=== PATIENT | male | born 1945 | race Caucasian/White ===

== ENCOUNTER 2023-04-11 14:40 | Outpatient (OUT) | payer MEDICARE, OTHER, SELFPAY ==
[2023-04-11 14:59] LABS: Bilirubin Urine NEGATIVE (NEGATIVE); Blood Urine TRACE-I (NEGATIVE); Clarity Urine CLEAR (CLEAR); Color Urine YELLOW (YELLOW); Glucose Urine UA NEGATIVE (NEGATIVE); Ketones Urine TRACE mg/dL (NEGATIVE); Leukocyte Esterase Urine LARGE (NEGATIVE); Nitrite Urine NEGATIVE (NEGATIVE); Protein Urine 100 mg/dL (NEG/TRACE); Specific Gravity Urine 1.015 (1.005-1.025); Urobilinogen Urine 0.2 EU/dL (0.2-1.0); pH Urine 5.5 (5.0-9.0)
[2023-04-11 15:04] LABS: Bacteria Urine MODERATE #/HPF (NONE SEEN); Cast Seen? NONE SEEN #/LPF (NONE SEEN); Crystals Seen? None Seen #/HPF (None Seen); Mucus Urine NONE SEEN (NONE SEEN); Squamous Epithelial Cell Urine RARE #/LPF (NONE/RARE); WBC Urine 50-75 #/HPF (NONE SEEN)
[2023-04-11 15:05] LABS: Urine Culture Indicated ALREADY ORDERED
== END 2023-04-11 14:41 | disposition home or self-care (01) ==
LOC: LAB 14:43
PROVIDERS: PCP Nurse Practitioner Family; Visit Provider Nurse Practitioner Family
DX: N39.0 Urinary tract infection, site not specified (principal)
CPT/HCPCS: 81001; 87086; 87150; 87186

== ENCOUNTER 2023-05-02 16:45 | Outpatient (OUT) | payer MEDICARE, OTHER, SELFPAY ==
[2023-05-02 17:13] LABS: Bilirubin Urine NEGATIVE (NEGATIVE); Blood Urine SMALL (NEGATIVE); Color Urine LT. YELLOW (YELLOW); Glucose Urine UA 250 mg/dL (NEGATIVE); Ketones Urine NEGATIVE (NEGATIVE); Leukocyte Esterase Urine SMALL (NEGATIVE); Nitrite Urine NEGATIVE (NEGATIVE); Protein Urine 30 mg/dL (NEG/TRACE); Urobilinogen Urine 0.2 EU/dL (0.2-1.0)
[2023-05-02 17:23] LABS: Bacteria Urine MODERATE #/HPF (NONE SEEN); Clarity Urine SLIGHTLY CLOUDY (CLEAR); RBC Urine NONE SEEN #/HPF (0-2)
[2023-05-02 17:24] LABS: Cast Seen? NONE SEEN #/LPF (NONE SEEN); Crystals Seen? None Seen #/HPF (None Seen); Mucus Urine NONE SEEN (NONE SEEN); Squamous Epithelial Cell Urine NONE SEEN #/LPF (NONE/RARE)
== END 2023-05-02 16:46 | disposition home or self-care (01) ==
LOC: LAB 16:47
PROVIDERS: PCP Nurse Practitioner Family; Visit Provider Nurse Practitioner Family
DX: N39.0 Urinary tract infection, site not specified (principal)
CPT/HCPCS: 81001; 87086; 87150; 87186

== ENCOUNTER 2023-08-15 08:50 | Outpatient (OUT) | payer MEDICARE, OTHER, SELFPAY ==
[2023-08-15 09:15] LABS: Basophils Percent Auto 0.5 % (0.2-2.0); Eosinophils Absolute Auto 0.4 10^3/uL (0.0-0.7); Eosinophils Percent Auto 4.2 % (0.9-7.0); Hematocrit 32.3 % (42.0-54.0); Hemoglobin 10.3 g/dL (14.0-18.0); Immature Granulocytes Abs Auto 0.05 10^3/uL (0.00-0.03); Immature Granulocytes Pct Auto 0.6 % (0.0-0.5); Lymphocytes Absolute Auto 3.6 10^3/uL (1.2-3.8); Lymphocytes Percent Auto 42.6 % (20.5-60.0); Mean Corpuscular HGB Conc 31.9 g/dL (29.9-35.2); Mean Corpuscular Hemoglobin 30.5 pg (25.9-34.0); Mean Corpuscular Volume 95.6 fL (80.0-94.0); Mean Platelet Volume 10.2 fL (9.5-13.5); Monocytes Absolute Auto 0.6 10^3/uL (0.3-0.8); Monocytes Percent Auto 7.7 % (1.7-12.0); Neutrophils Absolute Auto 3.7 10^3/uL (1.4-6.5); Neutrophils Percent Auto 44.4 % (43.0-75.0); Platelet Count 379 10^3/uL (150-450); Red Blood Count 3.38 10^6/uL (4.70-6.10); Red Cell Distribution Width 14.4 % (11.0-15.0); White Blood Count 8.4 10^3/uL (4.0-11.0)
[2023-08-15 09:25] LABS: Estimated Average Glucose 266 mg/dL; Glycohemoglobin A1C 10.9 % (4.5-6.2)
[2023-08-15 10:00] LABS: Alanine Aminotransferase 17 U/L (16-63); Albumin Globulin Ratio 0.7; Albumin Level 3.3 g/dL (3.4-5.0); Alkaline Phosphatase 45 U/L (46-116); Anion Gap 14.4; Aspartate Amino Transferase 11 U/L (15-37); BUN Creatinine Ratio 15.1; Bilirubin Total 0.3 mg/dL (0.2-1.0); Calcium 8.6 mg/dL (8.5-10.1); Carbon Dioxide 24.5 mmol/L (21.0-32.0); Chloride 105 mmol/L (98-107); Chol HDL Ratio 3.2; Cholesterol 147 mg/dL (<=200); Estimated GFR (African America 32 (>=60); Estimated GFR (Non-African Ame 27 (>=60); Free T3 1.97 pg/mL (2.18-3.98); Globulin 4.5 g/dL; Glucose 139 mg/dL (74-106); HDL Cholesterol 46 mg/dL (40-60); Potassium 4.9 mmol/L (3.5-5.1); Sodium 139 mmol/L (136-145); Thyroid Stimulating Hormone 3.582 uIU/mL (0.358-3.740); Total Protein 7.8 g/dL (6.4-8.2); Triglycerides 135 mg/dL (<=150)
[2023-08-15 10:09] LABS: Prostate Specific Antigen Scrn 2.37 ng/mL (<=4.00)
[2023-08-16 11:09] LABS: Insulin 17.6 uIU/mL (2.6-24.9)
== END 2023-08-15 08:51 | disposition home or self-care (01) ==
LOC: LAB 08:50
PROVIDERS: PCP Nurse Practitioner Family; Visit Provider Nurse Practitioner Family
DX: E78.5 Hyperlipidemia, unspecified (principal)
CPT/HCPCS: 36415; 80053; 80061; 83036; 83525; 84436; 84443; 84481; 84550; 85025; G0103

== ENCOUNTER 2024-01-04 10:45 | Outpatient (OUT) | payer MEDICARE, OTHER, SELFPAY ==
[2024-01-04 11:50] LABS: Estimated Average Glucose 183 mg/dL
== END 2024-01-04 10:46 | disposition home or self-care (01) ==
LOC: LAB 10:45
PROVIDERS: PCP Nurse Practitioner Family; Visit Provider Nurse Practitioner Family
DX: E11.65 Type 2 diabetes mellitus with hyperglycemia (principal)
CPT/HCPCS: 36415; 83036

== ENCOUNTER 2024-08-11 13:27 | Outpatient (OUT) | payer MEDICARE, OTHER, SELFPAY ==
--- NOTE | 2024-08-11 | XR_ITS ---
The [address] [address] Patient Name: VINITA MOREL MRN: [id number] date: 1945 Sex: M Assigned Patient Location: LAB Current Patient Location: LAB Accession/Order Number: [id number] Exam Date: 08/11/2024 14:08 Report Date: 08/11/2024 14:36 At the request of: NANCY SÁNCHEZ Procedure: XR chest 2V PROCEDURE: XR chest 2V DATE: 08/11/2024 2:08 PM EST COMPARISONS: None. CLINICAL INDICATION: 78 years Male COUGH FINDINGS: The heart is upper normal in size. There is moderate elevation the right hemidiaphragm. There is associated right infrahilar atelectasis. There is heterogeneous airspace disease scattered throughout the right lung which may represent inflammatory infiltrate (pneumonia). Other etiologies are also possible. Follow-up radiographs to document resolution are recommended. There is no evidence of pleural effusion or pneumothorax. XR/XR chest 2V IMPRESSION: 1. Elevated right hemidiaphragm with associated atelectasis 2. Airspace disease involving the mid and upper right lung of unclear etiology. Presumably this represents inflammatory infiltrate (pneumonia). Electronically authenticated by: CRYSTAL BOLAND Date: 08/11/2024 14:36
[2024-08-11 13:50] LABS: Basophils Percent Auto 0.3 % (0.2-2.0); Hematocrit 29.9 % (42.0-54.0); Hemoglobin 10.3 g/dL (14.0-18.0); Immature Granulocytes Abs Auto 0.03 10^3/uL (0.00-0.03); Immature Granulocytes Pct Auto 0.3 % (0.0-0.5); Lymphocytes Absolute Auto 1.6 10^3/uL (1.2-3.8); Lymphocytes Percent Auto 14.1 % (20.5-60.0); Mean Corpuscular HGB Conc 34.4 g/dL (29.9-35.2); Mean Corpuscular Hemoglobin 31.4 pg (25.9-34.0); Mean Corpuscular Volume 91.2 fL (80.0-94.0); Mean Platelet Volume 9.8 fL (9.5-13.5); Monocytes Absolute Auto 1.3 10^3/uL (0.3-0.8); Monocytes Percent Auto 11.2 % (1.7-12.0); Neutrophils Absolute Auto 8.3 10^3/uL (1.4-6.5); Neutrophils Percent Auto 74.1 % (43.0-75.0); Platelet Count 359 10^3/uL (150-450); Red Blood Count 3.28 10^6/uL (4.70-6.10); Red Cell Distribution Width 13.6 % (11.0-15.0); White Blood Count 11.2 10^3/uL (4.0-11.0)
[2024-08-11 14:46] LABS: Alanine Aminotransferase 102 U/L (16-63); Albumin Globulin Ratio 0.5; Albumin Level 2.6 g/dL (3.4-5.0); Alkaline Phosphatase 48 U/L (46-116); Anion Gap 15.7; Aspartate Amino Transferase 131 U/L (15-37); Bilirubin Total 0.4 mg/dL (0.2-1.0); Calcium 9.3 mg/dL (8.5-10.1); Carbon Dioxide 25.1 mmol/L (21.0-32.0); Chloride 90 mmol/L (98-107); Estimated GFR (African America 18 (>=60 mL/min/1.73m^2); Estimated GFR (Non-African Ame 15 (>=60 mL/min/1.73m^2); Free T3 1.13 pg/mL (2.18-3.98); Globulin 5.5 g/dL; Glucose 271 mg/dL (74-106); Potassium 3.8 mmol/L (3.5-5.1); Sodium 127 mmol/L (136-145); Thyroid Stimulating Hormone 1.819 uIU/mL (0.358-3.740); Total Protein 8.1 g/dL (6.4-8.2)
== END 2024-08-11 13:28 | disposition home or self-care (01) ==
LOC: LAB 13:31
PROVIDERS: PCP Nurse Practitioner Family; Visit Provider Nurse Practitioner Family
DX: R05.9 Cough, unspecified (principal)
CPT/HCPCS: 36415; 71046; 80053; 84436; 84443; 84481; 85025

== ENCOUNTER 2024-08-11 16:07 | Inpatient (IN) | payer MEDICARE, OTHER, SELFPAY ==
[2024-08-11] VITALS (36 sets, daily range): BP systolic 139–175; BP diastolic 57–76; PULSE 75–90; TEMP 37–37.4; O2SAT 80–97; BMI 39.0; BMI 39.6
--- NOTE | 2024-08-11 16:10 | ECG_ITS ---
The [facility] Test Date: 2024-08-11 Pat Name: VINITA MOREL Department: Room: - Gender: Male Explosive Specialist: : 1945 Requested By: NANCY SÁNCHEZ Order Number: [id number] Reading MD: CLIVE JORDAN Measurements Intervals [place] Rate: 81 P: 66 NV: 176 QRS: -73 QRSD: 172 T: 65 QT: 402 QTc: 440 Interpretive Statements 1100 Sinus rhythm 1102 Sinus arrhythmia 2450 Right bundle branch block 2630 Left anterior fascicular block 9150 abnormal ECG Compared to ECG 03/19/2021 10:55:33 Right bundle-branch block now present Left anterior fascicular block now present Sinus bradycardia no longer present Ventricular premature complex(es) no longer present Intraventricular conduction delay no longer present Electronically Signed On 08-11-2024 23:12:23 EST by CLIVE JORDAN
--- NOTE | 2024-08-11 16:30 | ED_ITS ---
HPI - SOB/Dyspnea General Chief Complaint: Shortness of Breath/Dyspnea Stated Complaint: SENT OVER BY DOCTOR Time Seen by Provider: 08/11/24 16:09 Source: patient Mode of arrival: Wheelchair Limitations: no limitations Related Data Home Medications ?Medication ?Instructions ?Recorded ?Confirmed albuterol sulfate 90 mcg/actuation 2 inh inhalation Q4H PRN shortness 08/11/24 08/11/24 breath activated powder inhaler of breath aspirin 81 mg tablet,delayed 81 mg PO DAILY 08/11/24 08/11/24 release (Adult Aspirin Regimen) atorvastatin 40 mg tablet 60 mg PO .qhs 08/11/24 08/11/24 fenofibrate nanocrystallized 48 mg 96 mg PO QDAY 08/11/24 08/11/24 tablet ferrous gluconate 324 mg (38 mg 324 mg PO QPM 08/11/24 08/11/24 iron) tablet furosemide 20 mg tablet 20 mg PO QDAY 08/11/24 08/11/24 insulin human U-100 NPH-regulr 18 unit subcut BID 08/11/24 08/11/24 70-30 mix 100 unit/mL subcutaneous susp (Novolin 70/30 U-100 Insulin) losartan 100 mg tablet 100 mg PO QDAY 08/11/24 08/11/24 nifedipine 60 mg tablet,extended 60 mg PO QDAY 08/11/24 08/11/24 release oxybutynin chloride 5 mg 5 mg PO QDAY 08/11/24 08/11/24 tablet,extended release 24 hr semaglutide 0.25 mg or 0.5 mg (2 0.5 mg subcut .weekly 08/11/24 08/11/24 mg/3 mL) subcutaneous pen injector (Ozempic) spironolactone 25 mg tablet 25 mg PO QAM 08/11/24 08/11/24 tamsulosin 0.4 mg capsule 0.4 mg PO Q24H 08/11/24 08/11/24 Allergies Allergy/AdvReac Type Severity Reaction Status Date / Time cephalexin (From Keflex) Allergy Unknown Unknown Verified 08/11/24 17:25 ciprofloxacin (From Cipro) Allergy Unknown Unknown Verified 08/11/24 17:25 fluconazole Allergy Unknown Unknown Verified 08/11/24 17:25 lisinopril Allergy Unknown Unknown Verified 08/11/24 17:25 metronidazole (From Flagyl) Allergy Unknown Unknown Verified 08/11/24 17:25 PFSH PFSH Social History Little interest or pleasure in doing things: not at all Feeling down, depressed, or hopeless: not at all Exam Constitutional Vital Signs, click to edit/add: Last Vital Signs Temp 98.6 F 08/11/24 16:20 Pulse 83 08/11/24 19:30 Resp 16 08/11/24 19:30 BP 166/76 H 08/11/24 18:45 Pulse Ox 90 L 08/11/24 19:30 O2 Del Method Vapotherm 08/11/24 18:50 O2 Flow Rate 30 08/11/24 18:50 FiO2 50 08/11/24 18:50 Course Vital Signs Vital signs: Vital Signs Temperature 98.6 F 08/11/24 16:20 Pulse Rate 88 08/11/24 16:20 Respiratory Rate 24 H 08/11/24 16:20 Blood Pressure 153/58 H 08/11/24 16:20 Pulse Oximetry 86 L 08/11/24 16:20 Oxygen Delivery Method Room Air 08/11/24 16:20 Temperature 98.6 F 08/11/24 16:20 Pulse Rate 83 08/11/24 19:30 Respiratory Rate 16 08/11/24 19:30 Blood Pressure 166/76 H 08/11/24 18:45 Pulse Oximetry 90 L 08/11/24 19:30 Oxygen Delivery Method Vapotherm 08/11/24 18:50 Oxygen Delivery Flow Rate 30 08/11/24 18:50 Fraction of Inspired Oxygen 50 08/11/24 18:50 MDM - SOB/Dyspnea MDM Narrative Medical decision making narrative: Patient had CBC and CMP earlier today showing creatinine of 4.0. Additional labs ordered in the ER including troponin and BNP which are both elevated. Outpatient chest x-ray shows patient has multifocal pneumonia in the right lung. Respiratory swabs are negative and blood cultures were ordered for the patient. Due to multiple antibiotic allergies, he was given IV doxycycline for coverage of pneumonia and he was also noted to have a UTI on outpatient labs. I discussed the case with Dr. Javier and given the elevated troponin of 241.1, we will repeat a 3-hour cardiac enzyme. If the troponin is stable, the patient can be admitted. Otherwise he will need to be transferred. While waiting for the repeat troponin, patient was evaluated by Dr. Javier. Throughout his stay in the emergency room he was found to have worsening hypoxia and after breathing treatment was given, the patient had moderate cough and congestion with sputum production and was found to be hypoxic on nasal cannula at 4 to 5 L. He was switched to Vapotherm with improvement and is breathing more easily. Repeat troponin has decreased and patient can be admitted to ICU at this facility. SHARED APC VISIT, PHYSICIAN ATTESTATION: [id number] I performed a substantive part of the MDM during the patient?s E/M visit. I personally evaluated and examined the patient. I personally made or approved the documented management plan and acknowledge its risk of complications. Medical Records Attestation: I reviewed the patient's medical records. Lab Data Attestation: I reviewed the patient's lab results. Labs: Lab Results 08/11/24 08/11/24 08/11/24 Range/Units 16:31 16:35 16:37 PT 11.9 H (9.0-11.6) sec INR 1.14 VBG pH 7.496 H (7.330-7.430) VBG pCO2 30.7 L (40.0-52.0) mmHg Lactate 1.9 (0.4-2.0) mmol/L Troponin I High Sens 241.1 H* (4.0-76.1) pg/mL NT-Pro-B Natriuret Pep 2591.0 H* (<=1800.0) pg/mL Influenza Type A Ag Negative Influenza Type B Ag Negative RSV Antigen Not detected (NOT DETECTE) SARS-CoV-2 Ag (CV2AG) Negative (NEGATIVE) Imaging Data Chest x-ray: Attestation: I have reviewed the pertinent imaging results. ECG Data Attestation: I personally reviewed and interpreted this ECG as follows: (Normal sinus rhythm at a rate of 81 with sinus arrhythmia noted, right bundle branch block with no acute ST elevation or ectopy. EKG reviewed by attending physician) Discharge Plan Discharge Chief Complaint: Shortness of Breath/Dyspnea Patient Disposition: Admitted As Inpatient Time of Disposition Decision: 19:51 Prescriptions / Home Meds: No Action aspirin [Adult Aspirin Regimen] 81 mg tablet,delayed release (DR/EC) 81 mg PO DAILY atorvastatin 40 mg tablet 60 mg PO .qhs fenofibrate nanocrystallized 48 mg tablet 96 mg PO QDAY ferrous gluconate 324 mg (38 mg iron) tablet 324 mg PO QPM furosemide 20 mg tablet 20 mg PO QDAY Novolin 70/30 U-100 Insulin 100 unit/mL (70-30) suspension 18 unit SUBCUT BID losartan 100 mg tablet 100 mg PO QDAY nifedipine 60 mg tablet extended release 60 mg PO QDAY oxybutynin chloride 5 mg tablet extended release 24hr 5 mg PO QDAY Ozempic 0.25 mg or 0.5 mg (2 mg/3 mL) pen injector 0.5 mg SUBCUT .weekly spironolactone 25 mg tablet 25 mg PO QAM tamsulosin 0.4 mg capsule 0.4 mg PO Q24H albuterol sulfate 90 mcg/actuation aerosol powdr breath activated 2 inh inhalation Q4H PRN (Reason: shortness of breath) Print Language: Nepali Referrals: NANCY SÁNCHEZ [Primary Care Provider] - 1 week
[2024-08-11 16:46] LABS: PCO2 VBG 30.7 mmHg (40.0-52.0); pH VBG 7.496 (7.330-7.430)
[2024-08-11] MEDS: 0.9 % SODIUM CHLORIDE 1,000 ML 500 ML IV (16:54)
[2024-08-11 17:01] LABS: INR 1.14; Prothrombin Time 11.9 sec (9.0-11.6)
[2024-08-11 17:04] LABS: Lactate/Lactic Acid 1.9 mmol/L (0.4-2.0)
[2024-08-11 17:08] LABS: Influenza Virus A Antigen Negative; Influenza Virus B Antigen Negative; Internal Control Within Normal Limits; SARS-CoV-2 Ag NEGATIVE (NEGATIVE)
[2024-08-11 17:09] LABS: Internal Control Within Normal Limits; Respiratory Syncytial Virus Not Detected (NOT DETECTE)
[2024-08-11 17:10] LABS: Troponin I High Sensitivity 241.1 pg/mL (4.0-76.1)
[2024-08-11] MEDS: DOXYCYCLINE HYCLATE 100 MG in 0.9 % SODIUM CHLORIDE 100 ML IV (17:36)
[2024-08-11] MEDS: ALBUTEROL SULFATE 2.5 MG/3 ML VIAL NEB IH (17:46)
--- NOTE | 2024-08-11 18:53 | P.HP_ITS ---
HPI H&P: HPI History of Present Illness Chief complaint: SHORTNESS OF BREATH Narrative: Pt seen in the office with MAYA, sent for labs and x-ray , found to have ARF and Pneumonia. Referred to ER, Found to have elevated BNP adn HST Opioid HPI Opioid Management Most Recent Pain and Opioid Data: No Data to Display PFSH PFSH Social History Little interest or pleasure in doing things: not at all Feeling down, depressed, or hopeless: not at all Meds Home Medications and Allergies Home Medications ?Medication ?Instructions ?Recorded ?Confirmed ?Type albuterol sulfate 90 mcg/actuation 2 inh inhalation Q4H PRN shortness 08/11/24 08/11/24 History breath activated powder inhaler of breath aspirin 81 mg tablet,delayed 81 mg PO DAILY 08/11/24 08/11/24 History release (Adult Aspirin Regimen) atorvastatin 40 mg tablet 60 mg PO .qhs 08/11/24 08/11/24 History fenofibrate nanocrystallized 48 mg 96 mg PO QDAY 08/11/24 08/11/24 History tablet ferrous gluconate 324 mg (38 mg 324 mg PO QPM 08/11/24 08/11/24 History iron) tablet furosemide 20 mg tablet 20 mg PO QDAY 08/11/24 08/11/24 History insulin human U-100 NPH-regulr 18 unit subcut BID 08/11/24 08/11/24 History 70-30 mix 100 unit/mL subcutaneous susp (Novolin 70/30 U-100 Insulin) losartan 100 mg tablet 100 mg PO QDAY 08/11/24 08/11/24 History nifedipine 60 mg tablet,extended 60 mg PO QDAY 08/11/24 08/11/24 History release oxybutynin chloride 5 mg 5 mg PO QDAY 08/11/24 08/11/24 History tablet,extended release 24 hr semaglutide 0.25 mg or 0.5 mg (2 0.5 mg subcut .weekly 08/11/24 08/11/24 History mg/3 mL) subcutaneous pen injector (Ozempic) spironolactone 25 mg tablet 25 mg PO QAM 08/11/24 08/11/24 History tamsulosin 0.4 mg capsule 0.4 mg PO Q24H 08/11/24 08/11/24 History Allergies Allergy/AdvReac Type Severity Reaction Status Date / Time cephalexin (From [employer]) Allergy Unknown Unknown Verified 08/11/24 17:25 ciprofloxacin (From Cipro) Allergy Unknown Unknown Verified 08/11/24 17:25 fluconazole Allergy Unknown Unknown Verified 08/11/24 17:25 lisinopril Allergy Unknown Unknown Verified 08/11/24 17:25 metronidazole (From Flagyl) Allergy Unknown Unknown Verified 08/11/24 17:25 Exam Constitutional Vital Signs, click to edit/add: Last Vital Signs Temp 98.6 F 08/11/24 16:20 Pulse 75 08/11/24 17:47 Resp 24 H 08/11/24 16:20 BP 153/58 H 08/11/24 16:20 Pulse Ox 91 L 08/11/24 17:47 O2 Del Method Nasal Cannula 08/11/24 17:47 O2 Flow Rate 4 08/11/24 17:47 Documenting provider has reviewed patient's vital signs: yes Common normals: apparent distress (Distress due to coughing) HENMT Common normals: normocephalic Chest Common normals: inspection of chest normal and palpation of chest normal Respiratory Common normals: no use of accessory muscles; abnormal respiratory effort (coughing during exam) and not clear to ascultation bilaterally Auscultation: rhonchi and egophony right upper Cardio Common normals: regular rate and regular rhythm Extremity Common normals: normal to inspection, full ROM and no clubbing, cyanosis or edema Results ABG ABG results: 08/11/24 16:37 VBG pH 7.496 H VBG pCO2 30.7 L Assessment and Plan Assessment and Plan (1) Acute kidney injury: (2) Acute UTI: (3) Hypoxia: (4) Multifocal pneumonia: (5) Hypothyroid: (6) Acute renal failure: (7) Elevated liver function tests: (8) Anemia: (9) Hyponatremia: (10) Elevated troponin I level: (11) Elevated brain natriuretic peptide (BNP) level: (12) Right upper lobe pneumonia: Plan Admission finding: acute hypoxia with respiratory failure requiring HIgh Flow Supplemental Oxygen, respiratory distress, Uncontrolled hypertension, Leukocytosis due to acute RUL pneumonia leading to sepsis (acute hypoxia, leukocytosis, source of infection) and multisystem organ dysfunction (Elevated troponin, hypoxia and acute renal failure) Sepsis due to pneumonia with acute hypoxic respiratory failure - Sputum cx, IV AB frequent aerosols, Vapotherm - will also try IPV treatments GOOD on top of CKD-3 - Slow hydration, due to elevated BNP and troponin - Elevated troponin - and BNP = check echo - lung exam and no edema so would not be consistent with CHF Hypothyroid - Supplement with cytomel Anemia - Follow daily Uncontrolled hypertension - adjust meds Hyponatremia - due to GOOD - slow hydration NIDDM - ISS elevated LFT likely due to passive congestion due to len pneumonia and GOOD Admission status: With acute hypoxia requiring High Flow Supplemental oxygen, GOOD with elevated HST and BNP, this will require more than 2 midnights of medically necessary treatment, Inpatient status
--- OUTSIDE RECORDS SUMMARY | 2024-08-11 20:43 | XMS_ITS | CCD ---
Author Organization [facility] Care Team Providers Care Staff Command And Control Officer Name Role Phone Unavailable Primary Care Provider Unavailabl e SYD GAMBOA Referring Unavailable Cristiane Lopez Primary Care Provider Unavaila ble SYD GAMBOA Referring Unavailable CRISTIANE LOPEZ R Primary Care Unavailable Pola Vu Unavailable [phone] Pam Torres RN Unavailable [phone] Sarika Cook MD Unavailable Casandra Holley PA-C Unavailable [phone] Syd Henry MD Primary Care Provider Princess INTERRELATED SPECIAL EDUCATION TEACHER.KIESHA, Mary Alice Primary Care Provider [phone] Pola Vu Unavailable Pam Torres RN Unavailable [phone] Sarika Cook MD Unavailable Casandra Holley PA-C Unavailable [phone] Princess INTERRELATED SPECIAL EDUCATION TEACHER.KIESHA, Mary Alice Primary Care Provider [phone] PRAKASH Sáncheze Primary Care Provider [phone] DO Josh Porter Emergency Provider Pam Torres RN Unavailable Sarika Cook MD Unavailable [phone] Princess INTERRELATED SPECIAL EDUCATION TEACHER.KIESHA, Mary Alice Primary Care Provider [phone] Pola Vu Unavailable [phone] Pam Torres RN Unavailable [phone] Sarika Cook MD Unavailable Casandra Holley PA-C Unavailable [phone] Princess PRESCRIPTION EYEGLASS MAKER, Mary Alice S Primary Care Provider PRINCESS, MARY ALICE Admitting Unavailable PRINCESS, MARY ALICE Consulting Unavailable PRINCESS, MARY ALICE Attending Unavailable SYD HENRY Primary Care Unavailable PRINCESS, MARY ALICE Admitting Unavailable PRINCESS, MARY ALICE Primary Care Unavailable PRINCESS, MARY ALICE Consulting Unavailable PRINCESS, MARY ALICE Attending Unavailable Bryan PLAZA, Syd Villanueva Primary Care Provider [phone] Pam Torres RN Unavailable [phone] PRINCESS, MARY ALICE S Primary Care Unavailable TRAMAINE WEBSTERNA Referring Unavailable FIDEL SánchezC Mary Alice Lakia Primary Care Provider DO Leslee Webster Attending Provider Pam Torres RN Unavailable [phone] Casandra Holley PA-C Unavailable [phone] Princess PRESCRIPTION EYEGLASS MAKER, Mary Alice S Primary Care Provider [phone] PRAKASH Sánchez Mary Alice Lakia Primary Care Provider MD Dwight Hyannis Emergency Provider [phone] DO Lizzie Sinclair Admit Provider DO Lizzie Sinclair Attending Provider MD Dung Grider Other Provider SYD GAMBOA Attending Unavailable PRINCESS, MARY ALICE S Primary Care Unavailable COOPER, SYD Referring Unavailable PRINCESS, MARY ALICE S Primary Care Unavailable LIZZIE SINCLAIR Referring Unavailable ENRIQUETAITZER, LESLEE Referring Unavailable PRINCESS, MARY ALICE S Primary Care Unavailable TRAMAINE WEBSTERNA Attending Unavailable KARAMLOU, SARIKA Referring Unavailable PRINCESS, MARY ALICE S Primary Care Unavailable KARAMLOU, SARIKA Attending Unavailable KARAMLOU, SARIKA Referring Unavailable PRINCESS, MARY ALICE S Primary Care Unavailable KARAMLOU, SARIKA Referring Unavailable PRINCESS, MARY ALICE S Primary Care Unavailable PRINCESS, MARY ALICE S Primary Care Unavailable CASANDRA HOLLEY Referring Unavailable KARAMLOU, SARIKA Referring Unavailable PRINCESS, MARY ALICE S Primary Care Unavailable PRINECSS, MARY ALICE S Primary Care Unavailable CASANDRA HOLLEY Referring Unavailable PRINCESS, MARY ALICE S Primary Care Unavailable PRINCESS, MARY ALICE S Primary Care Unavailable MELISSA MCKEON Attending Unavailable LEANN RAINES Attending Unavailable LEANN RAINES Attending Unavailable LEANN RAINES Attending Unavailable LEANN RAINES Attending Unavailable Princess, Mary Alice Lakia Primary Care Unavailable Anthony Beaver Admitting Unavailable Anthony Beaver Attending Unavailable Leslee Webster Admitting Unavailable Leslee Webster Attending Unavailable Princess, Mary Alice Lakia Primary Care Unavailable Kellie Grider Unavailable Princess, Mary Alice Lakia Primary Care Unavailable Lizzie Sinclair Admitting Unavailable Lizzie Sinclair Attending Unavailable Allergies Allergy Classification Reported Allergen(s) Allergy Type Date of Onset Reaction(s) Facility (20 sources) Cephalexin; Translations: [CEPHALEXIN] Drug Allergy 0 Diarrhea [facility] Work Phone: (20 sources) Ciprofloxacin; Translations: [CIPROFLOXACIN] Drug Allergy 0 Other: See Comments [facility] (20 sources) Fluconazole; Translations: [FLUCONAZOLE] Drug Allergy 0 Diarrhea [facility] (20 sources) metroNIDAZOLE; Translations: [METRONIDAZOLE] Drug Allergy 0 Other: See Comments [facility] (1 source) Cephalexin Drug Allergy [facility] Rep[facility] (1 source) Ciprofloxacin Drug Allergy [facility] (1 source) Fluconazole Drug Allergy [facility] Repository (1 source) metroNIDAZOLE Drug Allergy [facility] Repository (1 source) Cephalexin Drug Allergy 4 [facility] (1 source) Ciprofloxacin Drug Allergy 4 [facility] (1 source) Fluconazole Drug Allergy 4 [facility] Medications Current Medications Medication Drug Class(es) Dates Sig (Normalized) Sig (Original) A-C-E-zinc ox-cupric ox-lutein ([facility]) 7,160 unit- 113 mg-1 mg tab (20 sources) A-C-E-zinc ox-cu pric ox-lutein ([facility]) 7,160 unit- 113 mg-1 mg tab Take by mouth. Active A-C-E-zinc ox-cu pric ox-lutein ([facility]) 7,160 unit- 113 mg-1 mg tab Take by mouth. 0 Active Comment on above: Take by mouth. acetaminophen 500 mg oral tablet (2 sources) Start: 1 End: 2 take 2 tablets by mouth every six hours as needed acetaminophen (TYLENOL) 500 mg tablet Take 2 tablets by mouth every 6 hours as needed for pain. 0 03/11/2021 03/07/2022 Discontinued (Discontinued by Patient) Comment on above: Take 2 tablets by mo [facility] every 6 hours as needed for pain. allopurinol 300 mg oral tablet (12 sources) Xanthine Oxidase Inhibitor Start: allopurinol (ZYLOPRIM) 300 mg tablet Start: 06-22-2020 End: 05-08-2022 take 300 mg by mouth once daily Allopurinol Discontinued 300 MG PO Daily June 22, 2020 12:00am May 08, 2022 8:27pm ascorbic acid 60 mg oral lozenge (20 sources) Vitamin C Start: 06-22-2020 take 60 mg by mouth once daily Ascorbic Acid (Vitamin C) Active 60 MG PO Daily June 22, 2020 12:00am Comment on above: Take by mouth. aspirin 81 mg chewable tablet (20 sources) Platelet Aggregation Inhibitor, Nonsteroidal Anti-inflammatory Drug Start: 06-22-2020 take 81 mg by mouth once daily Aspirin Active 81 MG PO Daily June 22, 2020 12:00am take 1 tablet by mouth once ryan y aspirin, enteric coated (ASPIRIN, ENTERIC COATED) 81 mg EC tablet Take 81 mg by mouth once daily. Active Comment on above: Take 81 mg by mouth once daily. atorvastatin 40 mg oral tablet (20 sources) HMG-CoA Reductase Inhibitor Start: 11-15-2023 atorvastatin (LIPITOR) 40 mg tablet TAKE 1 AND 1/2 TABLETS BY MOUTH ONCE A DAY 0 11/15/2023 Active Start: 09-15-2021 End: 10-18-2023 take 80 mg by mouth once daily Atorvastatin Discontinu ed 80 MG PO Daily May 08, 2022 12:00am October 18, 2023 3:11pm Comment on above: TAKE 1 AND 1/2 TABLE TS BY MOUTH ONCE A DAY bisacodyl 5 mg delayed release oral tablet (2 sources) Stimulant Laxative Start: 08-28-20 End: 03-07-20 22 Bisacodyl (DULCOLAX) 5 mg tab Use as directed for Miralax / Gatorade Bowel Prep Kit 4 tablet 0 08/28/2021 03/07/2022 Discontinued (Discontinued by Patient) Comment on above: Use as directed for Miralax / Gatorade Bowel Prep Kit cholecalciferol 0.025 mg oral tablet (20 sources) Vitamin D Start: 06-22-20 take 25 ug by mouth once daily Cholecalciferol (Vitamin D3) Active 25 MCG PO Daily June 22, 2020 12:00am cholecalciferol (VITAMIN D3) 1,000 unit tab tablet Take 1,000 Units by mouth. Active Comment on above: Take 1,000 Units by mouth. cinnamon bark 500 mg oral capsule (20 sources) Start: 06-22-2020 End: 04-21-2024 take 500 mg by mouth once daily Cinnamon Bark Active 500 MG PO Daily June 22, 2020 12:00am Comment on above: Take 500 mg by mouth . CPAP (20 sources) CPAP Active CPAP [place] 4-Jcb-Fdb-Fish Oil (5 sources) Start: 06-22-2020 take 1 capsule by mouth once daily [place] 3-Kxt-Zyr-Fish Oil Active 1 CAP PO Daily June 21, 2020 11:00pm Start: 06-22-2020 take 1 capsule by mo ut once daily [place] 9-Duc-Rjl-Fish Oil Active 1 CAP PO Daily June 22, 2020 12:00am enteric contrast (will be provided with radiology test) (9 sources) Start: 09-18-2022 End: 09-19-2022 enteric contrast (will be provided with radiology test) Indications: Colorectal cancer (HCC) , Overlapping malignant neoplasm of colon (HCC) For CT CHESTABD/PEL W IVCON Routine order Administer, As Directed One Time Only, via Oral, Rectal, both Oral and Rectal, Enteric Tube, Stoma or Indwelling Catheter, Enteric Contrast as designated per enteric contrast guidelines 1 Each 0 09/18/2022 09/19/2022 Active Start: 04-06-2022 End: 04-20-2022 enteric contrast (will be pr ovided with radiology test) For CT ABD/PEL W IVCON Routine order Administer, As Directed One Time Only, via Oral, Rectal, both Oral and Rectal, Enteric Tube, Stoma or Indwelling Catheter, Enteric Contrast as designated per enteric contrast guidelines 1 Each 0 04/06/2022 04/20/2022 Discontinued (Course of therapy completed) Start: 04-06-[address] (will be provided with radiology test) For CT ABD/PEL W IVCON Routine order Administer, As Directed One Time Only, via Oral, Rectal, both Oral and Rectal, Enteric Tube, Stoma or Indwelling Catheter, Enteric Contrast as designated per enteric contrast guidelines 1 Each 0 04/06/2022 Active Comment on above: For CT ABD/PEL W IVC ON Routine order Administer, As Directed One Time Only, via Oral, Rectal, both Oral and Rectal, Enteric Tube, Stoma or Indwelling Catheter, Enteric Contrast as designated per enteric contrast guidelines For CT CHESTABD/PEL W IVCON Routine order Administer, As Directed One Time Only, via Oral, Rectal, both Oral and Rectal, Enteric Tube, Stoma or Indwelling Catheter, Enteric Contrast as designated per enteric contrast guidelines fenofibrate 48 mg oral tablet (20 sources) Peroxisome Proliferator Receptor alpha Agonist Start: 04-07-20 fenofibrate nanocrystallized (TRICOR) 48 mg tablet Take 96 mg by mouth every morning. 04/07/2020 Active Comment on above: Take 96 mg by mouth every morning. ferrous gluconate 324 mg oral tablet (20 sources) Start: 06-22-20 End: 10-18-19 24 take 324 mg by mouth once daily Ferrous Gluconate Active 324 MG PO Daily October 18, 2023 1:00am Comment on above: Take 324 mg by mouth once daily. furosemide 40 mg oral tablet (20 sources) Loop Diuretic Start: 04-10-20 24 take 1 tablet by mouth twice daily furosemide (LASIX) 40 mg tablet TAKE 1 TABLET BY MOUTH TWICE DAILY AT 8AM AND 4PM 0 04/10/2024 Active Start: 11-08-2021 End: 04-21-2024 furosemide (LASIX) 20 mg tab let 11/08/2021 04/21/2024 Discontinued Gatorade Sports Drink (2 sources) Start: 08-28-2021 End: 03-07-2022 Gatorade Sports Drink Use as directed for Miralax / Gatorade Bowel Prep Kit 0 08/28/2021 03/07/2022 Discontinued (Discontinued by Patient) Start: 08-28-2021 Gatorade Sport s Drink Use as directed for Miralax / Gatorade Bowel Prep Kit 0 08/28/2021 Active Comment on above: Use as directed for Miralax / Gatorade Bowel Prep Kit hydrALAZINE hydrochloride 50 mg oral tablet (2 sources) Arteriolar Vasodilator Start: 04-10-2024 hydrALAZINE (APRESOLINE) 50 mg tablet Hydralazine Active 100 MG PO Three times daily 180 April 10, 2024 12:00am 0 04/10/2024 Active Start: 04-10-2024 take 100 mg by mouth three times daily Hydralazine Active 100 MG PO Three times daily 180 April 10, 2024 12:00am insulin isophane, human 70 unt/ml / insulin, regular, human 30 unt/ml injectable suspension (20 sources) Insulin Start: 10-18-2023 Insulin Nph An d Regular Human (Novolin 70/30 U-100 Insulin) 100 unit/mL (70-30) suspension Active 18 UNIT SUBCUT Before breakfast and supper October 18, 2023 1:00am Start: 10-18-2023 Insulin Nph An d Regular Human (Novolin 70/30 U-100 Insulin) 100 unit/mL (70-30) suspension Active 18 UNIT SUBCUT Twice daily October 18, 2023 1:00am Start: 10-18-2023 Insulin Nph An d Regular Human (Novolin 70/30 U-100 Insulin) 100 unit/mL (70-30) suspension Active 16 UNIT SUBCUT Twice daily October 18, 2023 1:00am Start: 06-22-2020 End: 10-18-2023 inject 1 [IU] by subcutaneous injection twice daily Insulin Nph And Regular Human Discontinued 1 UNIT SUBCUT Twice daily June 22, 2020 12:00am October 18, 2023 3:07pm Start: 06-22-2020 End: 10-18-2023 inject 1 [IU] by subcutaneous injection twice daily Insulin Nph And Regular Human Discontinued 1 UNIT SUBCUT Twice daily June 21, 2020 11:00pm October 18, 2023 2:07pm Start: 06-22-2020 inject 1 [IU] by sub cutaneous injection twice daily Insulin Nph And Regular Human Active 1 UNIT SUBCUT Twice daily June 22, 2020 12:00am Start: 05-20-2020 insulin NPH-in sulin regular injection (HumuLIN, NovoLIN 70/30) If blood sugar before dinner is >200, start taking 5 unit(s) of 70/30 NPH before dinner and continue with the 7 unit(s) in the morning. If the blood sugar before dinner is again >200 the next day, add 2 unit(s) to the previous dose of evening insulin For AM insulin changes: Check blood sugar before lunch. If blood sugar > 200, add 2 unit(s) to the morning insulin and take 9 the next day. If the following day's pre-lunch sugar is again > 200, add another 2 unit(s) to the morning dose. 05/20/2020 Active Comment on above: If blood sugar befor e dinner is >200, start taking 5 unit(s) of 70/30 NPH before dinner and continue with the 7 unit(s) in the morning. If the blood sugar before dinner is again >200 the next day, add 2 unit(s) to the previous dose of evening insulin For AM insulin changes: Check blood sugar before lunch. If blood sugar > 200, add 2 unit(s) to the morning insulin and take 9 the next day. If the following day's pre-lunch sugar is again > 200, add another 2 unit(s) to the morning dose. iv contrast (will be provided with radiology test) (9 sources) Start: 09-18-2022 End: 09-19-2022 iv contrast (will be provided with radiology test) Indications: Colorectal cancer (HCC) , Overlapping malignant neoplasm of colon (HCC) CT Chest ABD/PEL-Inject, intravenously, once for 1 dose.No IV access, insert saline lock prior to the beginning of sedation, infusion, injection of imaging exam. Discontinue saline lock post exam. If Pt. has a central line or IVAD, may access for administration according to line specific nursing protocol. Once exam is complete flush line and de-access according to line specific nursing protocol in the CT contrast administration guidelines link. 1 Each 0 09/18/2022 09/19/2022 Active Start: 04-06-2022 End: 04-20-2022 iv contrast (will be provide d with radiology test) CT ABD/PEL -Inject, intravenously, once for 1 dose.No IV access, insert saline lock prior to the beginning of sedation, infusion, injection of imaging exam. Discontinue saline lock post exam. If Pt. has a central line or IVAD, may access for administration according to line specific nursing protocol. Once exam is complete flush line and de-access according to line specific nursing protocol in the CT contrast administration guidelines link. 1 Each 0 04/06/2022 04/20/2022 Discontinued (Course of therapy completed) Start: 04-06-2022 iv contrast (w ill be provided with radiology test) CT ABD/PEL -Inject, intravenously, once for 1 dose.No IV access, insert saline lock prior to the beginning of sedation, infusion, injection of imaging exam. Discontinue saline lock post exam. If Pt. has a central line or IVAD, may access for administration according to line specific nursing protocol. Once exam is complete flush line and de-access according to line specific nursing protocol in the CT contrast administration guidelines link. 1 Each 0 04/06/2022 Active Comment on above: CT ABD/PEL -Inject, intravenously, once for 1 dose.No IV access, insert saline lock prior to the beginning of sedation, infusion, injection of imaging exam. Discontinue saline lock post exam. If Pt. has a central line or IVAD, may access for administration according to line specific nursing protocol. Once exam is complete flush line and de-access according to line specific nursing protocol in the CT contrast administration guidelines link. CT Chest ABD/PEL-Inj ect, intravenously, once for 1 dose.No IV access, insert saline lock prior to the beginning of sedation, infusion, injection of imaging exam. Discontinue saline lock post exam. If Pt. has a central line or IVAD, may access for administration according to line specific nursing protocol. Once exam is complete flush line and de-access according to line specific nursing protocol in the CT contrast administration guidelines link. loperamide hydrochloride 2 mg oral capsule (2 sources) Opioid Agonist Start: 03-23-20 21 End: 03-07-20 22 take 2-4 mg by mouth every six hours as needed loperamide (IMODIUM) 2 mg cap(s) Take 1-2 capsules by mouth four times daily as needed. Follow instructions in discharge paperwork; start with 1 tablet once daily, increase dose if needed 240 capsule 2 03/23/2021 03/07/2022 Discontinued (Discontinued by Patient) Comment on above: Take 1-2 capsules by mouth four times daily as needed. Follow instructions in discharge paperwork; start with 1 tablet once daily, increase dose if needed Hefqzazo-Vdg-Eolvt-Vi t K-Lycop (Men's Daily Formula) 400-20-300 mcg Tablet (5 sources) Start: 06-22-20 take 1 tablet by mouth once daily Ohvafawm-Rty-Wvmjv-V it K-Lycop (Men's Daily Formula) 400-20-300 mcg Tablet Active 1 TAB PO Daily June 21, 2020 11:00pm Start: 06-22-2020 take 1 tablet by hussein th once daily Olxfdvfb-Aqn-Yzzsp-Vit K-Lycop (Men's Daily Formula) 400-20-300 mcg Tablet Active 1 TAB PO Daily June 22, 2020 12:00am multivit-min/folic/vit K/lyc op (ONE-A-DAY MEN'S MULTIVITAMIN ORAL) (20 sources) Start: 03-07-2014 multivit-min/f olic/vit K/lycop (ONE-A-DAY MEN'S MULTIVITAMIN ORAL) 03/07/2014 Active Start: 03-07-2014 multivit-min/f olic/vit K/lycop (ONE-A-DAY MEN'S MULTIVITAMIN ORAL) NIFEdipine 30 mg osmotic 24 hr extended release oral tablet (20 sources) Dihydropyridine Calcium Channel Gary Start: 05-08-2022 take 60 mg by mouth once daily Nifedipine Active 60 MG PO Daily May 08, 2022 8:28pm Start: 05-05-2021 take 1 tablet by hussein th once daily NIFEdipine XL (ADALAT CC, PROCARDIA XL) 60 mg 24 hr tablet Take 60 mg by mouth once daily. 05/05/2021 Active Start: 06-24-2020 End: 05-08-2022 take 30 mg by mouth once daily Nifedipine Discontinued 30 MG PO Daily June 24, 2020 12:00am May 08, 2022 8:28pm Comment on above: Take 60 mg by mouth once daily. 24 hr oxybutynin chloride 5 mg extended release oral tablet (20 sources) Cholinergic Muscarinic Antagonist Start: 10-02-2020 take 1 tablet by mouth once daily oxybutynin XL (DITROPAN XL) 5 mg 24 hr tablet Take 5 mg by mouth once daily. 10/02/2020 Active Start: 06-22-2020 take 1 tablet by hussein th once daily Oxybutynin Chloride (Ditropan Xl) 10 mg Tablet Extended Release 24hr Active 5 MG PO Daily June 22, 2020 12:00am Comment on above: Take 5 mg by mouth o nce daily. OZEMPIC 0.25 mg or 0.5 mg (2 mg/3 mL) pen (8 sources) Start: 08-17-2023 OZEMPIC 0.25 mg or 0.5 mg (2 mg/3 mL) pen INJECT 0.25 MG SUBCUTANEOUSLY WEEKLY 0 08/17/2023 Active Comment on above: INJECT 0.25 MG SUBCU TANEOUSLY WEEKLY polyethylene glycol 3350 97767 mg powder for oral solution (2 sources) Osmotic Laxative Start: 08-28-2021 End: 03-07-2022 polyethylene glycol 3350 (MIRALAX, GLYCOLAX) 17 gram/dose powder Use as directed for Miralax / Gatorade Bowel Prep Kit 238 g 0 08/28/2021 03/07/2022 Discontinued (Discontinued by Patient) Comment on above: Use as directed for Miralax / Gatorade Bowel Prep Kit Semaglutide (4 sources) Start: 10-18-2023 Semaglutide (Ozempic) 0.25 mg or 0.5 mg (2 mg/3 mL) pen injector Active 0.25 MG SUBCUT every week October 18, 2023 1:00am for 4 weeks Start: 10-18-2023 Semaglutide (O zempic) 0.25 mg or 0.5 mg (2 mg/3 mL) pen injector Active 0.25 MG SUBCUT every week October 18, 2023 12:00am for 4 weeks sodium zirconium cyclosilicate 03564 mg powder for oral suspension (2 sources) Start: 04-10-2024 sodium zirconi um cyclosilicate (LOKELMA) 10 gram oral packet Sodium Zirconium Cyclosilicate (Lokelma) 10 gram Powder In Packet Active 10 GM PO Daily 3 April 10, 2024 12:00am 0 04/10/2024 Active tamsulosin hydrochloride 0.4 mg oral capsule (20 sources) alpha-Adrenergi c Gary Start: 10-18-2023 take 0.4 mg by mouth every twenty-four hours Tamsulosin Active 0.4 MG PO Q24H October 18, 2023 1:00am Start: 02-28-2022 take 0.4 mg by mouth once ryan y tamsulosin (FLOMAX) 0.4 mg Take 0.4 mg by mouth once daily. 02/28/2022 Active Comment on above: Take 0.4 mg by mouth once daily. vitamin B12 (20 sources) Vitamin B12 Start: 06-22-2020 take 500 ug by mouth once daily Cyanocobalamin (Vitamin B-12) Active 500 MCG PO Daily June 22, 2020 12:00am Start: 06-22-2020 take 500 ug by mouth once daily Cyanocobalamin (Vitamin B-12) Active 500 MCG PO Daily June 21, 2020 11:00pm Start: 01-06-2016 cyanocobalamin (VITAMIN B-12) 500 mcg tablet 01/06/2016 Active Completed/Discontinued Medications Medication Drug Class(es) Dates Sig (Normalized) Sig (Original) A-C-E-Zinc Ox-Cupric Ox-Lutein ([facility]) 7,160 unit- 113 mg-1 mg Tablet (5 sources) Start: 06-22-2020 End: 04-07-2024 take 2 tablets by mouth once daily A-C-E-Zinc Ox-Cupric Ox-Lutein ([facility]) 7,160 unit- 113 mg-1 mg Tablet Discontinued 2 TAB PO Daily June 22, 2020 12:00am April 07, 2024 6:09pm Start: 06-22-2020 take 2 tablets by mo uth once daily A-C-E-Zinc Ox-Cupric Ox-Lutein ([facility]) 7,160 unit- 113 mg-1 mg Tablet Active 2 TAB PO Daily June 21, 2020 11:00pm Start: 06-22-2020 take 2 tablets by mo uth once daily A-C-E-Zinc Ox-Cupric Ox-Lutein ([facility]) 7,160 unit- 113 mg-1 mg Tablet Active 2 TAB PO Daily June 22, 2020 12:00am A-C-E-Zinc Ox-Cupric Ox-Lutein ([facility]) 7,160 unit- 113 mg-1 mg tablet (4 sources) Start: 10-18-2023 End: 04-07-2024 take 2 tablets by mouth twice daily A-C-E-Zinc Ox-Cupric Ox-Lutein ([facility]) 7,160 unit- 113 mg-1 mg tablet Discontinued 2 TAB PO Twice daily October 18, 2023 1:00am April 07, 2024 6:09pm Start: 10-18-2023 take 2 tablets by mo uth twice daily A-C-E-Zinc Ox-Cupric Ox-Lutein ([facility]) 7,160 unit- 113 mg-1 mg tablet Active 2 TAB PO Twice daily October 18, 2023 1:00am Start: 10-18-2023 take 2 tablets by mo uth twice daily A-C-E-Zinc Ox-Cupric Ox-Lutein ([facility]) 7,160 unit- 113 mg-1 mg tablet Active 2 TAB PO Twice daily October 18, 2023 12:00am [id number] 200 actuat albuterol 0.09 mg/actuat metered dose inhaler (5 sources) beta2-Adrenergic Agonist Start: 06-22-2020 End: 05-08-2022 take 1 puff(s) by inhalation every six hours Albuterol Sulfate Discontinued 2 PUFF INHALATION Q6H June 22, 2020 12:00am May 08, 2022 8:27pm amLODIPine 5 mg oral tablet (20 sources) Dihydropyridine Calcium Channel Gary Start: 10-04-2021 End: 04-07-2024 take 1 tablet by mouth once daily amLODIPine (NORVASC) 5 mg tablet Take 5 mg by mouth once daily. 10/04/2021 12/20/2023 Discontinued Comment on above: Take 5 mg by mouth o nce daily. losartan potassium 100 mg oral tablet (20 sources) Angiotensin 2 Receptor Gary Start: 05-08-2022 End: 04-10-2024 take 100 mg by mouth once daily Losartan Discontinued 100 MG PO Daily May 08, 2022 12:00am April 10, 2024 12:18pm Comment on above: Take 100 mg by mouth once daily. metFORMIN hydrochloride 500 mg oral tablet (20 sources) Biguanide Start: 06-22-2020 End: 10-18-2023 take 500 mg by mouth twice daily Metformin Discontinued 500 MG PO Twice daily June 22, 2020 12:00am October 18, 2023 3:11pm Comment on above: Take 1 tablet by hussein twice daily with meals. montelukast 10 mg oral tablet (20 sources) Leukotriene Receptor Antagonist Start: 06-22-2020 End: 10-18-2023 take 1 tablet by mouth once daily Montelukast (Singulair) 10 mg Tablet Discontinued 10 MG PO Daily June 22, 2020 12:00am October 18, 2023 3:11pm Comment on above: Take 10 mg by mouth. Wohyg-3-OQJ-EPA-Fi sh Oil 300-1,000 mg cap (20 sources) End: 04-21-2024 Ftjbt-2-EEP-EPA- Fish Oil 300-1,000 mg cap Take by mouth. 04/21/2024 Discontinued End: 04-21-2024 Jdwnl-3-NZJ-EPA-Fish Oil 300 -1,000 mg cap Take by mouth. 0 04/21/2024 Discontinued Zjrxl-0-MKX-EPA- Fish Oil 300-1,000 mg cap Take by mouth. 0 Active Comment on above: Take by mouth. omeprazole 20 mg delayed release oral capsule (5 sources) Proton Pump Inhibitor Start: 06-22-20 End: 05-08-20 take 20 mg by mouth once daily Omeprazole Discontinued 20 MG PO Daily June 22, 2020 12:00am May 08, 2022 8:26pm ondansetron 4 mg disintegrating oral tablet (17 sources) Serotonin-3 Receptor Antagonist Start: 05-08-20 End: 10-05-19 take 1 tablet by mouth every eight hours as needed ondansetron orally disintegrating (ZOFRAN ODT) 4 mg disintegrating tablet Take 1 tablet by mouth every 8 hours as needed for nausea/vomiting. 10 tablet 05/08/2022 10/05/2023 Discontinued Comment on above: Take 1 tablet by [facility] every 8 hours as needed for nausea/vomiting. polyethylene glycol 3350 450846 mg / potassium chloride 2970 mg / sodium bicarbonate 6740 mg / sodium chloride 5860 mg / sodium sulfate 01369 mg powder for oral solution (11 sources) Osmotic Laxative Start: 04-13-20 End: 10-18-19 Peg 3350-Electrolytes (Gavilyte-G) 236-22.74-6.74 -5.86 gram recon soln Discontinued ML May 08, 2022 12:00am October 18, 2023 3:10pm Comment on above: As directed simvastatin 80 mg oral tablet (20 sources) HMG-CoA Reductase Inhibitor Start: 06-22-20 End: 04-07-20 take 80 mg by mouth once daily Simvastatin Discontinued 80 MG PO Daily June 22, 2020 12:00am April 07, 2024 6:09pm Comment on above: Take 80 mg by mouth. spironolactone 25 mg oral tablet (20 sources) Aldosterone Antagonist Start: 06-22-20 End: 04-21-20 take 1 tablet by mouth once daily in the morning spironolactone (ALDACTONE) 25 mg tablet Take 25 mg by mouth every morning. 04/12/2021 04/21/2024 Discontinued Comment on above: Take 25 mg by mouth every morning. Problems Active Problems Problem Classification Problem Date Documented Da te Episodic/Chronic Abdominal hernia (2 sources) Hernia of anterior abdominal wall; Translations: [Ventral hernia without obstruction or gangrene] Episodic Cancer of colon (20 sources) Malignant tumor of ascending colon; Translations: [Malignant neoplasm of ascending colon] Onset: 05-10-2020 Resolved: 09-14-2022 05-12-2020 Chronic Cancer of colon (5 sources) History of malignant neoplasm of colon; Translations: [Personal history of other malignant neoplasm of large intestine] 04-20-2023 Episodic Cancer of rectum and anus (20 sources) Malignant tumor of rectum; Translations: [Malignant neoplasm of rectum] Onset: 06-29-2020 Resolved: 09-14-2022 Chronic Chronic kidney disease (20 sources) Chronic kidney disease stage 3; Translations: [CKD (chronic kidney disease), stage III] Onset: 06-03-2021 06-03-2021 Chronic Deficiency and other anemia (20 sources) Iron deficiency anemia due to blood loss; Translations: [Iron deficiency anemia secondary to blood loss (chronic)] Onset: 03-09-2022 Chronic Deficiency and other anemia (20 sources) Anemia of chronic renal failure; Translations: [Anemia of chronic renal failure, stage 3a (HCC)] Onset: 03-09-2022 Chronic Deficiency and other anemia (1 source) Anemia in chronic kidney disease; Translations: [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)] Onset: 12-19-2023 Chronic Diabetes mellitus with complications (5 sources) Type 2 diabetes mellitus; Translations: [Type 2 diabetes mellitus with hyperosmolarity without nonketotic hyperglycemic-hyperos molar coma ([facility])] Onset: 05-09-2022 Chronic Diabetes mellitus without complication (20 sources) Diabetes mellitus; Translations: [Type 2 diabetes mellitus without complications] Onset: 10-10-2022 03-23-2021 Chronic Disorders of lipid metabolism (20 sources) Hyperlipidemia; Translations: [Hyperlipidemia, unspecified] Onset: 07-05-2022 03-23-2021 Chronic Essential hypertension (20 sources) Hypertensive disorder; Translations: [Essential (primary) hypertension] 03-23-2021 Chronic Gastritis and duodenitis (20 sources) Gastritis; Translations: [Gastritis, unspecified, without bleeding] 05-12-2020 Episodic Hyperplasia of prostate (20 sources) Benign prostatic hyperplasia; Translations: [Benign prostatic hyperplasia without lower urinary tract symptoms] Onset: 04-07-2024 08-10-2021 Chronic Hypertension with complications and secondary hypertension (8 sources) Hypertensive renal disease; Translations: [Hypertensive chronic kidney disease with stage 1 through stage 4 chronic kidney disease, or unspecified chronic kidney disease] Onset: 12-19-2023 12-18-2023 Chronic Other connective tissue disease (1 source) Swelling of bilateral lower limbs; Translations: [Swelling of both lower extremities] Other diseases of kidney and ureters (2 sources) Hydronephrosis; Translations: [Other hydronephrosis] Episodic Other gastrointestinal disorders (1 source) Disorder of abdominal wall; Translations: [Intra-abdominal and pelvic swelling, mass and lump, unspecified site] 04-11-2022 Episodic Other nutritional; endocrine; and metabolic disorders (14 sources) Body mass index 30+ - obesity; Translations: [Body mass index (BMI) 38.0-38.9, adult] Onset: 06-03-2021 06-03-2021 Chronic Other nutritional; endocrine; and metabolic disorders (20 sources) Body mass index 40+ - severely obese; Translations: [Body mass index (BMI) 40.0-44.9, adult] Onset: 06-03-2021 Chronic Other nutritional; endocrine; and metabolic disorders (1 source) Body mass index (BMI) 40.0-44.9, adult; Translations: [BMI 40.0-44.9, adult ([facility])] Onset: 04-24-2022 Chronic Residual codes; unclassified (20 sources) Obstructive sleep apnea syndrome; Translations: [Obstructive sleep apnea (adult) (pediatric)] Onset: 02-28-2021 03-23-2021 Chronic Residual codes; unclassified (20 sources) History of hernia repair; Translations: [Other specified postprocedural states] 05-09-2022 Episodic Residual codes; unclassified (4 sources) Past history of procedure; Translations: [Other specified postprocedural states] 10-18-2023 Episodic Unclassified (1 source) Encounter for adjustment and management of vascular access device; Translations: [Encounter for adjustment and management of vascular access device] Onset: 10-18-2023 Urinary tract infections (5 sources) Acute urinary tract infection; Translations: [Urinary tract infection, site not specified] 06-22-2020 Episodic Past or Other Problems Problem Classification Problem Date Documented Da te Episodic/Chronic Acute and unspecified renal failure (20 sources) Injury of kidney; Translations: [Acute kidney failure, unspecified] Onset: 03-03-2021 Resolved: 10-27-2021 05-08-2022 Episodic Asthma (7 sources) Asthma; Translations: [Unspecified asthma, uncomplicated] Resolved: 07-19-2021 07-19-2021 Chronic Deficiency and other anemia (20 sources) Anemia; Translations: [Anemia, unspecified] Onset: 06-03-2021 06-03-2021 Episodic Diabetes mellitus without complication (1 source) Other abnormal glucose; Translations: [OTHER ABNORMAL GLUCOSE] Onset: 07-05-2022 Episodic Fluid and electrolyte disorders (20 sources) Acute hyperkalemia; Translations: [Hyperkalemia] Onset: 05-13-2020 Resolved: 06-03-2021 06-22-2020 Episodic Intestinal obstruction without hernia (20 sources) Small bowel obstruction; Translations: [Unspecified intestinal obstruction, unspecified as to partial versus complete obstruction] Onset: 05-09-2022 05-09-2022 Episodic Nutritional deficiencies (20 sources) Deficiency of macronutrients; Translations: [Mild protein-calorie malnutrition] Onset: 03-10-2021 Resolved: 04-20-2023 03-23-2021 Chronic Other aftercare (20 sources) Patient encounter status; Translations: [Encounter for other specified surgical aftercare] Onset: 03-08-2021 03-23-2021 Episodic Other aftercare (2 sources) [facility] (current) use of insulin; Translations: [Type 2 diabetes mellitus with stage 4 chronic kidney disease, with long-term current use of insulin (HCC)] Onset: 05-09-2022 Episodic Other aftercare (5 sources) Postoperative visit; Translations: [Encounter for other specified surgical aftercare] Onset: 03-08-2021 03-23-2021 Episodic Other gastrointestinal disorders (19 sources) Colostomy present; Translations: [Colostomy status] Onset: 05-13-2020 Resolved: 10-27-2021 06-22-2020 Chronic Other gastrointestinal disorders (7 sources) Ileostomy present; Translations: [Ileostomy status] Resolved: 05-13-2020 05-13-2020 Chronic Other gastrointestinal disorders (20 sources) Pelvic mass; Translations: [Intra-abdominal and pelvic swelling, mass and lump, unspecified site] Onset: 05-10-2020 05-12-2020 Episodic Other nervous system disorders (7 sources) Postoperative pain ; Translations: [Other acute postprocedural pain] Resolved: 06-03-2021 06-03-2021 Episodic Other nutritional; endocrine; and metabolic disorders (7 sources) Morbid obesity; Translations: [Morbid (severe) obesity due to excess calories] Onset: 02-28-2021 Resolved: 06-03-2021 06-03-2021 Chronic Residual codes; unclassified (20 sources) Urinary catheter in situ; Translations: [Presence of other specified devices] Onset: 03-02-2021 03-23-2021 Episodic Residual codes; unclassified (20 sources) Difficult venous access; Translations: [Other specified health status] Onset: 07-19-2021 07-19-2021 Episodic Residual codes; unclassified (8 sources) Postoperative state; Translations: [Other specified postprocedural states] Resolved: 10-27-2021 Episodic Residual codes; unclassified (3 sources) Other specified postprocedural states; Translations: [Other postprocedural status] Onset: 10-18-2023 10-18-2023 Episodic Unclassified (5 sources) Complication of catheter; Translations: [Difficulty with insertion of urinary catheter] 06-22-2020 Results Test Name Value Interpretation Reference Range Facility Renal function 2000 panelon 04-23-2024 Albumin [Mass/Vol] 4.3 g/dL Normal 3.9-4.9 [facility] Comment on above: Order Comment: Speci men Type: BLOOD SPECIMENOrdering Facility: [facility] Address: [address] [place] [address] Performed By: #### 2 4362-6 ####[facility] LABCLIA [id number] [place] [address] Anion gap [Moles/Vol] 9 mmol/L Normal 8-15 [facility] Comment on above: Order Comment: Speci men Type: BLOOD SPECIMENOrdering Facility: [facility] Address: [address] [place] [address] Performed By: #### 2 4362-6 ####[facility] LABCLIA [id number] [place] [address] Calcium [Mass/Vol] 9.9 mg/dL Normal 8.5-10.2 [facility] Comment on above: Order Comment: Speci men Type: BLOOD SPECIMENOrdering Facility: [facility] Address: [address] [place] [address] Performed By: #### 2 4362-6 ####[facility] LABCLIA [id number] [place] [address] Chloride [Moles/Vol] 101 mmol/L Normal 98-107 [facility] Comment on above: Order Comment: Speci men Type: BLOOD SPECIMENOrdering Facility: [facility] Address: [address] [place], [place] [id number] Performed By: #### 2 4362-6 ####[facility] LABCLIA [id number] [place] [address] CO2 [Moles/Vol] 25 mmol/L Normal 22-30 [facility] Comment on above: Order Comment: Speci men Type: BLOOD SPECIMENOrdering Facility: [facility] Address: [address] [place] [address] Performed By: #### 2 4362-6 ####[facility] LABCLIA [id number] [place] [address] Creatinine [Mass/Vol] 3.02 mg/dL High 0.73-1.22 [facility] Comment on above: Order Comment: Chris cortes Type: BLOOD SPECIMENOrdering Facility: [facility] Address: [address] [place] [address] Performed By: #### 2 4362-6 ####[facility] LABIA [id number] [place] [address] Creatinine and Glomerular filtration rate.predicted panel (S/P/Bld) 20 mL/min/1.73m??? Low >=60 [facility] Comment on above: Order Comment: Chris men Type: BLOOD SPECIMENOrdering Facility: [facility] Address: [address] [place] [address] Result Comment: Rosa mated Glomerular Filtration Rate (eGFR) is calculated using the 2020 CKD-EPI creatinine equation. This equation utilizes serum creatinine, sex, and age as parameters. The creatinine assay has traceable calibration to isotope dilution-mass spectrometry. Refer to KDIGO guidelines for clinical interpretation. In patients with unstable renal function, e.g. those with acute kidney injury, the eGFR may not accurately reflect actual GFR. Performed By: #### 2 4362-6 ####[facility] LABIA [id number] [place] [address] Glucose [Mass/Vol] 186 mg/dL High 74-99 [facility] Comment on above: Order Comment: Speci men Type: BLOOD SPECIMENOrdering Facility: [facility] Address: [address] [place] [address] Result Comment: The [place] Diabetes Association (ADA) provides guidance for cutoff values for fasting glucose and random glucose. The ADA defines fasting as no caloric intake for at least 8 hours. Fasting plasma glucose results between 100 to 125 mg/dL indicate increased risk for diabetes (prediabetes). Fasting plasma glucose results greater than or equal to 126 mg/dL meet the criteria for diagnosis of diabetes. In the absence of unequivocal hyperglycemia, results should be confirmed by repeat testing. In a patient with classic symptoms of hyperglycemia or hyperglycemic crisis, random plasma glucose results greater than or equal to 200 mg/dL meet the criteria for diagnosis of diabetes. Reference: Standards of Medical Care in Diabetes 2016, [place] [employer] Association. Diabetes Care. 2016.39(Suppl 1). Performed By: #### 2 4362-6 ####[facility] LABCLIA [id number] [place] [address] Phosphate [Mass/Vol] 3.8 mg/dL Normal 2.7-4.8 [facility] Comment on above: Order Comment: Speci men Type: BLOOD SPECIMENOrdering Facility: [facility] Address: [address] [place] [address] Performed By: #### 2 4362-6 ####[facility] LABCLIA [id number] [place] [address] Potassium [Moles/Vol] 4.7 mmol/L Normal 3.7-5.1 [facility] Comment on above: Order Comment: Speci men Type: BLOOD SPECIMENOrdering Facility: [facility] Address: [address] [place] [address] Performed By: #### 2 4362-6 ####[facility] LABCLIA [id number] [place] [address] Sodium [Moles/Vol] 135 mmol/L Low 136-144 [facility] Comment on above: Order Comment: Speci men Type: BLOOD SPECIMENOrdering Facility: [facility] Address: [address] [place] [address] Performed By: #### 2 4362-6 ####[facility] LABCLIA [id number] [place] [address] Urea nitrogen [Mass/Vol] 56 mg/dL High 9-24 [facility] Comment on above: Order Comment: Speci men Type: BLOOD SPECIMENOrdering Facility: [facility] Address: [address] [place] [id number] Performed By: #### 2 4362-6 ####[facility] LABCLIA [id number] [place] [address] LEOLAOVfiona 04-21-2024 CNOV Office Visit (MIDMAV ) ISAIAH MOREL ([id number]) 1945 M Date Time Provider Department 04/21/24 2:30 PM MELISSA [facility] During your visit today, we recorded the following information about you: Pulse Blood pressure Weight Height 59/minute 127/58 138.9 kg 1.88 m Melissa Mckeon APRN.PRESCRIPTION [employer]ER 04/21/2024 2:29 PM Addendum Please AVOID all NSAIDs such as (Advil, Motrin, Ibuprofen, Naproxen, Aleve, Aspirin, Anacin, Diclofenac, Daypro, Mobic, Meloxicam, Sulindac, Clinoril, etc), and LINN-2 inhibitors (Celebrex, Celecoxib, etc). Tylenol is OK. Please contact me with any questions or concerns about these medications. Follow up in 4 months. Please go to the lab after 07/28/2025 to get non fasting labs drawn, at any [facility] outpatient lab, orders are in the system. Please call [phone] or for central scheduling of labs, radiology testing or to make appointments for follow ups and Consults made at this appointment. Avoid phosphate containing bowel preparations - sodium phosphate (fleet's enemas) Avoid prolonged proton-pump inhibitor use (unless needed) - omeprazole (prilosec), esomeprazole (nexium), pantoprazole (protonix), and lansoprazole (prevacid) are common ones, These have been known to cause acute kidney injury and or progression of CKD. Can use pepcid or tums as an alternative if able. Avoid IV contrast if possible. If you need to be scheduled for a study requiring it, please have the ordering provider contact us. Usually I recommend taking medication that doesn't have phenylephrine and pseudoephedrine in it that can cause BP to go up. The above ingredients would be listed in the active ingredients box on the packaging. Use caution with all herbal medications, would suggest letting us know what supplements you take if any or if you plan to start a new supplement. Please call or message me if another provider starts you on another medication, some medications such as antibiotics, are not safe for patients with kidney disease. If you have any further questions or concerns please feel free to contact me through Your Policy Manager or call me at [phone] and ask for Kidney medicine department and then the nurses can get a hold of me. Increase activity levels as tolerated. For Obesity, a goal of weight loss is essential for the health of your kidneys and blood pressures. Check blood pressures daily and keep a log. If not able at least a few times per weeks at different times of the day. HOW TO CUT BACK ON SALT CONSUMPTION Here are the following guidelines to help reduce the amount of sodium in your diet Take the salt shaker off the table and omit salt from recipes and food preparation. Cook without salt or with only small amounts of added salt. Learn to enjoy the flavors of unsalted foods. Try flavoring foods with herbs, spices, and lemon juice. Read food labels carefully to determine the amounts of sodium. Learn to recognize ingredients that contain sodium. Salt, soy sauce, salt brine or any ingredient with sodium (such as monosodium glutamate) or baking soda (sodium bicarbonate) as part of its name contains sodium. Rinsing canned vegetables and fish will remove much of the salt. Season or marinate meat, poultry, and fish ahead of time with onion, garlic and your favorite herbs before cooking to bring out the flavor. Some terms describing sodium content: lite, light, lightly salted, low sodium, reduced sodium, sodium free, unsalted, no salt added, without salt added, very low sodium. Use lower sodium products, when available, to replace those with higher sodium content. Use simple techniques like saving chicken broth from a chicken you cook at home rather than buying a canned, powdered or bouillon cube broth. When dining out words that signal high sodium include: smoked, barbecued, pickled, broth, soy sauce, teriyaki, creole sauce, marinated, cocktail sauce, tomato base, Parmesan, and mustard sauce. FOODS RECOMMENDED FOODS TO AVOID MILK AND DAIRY 2-3 servings each day All milk and milk products, except buttermilk Cream cheese Low sodium cheeses Yogurt MILK AND DAIRY Buttermilk Cheese ([place], Festus, Cheddar, Blue, Gouda, [place], Velveeta) Cheese spreads FRUIT AND VEGETABLES 5-9 servings/day Fresh or frozen vegetables No added salt or low salt canned vegetables No added salt tomato products Salt-free vegetable juices All fruit and fruit juices FRUIT AND VEGETABLES Canned vegetables Frozen vegetables with seasoning and sauces Pickle relish, sweet or sour Pickled Vegetables Pickles and others prepared in brine Sauerkraut Vegetable or tomato juices, canned or bottled Pickled Fruits BREADS AND GRAINS 6-11 servings/day Bread and rolls Dry and cooked cereals Pancakes, waffles Potatoes Salt-free potato chips Salt-free pretzels/snack chips Laz (more content not included)... Normal [facility] Basic metabolic 2000 panelon 04-14-2024 Anion gap [Moles/Vol] 14 mmol/L Normal 8-15 [facility] Comment on above: Order Comment: Speci men Type: BLOOD SPECIMENOrdering Facility: External Submitter Address: , , Performed By: #### 2 4321-2 ####[facility] LABCLIA [id number] [place] [address] Calcium [Mass/Vol] 9.6 mg/dL Normal 8.5-10.2 [facility] Comment on above: Order Comment: Speci men Type: BLOOD SPECIMENOrdering Facility: External Submitter Address: , , Performed By: #### 2 4321-2 ####[facility] LABCLIA [id number] [place] [address] Chloride [Moles/Vol] 103 mmol/L Normal 98-107 [facility] Comment on above: Order Comment: Speci men Type: BLOOD SPECIMENOrdering Facility: External Submitter Address: , , Performed By: #### 2 4321-2 ####[facility] LABCLIA [id number] [place] [address] CO2 [Moles/Vol] 18 mmol/L Low 22-30 [facility] Comment on above: Order Comment: Speci men Type: BLOOD SPECIMENOrdering Facility: External Submitter Address: , , Performed By: #### 2 4321-2 ####[facility] LABCLIA [id number] [place] [address] Creatinine [Mass/Vol] 2.91 mg/dL High 0.73-1.22 [facility] Comment on above: Order Comment: Speci men Type: BLOOD SPECIMENOrdering Facility: External Submitter Address: , , Performed By: #### 2 4321-2 ####[facility] LABCLIA [id number] [place] [address] Creatinine and Glomerular filtration rate.predicted panel (S/P/Bld) 21 mL/min/1.73m??? Low >=60 [facility] Comment on above: Order Comment: Speci men Type: BLOOD SPECIMENOrdering Facility: External Submitter Address: , , Result Comment: Rosa mated Glomerular Filtration Rate (eGFR) is calculated using the 2020 CKD-EPI creatinine equation. This equation utilizes serum creatinine, sex, and age as parameters. The creatinine assay has traceable calibration to isotope dilution-mass spectrometry. Refer to KDIGO guidelines for clinical interpretation. In patients with unstable renal function, e.g. those with acute kidney injury, the eGFR may not accurately reflect actual GFR. Performed By: #### 2 4321-2 ####[facility] LABCLIA [id number] [place] [address] Glucose [Mass/Vol] 215 mg/dL High 74-99 [facility] Comment on above: Order Comment: Speci men Type: BLOOD SPECIMENOrdering Facility: External Submitter Address: , , Result Comment: The [place] Diabetes [employer] (ADA) provides guidance for cutoff values for fasting glucose and random glucose. The ADA defines fasting as no caloric intake for at least 8 hours. Fasting plasma glucose results between 100 to 125 mg/dL indicate increased risk for diabetes (prediabetes). Fasting plasma glucose results greater than or equal to 126 mg/dL meet the criteria for diagnosis of diabetes. In the absence of unequivocal hyperglycemia, results should be confirmed by repeat testing. In a patient with classic symptoms of hyperglycemia or hyperglycemic crisis, random plasma glucose results greater than or equal to 200 mg/dL meet the criteria for diagnosis of diabetes. Reference: Standards of Medical Care in Diabetes 2016, [place] [employer]. Diabetes Care. 2016.39(Suppl 1). Performed By: #### 2 4321-2 ####[facility] LABCLIA [id number] [place] [address] Potassium [Moles/Vol] 4.7 mmol/L Normal 3.7-5.1 [facility] Comment on above: Order Comment: Speci men Type: BLOOD SPECIMENOrdering Facility: External Submitter Address: , , Performed By: #### 2 4321-2 ####[facility] LABIA [id number] [place] [address] Sodium [Moles/Vol] 135 mmol/L Low 136-144 [facility] Comment on above: Order Comment: Speci sophia Type: BLOOD SPECIMENOrdering Facility: External Submitter Address: , , Performed By: #### 2 4321-2 ####[facility] LABCLIA [id number] [place] [address] Urea nitrogen [Mass/Vol] 64 mg/dL High 9-24 [facility] Comment on above: Order Comment: Speci men Type: BLOOD SPECIMENOrdering Facility: External Submitter Address: , , Performed By: #### 2 4321-2 ####[facility] LABIA [id number] [place] [address] Basic Metabolic Panelon 08-0 Creatinine Clr Calc Pharmacy 33.71 Normal [facility] Comment on above: Performed By: #### C BC, BMP, MG #### [facility] [address] [place] [address] [facility] GFR/1.73 sq M.predicted MDRD (S/P/Bld) [Vol rate/Area] 23.496 mL/min/{1.73_m2} Normal [facility] Comment on above: Performed By: #### C CHUCK HORTON, MG #### [address] Calcium [Mass/volume] in Ser um or PlasmaOrdered By: Lizzie Sinclair on 04-10-2024 Calcium [Mass/Vol] 8.8 mg/dL Normal 8.6-10.3 [facility] Comment on above: Performed By: #### C CHUCK HORTON MG #### [facility] [address] Capillary blood glucose shaneka urement by glucometer (mass/volume)Ordered By: Lizzie Sinclair on 04-10-2024 Glucose [Mass/Vol] 96 mg/dL Normal [facility] Comment on above: Random Glucose Refer ence Range is dependent on time and content of last meal. Glucose of more than 200 mg/dL in a nonstressed, ambulatory subject supports the diagnosis of Diabetes Mellitus. Result Comment: [facility] Glucose Reference Range is dependent on time and content of last meal. Glucose of more than 200 mg/dL in a nonstressed, ambulatory subject supports the diagnosis of Diabetes Mellitus. PERFORMED BY: [address] [place] [address] PATHOLOGIST STACKER DRIVER EULA DAMIAN M.D. Performed By: #### G LUKRISTY #### Point of Care testing , Carbon dioxide, total [Moles /volume] in Serum or PlasmaOrdered By: Lizzie Sinclair on 04-10-2024 CO2 [Moles/Vol] 21.9 mmol/L Normal 21.0-31.0 [facility] Comment on above: Performed By: #### C CLIFFORD BMP, MG #### [address] Chloride [Moles/volume] in S nain or PlasmaOrdered By: Lizzie Sinclair on 04-10-2024 Chloride [Moles/Vol] 108 mmol/L High 98-107 [facility] Comment on above: Performed By: #### C BC, BMP, MG #### [facility] [address] [place] [address] [place] Creatinine [Mass/volume] in Serum or PlasmaOrdered By: Lizzie Sinclair on 04-10-2024 Creatinine [Mass/Vol] 2.69 mg/dL High 0.70-1.30 [facility] Comment on above: Performed By: #### C BC, BMP, MG #### [facility] [address] Glucose Poct Glucometerson 0 04-10-2024 Commemt1 Glu2: Cleaned Meter Normal [facility] Comment on above: Result Comment: PERF ORMED BY: [place] [address] PATHOLOGIST STACKER DRIVER EULA DAMIAN M.D. Performed By: #### G LULS #### Point of Care testing , Glucose [Mass/Vol] 131 mg/dL Normal [facility] Comment on above: Result Comment: [place] [facility] Glucose Reference Range is dependent on time and content of last meal. Glucose of more than 200 mg/dL in a nonstressed, ambulatory subject supports the diagnosis of Diabetes Mellitus. Performed By: #### G LULS #### Point of Care testing , Glucose [Mass/volume] in Ser um or PlasmaOrdered By: Lizzie Sinclair on 04-10-2024 Glucose [Mass/Vol] 117 mg/dL High 70-100 [facility] Comment on above: ADA recommended refe rence rangeRandom Glucose Reference Range is dependent on time and content of last meal. Glucose of more than 200 mg/dL in a nonstressed, ambulatory subject supports the diagnosis of Diabetes Mellitus. Result Comment: [place] [facility] Glucose Reference Range is dependent on time and content of last meal. Glucose of more than 200 mg/dL in a nonstressed, ambulatory subject supports the diagnosis of Diabetes Mellitus. ADA recommended reference range Performed By: #### C BC, BMP, MG #### [facility] [address] [place] [address] [place] Magnesium [Mass/volume] in S nain or PlasmaOrdered By: Lizzie Sinclair on 04-10-2024 Magnesium [Mass/Vol] 1.8 mg/dL Low 1.9-2.7 [facility] Comment on above: Result Comment: PERF ORMED BY: [place] [address] PATHOLOGIST STACKER DRIVER EULA DAMIAN M.D. Performed By: #### C BC, BMP, MG #### [address] No Panel InformationOrdered By: Lizzie Sinclair on 04-10-2024 Estimated GFR (CKD-EPI) 23.496 mL/Min [facility] Creatinine Clearance (Chem 33.71 [facility] Bedside Glucose Comment Glu2: cleaned meter [facility] Potassium [Moles/volume] in Serum or PlasmaOrdered By: Lizzie Sinclair on 04-10-2024 Potassium [Moles/Vol] 5.4 mmol/L High 3.5-5.1 [facility] Comment on above: Performed By: #### C CLIFFROD, BMP, MG #### [facility] [address] [place] [address] Serum or plasma anion gap de terminationOrdered By: Lizzie Sinclair on 04-10-2024 Anion gap [Moles/Vol] 11.5 mmol/L Normal 6.0-15.0 [facility] Comment on above: Performed By: #### C BC, BMP, MG #### [facility] [address] [place] [address] Sodium [Moles/volume] in Ser um or PlasmaOrdered By: Lizzie Sinclair on 04-10-2024 Sodium [Moles/Vol] 136 mmol/L Normal 136-145 [facility] Comment on above: Performed By: #### C BC, BMP, MG #### [address] Urea nitrogen [Mass/volume] in Serum or PlasmaOrdered By: Lizzie Sinclair on 04-10-2024 Urea nitrogen [Mass/Vol] 43 mg/dL High 7-25 [facility] Comment on above: Performed By: #### C BC, BMP, MG #### [address] Basic Metabolic Panelon 07-3 Anion gap [Moles/Vol] 12.0 mmol/L Normal 6.0-15.0 [facility] Comment on above: Performed By: #### G LULS #### Point of Care testing , Calcium [Mass/Vol] 8.8 mg/dL Normal 8.6-10.3 [facility] Comment on above: Performed By: #### G LULS #### Point of Care testing , Chloride [Moles/Vol] 107 mmol/L Normal 98-107 [facility] Comment on above: Performed By: #### G LULS #### Point of Care testing , CO2 [Moles/Vol] 20.3 mmol/L Low 21.0-31.0 [facility] Comment on above: Performed By: #### G LULS #### Point of Care testing , Creatinine [Mass/Vol] 2.65 mg/dL High 0.70-1.30 [facility] Comment on above: Performed By: #### G LULS #### Point of Care testing , Creatinine Clr Calc Pharmacy 34.47 Normal [facility] Comment on above: Result Comment: PERF ORMED BY: [place] [address] PATHOLOGIST STACKER DRIVER EULA DAMIAN M.D. Performed By: #### G LULS #### Point of Care testing , GFR/1.73 sq M.predicted MDRD (S/P/Bld) [Vol rate/Area] 23.922 mL/min/{1.73_m2} Normal [facility] Comment on above: Performed By: #### G LULS #### Point of Care testing , Glucose [Mass/Vol] 70 mg/dL Normal 70-100 [facility] Comment on above: Result Comment: [facility] Glucose Reference Range is dependent on time and content of last meal. Glucose of more than 200 mg/dL in a nonstressed, ambulatory subject supports the diagnosis of Diabetes Mellitus. ADA recommended reference range Performed By: #### G LULS #### Point of Care testing , Potassium [Moles/Vol] 5.3 mmol/L High 3.5-5.1 [facility] Comment on above: Performed By: #### G LULS #### Point of Care testing , Sodium [Moles/Vol] 134 mmol/L Low 136-145 [facility] Comment on above: Performed By: #### G LULS #### Point of Care testing , Urea nitrogen [Mass/Vol] 38 mg/dL High 7-25 [facility] Comment on above: Performed By: #### G LULS #### Point of Care testing , Glucose Poct Glucometerson 0 04-09-2024 Glucose [Mass/Vol] 170 mg/dL Normal [facility] Comment on above: Result Comment: [place] Glucose Reference Range is dependent on time and content of last meal. Glucose of more than 200 mg/dL in a nonstressed, ambulatory subject supports the diagnosis of Diabetes Mellitus. PERFORMED BY: [place] [address] PATHOLOGIST STACKER DRIVER EULA DAMIAN M.D. Performed By: #### G LULS #### Point of Care testing , Glucose [Mass/Vol] 177 mg/dL Normal [facility] Comment on above: Result Comment: [facility] Glucose Reference Range is dependent on time and content of last meal. Glucose of more than 200 mg/dL in a nonstressed, ambulatory subject supports the diagnosis of Diabetes Mellitus. PERFORMED BY: [place] [address] PATHOLOGIST STACKER DRIVER EULA DAMIAN M.D. Performed By: #### C BC, BMP, MG #### [address] Commemt1 Glu2: Cleaned Meter Normal [facility] Comment on above: Result Comment: PERF ORMED BY: [place] [address] PATHOLOGIST STACKER DRIVER EULA DAMIAN M.D. Performed By: #### G MERRICK #### Point of Care testing , Glucose [Mass/Vol] 70 mg/dL Normal [facility] Comment on above: Result Comment: [facility] Glucose Reference Range is dependent on time and content of last meal. Glucose of more than 200 mg/dL in a nonstressed, ambulatory subject supports the diagnosis of Diabetes Mellitus. Performed By: #### G MERRICK #### Point of Care testing , A1C with Estimated Average Lamine calix 04-08-2024 Glucose [Mass/Vol] 194 mg/dL Normal [facility] Comment on above: Result Comment: PERF ORMED BY: [place] [address] PATHOLOGIST STACKER DRIVER EULA DAMIAN M.D. Performed By: #### C BC, BMP, MG #### [address] Automated basophil %Ordered By: Lizzie Sinclair on 04-08-2024 Basophils/100 WBC (Bld) 0.8 % Normal . [facility] Comment on above: Performed By: #### C BC, BMP, MG #### [address] Automated basophil countOrde red By: Lizzie Sinclair on 04-08-2024 Basophils (Bld) [#/Vol] 0.1 10*3/uL Normal 0.0-0.2 [facility] Comment on above: Result Comment: PERF ORMED BY: [place] [address] PATHOLOGIST STACKER DRIVER EULA DAMIAN M.D. Performed By: #### C BC, BMP, MG #### [address] Automated blood monocyte cou ntOrdered By: Lizzei Sinclair on 04-08-2024 Monocytes (Bld) [#/Vol] 0.6 10*3/uL Normal 0.0-0.8 [facility] Comment on above: Performed By: #### C BC, BMP, MG #### [address] Automated eosinophil %Ordere d By: Lizzie Sinclair on 04-08-2024 Eosinophils/100 WBC (Bld) 2.8 % Normal . [facility] Comment on above: Performed By: #### C BC, BMP, MG #### [address] Automated eosinophil countOr dered By: Lizzie Sinclair on 04-08-2024 Eosinophils (Bld) [#/Vol] 0.2 10*3/uL Normal 0.0-0.45 [facility] Comment on above: Performed By: #### C BC, BMP, MG #### [address] Automated monocyte %Ordered By: Lizzie Sinclair on 04-08-2024 Monocytes/100 WBC (Bld) 7.3 % Normal . [facility] Comment on above: Performed By: #### C BC, BMP, MG #### [address] Automated neutrophil %Ordere d By: Lizzie Sinclair on 04-08-2024 Neutrophils/100 WBC (Bld) 67.0 % Normal . [facility] Comment on above: Performed By: #### C BC, BMP, MG #### [address] Basic Metabolic Panelon 07-3 Anion gap [Moles/Vol] 10.0 mmol/L Normal 6.0-15.0 [facility] Comment on above: Performed By: #### C BC, BMP, MG #### [address] Calcium [Mass/Vol] 8.9 mg/dL Normal 8.6-10.3 [facility] Comment on above: Performed By: #### C BC, BMP, MG #### [address] Chloride [Moles/Vol] 111 mmol/L High 98-107 [facility] Comment on above: Performed By: #### C BC, BMP, MG #### [facility] [address] [place] [address] [place] CO2 [Moles/Vol] 22.7 mmol/L Normal 21.0-31.0 [facility] Comment on above: Performed By: #### C BC, BMP, MG #### [facility] [address] [place] [address] [place] Creatinine [Mass/Vol] 2.50 mg/dL High 0.70-1.30 [facility] Comment on above: Performed By: #### C BC, BMP, MG #### [facility] [address] [place] [address] [place] Creatinine Clr Calc Pharmacy 36.48 Normal [facility] Comment on above: Performed By: #### C BC, BMP, MG #### [facility] [address] [place] [address] [place] GFR/1.73 sq M.predicted MDRD (S/P/Bld) [Vol rate/Area] 25.655 mL/min/{1.73_m2} Normal [facility] Comment on above: Performed By: #### C BC, BMP, MG #### [facility] [address] [place] [address] [place] Glucose [Mass/Vol] 112 mg/dL High 70-100 [facility] Comment on above: Result Comment: [facility] Glucose Reference Range is dependent on time and content of last meal. Glucose of more than 200 mg/dL in a nonstressed, ambulatory subject supports the diagnosis of Diabetes Mellitus. ADA recommended reference range Performed By: #### C BC, BMP, MG #### [facility] [address] [place] [address] [place] Potassium [Moles/Vol] 6.7 mmol/L Off scale high 3.5-5.1 [facility] Comment on above: Result Comment: Crit ical Result Called to and read back by: JAKE SMITH at: 04/08/2024 07:48:46 by:MLG Performed By: #### C BC, BMP, MG #### [place] [address] [place] Sodium [Moles/Vol] 137 mmol/L Normal 136-145 [facility] Comment on above: Performed By: #### C BC, BMP, MG #### [address] Urea nitrogen [Mass/Vol] 38 mg/dL High 7-25 [facility] Comment on above: Performed By: #### C BC, BMP, MG #### [address] Complete Blood Count Auto Di ffon 04-08-2024 Mean Corpuscular HGB Conc 32.5 g/dL Normal 32.5-35.6 [facility] Comment on above: Performed By: #### C BC, BMP, MG #### [address] NRBC% 0.1 /100{WBC} Normal 0-0.5 [facility] Comment on above: Performed By: #### C BC, BMP, MG #### [address] Erythrocyte distribution wid th [Ratio] by Automated countOrdered By: Lizzie Sinclair on 04-08-2024 Erythrocyte distribution width (RBC) [Ratio] 15.8 % High 12.0-14.8 [facility] Comment on above: Performed By: #### C BC, BMP, MG #### [address] Erythrocytes [#/volume] in B lood by Automated countOrdered By: Lizzie Sinclair on 04-08-2024 RBC (Bld) [#/Vol] 3.47 10*6/uL Low 3.90-5.60 [facility] Comment on above: Performed By: #### C BC, BMP, MG #### [address] Glucose Poct Glucometerson 0 04-08-2024 Commemt1 Glu2: Cleaned Meter Normal [facility] Comment on above: Result Comment: PERF ORMED BY: [place] [address] PATHOLOGIST STACKER DRIVER EULA DAMIAN M.D. Performed By: #### C BC, BMP, MG #### [address] Glucose [Mass/Vol] 103 mg/dL Normal [facility] Comment on above: Result Comment: [place] [facility] Glucose Reference Range is dependent on time and content of last meal. Glucose of more than 200 mg/dL in a nonstressed, ambulatory subject supports the diagnosis of Diabetes Mellitus. Performed By: #### C BC, BMP, MG #### [address] Commemt1 Glu2: Cleaned Meter Normal [facility] Comment on above: Result Comment: PERF ORMED BY: [place] [address] PATHOLOGIST STACKER DRIVER EULA DAMIAN M.D. Performed By: #### G LULS #### Point of Care testing , Glucose [Mass/Vol] 136 mg/dL Normal [facility] Comment on above: Result Comment: [place] [facility] Glucose Reference Range is dependent on time and content of last meal. Glucose of more than 200 mg/dL in a nonstressed, ambulatory subject supports the diagnosis of Diabetes Mellitus. Performed By: #### G LULS #### Point of Care testing , Glucose [Mass/Vol] 229 mg/dL Normal [facility] Comment on above: Result Comment: [place] [facility] Glucose Reference Range is dependent on time and content of last meal. Glucose of more than 200 mg/dL in a nonstressed, ambulatory subject supports the diagnosis of Diabetes Mellitus. PERFORMED BY: [place] [address] PATHOLOGIST STACKER DRIVER EULA DAMIAN M.D. Performed By: #### C BC, BMP, MG #### [address] Commemt1 Glu2: Cleaned Meter Normal [facility] Comment on above: Result Comment: PERF ORMED BY: [place] [address] PATHOLOGIST STACKER DRIVER EULA DAMIAN M.D. Performed By: #### G LULS #### Point of Care testing , Glucose [Mass/Vol] 96 mg/dL Normal [facility] Comment on above: Result Comment: [place] [facility] Glucose Reference Range is dependent on time and content of last meal. Glucose of more than 200 mg/dL in a nonstressed, ambulatory subject supports the diagnosis of Diabetes Mellitus. Performed By: #### G LULS #### Point of Care testing , Commemt1 Glu2: Cleaned Meter Normal [facility] Comment on above: Result Comment: PERF ORMED BY: [place] [address] PATHOLOGIST STACKER DRIVER EULA DAMIAN M.D. Performed By: #### C BC, BMP, MG #### [address] Glucose [Mass/Vol] 90 mg/dL Normal [facility] Comment on above: Result Comment: [place] [facility] Glucose Reference Range is dependent on time and content of last meal. Glucose of more than 200 mg/dL in a nonstressed, ambulatory subject supports the diagnosis of Diabetes Mellitus. Performed By: #### C BC, BMP, MG #### [facility] [address] [place] [address] Commemt1 Glu2: Cleaned Meter Normal [facility] Comment on above: Result Comment: PERF ORMED BY: [place] [address] PATHOLOGIST STACKER DRIVER EULA DAMIAN M.D. Performed By: #### G LULS #### Point of Care testing , Glucose [Mass/Vol] 74 mg/dL Normal [facility] Comment on above: Result Comment: [place] [facility] Glucose Reference Range is dependent on time and content of last meal. Glucose of more than 200 mg/dL in a nonstressed, ambulatory subject supports the diagnosis of Diabetes Mellitus. Performed By: #### G LULS #### Point of Care testing , Commemt1 Normal [facility] Comment on above: Result Comment: Glu2 : WILL NOTIFY DR/RN Performed By: #### C BC, BMP, MG #### [address] Commemt2 Cleaned Meter Normal [facility] Comment on above: Result Comment: PERF ORMED BY: [place] [address] PATHOLOGIST STACKER DRIVER EULA DAMIAN M.D. Performed By: #### C BC, BMP, MG #### [address] Glucose [Mass/Vol] 44 mg/dL Off scale low [facility] Comment on above: Result Comment: [facility] Glucose Reference Range is dependent on time and content of last meal. Glucose of more than 200 mg/dL in a nonstressed, ambulatory subject supports the diagnosis of Diabetes Mellitus. Performed By: #### C BC, BMP, MG #### [address] Glucose mean value [Mass/vol ume] in Blood Estimated from glycated hemoglobinOrdered By: Lizzie Sinclair on 04-08-2024 Average glucose Estimated from glycated hemoglobin (Bld) [Mass/Vol] 194 mg/dL [facility] Hematocrit [Volume Fraction] of Blood by Automated countOrdered By: Lizzie Sinclair on 04-08-2024 Hematocrit (Bld) [Volume fraction] 33.1 % Low 38.8-50.0 [facility] Comment on above: Performed By: #### C BC, BMP, MG #### [address] Hemoglobin A1c percentageOrd ered By: Lizzie Sinclair on 04-08-2024 HbA1c (Bld) [Mass fraction] 8.4 % High 4.3-5.6 [facility] Comment on above: Increased risk for d iabetes: 5.7 - 6.4diabetes: >6.4glycemic control for adults with diabetes: <7.0 Result Comment: Incr eased risk for diabetes: 5.7 - 6.4 diabetes: >6.4 glycemic control for adults with diabetes: <7.0 Performed By: #### C BC, BMP, MG #### [place] [id number] [place] Hemoglobin [Mass/volume] in BloodOrdered By: Lizzie Sinclair on 04-08-2024 Hemoglobin (Bld) [Mass/Vol] 10.7 g/dL Low 13.0-17.0 [facility] Comment on above: Performed By: #### C BC, BMP, MG #### [address] Leukocytes [#/volume] correc speedy for nucleated erythrocytes in Blood by Automated counOrdered By: Lizzie Sinclair on 04-08-2024 WBC corrected for nucl RBC Auto (Bld) [#/Vol] 8.9 10*3/uL 4.1-10.5 [facility] Leukocytes [#/volume] in Blo od by Automated countOrdered By: Lizzie Sinclair on 04-08-2024 WBC (Bld) [#/Vol] 8.9 10*3/uL Normal 4.1-10.5 [facility] Comment on above: Performed By: #### C CLIFFORD, BMP, MG #### [place] [address] [place] Lymphocytes [#/volume] in Bl ood by Automated countOrdered By: Lizzie Sinclair on 04-08-2024 Lymphocytes (Bld) [#/Vol] 2.0 10*3/uL Normal 1.00-4.8 [facility] Comment on above: Performed By: #### C BC, BMP, MG #### [place] [address] [place] Lymphocytes/100 leukocytes i n Blood by Automated countOrdered By: Lizzie Sinclair on 04-08-2024 Lymphocytes/100 WBC (Bld) 22.1 % Normal . [facility] Comment on above: Performed By: #### C BC, BMP, MG #### [place] [address] [place] MCH [Entitic mass] by Automa speedy countOrdered By: Lizzie Sinclair on 04-08-2024 MCH (RBC) [Entitic mass] 31.0 pg Normal 27.5-35.2 [facility] Comment on above: Performed By: #### C BC, BMP, MG #### [facility] [address] [place] [address] MCHC Auto (RBC) [Mass/Vol]Or dered By: Lizzie Sinclair on 04-08-2024 MCHC (RBC) [Mass/Vol] 32.5 g/dL 32.5-35.6 [facility] MCV [Entitic volume] by Auto mated countOrdered By: Lizzie Sinclair on 04-08-2024 MCV (RBC) [Entitic vol] 95.5 fL Normal 83.5-101 [facility] Comment on above: Performed By: #### C BC, BMP, MG #### [facility] [address] [place] [address] Magnesiumon 04-08-2024 Magnesium [Mass/Vol] 1.9 mg/dL Normal 1.9-2.7 [facility] Comment on above: Result Comment: PERF ORMED BY: [place] [address] PATHOLOGIST STACKER DRIVER EULA DAMIAN M.D. Performed By: #### C CLIFFORD, BMP, MG #### [facility] [address] [place] [address] Neutrophils [#/volume] in Bl ood by Automated countOrdered By: Lizzie Sinclair on 04-08-2024 Neutrophils (Bld) [#/Vol] 6.0 10*3/uL Normal 1.8-7.7 [facility] Comment on above: Performed By: #### C BC, BMP, MG #### [facility] [address] [place] [address] No Panel InformationOrdered By: Lizzie Sinclair on 04-08-2024 Bedside Glucose #2 Comment Cleaned meter [facility] Nucleated erythrocytes [Pres ence] in Blood by Automated countOrdered By: Lizzie Sinclair on 04-08-2024 Nucleated RBC Auto Ql (Bld) 0.1 /100{WBC} 0-0.5 [facility] Platelet mean volume [Entiti c volume] in Blood by Automated countOrdered By: Lizzie Sinclair on 04-08-2024 Platelet mean volume (Bld) [Entitic vol] 7.9 fL Normal 6.6-10.1 [facility] Comment on above: Performed By: #### C BC, BMP, MG #### [facility] [address] Platelets [#/volume] in Bloo d by Automated countOrdered By: Lizzie Sinclair on 04-08-2024 Platelets (Bld) [#/Vol] 347 10*3/uL Normal 150-450 [facility] Comment on above: Performed By: #### C BC, BMP, MG #### [address] Potassiumon 04-08-2024 Potassium [Moles/Vol] 5.9 mmol/L High 3.5-5.1 [facility] Comment on above: Result Comment: PERF ORMED BY: [place] [address] PATHOLOGIST STACKER DRIVER EULA DAMIAN M.D. Performed By: #### C BC, BMP, MG #### [address] Potassium [Moles/Vol] 6.3 mmol/L Off scale high 3.5-5.1 [facility] Comment on above: Result Comment: Crit ical Result Called to and read back by: CAROL ROBERT at: 04/08/2024 12:09:50 by:LFM PERFORMED BY: [place] [address] PATHOLOGIST STACKER DRIVER EULA DAMIAN M.D. Performed By: #### C BC, BMP, MG #### [address] ALBUMIN/CREATININE RATIO, UR INEon 04-07-2024 Albumin DL <= 20 mg/L (U) [Mass/Vol] 84.6 mg/L Normal [facility] Comment on above: Order Comment: Speci men Type: URINE SPECIMENOrdering Facility: [facility] Address: [address] [place] [address] Performed By: #### 2 890-2, UACR ####[facility] LABCLIA [id number] [place] [address] [place] Albumin/Creatinine (U) [Mass ratio] 160 mg/g High <30 [facility] Comment on above: Order Comment: Speci men Type: URINE SPECIMENOrdering Facility: [facility] Address: [address] [place] [address] Result Comment: Adul t Male and Female Nephrotic Criteria: <30 mg/g is considered normal to mildly increased 30-300 mg/g is considered moderately increased >300 mg/g is considered severely increased KDIGO. (2013). KDIGO 2012 Clinical Practice Guideline for the Evaluation and Management of Chronic Kidney Disease. Official Journal of the International Society of Nephrology, 3(1), 1-150. Performed By: #### 2 890-2, UACR ####[facility] LABCLIA [id number] [place] [address] [place] Automated basophil %Ordered By: Pola Quintanilla on 04-07-2024 Basophils/100 WBC (Bld) 1.4 % Normal . [facility] Comment on above: Performed By: #### C CHUCK HORTON MG #### [facility] [address] Automated basophil countOrde red By: Pola Quintanilla on 04-07-2024 Basophils (Bld) [#/Vol] 0.1 10*3/uL Normal 0.0-0.2 [facility] Comment on above: Result Comment: PERF ORMED BY: [address] [place] [address] PATHOLOGIST STACKER DRIVER EULA DAMIAN M.D. Performed By: #### C CUHCK HORTON, #### [facility] [address] [place] [address] Automated blood monocyte cou ntOrdered By: Pola Quintanilla on 04-07-2024 Monocytes (Bld) [#/Vol] 0.6 10*3/uL Normal 0.0-0.8 [facility] Comment on above: Performed By: #### C BC, BMP, MG #### [address] Automated eosinophil %Ordere d By: Pola Quintanilla on 04-07-2024 Eosinophils/100 WBC (Bld) 3.0 % Normal . [facility] Comment on above: Performed By: #### C BC, BMP, MG #### [address] Automated eosinophil countOr dered By: Pola Quintanilla on 04-07-2024 Eosinophils (Bld) [#/Vol] 0.3 10*3/uL Normal 0.0-0.45 [facility] Comment on above: Performed By: #### C BC, BMP, MG #### [address] Automated monocyte %Ordered By: Pola Quintanilla on 04-07-2024 Monocytes/100 WBC (Bld) 6.1 % Normal . [facility] Comment on above: Performed By: #### C BC, BMP, MG #### [address] Automated neutrophil %Ordere d By: Pola Quintanilla on 04-07-2024 Neutrophils/100 WBC (Bld) 61.8 % Normal . [facility] Comment on above: Performed By: #### C BC, BMP, MG #### [address] Bacteria [Presence] in Urine by AutomatedOrdered By: Lizzie Sinclair on 04-07-2024 Bacteria Auto Ql (U) None seen [HPF] None Seen [facility] Basic Metabolic Panelon 03-11 Creatinine Clr Calc Pharmacy 32.58 Normal [facility] Comment on above: Result Comment: PERF ORMED BY: [place] [address] PATHOLOGIST STACKER DRIVER EULA DAMIAN M.D. Performed By: #### C BC, BMP, MG #### [address] GFR/1.73 sq M.predicted MDRD (S/P/Bld) [Vol rate/Area] 22.297 mL/min/{1.73_m2} Normal [facility] Comment on above: Performed By: #### C BC, BMP, MG #### [facility] [address] [place] [address] [facility] Bilirubin Test strip Ql (U)O rdered By: Lizzie Sinclair on 04-07-2024 Bilirubin Ql (U) Negative Negative [facility] CBC panel Auto (Bld)on 04-07 Erythrocyte distribution width (RBC) [Ratio] 15.0 % Normal 11.5-15.0 [facility] Comment on above: Order Comment: Speci men Type: BLOOD SPECIMENOrdering Facility: [facility] Address: [address] [place] [address] Performed By: #### 5 8410-2 ####[facility] LABCLIA [id number] [place] [id number] Hematocrit (Bld) [Volume fraction] 36.5 % Low 39.0-51.0 [facility] Comment on above: Order Comment: Speci men Type: BLOOD SPECIMENOrdering Facility: [facility] Address: [address] [place] [address] Performed By: #### 5 8410-2 ####[facility] LABCLIA [id number] [place] [address] Hemoglobin (Bld) [Mass/Vol] 11.6 g/dL Low 13.0-17.0 [facility] Comment on above: Order Comment: Speci men Type: BLOOD SPECIMENOrdering Facility: [facility] Address: [address] [place] [address] Performed By: #### 5 8410-2 ####[facility] LABCLIA [id number] [place] [address] MCH (RBC) [Entitic mass] 30.7 pg Normal 26.0-34.0 [facility] Comment on above: Order Comment: Speci men Type: BLOOD SPECIMENOrdering Facility: [facility] Address: [address] [place] [address] Performed By: #### 5 8410-2 ####[facility] LABCLIA [id number] [place] [address] MCHC (RBC) [Mass/Vol] 31.8 g/dL Normal 30.5-36.0 [facility] Comment on above: Order Comment: Speci men Type: BLOOD SPECIMENOrdering Facility: [facility] Address: [address] [place] [address] Performed By: #### 5 8410-2 ####[facility] LABCLIA [id number] [place] [address] MCV (RBC) [Entitic vol] 96.6 fL Normal 80.0-100.0 [facility] Comment on above: Order Comment: Speci men Type: BLOOD SPECIMENOrdering Facility: [facility] Address: [address] [place] [address] Performed By: #### 5 8410-2 ####[facility] LABCLIA [id number] [place] [address] Nucleated RBC (Bld) [#/Vol] 10*3/uL Normal <0.01 [facility] Comment on above: Order Comment: Speci men Type: BLOOD SPECIMENOrdering Facility: [facility] Address: [address] [place] [address] Performed By: #### 5 8410-2 ####[facility] LABCLIA [id number] [place] [address] Platelet mean volume (Bld) [Entitic vol] 9.8 fL Normal 9.0-12.7 [facility] Comment on above: Order Comment: Speci men Type: BLOOD SPECIMENOrdering Facility: [facility] Address: [address] [place] [address] Performed By: #### 5 8410-2 ####[facility] LABCLIA [id number] [place] [address] Platelets (Bld) [#/Vol] 359 10*3/uL Normal 150-400 [facility] Comment on above: Order Comment: Speci men Type: BLOOD SPECIMENOrdering Facility: [facility] Address: [address] [place] [address] Performed By: #### 5 8410-2 ####[facility] LABIA [id number] [place] [address] RBC (Bld) [#/Vol] 3.78 10*6/uL Low 4.20-6.00 [facility] Comment on above: Order Comment: Speci men Type: BLOOD SPECIMENOrdering Facility: [facility] Address: [address] [place] [address] Performed By: #### 5 8410-2 ####[facility]ORT[facility] LIVONIA [id number] [place] [address] WBC (Bld) [#/Vol] 9.15 10*3/uL Normal 3.70-11.00 [facility] Comment on above: Order Comment: Speci men Type: BLOOD SPECIMENOrdering Facility: [facility] Address: [address] [place] [address] Performed By: #### 5 8410-2 ####[facility] LIVONIA [id number] [place] [address] Pasha 04-07-2024 CNPN Telephone (MIDARV) ISAIAH MOREL ([id number]) 1945 Date Time Provider Department 04/07/24 [facility] During your visit today, we recorded the following information about you: Leslee WebsterDO 04/07/2024 2:26 PM Signed Called patient, lab work done today with K of 6.7. not previously hyperkalemic but on spironolactone and losartan. Known CKD stage IV, creatinine up slightly. Advised going to the ED for evaluation and treatment. He is agreeable. Reviewed to call tomorrow for update. Called [facility] to review. Leslee WebsterDO April 07, 2024, 2:26 PM Allergies As of Date: 04/07/2024 Noted Allergy Reaction CEPHALEXIN 06/22/2020 6 - Diarrhea CIPROFLOXACIN 05/03/2020 14 - Other: See Comments Comments: Made pt dizzy FLAGYL (METRONIDAZOLE) 05/03/2020 14 - Other: See Comments Comments: Made pt dizzy FLUCONAZOLE 06/22/2020 6 - Diarrhea Date Reviewed: 12/19/2023 Reviewed by: Radha Arriaga MA - Fully Assessed Prescriptions as of 04/07/2024 - allopurinol (ZYLOPRIM) 300 mg tablet - atorvastatin (LIPITOR) 40 mg tablet TAKE 1 AND 1/2 TABLETS BY MOUTH ONCE A DAY - OZEMPIC 0.25 mg or 0.5 mg (2 mg/3 mL) pen INJECT 0.25 MG SUBCUTANEOUSLY WEEKLY - tamsulosin (FLOMAX) 0.4 mg Take 0.4 mg by mouth once daily. - furosemide (LASIX) 20 mg tablet - CPAP - NIFEdipine XL (ADALAT CC, PROCARDIA XL) 60 mg 24 hr tablet Take 60 mg by mouth once daily. - spironolactone (ALDACTONE) 25 mg tablet Take 25 mg by mouth every morning. - A-C-E-zinc ox-cupric ox-lutein ([facility]) 7,160 unit- 113 mg-1 mg tab Take by mouth. - losartan potassium (LOSARTAN ORAL) Take 100 mg by mouth once daily. - oxybutynin XL (DITROPAN XL) 5 mg 24 hr tablet Take 5 mg by mouth once daily. - cyanocobalamin (VITAMIN B-12) 500 mcg tablet - fenofibrate nanocrystallized (TRICOR) 48 mg tablet Take 96 mg by mouth every morning. - multivit-min/folic/vit K/lycop (ONE-A-DAY MEN'S MULTIVITAMIN ORAL) - insulin NPH-insulin regular injection (HumuLIN, NovoLIN 70/30) If blood sugar before dinner is >200, start taking 5 unit(s) of 70/30 NPH before dinner and continue with the 7 unit(s) in the morning. If the blood sugar before dinner is again >200 the next day, add 2 unit(s) to the previous dose of evening insulin For AM insulin changes: Check blood sugar before lunch. If blood sugar > 200, add 2 unit(s) to the morning insulin and take 9 the next day. If the following day's pre-lunch sugar is again > 200, add another 2 unit(s) to the morning dose. - FERROUS GLUCONATE ORAL Take 324 mg by mouth once daily. - aspirin, enteric coated (ASPIRIN, ENTERIC COATED) 81 mg EC tablet Take 81 mg by mouth once daily. - Ascorbic Acid 60 mg lozg Take by mouth. - cholecalciferol (VITAMIN D3) 1,000 unit tab tablet Take 1,000 Units by mouth. - Cinnamon Bark 500 mg cap Take 500 mg by mouth. - Ijsqm-2-RUF-EPA-Fish Oil 300-1,000 mg cap Take by mouth. Problem List As Of Date 04/07/2024 Noted Resolved Malignant neoplasm of ascending colon (HCC) [C1*05/10/2020 09/14/2022 Pelvic mass [R19.00] 05/10/2020 DM (diabetes mellitus) (HCC) [E11.9] Hypertension [I10] BPH (benign prostatic hyperplasia) [N40.0] Gastritis [K29.70] Hyperlipidemia [E78.5] Asthma [J45.909] 07/19/2021 Post-operative state [Z98.890] 10/27/2021 Post-operative pain [G89.18] 06/03/[address] (HCC) [Z93.2] 05/13/2020 S/P hernia repair [Z98.890, Z87.19] Hyponatremia [E87.1] 05/13/2020 06/03/[address] (HCC) [Z93.3] 05/13/2020 10/27/2021 Malignant neoplasm of rectosigmoid junction (HC*06/29/2020 09/14/2022 Morbid obesity (HCC) [E66.01] 02/28/2021 06/03/2021 KIMMY (obstructive sleep apnea) [G47.33] 02/28/2021 Rectal cancer (HCC) [C20] 03/01/2021 09/14/2022 Attention to colostomy (HCC) [Z43.3] 03/02/2021 10/27/2021 Hyperkalemia [E87.5] 03/02/2021 03/03/[address] [Z97.8] 03/02/2021 Acute on chronic kidney failure (HCC) [N17.9, N*03/03/2021 03/04/2021 Hypokalemia [E87.6] 03/07/2021 03/10/2021 Encounter for postoperative wound care [Z48.89] 03/08/2021 Mild protein-calorie malnutrition (HCC) [E44.1] 03/10/2021 04/20/2023 Acute renal failure (ARF) (HCC) [N17.9] 03/19/2021 10/27/2021 BMI 40.0-44.9, adult (HCC) [Z68.41] 06/03/2021 Anemia [D64.9] 06/03/2021 CKD (chronic kidney disease), stage III (HCC) [*06/03/2021 Difficult intravenous access [Z78.9] 07/19/2021 Iron deficiency anemia due to chronic blood los*03/09/2022 Anemia of chronic renal failure, stage 3a (HCC)*03/09/2022 SBO (small bowel obstruction) (HCC) [K56.609] 05/09/2022 Acute renal failure superimposed on stage 3 chr*05/09/2022 Dehydration [E86.0] 05/09/2022 Colorectal cancer (HCC) [C19] 09/14/2022 Chronic renal disease, stage IV (HCC) [N18.4] 04/20/2023 Encounter Status:Closed by LESLEE WEBSTER on 04/07/24 Normal [facility] Calcium [Mass/volume] in Ser um or PlasmaOrdered By: Pola Quintanilla on 04-07-2024 Calcium [Mass/Vol] 9.0 mg/dL Normal 8.6-10.3 [facility] Comment on above: Performed By: #### C BC, BMP, MG #### [address] Carbon dioxide, total [Moles /volume] in Serum or PlasmaOrdered By: Pola Quintanilla on 04-07-2024 CO2 [Moles/Vol] 20.3 mmol/L Low 21.0-31.0 [facility] Comment on above: Performed By: #### C BC, BMP, MG #### [address] Chloride [Moles/volume] in S nain or PlasmaOrdered By: Pola Quintanilla on 04-07-2024 Chloride [Moles/Vol] 108 mmol/L High 98-107 [facility] Comment on above: Performed By: #### C BC, BMP, MG #### [address] Color of Urine by AutoOrdere d By: Lizzie Sinclair on 04-07-2024 Color (U) Yellow Normal Yellow [facility] Comment on above: Order Comment: Name Collection Type:: Clean-Voided Midstream Performed By: #### U JANELL GARRIDO, ADDONUARUST, [place] #### [address] Complete Blood Count Auto Di ffon 04-07-2024 Mean Corpuscular HGB Conc 32.3 g/dL Low 32.5-35.6 [facility] Comment on above: Performed By: #### C BC, BMP, MG #### [address] Monocytes/100 WBC (Bld) 15.84 % Normal 0.00-20.00 [facility] Comment on above: Performed By: #### C BC, BMP, MG #### [address] NRBC% 0.1 /100{WBC} Normal 0-0.5 [facility] Comment on above: Performed By: #### C BC, BMP, MG #### [address] Creatinine [Mass/volume] in Serum or PlasmaOrdered By: Pola Quintanilla on 04-07-2024 Creatinine [Mass/Vol] 2.81 mg/dL High 0.70-1.30 [facility] Comment on above: Performed By: #### C BC, BMP, MG #### [facility] [address] [place] [address] Creatinine [Mass/volume] in UrineOrdered By: Lizzie Sinclair on 04-07-2024 Creatinine (U) [Mass/Vol] 93.00 mg/dL [facility] Comment on above: No reference range e stablished Creatinine, Urine (Random)on 04-07-2024 Creatinine, Urine (Random) 93.00 mg/dL Normal [facility] Comment on above: Result Comment: No r eference range established Performed By: #### U CREA, CUU, ADDONUAPLUS, [place] #### [facility] [address] [place] [address] [place] Dipstick and Microscopicon 0 04-07-2024 Bacteria,Urine None Seen Normal None Seen [facility] Comment on above: Order Comment: Name Collection Type:: Clean-Voided Midstream Performed By: #### U CREA, CUU, ADDONUAPLUS, [place] #### [address] Bilirubin,Urine Negative Normal Negative [facility] Comment on above: Order Comment: Name Collection Type:: Clean-Voided Midstream Performed By: #### U CREA, CUU, ADDONUAPLUS, [place] #### [place] [address] [place] Budding Yeast,Urine 1+ High None Seen [facility] Comment on above: Order Comment: Name Collection Type:: Clean-Voided Midstream Result Comment: PERF ORMED BY: [place] [address] PATHOLOGIST STACKER DRIVER EULA DAMIAN M.D. Performed By: #### U CREA, CUU, ADDONUAPLUS, [place] #### [place] [address] [place] Glucose Ql (U) Normal Normal Normal [facility] Comment on above: Order Comment: Name Collection Type:: Clean-Voided Midstream Performed By: #### U CREA, CUU, ADDONUAPLUS, [place] #### [address] Hyaline Casts,Urine None Normal 0-8 [facility] Comment on above: Order Comment: Name Collection Type:: Clean-Voided Midstream Performed By: #### U CREA, CUU, ADDONUAPLUS, [place] #### [address] Nitrite,Urine Negative Normal Negative [facility] Comment on above: Order Comment: Name Collection Type:: Clean-Voided Midstream Performed By: #### U CREA, CUU, ADDONUAPLUS, [place] #### [address] Occult Blood,Urine Negative Normal Negative [facility] Comment on above: Order Comment: Name Collection Type:: Clean-Voided Midstream Result Comment: PERF ORMED BY: [place] [address] PATHOLOGIST STACKER DRIVER EULA DAMIAN M.D. Performed By: #### U CREA, CUU, ADDONUAPLUS, [place] #### [address] RBC,Urine None Seen Normal 0-4 [facility] Comment on above: Order Comment: Name Collection Type:: Clean-Voided Midstream Performed By: #### U CREA, CUU, ADDONUAPLUS, [place] #### [address] Specificy [place],Urine 1.013 Normal 1.001-1.030 [facility] Comment on above: Order Comment: Name Collection Type:: Clean-Voided Midstream Performed By: #### U CREA, CUU, ADDONUAPLUS, [place] #### [address] Squamous Epithelial Cell,Urine 1-2 Normal 0-2 [facility] Comment on above: Order Comment: Name Collection Type:: Clean-Voided Midstream Performed By: #### U CREA, CUU, ADDONUAPLUS, [place] #### [facility] [address] [place] [address] Urobilinogen,Urine Normal Normal Normal [facility] Comment on above: Order Comment: Name Collection Type:: Clean-Voided Midstream Performed By: #### U CREA, CUU, ADDONUAPLUS, [place] #### [facility] [address] [place] [address] WBC CLUMP, Urine Many High None Seen [facility] Comment on above: Order Comment: Name Collection Type:: Clean-Voided Midstream Performed By: #### U CREA, CUU, ADDONUAPLUS, [place] #### [facility] [address] [place] [address] WBC,Urine Innumerable High 0-4 [facility] Comment on above: Order Comment: Name Collection Type:: Clean-Voided Midstream Performed By: #### U CREA, CUU, ADDONUAPLUS, [place] #### [facility] [address] [place] [address] ECG 12 lead ECGon 04-07-2024 ECG 12 lead ECG [facility] [place] [address] [place] [address] Electrocardiograph Report Signed Patient: Isaiah Morel MR#: [id number] 16 : 1945 Acct:[id number] Age/Sex: 78 / M ADM Date: 04/07/24 Loc: Room: [address] [place] [address] Type: ADM IN Attending Dr: Lizzie Sinclair DO Ordering Provider: Pola Quintanilla MD Date of Service: 04/07/24 ECG/ECG 12 lead ECG: Recheck/Abnormal Lab/Rx Copies to: Test Reason : Blood Pressure : 135/62 mmHG Vent. Rate : 49 BPM Atrial Rate : 49 BPM P-R Int : 210 ms QRS Dur : 102 ms QT Int : 398 ms P-R-T Axes : 79 -11 43 degrees QTcB Int : 359 ms Sinus bradycardia with sinus arrhythmia with 1st degree AV block Low voltage QRS Borderline ECG When compared with ECG of 22-Jun-2020 20:02, premature ventricular complexes are no longer present MS interval has increased Vent. rate has decreased by 24 bpm QT has shortened Confirmed by POLA QUINTANILLA MD ([id number]) on 04/08/2024 2:01:39 AM Referred By: Electronically Signed By: POLA QUINTANILLA MD Transcribed By: MUS Signed By Pola Quintanilla MD 03/12 0201 Normal [facility] Epithelial cells.squamous [# /area] in Urine sediment by Automated countOrdered By: Lizzie Sinclair on 04-07-2024 Epithelial cells.squamous Auto (Urine sed) [#/Area] 1-2 [HPF] 0-2 [facility] Erythrocyte distribution wid th [Ratio] by Automated countOrdered By: Pola Quintanilla on 04-07-2024 Erythrocyte distribution width (RBC) [Ratio] 15.5 % High 12.0-14.8 [facility] Comment on above: Performed By: #### C BC, BMP, MG #### [facility] [address] [place] [address] Erythrocytes [#/area] in Uri ne sediment by Automated countOrdered By: Lizzie Sinclair on 04-07-2024 RBC Auto (Urine sed) [#/Area] None seen [HPF] 0-4 [facility] Erythrocytes [#/volume] in B lood by Automated countOrdered By: Pola Quintanilla on 04-07-2024 RBC (Bld) [#/Vol] 3.77 10*6/uL Low 3.90-5.60 [facility] Comment on above: Performed By: #### C BC, BMP, MG #### [facility] [address] [place] [address] Glucose Poct Glucometerson 0 04-07-2024 Commemt1 Glu2: Cleaned Meter Normal [facility] Comment on above: Result Comment: PERF ORMED BY: [place] [address] PATHOLOGIST STACKER DRIVER EULA DAMIAN M.D. Performed By: #### C BC, BMP, MG #### [facility] [address] [place] [address] [facility] Glucose [Mass/Vol] 134 mg/dL Normal [facility] [facility] Comment on above: Result Comment: Vaughn om Glucose Reference Range is dependent on time and content of last meal. Glucose of more than 200 mg/dL in a nonstressed, ambulatory subject supports the diagnosis of Diabetes Mellitus. Performed By: #### C BC, BMP, MG #### [facility] [address] [place] [address] [place] Glucose [Mass/volume] in Ser um or PlasmaOrdered By: Pola Quintanilla on 04-07-2024 Glucose [Mass/Vol] 134 mg/dL High 70-100 [facility] Comment on above: ADA recommended refe rence rangeRandom Glucose Reference Range is dependent on time and content of last meal. Glucose of more than 200 mg/dL in a nonstressed, ambulatory subject supports the diagnosis of Diabetes Mellitus. Result Comment: Vaughn om Glucose Reference Range is dependent on time and content of last meal. Glucose of more than 200 mg/dL in a nonstressed, ambulatory subject supports the diagnosis of Diabetes Mellitus. ADA recommended reference range Performed By: #### C BC, BMP, MG #### [facility] [address] [place] [address] [facility] Glucose [Mass/volume] in Uri ne by Test stripOrdered By: Lizzie Sinclair on 04-07-2024 Glucose Test strip (U) [Mass/Vol] Normal mg/dL Normal [facility] Hematocrit [Volume Fraction] of Blood by Automated countOrdered By: Pola Quintanilla on 04-07-2024 Hematocrit (Bld) [Volume fraction] 35.9 % Low 38.8-50.0 [facility] Comment on above: Performed By: #### C BC, BMP, MG #### [facility] [address] [place] [address] [facility] Hemoglobin Test strip Ql (U) Ordered By: Lizzie Sinclair on 04-07-2024 Hemoglobin Ql (U) Negative Negative [facility] Hemoglobin [Mass/volume] in BloodOrdered By: Pola Quintanilla on 04-07-2024 Hemoglobin (Bld) [Mass/Vol] 11.6 g/dL Low 13.0-17.0 [facility] Comment on above: Performed By: #### C BC, BMP, MG #### [facility] [address] [place] [address] [place] Hyaline casts [#/area] in Ur ine sediment by Automated countOrdered By: Lizzie Sinclair on 04-07-2024 Hyaline casts Auto (Urine sed) [#/Area] None [LPF] 0-8 [facility] Ketones [Presence] in Urine by Test stripOrdered By: Lizzie Sinclair on 04-07-2024 Ketones Ql (U) Negative Normal Negative [facility] Comment on above: Order Comment: Name Collection Type:: Clean-Voided Midstream Performed By: #### U CREA, CUU, ADDONUAPLUS, UK #### [facility] [address] [place] [address] Leukocyte clumps [Presence] in Urine by AutomatedOrdered By: Lizzie Sinclair on 04-07-2024 Leukocyte clumps Auto Ql (U) Many [LPF] High None Seen [facility] Leukocyte esterase [Presence ] in Urine by Test stripOrdered By: Lizzie Sinclair on 04-07-2024 Leukocyte esterase Test strip Ql (U) 4+ High Negative [facility] Comment on above: Order Comment: Name Collection Type:: Clean-Voided Midstream Performed By: #### U CREA, CUU, ADDONUAPLUS, UK #### [facility] [address] [place] [address] [place] Leukocytes [#/area] in Urine sediment by Automated countOrdered By: Lizzie Sinclair on 04-07-2024 WBC Auto (Urine sed) [#/Area] Innumerable [HPF] High 0-4 [facility] Leukocytes [#/volume] correc speedy for nucleated erythrocytes in Blood by Automated counOrdered By: Pola Quintanilla on 04-07-2024 WBC corrected for nucl RBC Auto (Bld) [#/Vol] 9.7 10*3/uL 4.1-10.5 [facility] Leukocytes [#/volume] in Blo od by Automated countOrdered By: Pola Quintanilla on 04-07-2024 WBC (Bld) [#/Vol] 9.7 10*3/uL Normal 4.1-10.5 [facility] Comment on above: Performed By: #### C CHUCK HORTON, MG #### [address] Lymphocytes [#/volume] in Bl ood by Automated countOrdered By: Pola Quintanilla on 04-07-2024 Lymphocytes (Bld) [#/Vol] 2.7 10*3/uL Normal 1.00-4.8 [facility] Comment on above: Performed By: #### C CHUCK HORTON, MG #### [address] Lymphocytes/100 leukocytes i n Blood by Automated countOrdered By: Pola Quintanilla on 04-07-2024 Lymphocytes/100 WBC (Bld) 27.7 % Normal . [facility] Comment on above: Performed By: #### C CHUCK HORTON, MG #### [address] MCH [Entitic mass] by Automa speedy countOrdered By: Pola Quintanilla on 04-07-2024 MCH (RBC) [Entitic mass] 30.8 pg Normal 27.5-35.2 [facility] Comment on above: Performed By: #### C CHUCK HORTON, MG #### [address] MCHC Auto (RBC) [Mass/Vol]Or dered By: Pola Quintanilla on 04-07-2024 MCHC (RBC) [Mass/Vol] 32.3 g/dL Low 32.5-35.6 [facility] MCV [Entitic volume] by Auto mated countOrdered By: Pola Quintanilla on 04-07-2024 MCV (RBC) [Entitic vol] 95.4 fL Normal 83.5-101 [facility] Comment on above: Performed By: #### C CLIFFORD BMP, MG #### [address] Magnesium [Mass/volume] in S nain or PlasmaOrdered By: Pola Quintanilla on 04-07-2024 Magnesium [Mass/Vol] 1.8 mg/dL Low 1.9-2.7 [facility] Comment on above: Result Comment: PERF ORMED BY: [place] [address] PATHOLOGIST STACKER DRIVER EULA DAMIAN M.D. Performed By: #### C BC, BMP, MG #### [facility] [address] Monocyte distribution width [Entitic volume] in Blood by AutomatedOrdered By: Pola Quintanilla on 04-07-2024 Monocyte distribution width Auto (Bld) [Entitic vol] 15.84 % 0.00-20.00 [facility] Neutrophils [#/volume] in Bl ood by Automated countOrdered By: Pola Quintanilla on 04-07-2024 Neutrophils (Bld) [#/Vol] 6.0 10*3/uL Normal 1.8-7.7 [facility] Comment on above: Performed By: #### C BC, BMP, MG #### [facility] [address] [place] [address] Nitrite Test strip Ql (U)Ord ered By: Lizzie Sinclair on 04-07-2024 Nitrite Ql (U) Negative Negative [facility] No Panel InformationOrdered By: Pola Quintanilla on 04-07-2024 Estimated GFR (CKD-EPI) 22.297 mL/Min [facility] Creatinine Clearance (Chem 32.58 [facility] Nucleated erythrocytes [Pres ence] in Blood by Automated countOrdered By: Pola Quintanilla on 04-07-2024 Nucleated RBC Auto Ql (Bld) 0.1 /100{WBC} 0-0.5 [facility] Platelet mean volume [Entiti c volume] in Blood by Automated countOrdered By: Ploa Quintanilla on 04-07-2024 Platelet mean volume (Bld) [Entitic vol] 8.0 fL Normal 6.6-10.1 [facility] Comment on above: Performed By: #### C BC, BMP, MG #### [facility] [address] [place] [address] [place] Platelets [#/volume] in Bloo d by Automated countOrdered By: Pola Quintanilla on 04-07-2024 Platelets (Bld) [#/Vol] 387 10*3/uL Normal 150-450 [facility] Comment on above: Performed By: #### C BC, BMP, MG #### [facility] [address] [place] [address] Potassiumon 04-07-2024 Potassium [Moles/Vol] 5.7 mmol/L High 3.5-5.1 [facility] Comment on above: Result Comment: PERF ORMED BY: [place] [address] PATHOLOGIST STACKER DRIVER EULA DAMIAN M.D. Performed By: #### C BC, BMP, MG #### [facility] [address] [place] [address] Potassium [Moles/volume] in Serum or PlasmaOrdered By: Pola Quintanilla on 04-07-2024 Potassium [Moles/Vol] 6.4 mmol/L Off scale high 3.5-5.1 [facility] Comment on above: Critical Result Call ed to and read back by: ROBYN BEVERLY at: 04/07/2024 17:19:08 by:[id number] Result Comment: Crit ical Result Called to and read back by: ROBYN BEVERLY at: 04/07/2024 17:19:08 by:[id number] Performed By: #### C BC, BMP, MG #### [facility] [address] [place] [address] [place] Potassium [Moles/volume] in UrineOrdered By: Lizzie Sinclair on 04-07-2024 Potassium (U) [Moles/Vol] 36.6 mmol/L [facility] Comment on above: No reference range e stablished Potassium, Urine (Random)on 04-07-2024 Potassium, Urine (Random) 36.6 mmol/L Normal [facility] Comment on above: Result Comment: No r eference range established PERFORMED BY: [place] [address] PATHOLOGIST STACKER DRIVER EULA DAMIAN M.D. Performed By: #### U CREA, CUU, ADDONUAPLUS, UK #### [facility] [address] [place] [address] [place] Prot/Creat Uron 04-07-2024 Creatinine (U) [Mass/Vol] 52.9 mg/dL Normal 20.0-300.0 [facility] Comment on above: Order Comment: Speci men Type: URINE SPECIMENOrdering Facility: [facility] Address: [address] [place] [address] Performed By: #### 2 890-2, UACR ####[facility] LABCLIA [id number] [place] [address] [place] Protein/Creatinine (U) [Mass ratio] 0.36 mg/mg High <0.15 [facility] Comment on above: Order Comment: Speci men Type: URINE SPECIMENOrdering Facility: [facility] Address: [address] [place] [address] Result Comment: Adul t Proteinuria Categories: <0.15 mg/mg is considered normal to mildly increased 0.15 - 0.50 mg/mg is considered moderately increased >0.50 mg/mg is considered severely increased KDIGO. (2013). KDIGO 2012 Clinical Practice Guideline for the Evaluation and Management of Chronic Kidney Disease. Official Journal of the International Society of Nephrology, 3(1), 1-150. Performed By: #### 2 890-2, UACR ####[facility] LABCLIA [id number] [place] [address] [place] Protein [Mass/volume] in Uri ne by Test stripOrdered By: Lizzie Sinclair on 04-07-2024 Protein (U) [Mass/Vol] 20 mg/dL High Negative [facility] Comment on above: Order Comment: Name Collection Type:: Clean-Voided Midstream Performed By: #### U CREA, CUU, ADDONUAPLUS, UK #### [facility] [address] [place] [address] [place] Protein/Creatinine (U) [Mass ratio]on 04-07-2024 Protein (U) [Mass/Vol] 19 mg/dL Normal 0-20 [facility] Comment on above: Order Comment: Speci men Type: URINE SPECIMENOrdering Facility: [facility] Address: [address] [place] [address] Performed By: #### 2 890-2, UACR ####[facility] LABCLIA [id number] [facility] [id number] [place] [address] [place] Renal function 2000 panelon 04-07-2024 Albumin [Mass/Vol] 4.4 g/dL Normal 3.9-4.9 [facility] Comment on above: Order Comment: Speci men Type: BLOOD SPECIMENOrdering Facility: [facility] Address: [address] [place] [address] Performed By: #### 2 4362-6 ####[facility] LABCLIA [id number] [place] [address] Anion gap [Moles/Vol] 10 mmol/L Normal 8-15 [facility] Comment on above: Order Comment: Speci men Type: BLOOD SPECIMENOrdering Facility: [facility] Address: [address] [place] [address] Performed By: #### 2 4362-6 ####[facility] LABCLIA [id number] [place] [address] Calcium [Mass/Vol] 9.6 mg/dL Normal 8.5-10.2 [facility] Comment on above: Order Comment: Speci men Type: BLOOD SPECIMENOrdering Facility: [facility] Address: [address] [place] [address] Performed By: #### 2 4362-6 ####[facility] LABCLIA [id number] [place] [address] Chloride [Moles/Vol] 106 mmol/L Normal 98-107 [facility] Comment on above: Order Comment: Speci men Type: BLOOD SPECIMENOrdering Facility: [facility] Address: [address] [place] [address] Performed By: #### 2 4362-6 ####[facility] LABCLIA [id number] [place] [address] CO2 [Moles/Vol] 18 mmol/L Low 22-30 [facility] Comment on above: Order Comment: Speci men Type: BLOOD SPECIMENOrdering Facility: [facility] Address: [address] [place] [address] Performed By: #### 2 4362-6 ####[facility] LABCLIA [id number] [place] [address] Creatinine [Mass/Vol] 2.82 mg/dL High 0.73-1.22 [facility] Comment on above: Order Comment: Speci men Type: BLOOD SPECIMENOrdering Facility: [facility] Address: [address] [place] [address] Performed By: #### 2 4362-6 ####[facility] LABIA [id number] [place] [address] Creatinine and Glomerular filtration rate.predicted panel (S/P/Bld) 22 mL/min/1.73m??? Low >=60 [facility] Comment on above: Order Comment: Speci men Type: BLOOD SPECIMENOrdering Facility: [facility] Address: [address] [place] [address] Result Comment: Rosa mated Glomerular Filtration Rate (eGFR) is calculated using the 2020 CKD-EPI creatinine equation. This equation utilizes serum creatinine, sex, and age as parameters. The creatinine assay has traceable calibration to isotope dilution-mass spectrometry. Refer to KDIGO guidelines for clinical interpretation. In patients with unstable renal function, e.g. those with acute kidney injury, the eGFR may not accurately reflect actual GFR. Performed By: #### 2 4362-6 ####[facility] LABCLIA [id number] [place] [address] Glucose [Mass/Vol] 147 mg/dL High 74-99 [facility] Comment on above: Order Comment: Speci men Type: BLOOD SPECIMENOrdering Facility: [facility] Address: [address] [place] [address] Result Comment: The [place] Diabetes Association (ADA) provides guidance for cutoff values for fasting glucose and random glucose. The ADA defines fasting as no caloric intake for at least 8 hours. Fasting plasma glucose results between 100 to 125 mg/dL indicate increased risk for diabetes (prediabetes). Fasting plasma glucose results greater than or equal to 126 mg/dL meet the criteria for diagnosis of diabetes. In the absence of unequivocal hyperglycemia, results should be confirmed by repeat testing. In a patient with classic symptoms of hyperglycemia or hyperglycemic crisis, random plasma glucose results greater than or equal to 200 mg/dL meet the criteria for diagnosis of diabetes. Reference: Standards of Medical Care in Diabetes 2016, [place] Diabetes Association. Diabetes Care. 2016.39(Suppl 1). Performed By: #### 2 4362-6 ####[facility] LABCLIA [id number] [place] [address] Phosphate [Mass/Vol] 4.0 mg/dL Normal 2.7-4.8 [facility] Comment on above: Order Comment: Speci men Type: BLOOD SPECIMENOrdering Facility: [facility] Address: [address] [place] [id number] Performed By: #### 2 4362-6 ####[facility] LABCLIA [id number] [place] [address] Potassium [Moles/Vol] 6.7 mmol/L Critically high 3.7-5.1 [facility] Comment on above: Order Comment: Speci men Type: BLOOD SPECIMENOrdering Facility: [facility] Address: [address] [place] [address] Result Comment: RECH ECKED JT Performed By: #### 2 4362-6 ####[facility] LABCLIA [id number] [place] [address] Sodium [Moles/Vol] 134 mmol/L Low 136-144 [facility] Comment on above: Order Comment: Speci men Type: BLOOD SPECIMENOrdering Facility: [facility] Address: [address] [place] [address] Performed By: #### 2 4362-6 ####[facility] LABCLIA [id number] [place] [address] Urea nitrogen [Mass/Vol] 43 mg/dL High 9-24 [facility] Comment on above: Order Comment: Speci men Type: BLOOD SPECIMENOrdering Facility: [facility] Address: [address] [place] [address] Performed By: #### 2 4362-6 ####[facility] LABCLIA [id number] [place] [address] Serum or plasma anion gap de terminationOrdered By: Pola Quintanilla on 04-07-2024 Anion gap [Moles/Vol] 11.1 mmol/L Normal 6.0-15.0 [facility] Comment on above: Performed By: #### C CHUCK HORTON MG #### [facility] [address] [place] [address] [place] Sodium [Moles/volume] in Ser um or PlasmaOrdered By: Pola Quintanilla on 04-07-2024 Sodium [Moles/Vol] 133 mmol/L Low 136-145 [facility] Comment on above: Performed By: #### C CHUCK HORTON MG #### [facility] [address] Specific gravity Test strip (U) [Rel density]Ordered By: Lizzie Sinclair on 04-07-2024 Specific gravity (U) [Rel density] 1.013 1.001-1.030 [facility] Urea nitrogen [Mass/volume] in Serum or PlasmaOrdered By: Pola Quintanilla on 04-07-2024 Urea nitrogen [Mass/Vol] 41 mg/dL High 7-25 [facility] Comment on above: Performed By: #### C CHUCK HORTON, MG #### [facility] [address] [place] [id number] [place] Urine Cultureon 04-07-2024 Bacteria identified Cx Nom (U) 20,000 colonies/ml mixed bacterial skin contaminants 2 Days PERFORMED BY: [place] [address] PATHOLOGIST STACKER DRIVER EULA DAMIAN M.D. Normal [facility] Comment on above: Performed By: #### C BC, BMP, MG #### [facility] [address] [place] [address] Urine appearanceOrdered By: Lizzie Sinclair on 04-07-2024 Appearance (U) Cloudy Critically abnormal Clear [facility] Comment on above: Order Comment: Name Collection Type:: Clean-Voided Midstream Performed By: #### U CREA, CUU, ADDONUAPLUS, UK #### [facility] [address] [place] [address] Urine culture routineOrdered By: Lizzie Sinclair on 04-07-2024 Bacteria identified Cx Nom (U) 2 Days [facility] Urobilinogen Test strip (U) [Mass/Vol]Ordered By: Lizzie Sinclair on 04-07-2024 Urobilinogen (U) [Mass/Vol] Normal mg/dL Normal [facility] XR chest 1V portableon 04-07 XR chest 1V portable [facility] [place] [address] [place] [address] XRay Report Signed Patient: Isaiah Morel MR#: [id number] 16 : 1945 Acct:[id number] Age/Sex: 78 / M ADM Date: 04/07/24 Loc: ER Room: Type: [facility] ER Attending Dr: Copies to: Pola Quintanilla MD Ordering Provider: Pola Quintanilla MD Date of Service: 04/07/24 XR/XR chest 1V portable: Recheck/Abnormal Lab/Rx XR chest 1V portable 04/07/2024 4:44 PM SIGNS AND SYMPTOMS: Hyperkalemia PROTOCOL: Frontal radiograph of the chest COMPARISON: 07/12/2020 FINDINGS: The trachea is midline. Atherosclerotic changes are noted in the thoracic aorta. Pleural-parenchymal opacities are noted in the lung bases with similar cardiomegaly. The bony thorax is intact. XR/XR chest 1V portable IMPRESSION: Pleural-parenchymal opacities are noted in the lung bases with similar cardiomegaly. This is new compared to the prior exam. Impression dictated by: Weston Cooney M.D.04/07/2024 5:47 PM Dictation Location: [place] [address] Transcribed By: KEN 04/07/241746 Dictated By: Weston Cooney II, MD 04/07/241744 Signed By: 04/07/241746 Normal [facility] Yeast.budding [Presence] in Urine by Computer assisted methodOrdered By: Lizzie Sinclair on 04-07-2024 Yeast.budding Computer assisted Ql (U) 1+ [HPF] High None Seen [facility] pH of Urine by Test stripOrd ered By: Lizzie Sinclair on 04-07-2024 pH (U) 5.0 [pH] Normal 5.0-9.0 [facility] Comment on above: Order Comment: Name Collection Type:: Clean-Voided Midstream Performed By: #### U JANELL GARRIDO, ADRIANARUST, [place] #### [address] US renal BIon 12-24-2023 US renal BI [facility] [place] [address] [place] [address] Ultrasound Report Signed Patient: Isaiah Morel MR#: [id number] 16 : 1945 Acct:[id number] Age/Sex: 78 / M ADM Date: 12/24/23 Loc: Room: Type: [facility] Attending Dr: Leslee Webster DO Ordering Provider: Leslee Webster DO Date of Service: 12/24/23 US/US renal BI: N18.4 Copies to: Leslee Webster DO BILATERAL RENAL AND BLADDER ULTRASOUND CLINICAL HISTORY: Stage IV chronic kidney disease. COMPARISON: None FINDINGS: Estimation of renal size is approximately 13.3 cm on the right and 12.4 cm on the left. No contour deforming mass, shadowing stone or hydronephrosis. Small cyst left kidney. The urinary bladder is partially distended with a volume of 18.25 ml. No shadowing stone or focal lesion. No significant postvoid residual. US/US renal BI IMPRESSION: No acute findings. Impression dictated by: Laron Ku Jr., D.O.12/24/2023 2:47 PM Dictation Location: [place] [address] Tech: Татьяна Evans Transcribed By: KEN 12/24/231446 Dictated By: Laron Ku Jr, DO 12/24/231444 Signed By: 12/24/231446 Normal [facility] Pasha 12-20-2023 CNPN Telephone (MIDMAV) ISAIAH MOREL ([id number]) 1945 M Date Time Provider Department 12/20/23 [facility] During your visit today, we recorded the following information about you: Cherelle Ochoa 12/20/2023 11:11 AM Signed Odilia from [facility] Scheduling is calling Leslee Webster DO today to request that 2 US orders be faxed over to them per patient request. Pelvis bladder and kidney bladder. Patient has been identified by name and birthdate. Duration of symptoms: N/A Person calling: ODILIA FROM [facility] SCHEDULING [phone] FAX [phone] primary OR [phone] Was an appointment scheduled: No Closing statement: Results or non-symptom based questions: Thank you for calling [facility], your call will be returned within the next business day. Carolin Jaeger MA 12/20/2023 4:30 PM Signed US orders have been printed and faxed to [phone]. Fax conformation received. Placed into fax folder. Carolin Coburn MA Allergies As of Date: 12/20/2023 Noted Allergy Reaction CEPHALEXIN 06/22/2020 6 - Diarrhea CIPROFLOXACIN 05/03/2020 14 - Other: See Comments Comments: Made pt dizzy FLAGYL (METRONIDAZOLE) 05/03/2020 14 - Other: See Comments Comments: Made pt dizzy FLUCONAZOLE 06/22/2020 6 - Diarrhea Date Reviewed: 12/19/2023 Reviewed by: Radha Arriaga MA - Fully Assessed Reason for Visit: Patient Request [1696] Prescriptions as of 12/20/2023 - allopurinol (ZYLOPRIM) 300 mg tablet - atorvastatin (LIPITOR) 40 mg tablet TAKE 1 AND 1/2 TABLETS BY MOUTH ONCE A DAY - OZEMPIC 0.25 mg or 0.5 mg (2 mg/3 mL) pen INJECT 0.25 MG SUBCUTANEOUSLY WEEKLY - tamsulosin (FLOMAX) 0.4 mg Take 0.4 mg by mouth once daily. - furosemide (LASIX) 20 mg tablet - CPAP - NIFEdipine XL (ADALAT CC, PROCARDIA XL) 60 mg 24 hr tablet Take 60 mg by mouth once daily. - spironolactone (ALDACTONE) 25 mg tablet Take 25 mg by mouth every morning. - A-C-E-zinc ox-cupric ox-lutein ([facility]) 7,160 unit- 113 mg-1 mg tab Take by mouth. - losartan potassium (LOSARTAN ORAL) Take 100 mg by mouth once daily. - oxybutynin XL (DITROPAN XL) 5 mg 24 hr tablet Take 5 mg by mouth once daily. - cyanocobalamin (VITAMIN B-12) 500 mcg tablet - fenofibrate nanocrystallized (TRICOR) 48 mg tablet Take 96 mg by mouth every morning. - multivit-min/folic/vit K/lycop (ONE-A-DAY MEN'S MULTIVITAMIN ORAL) - insulin NPH-insulin regular injection (HumuLIN, NovoLIN 70/30) If blood sugar before dinner is >200, start taking 5 unit(s) of 70/30 NPH before dinner and continue with the 7 unit(s) in the morning. If the blood sugar before dinner is again >200 the next day, add 2 unit(s) to the previous dose of evening insulin For AM insulin changes: Check blood sugar before lunch. If blood sugar > 200, add 2 unit(s) to the morning insulin and take 9 the next day. If the following day's pre-lunch sugar is again > 200, add another 2 unit(s) to the morning dose. - FERROUS GLUCONATE ORAL Take 324 mg by mouth once daily. - aspirin, enteric coated (ASPIRIN, ENTERIC COATED) 81 mg EC tablet Take 81 mg by mouth once daily. - Ascorbic Acid 60 mg lozg Take by mouth. - cholecalciferol (VITAMIN D3) 1,000 unit tab tablet Take 1,000 Units by mouth. - Cinnamon Bark 500 mg cap Take 500 mg by mouth. - Jsqgf-1-AMG-EPA-Fish Oil 300-1,000 mg cap Take by mouth. Problem List As Of Date 12/20/2023 Noted Resolved Malignant neoplasm of ascending colon (HCC) [C1*05/10/2020 09/14/2022 Pelvic mass [R19.00] 05/10/2020 DM (diabetes mellitus) (HCC) [E11.9] Hypertension [I10] BPH (benign prostatic hyperplasia) [N40.0] Gastritis [K29.70] Hyperlipidemia [E78.5] Asthma [J45.909] 07/19/2021 Post-operative state [Z98.890] 10/27/2021 Post-operative pain [G89.18] 06/03/[address] (HCC) [Z93.2] 05/13/2020 S/P hernia repair [Z98.890, Z87.19] Hyponatremia [E87.1] 05/13/2020 06/03/[address] (HCC) [Z93.3] 05/13/2020 10/27/2021 Malignant neoplasm of rectosigmoid junction (HC*06/29/2020 09/14/2022 Morbid obesity (HCC) [E66.01] 02/28/2021 06/03/2021 KIMMY (obstructive sleep apnea) [G47.33] 02/28/2021 Rectal cancer (HCC) [C20] 03/01/2021 09/14/2022 Attention to colostomy (HCC) [Z43.3] 03/02/2021 10/27/2021 Hyperkalemia [E87.5] 03/02/2021 03/03/[address] [Z97.8] 03/02/2021 Acute on chronic kidney failure (HCC) [N17.9, N*03/03/2021 03/04/2021 Hypokalemia [E87.6] 03/07/2021 03/10/2021 Encounter for postoperative wound care [Z48.89] 03/08/2021 Mild protein-calorie malnutrition (HCC) [E44.1] 03/10/2021 04/20/2023 Acute renal failure (ARF) (HCC) [N17.9] 03/19/2021 10/27/2021 BMI 40.0-44.9, adult (HCC) [Z68.41] 06/03/2021 Anemia [D64.9] 06/03/2021 CKD (chronic kidney disease), stage III (HCC) [*06/03/2021 Difficult intravenous access [Z78.9] (more content not included)... Normal [facility] 25(OH)D3 [facility] 2023 25-hydroxyvitamin D3 [Mass/Vol] 27.5 ng/mL Low 31.0-80.0 [facility] Comment on above: Order Comment: Chris cortes Type: BLOOD SPECIMEN Ordering Facility: [facility] Address: [address] [place] [address] Result Comment: Clas sification of 25 [place] Vitamin D status: Deficiency/Insufficiency: < or = 30 ng/ml. Sufficiency/Optimal Levels: 31-80 ng/mL Toxicity: > 100 ng/mL. Test performed by chemiluminescent immunoassay. Performed By: #### 1 989-3 #### [facility] CLIA [id number] [address] [place] [address] [place] ALBUMIN/CREATININE RATIO, UR INEon 12-19-2023 Albumin DL <= 20 mg/L (U) [Mass/Vol] 118.2 mg/L Normal [facility] Comment on above: Order Comment: Chris cortes Type: URINE SPECIMENOrdering Facility: [facility] Address: [address] [place] [address] Performed By: #### 2 890-2, UACR ####[facility] [id number] [place] [address] [place] Albumin/Creatinine (U) [Mass ratio] 249 mg/g High <30 [facility] Comment on above: Order Comment: Speci men Type: URINE SPECIMENOrdering Facility: [facility] Address: [address] [place] [address] Result Comment: Adul t Male and Female Nephrotic Criteria: <30 mg/g is considered normal to mildly increased 30-300 mg/g is considered moderately increased >300 mg/g is considered severely increased KDIGO. (2013). KDIGO 2012 Clinical Practice Guideline for the Evaluation and Management of Chronic Kidney Disease. Official Journal of the International Society of Nephrology, 3(1), 1-150. Performed By: #### 2 890-2, UACR ####[facility] [id number] [place] [address] [place] CBC panel Auto (Bld)on 12-18 Erythrocyte distribution width (RBC) [Ratio] 15.7 % High 11.5-15.0 [facility] Comment on above: Order Comment: Speci men Type: BLOOD SPECIMEN Ordering Facility: [facility] Address: [address] [place] [address] Performed By: #### S ERIMM #### [facility] CLIA [id number] [address] [place] [address] [place] Hematocrit (Bld) [Volume fraction] 33.1 % Low 39.0-51.0 [facility] Comment on above: Order Comment: Speci men Type: BLOOD SPECIMEN Ordering Facility: [facility] Address: [address] [place] [address] Performed By: #### S ERIMM #### [facility] CLIA [id number] [address] [place] [address] [place] Hemoglobin (Bld) [Mass/Vol] 10.5 g/dL Low 13.0-17.0 [facility] Comment on above: Order Comment: Speci men Type: BLOOD SPECIMEN Ordering Facility: [facility] Address: [address] [place] [address] Performed By: #### S ERIMM #### [facility] CLIA [id number] [address] [place] [address] [place] MCH (RBC) [Entitic mass] 30.5 pg Normal 26.0-34.0 [facility] Comment on above: Order Comment: Speci men Type: BLOOD SPECIMEN Ordering Facility: [facility] Address: [address] [place] [address] Performed By: #### S ERIMM #### [facility] CLIA [id number] [address] [place] [address] [place] MCHC (RBC) [Mass/Vol] 31.7 g/dL Normal 30.5-36.0 [facility] Comment on above: Order Comment: Speci men Type: BLOOD SPECIMEN Ordering Facility: [facility] Address: [address] [place] [address] Performed By: #### S ERIMM #### [facility] CLIA [id number] [address] [place] [address] [place] MCV (RBC) [Entitic vol] 96.2 fL Normal 80.0-100.0 [facility] Comment on above: Order Comment: Speci men Type: BLOOD SPECIMEN Ordering Facility: [facility] Address: [address] [place] [address] Performed By: #### S ERIMM #### [facility] CLIA [id number] [address] [place] [address] [place] Nucleated RBC (Bld) [#/Vol] 10*3/uL Normal <0.01 [facility] Comment on above: Order Comment: Speci men Type: BLOOD SPECIMEN Ordering Facility: [facility] Address: [address] [place] [address] Performed By: #### S ERIMM #### [facility] CLIA [id number] [address] [place] [address] [place] Platelet mean volume (Bld) [Entitic vol] 10.0 fL Normal 9.0-12.7 [facility] Comment on above: Order Comment: Speci men Type: BLOOD SPECIMEN Ordering Facility: [facility] Address: [address] [place] [address] Performed By: #### S ERIMM #### [facility] CLIA [id number] [address] [place] [address] [place] Platelets (Bld) [#/Vol] 390 10*3/uL Normal 150-400 [facility] Comment on above: Order Comment: Speci men Type: BLOOD SPECIMEN Ordering Facility: [facility] Address: [address] [place] [address] Performed By: #### S ERIMM #### [facility] CLIA [id number] [address] [place] [address] [place] RBC (Bld) [#/Vol] 3.44 10*6/uL Low 4.20-6.00 [facility] Comment on above: Order Comment: Speci men Type: BLOOD SPECIMEN Ordering Facility: [facility] Address: [address] [place] [address] Performed By: #### S ERIMM #### [facility] CLIA [id number] [address] [place] [address] [place] WBC (Bld) [#/Vol] 7.79 10*3/uL Normal 3.70-11.00 [facility] Comment on above: Order Comment: Speci men Type: BLOOD SPECIMEN Ordering Facility: [facility] Address: [address] [place] [address] Performed By: #### S ERIMM #### [facility] CLIA [id number] [address] [place] [address] [place] Erythrocyte distribution width (RBC) [Ratio] 15.7 % High 11.5 - 15.0 % [facility] Hematocrit (Bld) [Volume fraction] 33.1 % Low 39.0 - 51.0 % [facility] Hemoglobin (Bld) [Mass/Vol] 10.5 g/dL Low 13.0 - 17.0 g/dL [facility] MCH (RBC) [Entitic mass] 30.5 pg 26.0 - 34.0 pg [facility] MCHC (RBC) [Mass/Vol] 31.7 g/dL 30.5 - 36.0 g/dL [facility] MCV (RBC) [Entitic vol] 96.2 fL 80.0 - 100.0 fL [facility] Nucleated RBC (Bld) [#/Vol] <0.01 k/uL [facility] Platelet mean volume (Bld) [Entitic vol] 10.0 fL 9.0 - 12.7 fL [facility] Platelets (Bld) [#/Vol] 390 10*3/uL 150 - 400 k/uL [facility] RBC (Bld) [#/Vol] 3.44 10*6/uL Low 4.20 - 6.0 0 m/uL [facility] WBC (Bld) [#/Vol] 7.79 10*3/uL 3.70 - 11. 00 k/uL [facility] CNOVon 12-19-2023 CNOV Office Visit (MIDMAV ) ISAIAH MOREL ([id number]) 1945 M Date Time Provider Department 12/19/23 8:20 AM [facility] During your visit today, we recorded the following information about you: Pulse Blood pressure Weight Height 54/minute 113/62 142.9 kg 1.88 m Leslee Webster DO 12/19/2023 9:49 AM Signed Consultation requested by Dr Cook for an opinion regarding kidney function. My final recommendations will be communicated back to the requesting physician by way of shared medical record or letter via US mail HPI: Mr. Morel is a 78 year old male who presents for an evaluation for his kidney function. He has history of colorectal cancer resected in 04/2020, required partial cystectomy as pathology noted to have abutment to the bladder. He was given Folox (07/2020-12/2020) and in February 2021 had denice reversal. He also has history of HTN, DM, BPH. Patient was had DM now for around 30 years. Currently is on insulin for diabetes. He follows with opthalmology and does not have diabetic retinopathy per patient. After 2023, started on ozempic in place of metformin. States he feels better since coming off of metformin. Though having diarrhea now with ozempic. He reports he hydrates well. He states he has had some weight loss while on it. He has had HTN now for around 30 years. Patient does occasionally check his BPs at home and BP is usually controlled. He does tries to watch sodium intake. Home BP medications are amlodipine 5mg daily or nifedipine 60mg daily, (he is not sure which one and will check for me) spironolactone 25mg daily, losartan 100mg daily. He is not sure of his home meds. Patient denies NSAID, uses tylenol for pain. Denies foamy urine or gross hematuria. There is no family history of kidney disease. Patient denies history of kidney stones Creatinine had been around 0.9mg/dl, episodes of GOOD noted, in 08/2020 creatinine increased to 2.72mg/dL, then down to 1.2mg/dL, 03/02/2021, creatinine again up to 2.2mg/dL then down, 03/2021 increaesd to 5mg/dL mg/dL, (admitted with volume depletion and mild hydronephrosis of right kidney) improved, and back down to 1.7mg/dL, 04/2022 increased to 3mg/dL (in with nausea, vomiting), then down to 2.2mg/dL., last checked was 2.59mg/dL in 10/05/2023. His imaging in 04/2023 showed mild bilateral ureterectasis. PAST SURGICAL HISTORY Procedure Laterality Date COLONOSCOPY AND BIOPSY 03/24/2020 Dr Vu COLONSCOPY SCREENING HIGH RISK 03/2020 EGD 03/2020 HERNIA REPAIR HX 1985 X2- umbilical and right inguinal hernia PAST SURGICAL HISTORY OF 05/11/2020 hemicolectomy with colostomy and partial cystectomy PAST SURGICAL HISTORY OF 02/2021 colostomy reversal REPAIR INCISIONAL HERNIA,REDUCIBLE 06/13/2021 REPAIR INCISIONAL HERNIA,REDUCIBLE 05/03/2022 TRANSURETHRAL ELEC-SURG PROSTATECTOM 08/2021 Current Outpatient Medications Medication Sig OZEMPIC 0.25 mg or 0.5 mg (2 mg/3 mL) pen INJECT 0.25 MG SUBCUTANEOUSLY WEEKLY tamsulosin (FLOMAX) 0.4 mg Take 0.4 mg by mouth once daily. amLODIPine (NORVASC) 5 mg tablet Take 5 mg by mouth once daily. furosemide (LASIX) 20 mg tablet CPAP NIFEdipine XL (ADALAT CC, PROCARDIA XL) 60 mg 24 hr tablet Take 60 mg by mouth once daily. spironolactone (ALDACTONE) 25 mg tablet Take 25 mg by mouth every morning. A-C-E-zinc ox-cupric ox-lutein ([facility]) 7,160 unit- 113 mg-1 mg tab Take by mouth. losartan potassium (LOSARTAN ORAL) Take 100 mg by mouth once daily. oxybutynin XL (DITROPAN XL) 5 mg 24 hr tablet Take 5 mg by mouth once daily. cyanocobalamin (VITAMIN B-12) 500 mcg tablet fenofibrate nanocrystallized (TRICOR) 48 mg tablet Take 96 mg by mouth every morning. multivit-min/folic/vit K/lycop (ONE-A-DAY MEN'S MULTIVITAMIN ORAL) insulin NPH-insulin regular injection (HumuLIN, NovoLIN 70/30) If blood sugar before dinner is >200, start taking 5 unit(s) of 70/30 NPH before dinner and continue with the 7 unit(s) in the morning. If the blood sugar before dinner is again >200 the next day, add 2 unit(s) to the previous dose of evening insulin For AM insulin changes: Check blood sugar before lunch. If blood sugar > 200, add 2 unit(s) to the morning insulin and take 9 the next day. If the following day's pre-lunch sugar is again > 200, add another 2 unit(s) to the morning dose. FERROUS GLUCONATE ORAL Take 324 mg by mouth once daily. aspirin, enteric coated (ASPIRIN, ENTERIC COATED) 81 mg EC tablet Take 81 mg by mouth once daily. Ascorbic Acid 60 mg lozg Take by mouth. cholecalciferol (VITAMIN D3) 1,000 unit tab tablet Take 1,000 Units by mouth. Cinnamon Bark 500 mg cap Take 500 mg by mouth. Wqyrz-4-TRX-EPA-Fish Oil 300-1,000 mg cap Take by mouth. simvastatin (ZOCOR) 80 mg tablet Take 80 mg by mouth. No current facility-administered medications for this visit. Patient unsure of meds - will (more content not included)... Normal [facility] FERRITINon 12-19-2023 Ferritin [Mass/Vol] 71.0 ng/mL 30.3 - 5 65.7 ng/mL [facility] FOLATE, SERUMon 12-19-2023 Folate [Mass/Vol] 15.4 ng/mL >4.7 ng/mL [facility] Ferritin SerPl-mCncon 2023 Ferritin [Mass/Vol] 71.0 ng/mL Normal 30.3-565.7 [facility] Comment on above: Order Comment: Specpio cortes Type: BLOOD SPECIMEN Ordering Facility: [facility] Address: [address] [place] [address] Performed By: #### 5 0190-8, 05976-5, 2276-4 #### [facility] CLIA [id number] [address] [place] [address] OF [facility] Folate SerPl-nc 12-19-19 24 Folate [Mass/Vol] 15.4 ng/mL Normal >4.7 [facility] Comment on above: Order Comment: Chris cortes Type: BLOOD SPECIMEN Ordering Facility: [facility] Address: [address] [place] [address] Performed By: #### 2 132-9, 2284-8 #### [facility] CLIA [id number] [address] [place] [address] [place] IMMUNOFIXATION SCREEN, SERUM on 12-19-2023 MPA RESULT No M protein is identified. Normal No M protein is identified. [facility] Comment on above: Order Comment: Chris cortes Type: BLOOD SPECIMEN Ordering Facility: [facility] Address: [address] [place] [address] Performed By: #### I [facility] #### [facility] CLIA [id number] [address] [place] [address] [place] STAFF REVIEW (MPA) Reviewed by Carmen Junior MD [facility] Comment on above: Order Comment: Speci men Type: BLOOD SPECIMEN Ordering Facility: [facility] Address: [address] [place] [address] Performed By: #### I FESC #### [facility] CLIA [id number] [address] [place] [address] [place] IMMUNOGLOBULINS,IGG,IGA,IGMo n 12-19-2023 IgA [Mass/Vol] 213 mg/dL Normal 70-400 [facility] Comment on above: Order Comment: Speci men Type: BLOOD SPECIMEN Ordering Facility: [facility] Address: [address] [place] [address] Performed By: #### S ERIMM #### [facility] CLIA [id number] [address] [place] [address] [place] IgG [Mass/Vol] 1624 mg/dL High 700-1600 [facility] Comment on above: Order Comment: Speci men Type: BLOOD SPECIMEN Ordering Facility: [facility] Address: [address] [place] [address] Performed By: #### S ERIMM #### [facility] CLIA [id number] [address] [place] [address] [place] IgM [Mass/Vol] 65 mg/dL Normal 40-230 [facility] Comment on above: Order Comment: Speci men Type: BLOOD SPECIMEN Ordering Facility: [facility] Address: [address] [place] [address] Performed By: #### S ERIMM #### [facility] CLIA [id number] [address] [place] [address] [place] Iron and Iron binding capaci ty panelon 12-19-2023 Iron [Mass/Vol] 54 ug/dL Normal 41-186 [facility] Comment on above: Order Comment: Speci men Type: BLOOD SPECIMEN Ordering Facility: [facility] Address: [address] [place] [address] Performed By: #### 5 0190-8, 79568-3, 2276-4 #### [facility] CLIA [id number] [address] [place] [address] [place] Iron binding capacity [Mass/Vol] 381 ug/dL Normal 232-386 [facility] Comment on above: Order Comment: Chris cortes Type: BLOOD SPECIMEN Ordering Facility: [facility] Address: [address] [place] [address] Performed By: #### 5 0190-8, 57072-4, 2275-4 #### [facility] CLIA [id number] [address] [place] [address] [place] Iron/TIBC [Molar ratio] 14.2 % Low 15.0-57.0 [facility] Comment on above: Order Comment: Chris [facility] Type: BLOOD SPECIMEN Ordering Facility: [facility] Address: [address] [place] [address] Performed By: #### 5 0190-8, 29343-9, 4 #### [facility] CLIA [id number] [address] [place] [address] [place] Iron [Mass/Vol] 54 ug/dL 41 - 186 ug/dL [facility] Iron binding capacity [Mass/Vol] 381 ug/dL 232 - 386 ug/dL [facility] Iron/TIBC [Molar ratio] 14.2 % Low 15.0 - 57.0 % [facility] KAPPA/PALMER,FREE,SERon 2023 Immunoglobulin light chains.kappa.free (S) [Mass/Vol] 86.6 mg/L High 3.3-19.4 [facility] Comment on above: Order [facility]: [facility]: BLOOD SPECIMEN Ordering Facility: [facility] Address: [address] [place] [address] Result Comment: Rare ly, increased serum free light chains levels may not be detected or accurately quantified due to prozone phenomenon or in high viscosity samples using this immunoturbidimetric assay. Correlation with other laboratory results and clinical findings is recommended. The [place] Free Light Chain was performed using the Binding Site Optilite immunoturbidimetric method. Result obtained with different assay methods or kits cannot be used interchangeably. Performed By: #### K LFRS #### [facility] CLIA [id number] [address] [place] [address] [place] Immunoglobulin light chains.kappa/Immunoglob ulin light chains.lambda (S) [Mass ratio] 2.30 High 0.26-1.65 [facility] Comment on above: Order Comment: Speci men Type: BLOOD SPECIMEN Ordering Facility: [facility] Address: [address] [place] [address] Performed By: #### K LFRS #### [facility] CLIA [id number] [address] [place] [address] [place] Immunoglobulin light chains.lambda.free [Mass/Vol] 37.6 mg/L High 5.7-26.3 [facility] Comment on above: Order Comment: Speci men Type: BLOOD SPECIMEN Ordering Facility: [facility] Address: [address] [place] [address] Result Comment: Rare ly, increased serum free light chains levels may not be detected or accurately quantified due to prozone phenomenon or in high viscosity samples using this immunoturbidimetric assay. Correlation with other laboratory results and clinical findings is recommended. The [place] Free Light Chain was performed using the Binding Site Optilite immunoturbidimetric method. Result obtained with different assay methods or kits cannot be used interchangeably. Performed By: #### K LFRS #### [facility] CLIA [id number] [address] [place] [address] [place] MONOCLONAL PROT UR W/INTERPo n 12-19-2023 STAFF REVIEW ([place]) Reviewed by Carmen Junior MD Normal [facility] Comment on above: Order Comment: Speci men Type: URINE SPECIMENOrdering Facility: [facility] Address: [address] [place] [address] Performed By: #### U RMPA ####[facility] [id number] [place] [address] [place] UMPA RESULT No M protein is identified. Normal No M protein is identified. [facility] Comment on above: Order Comment: Speci men Type: URINE SPECIMENOrdering Facility: [facility] Address: [address] [place] [address] Performed By: #### U RMPA ####[facility] [id number] [place] [address] [place] PTH INTACTon 12-19-2023 Parathyrin.intact [Mass/Vol] 55 pg/mL 15 - 65 pg/mL [facility] PTH-Intact SerPl-ncon 04- 0 Parathyrin.intact [Mass/Vol] 55 pg/mL Normal 15-65 [facility] Comment on above: Order Comment: Speci men Type: BLOOD SPECIMEN Ordering Facility: [facility] Address: [address] [place] [address] Performed By: #### 2 731-8 #### [facility] CLIA [id number] [address] [place] [address] [place] Prot/Creat Uron 12-19-2023 Creatinine (U) [Mass/Vol] 47.5 mg/dL Normal 20.0-300.0 [facility] Comment on above: Order Comment: Speci men Type: URINE SPECIMENOrdering Facility: [facility] Address: [address] [place] [address] Performed By: #### 2 890-2, UACR ####[facility] [id number] [place] [address] [place] Protein/Creatinine (U) [Mass ratio] 0.51 mg/mg High <0.15 [facility] Comment on above: Order Comment: Speci men Type: URINE SPECIMENOrdering Facility: [facility] Address: [address] [place] [address] Result Comment: Adul t Proteinuria Categories: <0.15 mg/mg is considered normal to mildly increased 0.15 - 0.50 mg/mg is considered moderately increased >0.50 mg/mg is considered severely increased KDIGO. (2013). KDIGO 2012 Clinical Practice Guideline for the Evaluation and Management of Chronic Kidney Disease. Official Journal of the International Society of Nephrology, 3(1), 1-150. Performed By: #### 2 890-2, UACR ####[facility] [id number] 23 [address] [address] [place] Protein/Creatinine (U) [Mass ratio]on 12-19-2023 Protein (U) [Mass/Vol] 24 mg/dL High 0-20 [facility] Comment on above: Order Comment: Speci men Type: URINE SPECIMENOrdering Facility: [facility] Address: [address] [place] [address] Performed By: #### 2 890-2, UACR ####[facility] [id number] [place] [address] [place] Renal function 2000 panelon 12-19-2023 Albumin [Mass/Vol] 4.0 g/dL Normal 3.9-4.9 [facility] Comment on above: Order Comment: Speci men Type: BLOOD SPECIMEN [facility]ing Facility: [facility] Address: [address] [place] [address] Performed By: #### 5 0190-8, 11688-0, 6-4 #### [facility] IA [id number] [address] [place] [address] [place] Anion gap [Moles/Vol] 13 mmol/L Normal 9-18 [facility] Comment on above: Order Comment: Speci men Type: BLOOD SPECIMEN [facility] Facility: [facility] Address: [address] [place] [address] Performed By: #### 5 0190-8, 74862-6, 6-4 #### [facility] CLIA [id number] [address] [place] [address] [place] Calcium [Mass/Vol] 9.1 mg/dL Normal 8.5-10.2 [facility] Comment on above: Order Comment: Speci men Type: BLOOD SPECIMEN [facility]ing Facility: [facility] Address: [address] [place] [address] Performed By: #### 5 0190-8, 56777-6, 6-4 #### [facility] CLIA [id number] [address] [place] [address] [place] Chloride [Moles/Vol] 109 mmol/L High 97-105 [facility] Comment on above: Order Comment: Speci men Type: BLOOD SPECIMEN [facility] Facility: [facility] Address: [address] [place] [address] Performed By: #### 5 0190-8, 96153-6, 6-4 #### [facility] CLIA [id number] [address] [place] [address] [place] CO2 [Moles/Vol] 20 mmol/L Low 22-30 [facility] Comment on above: Order Comment: Speci men Type: BLOOD SPECIMEN [facility] Facility: [facility] Address: [address] [place] [address] Performed By: #### 5 0190-8, 87583-4, 2275-4 #### [facility] CLIA [id number] [address] [place] [address] [place] Creatinine [Mass/Vol] 2.32 mg/dL High 0.73-1.22 [facility] Comment on above: Order Comment: Speci men Type: BLOOD SPECIMEN [facility] Address: [address] [place] [address] Performed By: #### 5 0190-8, 56735-2, 2275-4 #### [facility] CLIA [id number] [address] [place] [address] [place] Creatinine and Glomerular filtration rate.predicted panel (S/P/Bld) 28 mL/min/1.73m??? Low >=60 [facility] Comment on above: Order Comment: Speci men Type: BLOOD SPECIMEN [facility] Address: [address] [place] [address] Result Comment: Rosa mated Glomerular Filtration Rate (eGFR) is calculated using the 2020 CKD-EPI creatinine equation. This equation utilizes serum creatinine, sex, and age as parameters. The creatinine assay has traceable calibration to isotope dilution-mass spectrometry. Refer to KDIGO guidelines for clinical interpretation. In patients with unstable renal function, e.g. those with acute kidney injury, the eGFR may not accurately reflect actual GFR. Performed By: #### 5 0190-8, 21405-5, 6-4 #### [facility] CLIA [id number] [address] [place] [address] [place] Glucose [Mass/Vol] 110 mg/dL High 74-99 [facility] Comment on above: Order Comment: Chris cortes Type: BLOOD SPECIMEN [facility] Address: [address] [place] [id number] Result Comment: The [place] Diabetes Association (ADA) provides guidance for cutoff values for fasting glucose and random glucose. The ADA defines fasting as no caloric intake for at least 8 hours. Fasting plasma glucose results between 100 to 125 mg/dL indicate increased risk for diabetes (prediabetes). Fasting plasma glucose results greater than or equal to 126 mg/dL meet the criteria for diagnosis of diabetes. In the absence of unequivocal hyperglycemia, results should be confirmed by repeat testing. In a patient with classic symptoms of hyperglycemia or hyperglycemic crisis, random plasma glucose results greater than or equal to 200 mg/dL meet the criteria for diagnosis of diabetes. Reference: Standards of Medical Care in Diabetes 2016, [place] [employer] Association. Diabetes Care. 2016.39(Suppl 1). Performed By: #### 5 0190-8, 79593-9, 2275-12 #### [facility] CLIA [id number] [address] [place] [address] [place] Phosphate [Mass/Vol] 3.6 mg/dL Normal 2.7-4.8 [facility] Comment on above: Order Comment: Chris cortes Type: BLOOD SPECIMEN [facility] Address: [address] [place] [address] Performed By: #### 5 0190-8, 59548-2, 2275-4 #### [facility] CLIA [id number] [address] [place] [address] [place] Potassium [Moles/Vol] 4.9 mmol/L Normal 3.7-5.1 [facility] Comment on above: Order Comment: Speci men Type: BLOOD SPECIMEN [facility]: [facility] Address: [address] [place] [place] [id number] Performed By: #### 5 0190-8, 24879-8, 6-4 #### [facility] CLIA [id number] [address] [place] [address] [place] Sodium [Moles/Vol] 142 mmol/L Normal 136-144 [facility] Comment on above: Order Comment: Speci men Type: BLOOD SPECIMEN [facility]: [facility] Address: [address] [place] [address] Performed By: #### 5 0190-8, 82933-5, 2275-4 #### [facility] CLIA [id number] [address] [place] [address] [place] Urea nitrogen [Mass/Vol] 32 mg/dL High 9-24 [facility] Comment on above: Order Comment: Speci men Type: BLOOD SPECIMEN [facility]ing Facility: [facility] Address: [address] [place], [place] [address] [place] [id number] Performed By: #### 5 0190-8, 06013-0, 2275-4 #### [facility] CLIA [id number] [address] [place] [address] [place] Albumin [Mass/Vol] 4.0 g/dL 3.9 - 4.9 g/dL [facility] Anion gap [Moles/Vol] 13 mmol/L 9 - 18 mmol/L [facility] Calcium [Mass/Vol] 9.1 mg/dL 8.5 - 10. 2 mg/dL [facility] Chloride [Moles/Vol] 109 mmol/L High 97 - 10 5 mmol/L [facility] CO2 [Moles/Vol] 20 mmol/L Low 22 - 30 mmol/L [facility] Creatinine [Mass/Vol] 2.32 mg/dL High 0.73 - 1.22 mg/dL [facility] Estimated Glomerular Filtration Rate 28 mL/min/1.73m Low >=60 mL/min/1.73m [facility] Glucose [Mass/Vol] 110 mg/dL High 74 - 99 mg/dL [facility] Phosphate [Mass/Vol] 3.6 mg/dL 2.7 - 4 .8 mg/dL [facility] Potassium [Moles/Vol] 4.9 mmol/L 3.7 - 5.1 mmol/L [facility] Sodium [Moles/Vol] 142 mmol/L 136 - 144 mmol/L [facility] Urea nitrogen [Mass/Vol] 32 mg/dL High 9 - 24 mg/dL [facility] UA DIP, URINE (POC)on 2023 BILIRUBIN UA (POCT) Negative Negative [facility] CLARITY UA (POCT) Clear [facility] COLOR UA (POCT) Yellow [facility] GLUCOSE UA (POCT) Negative Negative mg/dL [facility] Hemoglobin Ql (U) Trace-intact Abnormal Negative [facility] KETONE UA (POCT) Negative Negative mg/dL [facility] LEUKOCYTES UA (POCT) Trace Abnormal Negative [facility] NITRITE UA (POCT) Negative Negative [facility] PH UA (POCT) 5.0 4.5 - 8.0 [facility] Protein Ql (U) Trace Abnormal Negative mg/dL [facility] SPECIFIC GRAVITY UA (POCT) <=1.005 Abnormal 1.005 - 1.030 [facility] UROBILINOGEN UA (POCT) 0.2 E.U./dL Nabila l E.U./dL [facility] VITAMIN B12on 12-19-2023 Cobalamin (Vitamin B12) [Mass/Vol] 250 pg/mL 232 - 1,245 pg/mL [facility] VITAMIN D 25 HYDROXYon 12-18 25-hydroxyvitamin D3 [Mass/Vol] 27.5 ng/mL Low 31.0 - 80.0 ng/mL [facility] Vit B12 SerPl-mCncon 024 Cobalamin (Vitamin B12) [Mass/Vol] 250 pg/mL Normal 232-1245 [facility] Comment on above: Order Comment: Speci men Type: BLOOD SPECIMEN [facility] Address: [address] [place] [address] Performed By: #### 2 132-9, 2284-8 #### [facility] CLIA [id number] [facility] [address] [place] CNPYokasta 10-18-2023 CNPN Telephone (HEMTSA) ISAIAH MOREL ([id number]) 1945 M Date Time Provider Department 10/18/23 PAM TORRES HEMTSA During your visit today, we recorded the following information about you: Pam Torres RN 10/18/2023 10:01 AM Signed ----- Message from Sarika Cook MD sent at 10/17/2023 11:51 PM EST ----- Call with negative Signatera Pam Torres RN 10/18/2023 10:06 AM Signed Pt notified Pam Torres RN Allergies As of Date: 10/18/2023 Noted Allergy Reaction CEPHALEXIN 06/22/2020 6 - Diarrhea CIPROFLOXACIN 05/03/2020 14 - Other: See Comments Comments: Made pt dizzy FLAGYL (METRONIDAZOLE) 05/03/2020 14 - Other: See Comments Comments: Made pt dizzy FLUCONAZOLE 06/22/2020 6 - Diarrhea Date Reviewed: 10/05/2023 Reviewed by: Sarika Cook MD - Fully Assessed Reason for Visit: Care Coordination [4381] Cmt: Signatera results Prescriptions as of 10/18/2023 - OZEMPIC 0.25 mg or 0.5 mg (2 mg/3 mL) pen INJECT 0.25 MG SUBCUTANEOUSLY WEEKLY - tamsulosin (FLOMAX) 0.4 mg Take 0.4 mg by mouth once daily. - amLODIPine (NORVASC) 5 mg tablet Take 5 mg by mouth once daily. - furosemide (LASIX) 20 mg tablet - CPAP - NIFEdipine XL (ADALAT CC, PROCARDIA XL) 60 mg 24 hr tablet Take 60 mg by mouth once daily. - spironolactone (ALDACTONE) 25 mg tablet Take 25 mg by mouth every morning. - A-C-E-zinc ox-cupric ox-lutein ([facility]) 7,160 unit- 113 mg-1 mg tab Take by mouth. - losartan potassium (LOSARTAN ORAL) Take 100 mg by mouth once daily. - oxybutynin XL (DITROPAN XL) 5 mg 24 hr tablet Take 5 mg by mouth once daily. - cyanocobalamin (VITAMIN B-12) 500 mcg tablet - fenofibrate nanocrystallized (TRICOR) 48 mg tablet Take 96 mg by mouth every morning. - multivit-min/folic/vit K/lycop (ONE-A-DAY MEN'S MULTIVITAMIN ORAL) - insulin NPH-insulin regular injection (HumuLIN, NovoLIN 70/30) If blood sugar before dinner is >200, start taking 5 unit(s) of 70/30 NPH before dinner and continue with the 7 unit(s) in the morning. If the blood sugar before dinner is again >200 the next day, add 2 unit(s) to the previous dose of evening insulin For AM insulin changes: Check blood sugar before lunch. If blood sugar > 200, add 2 unit(s) to the morning insulin and take 9 the next day. If the following day's pre-lunch sugar is again > 200, add another 2 unit(s) to the morning dose. - FERROUS GLUCONATE ORAL Take 324 mg by mouth once daily. - aspirin, enteric coated (ASPIRIN, ENTERIC COATED) 81 mg EC tablet Take 81 mg by mouth once daily. - Ascorbic Acid 60 mg lozg Take by mouth. - cholecalciferol (VITAMIN D3) 1,000 unit tab tablet Take 1,000 Units by mouth. - Cinnamon Bark 500 mg cap Take 500 mg by mouth. - Bczzu-4-VIE-EPA-Fish Oil 300-1,000 mg cap Take by mouth. - simvastatin (ZOCOR) 80 mg tablet Take 80 mg by mouth. Problem List As Of Date 10/18/2023 Noted Resolved Malignant neoplasm of ascending colon (HCC) [C1*05/10/2020 09/14/2022 Pelvic mass [R19.00] 05/10/2020 DM (diabetes mellitus) (HCC) [E11.9] Hypertension [I10] BPH (benign prostatic hyperplasia) [N40.0] Gastritis [K29.70] Hyperlipidemia [E78.5] Asthma [J45.909] 07/19/2021 Post-operative state [Z98.890] 10/27/2021 Post-operative pain [G89.18] 06/03/[address] (HCC) [Z93.2] 05/13/2020 S/P hernia repair [Z98.890, Z87.19] Hyponatremia [E87.1] 05/13/2020 06/03/[address] (HCC) [Z93.3] 05/13/2020 10/27/2021 Malignant neoplasm of rectosigmoid junction (HC*06/29/2020 09/14/2022 Morbid obesity (HCC) [E66.01] 02/28/2021 06/03/2021 KIMMY (obstructive sleep apnea) [G47.33] 02/28/2021 Rectal cancer (HCC) [C20] 03/01/2021 09/14/2022 Attention to colostomy (HCC) [Z43.3] 03/02/2021 10/27/2021 Hyperkalemia [E87.5] 03/02/2021 03/03/[address] [Z97.8] 03/02/2021 Acute on chronic kidney failure (HCC) [N17.9, N*03/03/2021 03/04/2021 Hypokalemia [E87.6] 03/07/2021 03/10/2021 Encounter for postoperative wound care [Z48.89] 03/08/2021 Mild protein-calorie malnutrition (HCC) [E44.1] 03/10/2021 04/20/2023 Acute renal failure (ARF) (HCC) [N17.9] 03/19/2021 10/27/2021 BMI 40.0-44.9, adult (HCC) [Z68.41] 06/03/2021 Anemia [D64.9] 06/03/2021 CKD (chronic kidney disease), stage III (HCC) [*06/03/2021 Difficult intravenous access [Z78.9] 07/19/2021 Iron deficiency anemia due to chronic blood los*03/09/2022 Anemia of chronic renal failure, stage 3a (HCC)*03/09/2022 SBO (small bowel obstruction) (HCC) [K56.609] 05/09/2022 Acute renal failure superimposed on stage 3 chr*05/09/2022 Dehydration [E86.0] 05/09/2022 Colorectal cancer (HCC) [C19] 09/14/2022 Chronic renal disease, stage IV (HCC) [N18.4] 04/20/2023 Encounter Status:Closed by PAM TORRES on 10/18/23 [facility] 10-18-2023 L Specimen: [id number] Received: 10/18/23 Status: MJ Req Num: [id number] Spec Type: Surgical Subm Dr: Chivo Avila MD Tissues: A Gross Only ( LT CHEST [id number]) Procedures: Level 1 Gross Age/ Patient Sex Location Account Attending Physician Isaiah Morel 77/M IR [id number] Anthony Beaver MD SPEC NUM: [id number] RECD: 10/18/23 STATUS: MJ MAHER NUM: [id number] [place]: 10/18/[address]: Chivo Avila MD ENTERED: 10/18/23 [facility] DR: SPEC TYPE: Surgical DEPT: S ORDERED: Level 1 Gross ORDERED: Level 1 Gross Pathological Diagnosis Foreign body explant removal: - Intact center medical and lab director designated as [id number]. Gross only examination Clinical Information Colon cancer, four gross only Gross Description Received fresh labeled with the patient's name, date of and Ojgsdj-b-Ypxt is a 2.7 x 2.5 x 1.1 cm purple metal triangular device with a central 1.5 cm in diameter opaque plastic disc and an attached 27.2 x 0.3 cm portion of white plastic tubing. The metal device is imprinted with the serial number [id number] . A gross photo is taken. Gross examination only. CPT Codes 44116 Gross Photo ---- ---- Specimen: [id number] Received: 10/18/23 Status: MJ Maher Num: [id number] Spec Type: Surgical Subm Dr: Chivo Avila MD Tissues: A Gross Only ( LT CHEST [id number]) Procedures: Level 1 Gross ---- Patient: Isaiah Morel [id number] (Continued) ---- Signed (signature on file) Marta Wyatt MD 10/19/231831 Normal [facility] CBC W Auto Differential pane l (Bld)on 10-05-2023 Basophils (Bld) [#/Vol] 0.06 10*3/uL Normal <0.11 [facility] Comment on above: Order Comment: Speci men Type: BLOOD SPECIMENOrdering Facility: [facility] Address: [address] [place] [address] Performed By: #### 5 7021-8 ####[facility] LABCLIA [id number] [place] [address] Basophils/100 WBC (Bld) 0.5 % Normal C [facility] Comment on above: Order Comment: Speci men Type: BLOOD SPECIMENOrdering Facility: [facility] Address: [address] [place] [address] Performed By: #### 5 7021-8 ####[facility] LABCLIA [id number] [place] [address] Differential cell count method Nom (Bld) Auto Normal [facility] Comment on above: Order Comment: Speci men Type: BLOOD SPECIMENOrdering Facility: [facility] Address: [address] [place] [address] Performed By: #### 5 7021-8 ####[facility] LABCLIA [id number] [place] [address] Eosinophils (Bld) [#/Vol] 0.19 10*3/uL Normal <0.46 [facility] Comment on above: Order Comment: Speci men Type: BLOOD SPECIMENOrdering Facility: [facility] Address: [address] [place] [address] Performed By: #### 5 7021-8 ####[facility] LABCLIA [id number] [place] [address] Eosinophils/100 WBC (Bld) 1.6 % Normal [facility] Comment on above: Order Comment: Speci men Type: BLOOD SPECIMENOrdering Facility: [facility] Address: [address] [place] [address] Performed By: #### 5 7021-8 ####[facility]CLIA [id number] [place] [address] Erythrocyte distribution width (RBC) [Ratio] 15.0 % Normal 11.5-15.0 [facility] Comment on above: Order Comment: Speci men Type: BLOOD SPECIMENOrdering Facility: [facility] Address: [address] [place] [address] Performed By: #### 5 7021-8 ####[facility]CLIA [id number] [place] [address] Hematocrit (Bld) [Volume fraction] 31.1 % Low 39.0-51.0 [facility] Comment on above: Order Comment: Speci men Type: BLOOD SPECIMENOrdering Facility: [facility] Address: [address] [place] [address] Performed By: #### 5 7021-8 ####[facility]IA [id number] [place] [address] Hemoglobin (Bld) [Mass/Vol] 10.1 g/dL Low 13.0-17.0 [facility] Comment on above: Order Comment: Speci men Type: BLOOD SPECIMENOrdering Facility: [facility] Address: [address] [place] [address] Performed By: #### 5 7021-8 ####[facility]CLIA [id number] [place] [address] Immature granulocytes (Bld) [#/Vol] 0.06 10*3/uL Normal <0.10 [facility] Comment on above: Order Comment: Speci men Type: BLOOD SPECIMENOrdering Facility: [facility] Address: [address] [place] [address] Performed By: #### 5 7021-8 ####[facility]CLIA [id number] [place] [address] Immature granulocytes/100 WBC (Bld) 0.5 % Normal [facility] Comment on above: Order Comment: Speci men Type: BLOOD SPECIMENOrdering Facility: [facility] Address: [address] [place] [address] Performed By: #### 5 7021-8 ####[facility]CLIA [id number] [place] [address] Lymphocytes (Bld) [#/Vol] 2.93 10*3/uL Normal 1.00-4.00 [facility] Comment on above: Order Comment: Speci men Type: BLOOD SPECIMENOrdering Facility: [facility] Address: [address] [place] [address] Performed By: #### 5 7021-8 ####[facility]IA [id number] [place] [address] Lymphocytes/100 WBC (Bld) 24.5 % Normal [facility] Comment on above: Order Comment: Speci men Type: BLOOD SPECIMENOrdering Facility: [facility] Address: [address] [place] [address] Performed By: #### 5 7021-8 ####[facility] LABIA [id number] [place] [address] MCH (RBC) [Entitic mass] 30.2 pg Normal 26.0-34.0 [facility] Comment on above: Order Comment: Speci men Type: BLOOD SPECIMENOrdering Facility: [facility] Address: [address] [place] [address] Performed By: #### 5 7021-8 ####[facility] LABIA [id number] [place] [address] MCHC (RBC) [Mass/Vol] 32.5 g/dL Normal 30.5-36.0 [facility] Comment on above: Order Comment: Speci men Type: BLOOD SPECIMENOrdering Facility: [facility] Address: [address] [place] [address] Performed By: #### 5 7021-8 ####[facility] LABIA [id number] [place] [address] MCV (RBC) [Entitic vol] 93.1 fL Normal 80.0-100.0 [facility] Comment on above: Order Comment: Speci men Type: BLOOD SPECIMENOrdering Facility: [facility] Address: [address] [place] [address] Performed By: #### 5 7021-8 ####[facility] LABCLIA [id number] [place] [address] Monocytes (Bld) [#/Vol] 1.00 10*3/uL High <0.87 [facility] Comment on above: Order Comment: Speci men Type: BLOOD SPECIMENOrdering Facility: [facility] Address: [address] [place] [address] Performed By: #### 5 7021-8 ####[facility] LABCLIA [id number] [place] [address] Monocytes/100 WBC (Bld) 8.4 % Normal [facility] Comment on above: Order Comment: Speci men Type: BLOOD SPECIMENOrdering Facility: [facility] Address: [address] [place] [address] Performed By: #### 5 7021-8 ####[facility] LABCLIA [id number] [place] [address] Neutrophils (Bld) [#/Vol] 7.70 10*3/uL High 1.45-7.50 [facility] Comment on above: Order Comment: Speci men Type: BLOOD SPECIMENOrdering Facility: [facility] Address: [address] [place] [address] Performed By: #### 5 7021-8 ####[facility] LABCLIA [id number] [place] [address] Neutrophils/100 WBC (Bld) 64.5 % Normal [facility] Comment on above: Order Comment: Speci men Type: BLOOD SPECIMENOrdering Facility: [facility] Address: [address] [place] [address] Performed By: #### 5 7021-8 ####[facility] LABCLIA [id number] [place] [address] Nucleated RBC (Bld) [#/Vol] 10*3/uL Normal <0.01 [facility] Comment on above: Order Comment: Speci men Type: BLOOD SPECIMENOrdering Facility: [facility] Address: [address] [place] [address] Performed By: #### 5 7021-8 ####[facility] LABCLIA [id number] [place] [address] Nucleated RBC/100 WBC (Bld) [Ratio] 0.0 /100 WBC Normal [facility] Comment on above: Order Comment: Speci men Type: BLOOD SPECIMENOrdering Facility: [facility] Address: [address] [place] [address] Performed By: #### 5 7021-8 ####[facility] LABCLIA [id number] [place] [address] Platelet mean volume (Bld) [Entitic vol] 10.0 fL Normal 9.0-12.7 [facility] Comment on above: Order Comment: Speci men Type: BLOOD SPECIMENOrdering Facility: [facility] Address: [address] [place] [address] Performed By: #### 5 7021-8 ####[facility] LABCLIA [id number] [place] [address] Platelets (Bld) [#/Vol] 338 10*3/uL Normal 150-400 [facility] Comment on above: Order Comment: Speci men Type: BLOOD SPECIMENOrdering Facility: [facility] Address: [address] [place] [address] Performed By: #### 5 7021-8 ####[facility] LABCLIA [id number] [place] [address] RBC (Bld) [#/Vol] 3.34 10*6/uL Low 4.20-6.00 [facility] Comment on above: Order Comment: Speci men Type: BLOOD SPECIMENOrdering Facility: [facility] Address: [address] [place] [address] Performed By: #### 5 7021-8 ####[facility] LABCLIA [id number] [place] [address] WBC (Bld) [#/Vol] 11.94 10*3/uL High 3.70-11.00 [facility] Comment on above: Order Comment: Speci men Type: BLOOD SPECIMENOrdering Facility: [facility] Address: [address] [place] [address] Performed By: #### 5 7021-8 ####[facility] LABCLIA [id number] [place] [address] [facility] Carcinoembryonic Ag [Mass/Vol] 3.1 ng/mL High <=2.9 [facility] Comment on above: Order Comment: Speci men Type: BLOOD SPECIMENOrdering Facility: [facility] Address: [address] [place] [address] Result Comment: Carc inoembryonic antigen test is used as an aid in monitoring response to treatment or recurrence in patients with established colorectal, breast, lung, prostatic, pancreatic, and ovarian carcinomas. Clinical correlation is required. The Carcinoembryonic antigen test was performed using the Erika [employer] Un[employer]el DXI paramagnetic particle chemiluminescent immunoassay method. Results obtained with different assay methods or kits cannot be used interchangeably. Performed By: #### 2 039-6 ####[facility] LABCLIA [id number] [address] [facility] CNOVSPon 10-05-2023 CNOVSP Visit (SP) Office ([place]) ISAIAH MOREL ([id number]) 1945 M Date Time Provider Department 10/05/23 2:45 PM SARIKA COOK During your visit today, we recorded the following information about you: Temperature Pulse Respiration Blood pressure 97.8 degrees 66/minute 16/minute 150/57 Sarika Cook MD 10/05/2023 3:32 PM Signed PATIENT NAME: Isaiah Morel [facility] NO.: [id number] ATTENDING PHYSICIAN: Sarika Cook MD DATE OF SERVICE: October 05, 2023 Some of the elements of this note have been copied from my previous progress note dated 04/20/2023. All the information has been reviewed carefully. Some of the elements of this note have been copied from my previous progress note dated October 05, 2023 DIAGNOSIS 1. 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 Pathology noted to have abutment to the bladder wall needing partial cystectomy (T4b). High risk stage 2. MSI-Stable. TREATMENTS 1. 05/11/2020 Exploratory laparotomy, right hemicolectomy, ileocolic anastomosis, partial sigmoidectomy, end colostomy with denice's pouch (Dr. Curiel). Partial cystectomy (Dr. Gamboa) Path below. 2. Adjuvant FOLFOX 07/13/2020- 12/22/2020 ( Last cycle without Oxali secondary to worsening neuropathy) 3. March 01, 2021: Panel 1: * DENICE REVERSAL WITH SIDE TO END COLO-COLONIC ANASTOMOSIS (EEA33) * TAKEDOWN OF END COLOSTOMY *TAP BLOCK *LYSIS OF ADHESION *FLEXIBLE SIGMOIDOSCOPY Panel 2: * INSERTION STENT URETERAL - General 2. TURP 08/2021 3. Colonoscopy 11/2021: The examined portion of the ileum was normal. - Submucosal nodule in the descending colon. Biopsied. - A few ulcers at the colonic anastomosis. Biopsied. - Internal hemorrhoids. A. Descending colon, biopsy: - Submucosal adipose tissue suggestive of submucosal lipoma. B. Colocolonic anastomosis, biopsy: - Mild architectural distortion and changes consistent with proximity to anastomotic site. PATH: A. Descending colon, biopsy: - Submucosal adipose tissue suggestive of submucosal lipoma. B. Colocolonic anastomosis, biopsy: - Mild architectural distortion and changes consistent with proximity to anastomotic site. 4. Signatera- 07/2020, 10/2020,01/2021, 04/2021. 08/2021, 02/2022 and 09/2022, 04/2023- Negative HPI: 77 yo man here for follow up Doing well and denies any new complaints. Current Outpatient Medications Medication Sig tamsulosin (FLOMAX) 0.4 mg Take 0.4 mg by mouth once daily. ondansetron orally disintegrating (ZOFRAN ODT) 4 mg disintegrating tablet Take 1 tablet by mouth every 8 hours as needed for nausea/vomiting. amLODIPine (NORVASC) 5 mg tablet Take 5 mg by mouth once daily. furosemide (LASIX) 20 mg tablet CPAP NIFEdipine XL (ADALAT CC, PROCARDIA XL) 60 mg 24 hr tablet Take 60 mg by mouth once daily. spironolactone (ALDACTONE) 25 mg tablet Take 25 mg by mouth every morning. A-C-E-zinc ox-cupric ox-lutein ([facility]) 7,160 unit- 113 mg-1 mg tab Take by mouth. losartan potassium (LOSARTAN ORAL) Take 100 mg by mouth once daily. oxybutynin XL (DITROPAN XL) 5 mg 24 hr tablet Take 5 mg by mouth once daily. cyanocobalamin (VITAMIN B-12) 500 mcg tablet fenofibrate nanocrystallized (TRICOR) 48 mg tablet Take 96 mg by mouth every morning. multivit-min/folic/vit K/lycop (ONE-A-DAY MEN'S MULTIVITAMIN ORAL) insulin NPH-insulin regular injection (HumuLIN, NovoLIN 70/30) If blood sugar before dinner is >200, start taking 5 unit(s) of 70/30 NPH before dinner and continue with the 7 unit(s) in the morning. If the blood sugar before dinner is again >200 the next day, add 2 unit(s) to the previous dose of evening insulin For AM insulin changes: Check blood sugar before lunch. If blood sugar > 200, add 2 unit(s) to the morning insulin and take 9 the next day. If the following day's pre-lunch sugar is again > 200, add another 2 unit(s) to the morning dose. FERROUS GLUCONATE ORAL Take 324 mg by mouth once daily. aspirin, enteric coated (ASPIRIN, ENTERIC COATED) 81 mg EC tablet Take 81 mg by mouth once daily. Ascorbic Acid 60 mg lozg Take by mouth. cholecalciferol (VITAMIN D3) 1,000 unit tab tablet Take 1,000 Units by mouth. Cinnamon Bark 500 mg cap Take 500 mg by mouth. metFORMIN (GLUCOPHAGE) 500 mg tablet Take 1 tablet by mouth twice daily with meals. montelukast (SINGULAIR) 10 mg tablet Take 10 mg by mouth. Szpzv-1-IDO-EPA-Fish Oil 300-1,000 mg cap Take by mouth. simvastatin (ZOCOR) 80 mg tablet Take 80 mg by mouth. No current facility-administered medications for this visit. ALLERGIES Allergen Reactions Cephalexin Diarrhea Ciprofloxacin Other: See Comments Made pt dizzy Flagyl [Metronidazo* Other: See Comments Made pt dizzy Fluconazole Diarrhea PAST MEDICAL HISTORY Diagnosis Date Anemia BPH (benign prostatic hyperplasia) Colon cancer (HCC) 03/2020 Difficult intravenous acces (more content not included)... [facility] ISAIAH MOREL ([id number]) 1945 M Date Time Provider Department 10/05/23 SARIKA COOK [facility] During your visit today, we recorded the following information about you: Cassi Méndez 10/05/2023 3:44 PM Signed Please refer patient to [facility], Drs. Beaver and Margarita for port removal. Matilda will call the patient to schedule after review of records. Josi, please fax records Alfie, Please follow up on this appt. Hanna Neville 10/08/2023 7:47 AM Signed Josi:Information ready for you. Cherelle Yousif 10/08/2023 9:43 AM Signed Records faxed to [facility]. Hanna Neville 10/10/2023 10:41 AM Signed Called [facility] office. They have received this referral and their corporate travel coordinator will be calling patient soon to get scheduled. Hanna Lorenzo 10/17/2023 8:33 AM Signed Called [facility] office. Patient is scheduled 10/17/23 @ 10:45 for Port Removal. Hanna Morel Pss Allergies As of Date: 10/05/2023 Noted Allergy Reaction CEPHALEXIN 06/22/2020 6 - Diarrhea CIPROFLOXACIN 05/03/2020 14 - Other: See Comments Comments: Made pt dizzy FLAGYL (METRONIDAZOLE) 05/03/2020 14 - Other: See Comments Comments: Made pt dizzy FLUCONAZOLE 06/22/2020 6 - Diarrhea Date Reviewed: 10/05/2023 Reviewed by: Sarika Cook MD - Fully Assessed Reason for Visit: Future Appointment [256] Prescriptions as of 10/17/2023 - OZEMPIC 0.25 mg or 0.5 mg (2 mg/3 mL) pen INJECT 0.25 MG SUBCUTANEOUSLY WEEKLY - tamsulosin (FLOMAX) 0.4 mg Take 0.4 mg by mouth once daily. - amLODIPine (NORVASC) 5 mg tablet Take 5 mg by mouth once daily. - furosemide (LASIX) 20 mg tablet - CPAP - NIFEdipine XL (ADALAT CC, PROCARDIA XL) 60 mg 24 hr tablet Take 60 mg by mouth once daily. - spironolactone (ALDACTONE) 25 mg tablet Take 25 mg by mouth every morning. - A-C-E-zinc ox-cupric ox-lutein ([facility]) 7,160 unit- 113 mg-1 mg tab Take by mouth. - losartan potassium (LOSARTAN ORAL) Take 100 mg by mouth once daily. - oxybutynin XL (DITROPAN XL) 5 mg 24 hr tablet Take 5 mg by mouth once daily. - cyanocobalamin (VITAMIN B-12) 500 mcg tablet - fenofibrate nanocrystallized (TRICOR) 48 mg tablet Take 96 mg by mouth every morning. - multivit-min/folic/vit K/lycop (ONE-A-DAY MEN'S MULTIVITAMIN ORAL) - insulin NPH-insulin regular injection (HumuLIN, NovoLIN 70/30) If blood sugar before dinner is >200, start taking 5 unit(s) of 70/30 NPH before dinner and continue with the 7 unit(s) in the morning. If the blood sugar before dinner is again >200 the next day, add 2 unit(s) to the previous dose of evening insulin For AM insulin changes: Check blood sugar before lunch. If blood sugar > 200, add 2 unit(s) to the morning insulin and take 9 the next day. If the following day's pre-lunch sugar is again > 200, add another 2 unit(s) to the morning dose. - FERROUS GLUCONATE ORAL Take 324 mg by mouth once daily. - aspirin, enteric coated (ASPIRIN, ENTERIC COATED) 81 mg EC tablet Take 81 mg by mouth once daily. - Ascorbic Acid 60 mg lozg Take by mouth. - cholecalciferol (VITAMIN D3) 1,000 unit tab tablet Take 1,000 Units by mouth. - Cinnamon Bark 500 mg cap Take 500 mg by mouth. - Tcfxb-1-LMZ-EPA-Fish Oil 300-1,000 mg cap Take by mouth. - simvastatin (ZOCOR) 80 mg tablet Take 80 mg by mouth. Problem List As Of Date 10/05/2023 Noted Resolved Malignant neoplasm of ascending colon (HCC) [C1*05/10/2020 09/14/2022 Pelvic mass [R19.00] 05/10/2020 DM (diabetes mellitus) (HCC) [E11.9] Hypertension [I10] BPH (benign prostatic hyperplasia) [N40.0] Gastritis [K29.70] Hyperlipidemia [E78.5] Asthma [J45.909] 07/19/2021 Post-operative state [Z98.890] 10/27/2021 Post-operative pain [G89.18] 06/03/[address] (HCC) [Z93.2] 05/13/2020 S/P hernia repair [Z98.890, Z87.19] Hyponatremia [E87.1] 05/13/2020 06/03/[address] (HCC) [Z93.3] 05/13/2020 10/27/2021 Malignant neoplasm of rectosigmoid junction (HC*06/29/2020 09/14/2022 Morbid obesity (HCC) [E66.01] 02/28/2021 06/03/2021 KIMMY (obstructive sleep apnea) [G47.33] 02/28/2021 Rectal cancer (HCC) [C20] 03/01/2021 09/14/2022 Attention to colostomy (HCC) [Z43.3] 03/02/2021 10/27/2021 Hyperkalemia [E87.5] 03/02/2021 03/03/[address] [Z97.8] 03/02/2021 Acute on chronic kidney failure (HCC) [N17.9, N*03/03/2021 03/04/2021 Hypokalemia [E87.6] 03/07/2021 03/10/2021 Encounter for postoperative wound care [Z48.89] 03/08/2021 Mild protein-calorie malnutrition (HCC) [E44.1] 03/10/2021 04/20/2023 Acute renal failure (ARF) (HCC) [N17.9] 03/19/2021 10/27/2021 BMI 40.0-44.9, adult (HCC) [Z68.41] 06/03/2021 Anemia [D64.9] 06/03/2021 CKD (chronic kidney disease), stage III (HCC) [*06/03/2021 Difficult intravenous access [Z78.9] 07/19/2021 I (more content not included)... Normal [facility] Comprehensive metabolic 2000 panelon 10-05-2023 Albumin [Mass/Vol] 4.1 g/dL Normal 3.9-4.9 [facility] Comment on above: Order Comment: Speci men Type: BLOOD SPECIMENOrdering Facility: [facility] Address: [address] [place], [place] [address] Performed By: #### 2 4323-8 ####[facility] LABCLIA [id number] [place] [address] ALP [Catalytic activity/Vol] 56 U/L Normal 38-113 [facility] Comment on above: Order Comment: Speci men Type: BLOOD SPECIMENOrdering Facility: [facility] Address: [address] [place] [address] Performed By: #### 2 4323-8 ####[facility] LABCLIA [id number] [place] [address] ALT [Catalytic activity/Vol] 9 U/L Low 10-54 [facility] Comment on above: Order Comment: Speci men Type: BLOOD SPECIMENOrdering Facility: [facility] Address: [address] [place] [address] Performed By: #### 2 4323-8 ####[facility] LABCLIA [id number] [place] [address] Anion gap [Moles/Vol] 10 mmol/L Normal 9-18 [facility] Comment on above: Order Comment: Speci men Type: BLOOD SPECIMENOrdering Facility: [facility] Address: [address] [place] [address] Performed By: #### 2 4323-8 ####[facility] LABCLIA [id number] [place] [address] AST [Catalytic activity/Vol] 11 U/L Low 14-40 [facility] Comment on above: Order Comment: Speci men Type: BLOOD SPECIMENOrdering Facility: [facility] Address: [address] [place] [address] Performed By: #### 2 4323-8 ####[facility] LABCLIA [id number] [place] [address] Bilirubin [Mass/Vol] 0.2 mg/dL Normal 0.2-1.3 [facility] Comment on above: Order Comment: Speci men Type: BLOOD SPECIMENOrdering Facility: [facility] Address: [address] [place] [address] Performed By: #### 2 4323-8 ####[facility] LABCLIA [id number] [place] [address] Calcium [Mass/Vol] 9.5 mg/dL Normal 8.5-10.2 [facility] Comment on above: Order Comment: Speci men Type: BLOOD SPECIMENOrdering Facility: [facility] Address: [address] [place] [address] Performed By: #### 2 4323-8 ####[facility] LABCLIA [id number] [place] [address] Chloride [Moles/Vol] 102 mmol/L Normal 97-105 [facility] Comment on above: Order Comment: Speci men Type: BLOOD SPECIMENOrdering Facility: [facility] Address: [address] [place] [address] Performed By: #### 2 4323-8 ####[facility] LABCLIA [id number] [place] [address] CO2 [Moles/Vol] 21 mmol/L Low 22-30 [facility] Comment on above: Order Comment: Speci men Type: BLOOD SPECIMENOrdering Facility: [facility] Address: [address] [place], [place] [address] Performed By: #### 2 4323-8 ####[facility] LABCLIA [id number] [place] [address] Creatinine [Mass/Vol] 2.59 mg/dL High 0.73-1.22 [facility] Comment on above: Order Comment: Speci men Type: BLOOD SPECIMENOrdering Facility: [facility] Address: [address] [place] [address] Performed By: #### 2 4323-8 ####[facility] LABCLIA [id number] [place] [address] Creatinine and Glomerular filtration rate.predicted panel (S/P/Bld) 25 mL/min/1.73m??? Low >=60 [facility] Comment on above: Order Comment: Speci men Type: BLOOD SPECIMENOrdering Facility: [facility] Address: [address] [place], [place] [address] Result Comment: Rosa mated Glomerular Filtration Rate (eGFR) is calculated using the 2020 CKD-EPI creatinine equation. This equation utilizes serum creatinine, sex, and age as parameters. The creatinine assay has traceable calibration to isotope dilution-mass spectrometry. Refer to KDIGO guidelines for clinical interpretation. In patients with unstable renal function, e.g. those with acute kidney injury, the eGFR may not accurately reflect actual GFR. Performed By: #### 2 4323-8 ####[facility] LABCLIA [id number] [place] [address] Glucose [Mass/Vol] 250 mg/dL High 74-99 [facility] Comment on above: Order Comment: Speci men Type: BLOOD SPECIMENOrdering Facility: [facility] Address: [address] [place] [address] Result Comment: The [place] Diabetes Association (ADA) provides guidance for cutoff values for fasting glucose and random glucose. The ADA defines fasting as no caloric intake for at least 8 hours. Fasting plasma glucose results between 100 to 125 mg/dL indicate increased risk for diabetes (prediabetes). Fasting plasma glucose results greater than or equal to 126 mg/dL meet the criteria for diagnosis of diabetes. In the absence of unequivocal hyperglycemia, results should be confirmed by repeat testing. In a patient with classic symptoms of hyperglycemia or hyperglycemic crisis, random plasma glucose results greater than or equal to 200 mg/dL meet the criteria for diagnosis of diabetes. Reference: Standards of Medical Care in Diabetes 2016, [place] [employer] Association. Diabetes Care. 2016.39(Suppl 1). Performed By: #### 2 4323-8 ####[facility] LABCLIA [id number] [place] [address] Potassium [Moles/Vol] 5.1 mmol/L Normal 3.7-5.1 [facility] Comment on above: Order Comment: Speci men Type: BLOOD SPECIMENOrdering Facility: [facility] Address: [address] [place] [address] Performed By: #### 2 4323-8 ####[facility] LABCLIA [id number] [place] [address] Protein [Mass/Vol] 8.0 g/dL Normal 6.3-8.0 [facility] Comment on above: Order Comment: Speci men Type: BLOOD SPECIMENOrdering Facility: [facility] Address: [address] [place] [address] Performed By: #### 2 4323-8 ####[facility] LABCLIA [id number] [place] [address] Sodium [Moles/Vol] 133 mmol/L Low 136-144 [facility] Comment on above: Order Comment: Speci men Type: BLOOD SPECIMENOrdering Facility: [facility] Address: [address] [place] [address] Performed By: #### 2 4323-8 ####[facility] LABCLIA [id number] [place] [address] Urea nitrogen [Mass/Vol] 48 mg/dL High 9-24 [facility] Comment on above: Order Comment: Speci men Type: BLOOD SPECIMENOrdering Facility: [facility] Address: [address] [place] [address] Performed By: #### 2 4323-8 ####[facility] LABCLIA [id number] [place] [address] MISC SEND OUT TST 1on 2023 REFERRAL LAB 1 Josette Normal [facility] Comment on above: Order Comment: Speci men Type: BLOOD SPECIMENOrdering Facility: [facility] Address: [address] [place] [address] Performed By: #### M ISC1 ####NON-INTERFACED REF LABSCLIA SEE SCANNED RESULTS TEST 1 Signatera Normal [facility] Comment on above: Order Comment: Speci men Type: BLOOD SPECIMENOrdering Facility: [facility] Address: [address] [place] [address] Performed By: #### M ISC1 ####NON-INTERFACED REF LABSCLIA SEE SCANNED RESULTS TEST RESULTS 1 View results in Scanned Documents link when available. Normal [facility] Comment on above: Order Comment: Speci men Type: BLOOD SPECIMENOrdering Facility: [facility] Address: [address] [place] [address] Performed By: #### M ISC1 ####NON-INTERFACED REF LABSCLIA SEE SCANNED RESULTS MISC SEND OUT TST 1Ordered B y: Ron Hagen on 06-11-2023 Test 1 [facility] Test Results 1 View results in Scanned Documents link when available. [facility] CT Abdomen and Pelvis W cont rast Inocente 04-16-2023 IMPRESSION: 1. Since 05/08/2022, no evidence of local recurrence or metastatic disease within the abdomen/pelvis. 2. Unchanged mild bilateral ureterectasis, extending to the distal ureters, immediately adjacent to the ureterovesical junctions. Consideration could be given to further assessment with cystoscopy, if warranted. 3. No acute abnormality within the abdomen/pelvis. Transcribe Date/Time: Apr 16 2023 1:53P Dictated by: SHIRA COLE MD This examination was interpreted and the report reviewed and electronically signed by: SHIRA COLE MD on Apr 16 2023 2:11PM EST Thank you for allowing us to participate in the care of your patient. Should there be any questions regarding this interpretation, please call [phone]. If you are unable to reach us at the number above, please feel free to contact [facility] at [phone]. DIVISION OF RADIOLOGY * * *Final Report* * * DATE OF EXAM: Apr 16 2023 1:02PM [facility] 0530 - CT ABD/PEL W IVCON / PROCEDURE REASON: multiple diagnoses * * * * Physician Interpretation * * * * RESULT: EXAMINATION: CT ABDOMEN AND PELVIS WITH IV CONTRAST CLINICAL HISTORY: Colon cancer. Per review of the medical record, colorectal cancer, status post resection April 2020. Pathology noted to have abutment of the bladder wall, necessitating partial cystectomy. Prior history of TURP in August,. TECHNIQUE: CT of the abdomen and pelvis was performed using standard technique, scanning from just above the dome of the diaphragm to the symphysis pubis. MQ: CTAP_3 Contrast: IV: 150 ml of Omnipaque 300 Oral: 500 ml of dilute Omnipaque 240 CT Radiation dose: Integrated Dose-length product (DLP) for this visit = 1542 mGy*cm. CT Dose Reduction Employed: mAs-kVp adjusted based on patient size-age COMPARISON: CT abdomen/pelvis 04/11/2022; 04/20/2021; 01/21/2021. PET/CT 10/06/2022 RESULT: Liver: Normal liver morphology. No suspicious hepatic mass. Biliary: No bile duct dilation. Gallstones are within a nondilated gallbladder. Spleen: No mass. No splenomegaly. Pancreas: No mass or duct dilation. Adrenals: No mass. Kidneys: There is unchanged mild bilateral ureterectasis, which extends to the distalmost aspect of the ureters, immediately upstream to the ureterovesical junctions (coronal series 4, image 69 and 71). The kidneys enhance symmetrically. No renal mass. GI tract: Operative changes reflect right hemicolectomy with widely patent ileocolic anastomosis and distal colectomy with left lower quadrant widely patent colocolonic anastomosis. The bowel is normal in caliber and without evidence of wall thickening or obstruction. There are scattered colonic diverticula, without associated inflammation. Lymph nodes: No abdominal or pelvic lymphadenopathy. Scattered subcentimeter short axis mesenteric and retroperitoneal lymph nodes are unchanged and nonspecific. Mesentery/Peritoneum: No ascites or mass. Retroperitoneum: No mass. Vasculature: - Abdominal aorta and iliac arteries: Atherosclerotic calcifications without aneurysm. - Celiac and SMA: Atherosclerotic calcifications at the origins. - Portal venous system (SMV, splenic vein, portal vein and branches): Patent. - Hepatic veins: Patent. Pelvis: Operative changes reflect TURP. There is a fat-containing left inguinal hernia. Bones/Soft Tissues: Degenerative changes involve the hips and lumbar spine. No destructive lytic or blastic osseous abnormality. Left anterior abdominal wall hernia repair is noted. There is unchanged laxity of the body wall along the hernia repair and within the midline anterior abdominal wall. Lower thorax: Unchanged bandlike regions of scarring/atelectasis within the right lung base and elevation of the right hemidiaphragm. Blindstitch Machine Operator (topogram) images: No additional findings. DIVISION OF RADIOLOGY Provider, [facility] - 04/16/2023 * * *Final Report* * * DATE OF EXAM: Apr 16 2023 1:02PM [facility] 0530 - CT ABD/PEL W IVCON / PROCEDURE REASON: multiple diagnoses * * * * Physician Interpretation * * * * RESULT: EXAMINATION: CT ABDOMEN AND PELVIS WITH IV CONTRAST CLINICAL HISTORY: Colon cancer. Per review of the medical record, colorectal cancer, status post resection April 2020. Pathology noted to have abutment of the bladder wall, necessitating partial cystectomy. Prior history of TURP in August,. TECHNIQUE: CT of the abdomen and pelvis was performed using standard technique, scanning from just above the dome of the diaphragm to the symphysis pubis. MQ: CTAP_3 Contrast: IV: 150 ml of Omnipaque 300 Oral: 500 ml of dilute Omnipaque 240 CT Radiation dose: Integrated Dose-length product (DLP) for this visit = 1542 mGy*cm. CT Dose Reduction Employed: mAs-kVp adjusted based on patient size-age COMPARISON: CT abdomen/pelvis 04/11/2022; 04/20/2021; 01/21/2021. PET/CT 10/06/2022 RESULT: Liver: Normal liver morphology. No suspicious hepatic mass. Biliary: No bile duct dilation. Gallstones are within a nondilated gallbladder. Spleen: No mass. No splenomegaly. Pancreas: No mass or duct dilation. Adrenals: No mass. Kidneys: There is unchanged mild bilateral ureterectasis, which extends to the distalmost aspect of the ureters, immediately upstream to the ureterovesical junctions (coronal series 4, image 69 and 71). The kidneys enhance symmetrically. No renal mass. GI tract: Operative changes reflect right hemicolectomy with widely patent ileocolic anastomosis and distal colectomy with left lower quadrant widely patent colocolonic anastomosis. The bowel is normal in caliber and without evidence of wall thickening or obstruction. There are scattered colonic diverticula, without associated inflammation. Lymph nodes: No abdominal or pelvic lymphadenopathy. Scattered subcentimeter short axis mesenteric and retroperitoneal lymph nodes are unchanged and nonspecific. Mesentery/Peritoneum: No ascites or mass. Retroperitoneum: No mass. Vasculature: - Abdominal aorta and iliac arteries: Atherosclerotic calcifications without aneurysm. - Celiac and SMA: Atherosclerotic calcifications at the origins. - Portal venous system (SMV, splenic vein, portal vein and branches): Patent. - Hepatic veins: Patent. Pelvis: Operative changes reflect TURP. There is a fat-containing left inguinal hernia. Bones/Soft Tissues: Degenerative changes involve the hips and lumbar spine. No destructive lytic or blastic osseous abnormality. Left anterior abdominal wall hernia repair is noted. There is unchanged laxity of the body wall along the hernia repair and within the midline anterior abdominal wall. Lower thorax: Unchanged bandlike regions of scarring/atelectasis within the right lung base and elevation of the right hemidiaphragm. Blindstitch Machine Operator (topogram) images: No additional findings. IMPRESSION IMPRESSION: 1. Since 05/08/2022, no evidence of local recurrence or metastatic disease within the abdomen/pelvis. 2. Unchanged mild bilateral ureterectasis, extending to the distal ureters, immediately adjacent to the ureterovesical junctions. Consideration could be given to further assessment with cystoscopy, if warranted. 3. No acute abnormality within the abdomen/pelvis. Transcribe Date/Time: Apr 16 2023 1:53P Dictated by: SHIRA COLE MD This examination was interpreted and the report reviewed and electronically signed by: SHIRA COLE MD on Apr 16 2023 2:11PM EST Thank you for allowing us to participate in the care of your patient. Should there be any questions regarding this interpretation, please call [phone]. If you are unable to reach us at the number above, please feel free to contact [facility] at [phone]. [facility] Radiology Study observation (narrative) [facility]on[facility] orellana [facility] CT Abdomen and Pelvis W cont rast IVOrdered By: Ccf Provider on 04-16-2023 [facility] GLYCOHEMOGLOBIN A1Con 2022 ADA RECOMMENDATION SEE BELOW Normal [facility] Comment on above: Result Comment: ADA RECOMMENDED LIMIT 4.0 - 6.0 ADA THERAPEUTIC TARGET < 7.0 ACTION SUGGESTED > 7.0 Performed By: #### A 1C #### [facility] [address] [address] [address] Federico Wyatt Glucose [Mass/Vol] 177 mg/dL Normal [facility] Comment on above: Performed By: #### A 1C #### [facility] [address] [address] [address] Federico Wyatt HbA1c (Bld) [Mass fraction] 7.8 % Critically high 4.5-6.2 [facility] Comment on above: Performed By: #### A 1C #### [facility] [address] [address] [address] Federico Wyatt PET+CT Guidance for localiza tion of tumor of Skull base to mid-thigh-- W 18F-FDG Inocente 10-07-2022 IMPRESSION: 1. Neck: No suspicious hypermetabolic foci 2. Chest: No evidence of FDG avid neoplastic process 3. Abdomen and pelvis: Post surgical changes. No suspicious hypermetabolic foci. 4. Skeleton: No hypermetabolic osseous lesions Transcribe Date/Time: Oct 06 2022 1:05P Dictated by: MARY NY MD This examination was interpreted and the report reviewed and electronically signed by: MARY NY MD on Oct 07 2022 6:45PM EST Thank you for allowing us to participate in the care of your patient. Should there be any questions regarding this interpretation, please call [phone]. If you are unable to reach us at the number above, please feel free to contact [facility] [place] at [phone]. DIVISION OF RADIOLOGY * * *Final Report* * * DATE OF EXAM: Oct 06 2022 11:03AM NRN [id number] - NM PET/CT SKULL-THIGH SUBQ / PROCEDURE REASON: Malignant neoplasm of ascending colon (HCC) * * * * Physician Interpretation * * * * RESULT: FDG PET/CT SCAN: CLINICAL HISTORY: Colon cancer. INDICATION: Subsequent treatment strategy. TECHNIQUE: 20 mCi 18-FDG IV, followed about 1 hour later by PET imaging from base of the skull to proximal femur. Non contrast CT was performed for attenuation correction and anatomic localization purposes. CT Dose-Length Product (DLP): 506 mGy*cm. CT Dose Reduction Employed: Yes BLOOD GLUCOSE: 159 mg/dL Correlation: CT abdomen and pelvis dated 04/11/2022 RESULT: NECK: Likely physiological activity in the oral cavity, tonsillar regions, salivary glands. No suspicious hypermetabolic foci. There is no hypermetabolic cervical lymphadenopathy. CHEST: There are aortic and coronary calcifications. Left sided chest port. There is no hypermetabolic hilar or mediastinal lymphadenopathy. There is no hypermetabolic axillary lymphadenopathy. There are no hypermetabolic foci in the lungs. ABDOMEN AND PELVIS: The liver is slightly heterogeneous activity but no focal lesions are identified. There are no hypermetabolic foci in the liver, spleen, adrenals. There is no hypermetabolic abdominal or pelvic lymphadenopathy. Physiologic activity is noted in the liver, renal collecting system, bladder and bowel. Colonic surgical changes in the right lower quadrant. Mild diffuse uptake associated with stranding in the anterior abdominal wall likely postsurgical inflammation. Linear activity in the sigmoid region can be inflammatory. SKELETON: There are no hypermetabolic osseous lesions. Blindstitch Machine Operator (topogram) images:No additional findings. - DIVISION OF RADIOLOGY Provider, Mary Kay York - 10/07/2022 * * *Final Report* * * DATE OF EXAM: Oct 06 2022 11:03AM NRN [id number] - NM PET/CT SKULL-THIGH SUBQ / PROCEDURE REASON: Malignant neoplasm of ascending colon (HCC) * * * * Physician Interpretation * * * * RESULT: FDG PET/CT SCAN: CLINICAL HISTORY: Colon cancer. INDICATION: Subsequent treatment strategy. TECHNIQUE: 20 mCi 18-FDG IV, followed about 1 hour later by PET imaging from base of the skull to proximal femur. Non contrast CT was performed for attenuation correction and anatomic localization purposes. CT Dose-Length Product (DLP): 506 mGy*cm. CT Dose Reduction Employed: Yes BLOOD GLUCOSE: 159 mg/dL Correlation: CT abdomen and pelvis dated 04/11/2022 RESULT: NECK: Likely physiological activity in the oral cavity, tonsillar regions, salivary glands. No suspicious hypermetabolic foci. There is no hypermetabolic cervical lymphadenopathy. CHEST: There are aortic and coronary calcifications. Left sided chest port. There is no hypermetabolic hilar or mediastinal lymphadenopathy. There is no hypermetabolic axillary lymphadenopathy. There are no hypermetabolic foci in the lungs. ABDOMEN AND PELVIS: The liver is slightly heterogeneous activity but no focal lesions are identified. There are no hypermetabolic foci in the liver, spleen, adrenals. There is no hypermetabolic abdominal or pelvic lymphadenopathy. Physiologic activity is noted in the liver, renal collecting system, bladder and bowel. Colonic surgical changes in the right lower quadrant. Mild diffuse uptake associated with stranding in the anterior abdominal wall likely postsurgical inflammation. Linear activity in the sigmoid region can be inflammatory. SKELETON: There are no hypermetabolic osseous lesions. Blindstitch Machine Operator (topogram) images:No additional findings. - IMPRESSION IMPRESSION: 1. Neck: No suspicious hypermetabolic foci 2. Chest: No evidence of FDG avid neoplastic process 3. Abdomen and pelvis: Post surgical changes. No suspicious hypermetabolic foci. 4. Skeleton: No hypermetabolic osseous lesions Transcribe Date/Time: Oct 06 2022 1:05P Dictated by: MARY NY MD This examination was interpreted and the report reviewed and electronically signed by: MARY NY MD on Oct 07 2022 6:45PM EST Thank you for allowing us to participate in the care of your patient. Should there be any questions regarding this interpretation, please call [phone]. If you are unable to reach us at the number above, please feel free to contact [facility]iology at [phone]. [facility] PET+CT Guidance for localiza tion of tumor of Skull base to mid-thigh-- W 18F-FDG IVOrdered By: Ccf Provider on 10-07-2022 [facility] GLUCOSE, BLOOD (POC)on 10-06 Glucose [Mass/Vol] 159 mg/dL Abnormal 74 - 99 mg/dL [facility] Comment on above: Location:[facility], [address] [place] [address] , [place], [place], [facility] The Accu-Chek Inform II glucose meter has not been approved for testing on patients receiving intensive medical intervention or therapy and results from this point of care glucose test should not be used for patient management decisions in these cases. Inaccurate results may also occur from other interfering factors, such as N-acetylcysteine (blood concentrations of greater than 5mg/dL), galactose, extremes of hematocrit (<10 or >65), or high doses of ascorbic acid (vitamin C) greater than 3mg/dL. Consider alternate testing mechanisms (e.g. core lab, blood gas instrument) in the above situations. Interpretation and review of laboratory results Abnormal [facility] PET+CT Guidance for localiza tion of tumor of Skull base to mid-thigh-- W 18F-FDG Inocente 10-06-2022 Radiology Study observation (narrative) Matty orellana [facility] CBC W Auto Differential pane l (Bld)on 09-18-2022 Basophils (Bld) [#/Vol] 0.06 10*3/uL <0.11 k/uL [facility] Basophils/100 WBC (Bld) 0.8 % [facility] Differential cell count method Nom (Bld) Auto [facility] Eosinophils (Bld) [#/Vol] 0.46 10*3/uL High <0.46 k/uL [facility] Eosinophils/100 WBC (Bld) 6.0 % [facility] Erythrocyte distribution width (RBC) [Ratio] 17.4 % High 11.5 - 15.0 % [facility] Hematocrit (Bld) [Volume fraction] 30.6 % Low 39.0 - 51.0 % [facility] Hemoglobin (Bld) [Mass/Vol] 9.6 g/dL Low 13.0 - 17.0 g/dL [facility] Immature granulocytes (Bld) [#/Vol] 0.04 10*3/uL <0.10 k/uL [facility] Immature granulocytes/100 WBC (Bld) 0.5 % [facility] Lymphocytes (Bld) [#/Vol] 2.51 10*3/uL 1.00 - 4.00 k/uL [facility] Lymphocytes/100 WBC (Bld) 33.0 % [facility] MCH (RBC) [Entitic mass] 29.9 pg 26.0 - 34.0 pg [facility] MCHC (RBC) [Mass/Vol] 31.4 g/dL 30.5 - 36.0 g/dL [facility] MCV (RBC) [Entitic vol] 95.3 fL 80.0 - 100.0 fL [facility] Monocytes (Bld) [#/Vol] 0.66 10*3/uL <0.87 k/uL [facility] Monocytes/100 WBC (Bld) 8.7 % [facility] Neutrophils (Bld) [#/Vol] 3.88 10*3/uL 1.45 - 7.50 k/uL [facility] Neutrophils/100 WBC (Bld) 51.0 % [facility] Nucleated RBC (Bld) [#/Vol] <0.01 k/uL [facility] Nucleated RBC/100 WBC (Bld) [Ratio] 0.0 /100 WBC [facility] Platelet mean volume (Bld) [Entitic vol] 9.9 fL 9.0 - 12.7 fL [facility] Platelets (Bld) [#/Vol] 328 10*3/uL 150 - 400 k/uL [facility] RBC (Bld) [#/Vol] 3.21 10*6/uL Low 4.20 - 6.0 0 m/uL [facility] WBC (Bld) [#/Vol] 7.61 10*3/uL 3.70 - 11. 00 k/uL [facility] Comprehensive metabolic 2000 panelon 09-18-2022 Albumin [Mass/Vol] 4.0 g/dL 3.9 - 4.9 g/dL [facility] ALP [Catalytic activity/Vol] 45 U/L 38 - 113 U/L [facility] ALT [Catalytic activity/Vol] 6 U/L Low 10 - 54 U/L [facility] Anion gap [Moles/Vol] 8 mmol/L Low 9 - 18 mmol/L [facility] AST [Catalytic activity/Vol] 11 U/L Low 14 - 40 U/L [facility] Bilirubin [Mass/Vol] 0.2 mg/dL 0.2 - 1 .3 mg/dL [facility] Calcium [Mass/Vol] 8.9 mg/dL 8.5 - 10. 2 mg/dL [facility] Chloride [Moles/Vol] 107 mmol/L High 97 - 10 5 mmol/L [facility] CO2 [Moles/Vol] 24 mmol/L 22 - 30 mmol/L [facility] Creatinine [Mass/Vol] 2.28 mg/dL High 0.73 - 1.22 mg/dL [facility] Estimated Glomerular Filtration Rate 29 mL/min/1.73m Low >=60 mL/min/1.73m [facility] Glucose [Mass/Vol] 197 mg/dL High 74 - 99 mg/dL [facility] Potassium [Moles/Vol] 4.7 mmol/L 3.7 - 5.1 mmol/L [facility] Protein [Mass/Vol] 7.1 g/dL 6.3 - 8.0 g/dL [facility] Sodium [Moles/Vol] 139 mmol/L 136 - 144 mmol/L [facility] Urea nitrogen [Mass/Vol] 36 mg/dL High 9 - 24 mg/dL [facility] INSULINon 07-01-2022 Insulin 10.7 uIU/mL Normal 2.6-24.9 [facility] Comment on above: Performed By: #### I NSULIN #### [facility] [address] [address] [address] Federico Wyatt CBC AUTO DIFFon 10-21-2022 BASO # 0.1 103/ul Normal 0.0-0.1 [facility] Comment on above: Performed By: #### C BC #### [facility] [address] [place] [address] Dr. Federico Wyatt Basophils/100 WBC (Bld) 0.7 % Normal 0.2-2.0 [facility] Comment on above: Performed By: #### C BC #### [facility] [address] [place] [address] Dr. Federico Wyatt EO # 0.5 103/ul Normal 0.0-0.7 [facility] Comment on above: Performed By: #### C BC #### [facility] [address] [place] [address] Dr. Federico Wyatt Eosinophils/100 WBC (Bld) 5.3 % Normal 0.9-7.0 [facility] Comment on above: Performed By: #### C BC #### [facility] [address] [place] [address] Dr. Federico Wyatt Erythrocyte distribution width (RBC) [Ratio] 16.0 % Critically high 11.0-15.0 [facility] Comment on above: Performed By: #### C BC #### [facility] [address] [place] [address] Dr. Federico Wyatt Hematocrit (Bld) [Volume fraction] 32.9 % Critically low 42.0-54.0 [facility] Comment on above: Performed By: #### C BC #### [facility] [address] [place] [address] Dr. Federico Wyatt Hemoglobin (Bld) [Mass/Vol] 10.2 g/dL Critically low 14.0-18.0 [facility] Comment on above: Performed By: #### C BC #### [facility] [address] [place] [address] Dr. Federico Wyatt IG # 0.02 10e3/ul Normal 0.00-0.03 [facility] Comment on above: Performed By: #### C BC #### [facility] [address] [place] [address] Dr. Federico Wyatt IG % 0.2 % Normal 0.0-0.5 [facility] Comment on above: Performed By: #### C BC #### [facility] [address] [place] [address] Dr. Federico Wyatt LYMPH # 2.7 103/ul Normal 1.2-3.8 [facility] Comment on above: Performed By: #### C BC #### [facility] [address] [place] [address] Dr. Federico Wyatt Lymphocytes/100 WBC (Bld) 31.1 % Normal 20.5-60.0 [facility] Comment on above: Performed By: #### C BC #### [facility] [address] [place] [address] Dr. Federico Wyatt MANUAL DIFF REQ NO Normal [facility] Comment on above: Performed By: #### C BC #### [facility] [address] [place] [address] Dr. Federico Wyatt MCH (RBC) [Entitic mass] 28.1 pg Normal 25.9-34.0 [facility] Comment on above: Performed By: #### C BC #### [facility] [address] [place] [address] Dr. Federico Wyatt MCHC (RBC) [Mass/Vol] 31.0 g/dL Normal 29.9-35.2 [facility] Comment on above: Performed By: #### C BC #### [facility] [address] [place] [address] Dr. Federico Wyatt MCV (RBC) [Entitic vol] 90.6 fL Normal 80.0-94.0 [facility] Comment on above: Performed By: #### C BC #### [facility] [address] [place] [address] Dr. Federico Wyatt MONO # 0.7 103/ul Normal 0.3-0.8 [facility] Comment on above: Performed By: #### C BC #### [facility] [address] [place] [address] Dr. Federico Wyatt Monocytes/100 WBC (Bld) 8.0 % Normal 1.7-12.0 [facility] Comment on above: Performed By: #### C BC #### [facility] [address] [address] [address] Federico Wyatt NEUT # 4.8 103/ul Normal 1.4-6.5 [facility] Comment on above: Performed By: #### C BC #### [facility] [address] [address] [address] Federico Wyatt Neutrophils/100 WBC (Bld) 54.7 % Normal 43.0-75.0 [facility] Comment on above: Performed By: #### C BC #### [facility] [address] [place] [address] Dr. Federico Wyatt Platelet mean volume (Bld) [Entitic vol] 9.5 fL Normal 9.5-13.5 [facility] Comment on above: Performed By: #### C BC #### [facility] [address] [place] [address] Dr. Federico Wyatt PLT 446 103/ul Normal 150-450 [facility] Comment on above: Performed By: #### C BC #### [facility] [address] [address] [address] Federico Wyatt RBC 3.63 106/ul Critically low 4.70-6.10 [facility] Comment on above: Performed By: #### C BC #### [facility] [address] [place] [address] Dr. Federico Wyatt WBC 8.7 103/ul Normal 4.0-11.0 [facility] Comment on above: Performed By: #### C BC #### [facility] [address] [place] [address] Dr. Federico Wyatt GLYCOHEMOGLOBIN A1Con 2021 ADA RECOMMENDATION SEE BELOW Normal [facility] Comment on above: Result Comment: ADA RECOMMENDED LIMIT 4.0 - 6.0 ADA THERAPEUTIC TARGET < 7.0 ACTION SUGGESTED > 7.0 Performed By: #### A 1C #### [facility] [address] [place] [address] Dr. Federico Wyatt Glucose [Mass/Vol] 226 mg/dL Normal [facility] Comment on above: Performed By: #### A 1C #### [facility] [address] [address] [address] Federico Wyatt HbA1c (Bld) [Mass fraction] 9.5 % Critically high 4.5-6.2 [facility] Comment on above: Performed By: #### A 1C #### [facility] [address] [address] [address] Federico Wyatt LIPID PROFILEon 06-30-2022 CHOL-HDL RATIO NORM SEE BELOW Normal [facility] Comment on above: Result Comment: 3.3 - 4.4 LOW RISK 4.4 - 7.1 AVERAGE RISK 7.1 - 11.0 MODERATE RISK >11.0 HIGH RISK Performed By: #### L IPID, CMP #### [facility] [address] [address] [address] Federico Wyatt Cholesterol [Mass/Vol] 126 mg/dL Normal <=200 [facility] Comment on above: Performed By: #### L IPID, CMP #### [facility] [address] [address] [address] Federico Wyatt Cholesterol in HDL [Mass/Vol] 40 mg/dL Normal 40-60 [facility] Comment on above: Performed By: #### L IPID, CMP #### [facility] [address] [address] [address] Federico Wyatt Cholesterol in LDL [Mass/Vol] 61.6 mg/dL Normal [facility] Comment on above: Performed By: #### L IPID, CMP #### [facility] [address] [address] [address] Federico Wyatt Cholesterol.total/Lanny sterol in HDL [Mass ratio] 3.2 {ratio} Normal [facility] Comment on above: Performed By: #### L IPID, CMP #### [facility] [address] [address] [address] Federico Wyatt HDL NORMAL > or = 60 mg/dl - LO W CARDIOVASCULAR RISK <40 mg/dl - HIGH CARDIOVASCULAR RISK Normal [facility] Comment on above: Performed By: #### L IPID, CMP #### [facility] [address] [place] [address] Dr. Federico Wyatt LDL CALC NORMAL SEE BELOW Normal [facility] Comment on above: Result Comment: <100 mg/dl OPTIMAL 100 - 129 mg/dl NEAR OR ABOVE OPTIMAL 130 - 159 mg/dl BORDERLINE HIGH 160 - 189 mg/dl HIGH >190 mg/dl VERY HIGH Performed By: #### L IPID, CMP #### [facility] [address] [place] [address] Dr. Federico Wyatt Triglyceride [Mass/Vol] 122 mg/dL Normal <=150 T [facility] Comment on above: Performed By: #### L IPID, CMP #### [facility] [address] [place] [address] Dr. Federico Wyatt VLDL CALC 24.4 mg/dL Normal [facility] Comment on above: Performed By: #### L IPID, CMP #### [facility] [address] [place] [address] Dr. Federico Wyatt PROF 14(COMP METB)on 06-30- 022 Albumin [Mass/Vol] 3.2 g/dL Critically low 3.4-5.0 [facility] Comment on above: Performed By: #### L IPID, CMP #### [facility] [address] [place] [address] Dr. Federico Wyatt Albumin/Globulin [Mass ratio] 0.6 {ratio} Normal [facility] Comment on above: Performed By: #### L IPID, CMP #### [facility] [address] [place] [address] Dr. Federico Wyatt ALP [Catalytic activity/Vol] 48 U/L Normal 46-116 [facility] Comment on above: Performed By: #### L IPID, CMP #### [facility] [address] [place] [address] Dr. Federico Wyatt ALT [Catalytic activity/Vol] 17 U/L Normal 16-63 [facility] Comment on above: Performed By: #### L IPID, CMP #### [facility] [address] [place] [address] Dr. Federico Wyatt Anion gap [Moles/Vol] 14.5 mmol/L Normal Th [facility] Comment on above: Performed By: #### L IPID, CMP #### [facility] [address] [place] [address] Dr. Federico Wyatt AST [Catalytic activity/Vol] 8 U/L Critically low 15-37 [facility] Comment on above: Performed By: #### L IPID, CMP #### [facility] [address] [place] [address] Dr. Federico Wyatt Bilirubin [Mass/Vol] 0.3 mg/dL Normal 0.2-1.0 [facility] Comment on above: Performed By: #### L IPID, CMP #### [facility] [facility] [address] [place] [address] Dr. Federico Wyatt Calcium [Mass/Vol] 8.8 mg/dL Normal 8.5-10.1 [facility] Comment on above: Performed By: #### L IPID, CMP #### [facility] [address] [place] [address] Dr. Federico Wyatt Chloride [Moles/Vol] 103 mmol/L Normal 98-107 [facility] Comment on above: Performed By: #### L IPID, CMP #### [facility] [address] [place] [address] Dr. Federico Wyatt CO2 [Moles/Vol] 25.0 mmol/L Normal 21.0-32.0 [facility] Comment on above: Performed By: #### L IPID, CMP #### [facility] [address] [place] [address] Dr. Federico Wyatt Creatinine [Mass/Vol] 1.94 mg/dL Critically high 0.70-1.30 [facility] Comment on above: Performed By: #### L IPID, CMP #### [facility] [address] [place] [address] Dr. Federico Wyatt EGFR-AF CITIZEN OF [place] 41 mL/min/1.73m2 Critically low >=60 [facility] Comment on above: Performed By: #### L IPID, CMP #### [facility] [address] [address] [address] Federico Wyatt EGFR-NON AF CITIZEN OF [place] 34 mL/min/1.73m2 Critically low >=60 [facility] Comment on above: Performed By: #### L IPID, CMP #### [facility] [address] [address] [address] Federico Wyatt Globulin (S) [Mass/Vol] 5.2 g/dL Normal [facility] Comment on above: Performed By: #### L IPID, CMP #### [facility] [address] [address] [address] Federico Wyatt Glucose [Mass/Vol] 105 mg/dL Normal 74-106 [facility] Comment on above: Performed By: #### L IPID, CMP #### [facility] [address] [place] [address] Dr. Federico Wyatt Potassium [Moles/Vol] 4.5 mmol/L Normal 3.5-5.1 [facility] Comment on above: Performed By: #### L IPID, CMP #### [facility] [address] [address] [address] Federico Wyatt Protein [Mass/Vol] 8.4 g/dL Critically high 6.4-8.2 [facility] Comment on above: Performed By: #### L IPID, CMP #### [facility] [address] [place] [address] Dr. Federico Wyatt Sodium [Moles/Vol] 138 mmol/L Normal 136-145 [facility] Comment on above: Performed By: #### L IPID, CMP #### [facility] [address] [address] [address] Federico Wyatt Urea nitrogen [Mass/Vol] 31.0 mg/dL Critically high 7.0-18.0 [facility] Comment on above: Performed By: #### L IPID, CMP #### [facility] [address] [place] [address] Dr. Federico Wyatt Urea nitrogen/Creatinine [Mass ratio] 16.0 mg/mg Normal [facility] Comment on above: Performed By: #### L IPID, CMP #### [facility] [address] [address] [address] Federico Wyatt Albumin [Mass/volume] in Ser um or PlasmaOrdered By: Roseann Quinteros on 05-08-2022 Albumin [Mass/Vol] 2.9 g/dL 3.2-5.5 [facility] Basophils Auto (Bld) [#/Vol] Ordered By: Roseann Quinteros on 05-08-2022 Basophils (Bld) [#/Vol] 0.0 10*3/uL 0.0-0.2 [facility] Basophils/100 WBC Auto (Bld) Ordered By: Roseann Quinteros on 05-08-2022 Basophils/100 WBC (Bld) 0.5 % . [facility] Blood hemoglobin measurement (mass/volume)Ordered By: Roseann Quinteros on 05-08-2022 Hemoglobin (Bld) [Mass/Vol] 10.5 g/dL 13.0-17.0 [facility] Blood leukocytes automated c ount (number/volume)Ordered By: Roseann Quinteros on 05-08-2022 WBC (Bld) [#/Vol] 6.3 10*3/uL 4.5-11.0 [facility] COVID CepheidOrdered By: Lc Quinteros on 05-08-2022 SARS-CoV-2 (COVID-19) Ab IA Ql Negative Negative [facility] Comment on above: This is a duplicate [employer]ep[employer] Xpert Xpress CoV-2/Flu/RSV Plus RNA by RT-PCR result to be used for statistical tracking purpose only. SARS-CoV-2 (COVID-19) RNA HAROON+probe Ql (Unsp spec) [facility] Creatinine and Glomerular fi ltration rate.predicted panel (S/P/Bld)Ordered By: Roseann Quinteros on 05-08-2022 Creatinine [Mass/Vol] 3.62 mg/dL 0.64-1.27 [facility] Eosinophils Auto (Bld) [#/Vo l]Ordered By: Roseann Quinteros on 05-08-2022 Eosinophils (Bld) [#/Vol] 0.1 10*3/uL 0.0-0.45 [facility] Eosinophils/100 WBC Auto (Bl d)Ordered By: Roseann Quinteros on 05-08-2022 Eosinophils/100 WBC (Bld) 2.1 % . [facility] Erythrocyte distribution wid th Auto (RBC) [Ratio]Ordered By: Roseann Quinteros on 05-08-2022 Erythrocyte distribution width (RBC) [Ratio] 16.1 % 12.0-14.8 [facility] Estimated glomerular filtrat ion rate (GFR) non- AmericanOrdered By: Roseann Quinteros on 05-08-2022 GFR/1.73 sq M.predicted among non-blacks MDRD (S/P/Bld) [Vol rate/Area] 16 mL/Min [facility] Globulin Calc (S) [Mass/Vol] Ordered By: Roseann Quinteros on 05-08-2022 Globulin (S) [Mass/Vol] 4.5 g/dL [facility] Hematocrit Auto (Bld) [Volum e fraction]Ordered By: Roseann Quinteros on 05-08-2022 Hematocrit (Bld) [Volume fraction] 32.9 % 38.8-50.0 [facility] - Chemistry and C hemistry - challengeOrdered By: Roseann Quinteros on 05-08-2022 Lipase [Catalytic activity/Vol] 18.0 U/L 22-51 [facility] - Hematology and Cell countsOrdered By: Roseann Quinteros on 05-08-2022 Nucleated RBC/100 WBC (Bld) [Ratio] 0.0 % 0-0.5 [facility] Lymphocytes Auto (Bld) [#/Vo l]Ordered By: Roseann Quinteros on 05-08-2022 Lymphocytes (Bld) [#/Vol] 1.5 10*3/uL 1.00-4.8 [facility] Lymphocytes/100 WBC Auto (Bl d)Ordered By: Roseann Quinteros on 05-08-2022 Lymphocytes/100 WBC (Bld) 23.4 % . [facility] MCH Auto (RBC) [Entitic mass ]Ordered By: Roseann Quinteros on 05-08-2022 MCH (RBC) [Entitic mass] 28.5 pg 27.5-35.2 [facility] MCHC Auto (RBC) [Mass/Vol]Or dered By: Roseann Quinteros on 05-08-2022 MCHC (RBC) [Mass/Vol] 32.0 g/dL 32.5-35.6 [facility] MCV Auto (RBC) [Entitic vol] Ordered By: Roseann Quinteros on 05-08-2022 MCV (RBC) [Entitic vol] 89.0 fL 83.5-101 [facility] Monocytes Auto (Bld) [#/Vol] Ordered By: Roseann Quinteros on 05-08-2022 Monocytes (Bld) [#/Vol] 0.8 10*3/uL 0.0-0.8 [facility] Monocytes/100 WBC Auto (Bld) Ordered By: Roseann Quinteros on 05-08-2022 Monocytes/100 WBC (Bld) 12.3 % . [facility] Neutrophils Auto (Bld) [#/Vo l]Ordered By: Roseann Quinteros on 05-08-2022 Neutrophils (Bld) [#/Vol] 3.9 10*3/uL 1.8-7.7 [facility] Neutrophils/100 WBC Auto (Bl d)Ordered By: Roseann Quinteros on 05-08-2022 Neutrophils/100 WBC (Bld) 61.7 % . [facility] No Panel InformationOrdered By: Roseann Quinteros on 05-08-2022 Estimated GFR () 20 mL/Min [facility] Comment on above: GFR estimated refere nce range: According to KDOQI guidelines, <60 ml/min/1.73m2 is sufficient to diagnose a patient with chronic kidney disease. Pharmacy Creatinine Clearance (Chem 25.53 [facility] Platelet mean volume Auto (B ld) [Entitic vol]Ordered By: Roseann Quinteros on 05-08-2022 Platelet mean volume (Bld) [Entitic vol] 8.3 fL 6.6-10.1 [facility] Platelets Auto (Bld) [#/Vol] Ordered By: Roseann Quinteros on 05-08-2022 Platelets (Bld) [#/Vol] 469 10*3/uL 150-450 [facility] Protein [Mass/volume] in Ser um or PlasmaOrdered By: Roseann Quinteros on 05-08-2022 Protein [Mass/Vol] 7.4 g/dL 6.1-7.9 [facility] RBC Auto (Bld) [#/Vol]Ordere d By: Roseann Quinteros on 05-08-2022 RBC (Bld) [#/Vol] 3.70 10*6/uL 3.90-5.60 [facility] Serum or plasma alanine nelson otransferase measurement without P-5'-P (enzymatic activiOrdered By: Roseann Quinteros on 05-08-2022 ALT No additional P-5'-P [Catalytic activity/Vol] 9 U/L 1060 [facility] Serum or plasma albumin/glob ulin mass ratioOrdered By: Roseann Quinteros on 05-08-2022 Albumin/Globulin [Mass ratio] 0.6 {ratio} [facility] Serum or plasma alkaline genevieve sphatase measurement (enzymatic activity/volume)Ordered By: Roseann Quinteros on 05-08-2022 ALP [Catalytic activity/Vol] 42 U/L 32-92 [facility] Serum or plasma anion gap de terminationOrdered By: Roseann Quinteros on 05-08-2022 Anion gap [Moles/Vol] 15.4 mmol/L 6.0-15.0 [facility] Serum or plasma aspartate am inotransferase measurement (enzymatic activity/volume)Ordered By: Roseann Quinteros on 05-08-2022 AST [Catalytic activity/Vol] 12 U/L 1042 [facility] Serum or plasma calcium shaneka urement (mass/volume)Ordered By: Roseann Quinteros on 05-08-2022 Calcium [Mass/Vol] 8.9 mg/dL 8.2-10.2 [facility] Serum or plasma chloride zach surement (moles/volume)Ordered By: Roseann Quinteros on 05-08-2022 Chloride [Moles/Vol] 99 mmol/L 95-114 [facility] Serum or plasma glucose shaneka urement (mass/volume)Ordered By: Roseann Quinteros on 05-08-2022 Glucose [Mass/Vol] 202 mg/dL 70-100 [facility] Comment on above: ADA recommended refe rence range Random Glucose Reference Range is dependent on time and content of last meal. Glucose of more than 200 mg/dL in a nonstressed, ambulatory subject supports the diagnosis of Diabetes Mellitus. Serum or plasma potassium me asurement (moles/volume)Ordered By: Roseann Quinteros on 05-08-2022 Potassium [Moles/Vol] 3.9 mmol/L 3.5-5.1 [facility] Serum or plasma sodium measu rement (moles/volume)Ordered By: Roseann Quinteros on 05-08-2022 Sodium [Moles/Vol] 131 mmol/L 136-146 [facility] Serum or plasma total biliru bin measurement (mass/volume)Ordered By: Roseann Quinteros on 05-08-2022 Bilirubin [Mass/Vol] 0.4 mg/dL 0.3-1.2 [facility] Serum or plasma total carbon dioxide measurement (moles/volume)Ordered By: Roseann Quinteros on 05-08-2022 CO2 [Moles/Vol] 20.5 mmol/L 22.0-30.0 [facility] Serum or plasma urea nitroge n measurement (mass/volume)Ordered By: Roseann Quinteros on 05-08-2022 Urea nitrogen [Mass/Vol] 46 mg/dL 9-23 [facility] TYPE AND SCREEN,30 DAYon ABO O [facility] HIstorical Ab Scr Status Negative [facility] Rh Nom (Bld) Positive [facility] Basic metabolic 2000 panelon 04-14-2022 Anion gap [Moles/Vol] 8 mmol/L Low 9 - 18 mmol/L [facility] Calcium [Mass/Vol] 9.0 mg/dL 8.5 - 10. 2 mg/dL [facility] Chloride [Moles/Vol] 102 mmol/L 97 - 10 5 mmol/L [facility] CO2 [Moles/Vol] 24 mmol/L 22 - 30 mmol/L [facility] Creatinine [Mass/Vol] 2.01 mg/dL High 0.73 - 1.22 mg/dL [facility] Estimated Glomerular Filtration Rate 34 mL/min/1.73m Low >=60 mL/min/1.73m [facility] Glucose [Mass/Vol] 347 mg/dL High 74 - 99 mg/dL [facility] Potassium [Moles/Vol] 4.7 mmol/L 3.7 - 5.1 mmol/L [facility] Sodium [Moles/Vol] 134 mmol/L Low 136 - 144 mmol/L [facility] Urea nitrogen [Mass/Vol] 24 mg/dL 9 - 24 mg/dL [facility] CT ABD/PEL W IVCONon 022 Radiology Result ACTIONABLE Abnormal [facility] CBC W Auto Differential pane l (Bld)on 04-10-2022 Abs Immature Gran 0.04 k/uL <0.10 k/uL [facility] Basophils (Bld) [#/Vol] 0.04 10*3/uL <0.11 k/uL [facility] Basophils/100 WBC (Bld) 0.4 % [facility] Differential cell count method Nom (Bld) Auto [facility] Eosinophils (Bld) [#/Vol] 0.35 10*3/uL <0.46 k/uL [facility] Eosinophils/100 WBC (Bld) 3.9 % [facility] Erythrocyte distribution width (RBC) [Ratio] 15.1 % High 11.5 - 15.0 % [facility] Hematocrit (Bld) [Volume fraction] 30.2 % Low 39.0 - 51.0 % [facility] Hemoglobin (Bld) [Mass/Vol] 9.5 g/dL Low 13.0 - 17.0 g/dL [facility] Immature Gran % 0.4 % [facility] Lymphocytes (Bld) [#/Vol] 2.51 10*3/uL 1.00 - 4.00 k/uL [facility] Lymphocytes/100 WBC (Bld) 28.2 % [facility] MCH (RBC) [Entitic mass] 29.0 pg 26.0 - 34.0 pg [facility] MCHC (RBC) [Mass/Vol] 31.5 g/dL 30.5 - 36.0 g/dL [facility] MCV (RBC) [Entitic vol] 92.1 fL 80.0 - 100.0 fL [facility] Monocytes (Bld) [#/Vol] 0.77 10*3/uL <0.87 k/uL [facility] Monocytes/100 WBC (Bld) 8.7 % [facility] Neutrophils (Bld) [#/Vol] 5.18 10*3/uL 1.45 - 7.50 k/uL [facility] Neutrophils/100 WBC (Bld) 58.4 % [facility] Nucleated RBC (Bld) [#/Vol] 10*3/uL <0.01 k/uL [facility] Nucleated RBC/100 WBC (Bld) [Ratio] 0.0 /100 WBC [facility] Platelet mean volume (Bld) [Entitic vol] 10.1 fL 9.0 - 12.7 fL [facility] Platelets (Bld) [#/Vol] 479 10*3/uL High 150 - 400 k/uL [facility] RBC (Bld) [#/Vol] 3.28 10*6/uL Low 4.20 - 6.0 0 m/uL [facility] WBC (Bld) [#/Vol] 8.89 10*3/uL 3.70 - 11. 00 k/uL [facility] CBC W Auto Differential pane l (Bld)on 03-07-2022 Abs Immature Gran 0.04 k/uL <0.10 k/uL [facility] Basophils (Bld) [#/Vol] 0.04 10*3/uL <0.11 k/uL [facility] Basophils/100 WBC (Bld) 0.4 % [facility] Differential cell count method Nom (Bld) Auto [facility] Eosinophils (Bld) [#/Vol] 0.31 10*3/uL <0.46 k/uL [facility] Eosinophils/100 WBC (Bld) 3.1 % [facility] Erythrocyte distribution width (RBC) [Ratio] 14.1 % 11.5 - 15.0 % [facility] Hematocrit (Bld) [Volume fraction] 28.1 % Low 39.0 - 51.0 % [facility] Hemoglobin (Bld) [Mass/Vol] 8.8 g/dL Low 13.0 - 17.0 g/dL [facility] Immature Gran % 0.4 % [facility] Lymphocytes (Bld) [#/Vol] 2.16 10*3/uL 1.00 - 4.00 k/uL [facility] Lymphocytes/100 WBC (Bld) 21.5 % [facility] MCH (RBC) [Entitic mass] 28.9 pg 26.0 - 34.0 pg [facility] MCHC (RBC) [Mass/Vol] 31.3 g/dL 30.5 - 36.0 g/dL [facility] MCV (RBC) [Entitic vol] 92.4 fL 80.0 - 100.0 fL [facility] Monocytes (Bld) [#/Vol] 1.09 10*3/uL High <0.87 k/uL [facility] Monocytes/100 WBC (Bld) 10.8 % [facility] Neutrophils (Bld) [#/Vol] 6.41 10*3/uL 1.45 - 7.50 k/uL [facility] Neutrophils/100 WBC (Bld) 63.8 % [facility] Nucleated RBC (Bld) [#/Vol] 10*3/uL <0.01 k/uL [facility] Nucleated RBC/100 WBC (Bld) [Ratio] 0.0 /100 WBC [facility] Platelet mean volume (Bld) [Entitic vol] 9.6 fL 9.0 - 12.7 fL [facility] Platelets (Bld) [#/Vol] 419 10*3/uL High 150 - 400 k/uL [facility] RBC (Bld) [#/Vol] 3.04 10*6/uL Low 4.20 - 6.0 0 m/uL [facility] WBC (Bld) [#/Vol] 10.05 10*3/uL 3.70 - 11 .00 k/uL [facility] Comprehensive metabolic 2000 panelon 03-07-2022 Albumin [Mass/Vol] 3.7 g/dL Low 3.9 - 4.9 g/dL [facility] ALP [Catalytic activity/Vol] 44 U/L 38 - 113 U/L [facility] ALT [Catalytic activity/Vol] 7 U/L Low 10 - 54 U/L [facility] Anion gap [Moles/Vol] 9 mmol/L 9 - 18 mmol/L [facility] AST [Catalytic activity/Vol] 11 U/L Low 14 - 40 U/L [facility] Bilirubin [Mass/Vol] 0.2 mg/dL 0.2 - 1 .3 mg/dL [facility] Calcium [Mass/Vol] 8.9 mg/dL 8.5 - 10. 2 mg/dL [facility] Chloride [Moles/Vol] 106 mmol/L High 97 - 10 5 mmol/L [facility] CO2 [Moles/Vol] 22 mmol/L 22 - 30 mmol/L [facility] Creatinine [Mass/Vol] 1.71 mg/dL High 0.73 - 1.22 mg/dL [facility] Estimated Glomerular Filtration Rate 41 mL/min/1.73m Low >=60 mL/min/1.73m [facility] Glucose [Mass/Vol] 134 mg/dL High 74 - 99 mg/dL [facility] Potassium [Moles/Vol] 4.4 mmol/L 3.7 - 5.1 mmol/L [facility] Protein [Mass/Vol] 7.5 g/dL 6.3 - 8.0 g/dL [facility] Sodium [Moles/Vol] 137 mmol/L 136 - 144 mmol/L [facility] Urea nitrogen [Mass/Vol] 23 mg/dL 9 - 24 mg/dL [facility] Auth for Release of Medical Recordson 01-02-2022 Auth for Release of Medical Records [id number] 0CD:127 Normal [facility] Consultation Noteon 11-19-19 22 Consultation Note [id number] 0CD:127 Normal [facility] HISTORY PHYSICALon HISTORY PHYSICAL HNO ID: [id number] Author: Cherelle Sandoval PA-C Service: ? Author Type: Physician Research Editor Type: HANDP Filed: 10/27/2021 2:15 PM Note Text: HISTORY AND PHYSICAL EXAMINATION SERVICE DATE: 10/27/2021 SERVICE TIME: 1:45 PM PRIMARY CARE PHYSICIAN: Syd Henry MD This is a virtual visit using Your Policy Manager video visit. It required patient-provider interaction for the medical decision making as documented below. REASON FOR VISIT: Isaiah Morel is a 75 year old male who is scheduled for colonoscopy at the request of Dr. Anna Marie Hernandez for consultation. My final recommendation will be communicated back to the requesting physician by way of shared medical record or letter. Subjective The patient has the following: ACTIVE PROBLEM LIST Malignant Neoplasm of Ascending Colon (Hcc) Pelvic Mass Dm (Diabetes Mellitus) (Hcc) Hypertension Bph (Benign Prostatic Hyperplasia) Gastritis Hyperlipidemia S/P Bladder Repair Malignant Neoplasm of Rectosigmoid Junction (Hcc) Kimmy (Obstructive Sleep Apnea) Rectal Cancer (Hcc) Modi Catheter in Place Encounter for Postoperative Wound Care Mild Protein-Calorie Malnutrition (Hcc) Bmi 38.0-38.9,Adult Anemia Ckd (Chronic Kidney Disease), Stage Iii (Hcc) Difficult Intravenous Access COVID-19 Immunization Status COVID-19 VACCINE (4 - Booster) Next due on 03/23/2022 10/24/2021 Imm Admin: COVID-19 vaccine, age 12+ yr (Eloquii - BARRETT TOP) 11/12/2020 Imm Admin: COVID-19 vaccine (UNSPECIFIED) 11/12/2020 Imm Admin: COVID-19 vaccine (Eloquii) Only the first 3 history entries have been loaded, but more history exists. CHIEF COMPLAINT: h/o rectal cancer HPI: 75 yo male with h/o rectal cancer with chemo completed in 12/2020 and now presenting for follow up colonoscopy. NO blood in the stool, rectal bleeding or abdominal pain. REVIEW OF SYSTEMS: General: No weight loss, malaise or fevers. Neurological: Positive for: peripheral neuropathy (hands and feet since chemo ). Negative for: seizures, TIA and strokes. Respiratory: Positive for: obstructive sleep apnea. Negative for: asthma, bronchodilator used daily for the last 3 months, tobacco use and URI < 2 weeks. Cardiovascular: Positive for: hyperlipidemia, hypertension and murmur/valvular heart disease (remotely told murmur) Negative for: arrhythmia, chest pain and DVT/PE. GI: Positive for: rectal cancer Negative for: abdominal pain, liver disease and PUD. : Positive for: BPH (on rx, recent TURP ), nocturia >1 time per night (twice) and renal failure (stage 3 ). Patient's renal failure is chronic. Negative for: dysuria and hematuria. Endocrine: Positive for: diabetes mellitus (glucose today 124 ( HGb A1c 7.4 05/2021)). Patient's diabetes mellitus is controlled by insulin. Negative for: hypothyroidism and steroid for chronic problem. Hematology: Positive for: anemia (9.8/30 from 10/07/21), anemia associated with chronic kidney disease and bruises/bleeds easily. Negative for: thrombocytopenia. Oncology: rectal cancer with chemo Psych: No history of psychiatric symptoms or problems. Musculoskeletal: Negative for joint pain or swelling, back pain or muscle pain. Skin: Negative for lesions, rash and itching. PAST MEDICAL HISTORY Diagnosis Date - Anemia - BPH (benign prostatic hyperplasia) - Colon cancer (HCC) 03/2020 - Difficult intravenous access 07/19/2021 - DM (diabetes mellitus) (HCC) - Gastritis - Hypertension - Mass of colon 03/24/2020 Dr Vu - Morbid obesity (HCC) PAST SURGICAL HISTORY Procedure Laterality Date - COLONOSCOPY AND BIOPSY 03/24/2020 Dr Vu - COLONSCOPY SCREENING HIGH RISK 03/2020 - EGD 03/2020 - HERNIA REPAIR HX 1985 X2- umbilical and right inguinal hernia - PAST SURGICAL HISTORY OF 05/11/2020 hemicolectomy with colostomy and partial cystectomy - PAST SURGICAL HISTORY OF 02/2021 colostomy reversal - REPAIR INCISIONAL HERNIA,REDUCIBLE 06/13/2021 - TRANSURETHRAL ELEC-SURG PROSTATECTOM 08/2021 FAMILY HISTORY Problem Relation Age of Onset - Diabetes Mother - Ischemic Heart Disease Mother CABG - Stroke Father - Diabetes Father - Heart Attack Father 72 - Cancer Sister - Anesthesia Problems No Family History - Blood Clots No Family History - Clotting Disorder No Family History Social History Tobacco Use - Smoking status: Never Smoker - Smokeless tobacco: Never Used Substance Use Topics - Alcohol use: Not Currently - Drug use: Never Prior to Admission medications as of 10/27/21 1315 Medication Sig Last Dose Taking CPAP Yes NIFEdipine XL (ADALAT CC, PROCARDIA XL) 60 mg 24 hr tablet Take 60 mg by mouth once daily. Taking Yes spironolactone (ALDACTONE) 25 mg tablet Take 25 mg by mouth every morning. Taking Yes acetaminophen (TYLENOL) 500 mg tablet Take 2 tablets by mouth every 6 hours as needed for pain. Taking Yes losartan potassium (LOSARTAN ORAL) Take 100 mg by m (more content not included)... [facility] SURGICAL PATHOLOGYon 021 SURGICAL PATHOLOGY Specimen originated from [facility] Specimen #: [id number] Submitting Physician: MARÍA BAHENA MD FINAL DIAGNOSIS Soft tissue, incisional hernia, herniorrhaphy (A) - Hernia sac with reactive mesothelial cells. - Fibrosis with giant cell reaction to foreign material (suture). PREETHI/CHARLEYA/lh/06-14-2021 Sotero Tian M.D. (Electronic Signature) _ SPECIMEN SUBMITTED A: INCISIONAL HERNIA CLINICAL DATA INCISIONAL HERNIA, WITHOUT OBSTRUCTION OR GANGRENE GROSS DESCRIPTION A. Received in formalin labeled with incisional hernia are multiple irregular fragments of fu-pink fibromembranous tissue with adherent fibroadipose tissue aggregating to 7.0 x 4.9 x 1.3 cm. The external surface of the fibromembranous tissue is smooth and glistening. Sectioning reveals smooth and homogenous cut surfaces. There are no areas of induration or nodularity grossly appreciated. Lead Electrician sections are submitted in cassette A1. TLA/ll 06/13/2021 [place] [address] Date of Report: 06/15/2021 Date of Procedure: 06/13/2021 Date of Receipt: 06/13/2021 Submitted by: MARÍA BAHENA MD Location: AV Diagnostic interpretation performed at [place] [address]. CLIA Number: [id number] Normal [facility] Comment on above: Performed By: #### S #### See report for performing lab information. VL DUP LOWER EXTREMITY VENOU S BILATERALon 06-16-2020 [facility] l Vascular Lower Extremities DVT Study Procedure Patient Name ADRIEL TALAMANTES Date of Study 06/16/2020 A Date of 1945 Gender Male Age 74 year(s) Race Room Number Corporate ID # [id number] Patient MR # [id number] Sanding Supervisor SERGEI Hebert Interpreting Physician Barbra Silvestre MD Referring Referring Physician Nurse Practitioner Additional Comments Study Ordered by Melissa VALENCIA/ Dr. Syd Gamboa, [facility] Copy to Dr. Cristiane Lopez, [facility] Procedure Type of Study: Veins: Lower Extremities DVT Study, Venous Scan Lower Bilateral. Patient Status:Out Patient. Comments:INDICATIONS: Swelling of lower extremity M79.89 Patient S/P Colon Resection/CA 05/11/2020. Conclusions Summary No evidence of superficial or deep venous thrombosis in both lower extremities. Technically limited visualization. Enlarged lymph nodes noted in the left groin. Signature Findings: Right Impression: Left Impression: The common femoral, femoral, deep The common femoral, femoral, deep femoral, popliteal, tibials, femoral, popliteal, tibials, peroneal, and saphenous veins were peroneal, and saphenous veins were evaluated. evaluated. Poor resolution was visualized in Poor resolution was visualized in the the anterior and posterior tibial anterior and posterior tibial and and peroneal veins. peroneal veins. All other veins were compressible All other veins were compressible with normal doppler responses. with normal doppler responses. Chronic changes were visualized in Chronic changes were visualized in the GSV in the proximal thigh. the common femoral vein/SFJ and in the GSV in the proximal calf. Edema was noted from the ankle to the mid thigh. Edema was noted from the ankle to the mid thigh. Prominent lymph nodes were visualized in the groin. Velocities are measured in cm/s ; Diameters are measured in cm Right Lower Extremities DVT Study Measurements Right 2D Measurements + +------ ----+ +- ---------+ !Location !Visualized!Compressib ility!Thrombosis! + +------ ----+ +- ---------+ !Common Femoral !Yes !Yes !None ! + +------ ----+ +- ---------+ !Prox Femoral !Yes !Yes !None ! + +------ ----+ +- ---------+ !Mid Femoral !Yes !Yes !None ! + +------ ----+ +- ---------+ !Dist Femoral !Yes !Yes !None ! + +------ ----+ +- ---------+ !Deep Femoral !Yes !Yes !None ! + +------ ----+ +- ---------+ !Popliteal !Yes !Yes !None ! + +------ ----+ +- ---------+ !Sapheno Femoral Junction !Yes !Yes !None ! + +------ ----+ +- ---------+ !PTV !No ! ! ! + +------ ----+ +- ---------+ !Peroneal !No ! ! ! + +------ ----+ +- ---------+ !Gastroc !Yes !Yes !None ! + +------ ----+ +- ---------+ !GSV Thigh !Yes !Yes !None ! + +------ ----+ +- ---------+ !GSV Knee !Yes !Yes !None ! + +------ ----+ +- ---------+ !GSV Ankle !Yes !Yes !None ! + +------ ----+ +- ---------+ !SSV !Yes !Yes !None ! + +------ ----+ +- ---------+ Right Doppler Measurements + ------+------+------+- ---------+ !Location !Signal!Reflux!Reflux (msec) ! + ------+------+------+- ---------+ !Common Femoral !Phasic! ! ! + ------+------+------+- ---------+ !Prox Femoral !Phasic! ! ! + ------+------+------+- ---------+ !Popliteal !Phasic! ! ! + ------+------+------+- ---------+ Left Lower Extremities DVT Study Measurements Left 2D Measurements + +------ ----+ +- ---------+ !Location !Visualized!Compressib ility!Thrombosis! + +------ ----+ +- ---------+ !Common Femoral !Yes !Yes !Chronic ! + +------ ----+ +- ---------+ !Prox Femoral !Yes !Yes !None ! + +------ ----+ +- ---------+ !Mid Femoral !Yes !Yes !None ! + +------ ----+ +- ---------+ !Dist Femoral !Yes !Yes !None ! + +------ ----+ +- ---------+ !Deep Femoral !Yes !Yes !None ! + +------ ----+ +- ---------+ !Popliteal !Yes !Yes !None ! + +------ ----+ +- ---------+ !Sapheno Femoral Junction !Yes !Yes !Chronic ! + +------ ----+ +- ---------+ !PTV !No ! ! ! + +------ ----+ +- ---------+ !Peroneal !No ! ! ! + +------ ----+ +- ---------+ !Gastroc !Yes !Yes !None ! + +------ ----+ +- ---------+ !GSV Thigh !Yes !Yes !None ! + +------ ----+ +- ---------+ !GSV Knee !Yes !Yes !None ! + +------ ----+ +- ---------+ !GSV Ankle !Yes !Yes !None ! + +------ ----+ +- ---------+ !SSV !Yes !Yes !None ! + +------ ----+ +- ---------+ Left Doppler Measurements + ------+------+------+- ---------+ !Location !Signal!Reflux!Reflux (msec) ! + ------+------+------+- ---------+ !Common Femoral !Phasic! ! ! + ------+------+------+- ---------+ !Prox Femoral !Phasic! ! ! + ------+------+------+- ---------+ !Popliteal !Phasic! ! ! + ------+------+------+- ---------+ [facility] [place], [place] James, pn Incoming Cardio Results From [facility]/ - 06/16/2020 6:52 PM EDT [facility] Vascular Lower Extremities DVT Study Procedure Patient Name ADRIEL TALAMANTES Date of Study 06/16/2020 A Date of 1945 Gender Male Age 74 year(s) Race Room Number Corporate ID # [id number] Patient MR # [id number] Sanding Supervisor SERGEI Hebert Interpreting Physician Barbra Silvestre MD Referring Referring Physician Nurse Practitioner Additional Comments Study Ordered by Melissa VALENCIA/ Dr. Syd Gamboa, [facility] Copy to Dr. Cristiane Lopez, [facility] Procedure Type of Study: Veins: Lower Extremities DVT Study, Venous Scan Lower Bilateral. Patient Status:Out Patient. Comments:INDICATIONS: Swelling of lower extremity M79.89 Patient S/P Colon Resection/CA 05/11/2020. Conclusions Summary No evidence of superficial or deep venous thrombosis in both lower extremities. Technically limited visualization. Enlarged lymph nodes noted in the left groin. Signature Findings: Right Impression: Left Impression: The common femoral, femoral, deep The common femoral, femoral, deep femoral, popliteal, tibials, femoral, popliteal, tibials, peroneal, and saphenous veins were peroneal, and saphenous veins were evaluated. evaluated. Poor resolution was visualized in Poor resolution was visualized in the the anterior and posterior tibial anterior and posterior tibial and and peroneal veins. peroneal veins. All other veins were compressible All other veins were compressible with normal doppler responses. with normal doppler responses. Chronic changes were visualized in Chronic changes were visualized in the GSV in the proximal thigh. the common femoral vein/SFJ and in the GSV in the proximal calf. Edema was noted from the ankle to the mid thigh. Edema was noted from the ankle to the mid thigh. Prominent lymph nodes were visualized in the groin. Velocities are measured in cm/s ; Diameters are measured in cm Right Lower Extremities DVT Study Measurements Right 2D Measurements + +------ ----+ +- --------- + !Location !Visualized!Compressib ility!Thrombosis! + +------ ----+ +- --------- + !Common Femoral !Yes !Yes !None ! + +------ ----+ +- --------- + !Prox Femoral !Yes !Yes !None ! + +------ ----+ +- --------- + !Mid Femoral !Yes !Yes !None ! + +------ ----+ +- --------- + !Dist Femoral !Yes !Yes !None ! + +------ ----+ +- --------- + !Deep Femoral !Yes !Yes !None ! + +------ ----+ +- --------- + !Popliteal !Yes !Yes !None ! + +------ ----+ +- --------- + !Sapheno Femoral Junction !Yes !Yes !None ! + +------ ----+ +- --------- + !PTV !No ! ! ! + +------ ----+ +- --------- + !Peroneal !No ! ! ! + +------ ----+ +- --------- + !Gastroc !Yes !Yes !None ! + +------ ----+ +- --------- + !GSV Thigh !Yes !Yes !None ! + +------ ----+ +- --------- + !GSV Knee !Yes !Yes !None ! + +------ ----+ +- --------- + !GSV Ankle !Yes !Yes !None ! + +------ ----+ +- --------- + !SSV !Yes !Yes !None ! + +------ ----+ +- --------- + Right Doppler Measurements + ------+------+------+- --------- + !Location !Signal!Reflux!Reflux (msec) ! + ------+------+------+- --------- + !Common Femoral !Phasic! ! ! + ------+------+------+- --------- + !Prox Femoral !Phasic! ! ! + ------+------+------+- --------- + !Popliteal !Phasic! ! ! + ------+------+------+- --------- + Left Lower Extremities DVT Study Measurements Left 2D Measurements + +------ ----+ +- --------- + !Location !Visualized!Compressib ility!Thrombosis! + +------ ----+ +- --------- + !Common Femoral !Yes !Yes !Chronic ! + +------ ----+ +- --------- + !Prox Femoral !Yes !Yes !None ! + +------ ----+ +- --------- + !Mid Femoral !Yes !Yes !None ! + +------ ----+ +- --------- + !Dist Femoral !Yes !Yes !None ! + +------ ----+ +- --------- + !Deep Femoral !Yes !Yes !None ! + +------ ----+ +- --------- + !Popliteal !Yes !Yes !None ! + +------ ----+ +- --------- + !Sapheno Femoral Junction !Yes !Yes !Chronic ! + +------ ----+ +- --------- + !PTV !No ! ! ! + +------ ----+ +- --------- + !Peroneal !No ! ! ! + +------ ----+ +- --------- + !Gastroc !Yes !Yes !None ! + +------ ----+ +- --------- + !GSV Thigh !Yes !Yes !None ! + +------ ----+ +- --------- + !GSV Knee !Yes !Yes !None ! + +------ ----+ +- --------- + !GSV Ankle !Yes !Yes !None ! + +------ ----+ +- --------- + !SSV !Yes !Yes !None ! + +------ ----+ +- --------- + Left Doppler Measurements + ------+------+------+- --------- + !Location !Signal!Reflux!Reflux (msec) ! + ------+------+------+- --------- + !Common Femoral !Phasic! ! ! + ------+------+------+- --------- + !Prox Femoral !Phasic! ! ! + ------+------+------+- --------- + !Popliteal !Phasic! ! ! + ------+------+------+- --------- + [facility] [place], [place] Cult,Urineon 06-10-2020 Cult,Urine Specimen Description .URINE Special Requests NOT REPORTED Culture YEAST, NOT GELY ALBICANS OR GELY DUBLINIENSIS 50 to 100,000 CFU/ML Report Status FINAL 06/10/2020 Normal [facility] Comment on above: Performed By: #### U #### [facility] [address] [place], [place] [id number] Test Carrier: Aries Owens MD [facility] [address] [place] [address] Test Carrier: Rojelio Dallas MD Microscopic Urinalysison Amorphous, UA NOT REPORTED None [facility] [place] Bacteria, UA NOT REPORTED None [facility] [place] Casts UA NOT REPORTED /LPF [facility] [place] Crystals, UA NOT REPORTED None /HPF [facility] [place] Epithelial Cells UA NOT REPORTED /HPF [facility] [place] Interpretation and review of laboratory results Abnormal [facility] [place] Mucus, UA NOT REPORTED None [facility] [place] Other Observations UA NOT REPORTED NOT REQ. [facility] [place] RBC (U) [#/Vol] 0 TO 2 [facility] Renal Epithelial, UA NOT REPORTED 0 /HPF Me [facility] [place] Trichomonas, UA NOT REPORTED None [facility] [place] WBC, UA 20 TO 50 0 /HPF [facility] [place] Yeast, UA MODERATE Abnormal None [facility]- [place] - [facility] Urinalysison 06-08-2020 Bilirubin Urine Negative NEGATIVE [facility] [place] Color, UA YELLOW YELLOW [facility] [place] Glucose, Ur Negative NEGATIVE [facility] [place] Interpretation and review of laboratory results Abnormal [place], [place] Ketones Ql (U) Negative NEGATIVE [place] Leukocyte esterase Test strip Ql (U) 3+ Abnormal NEGATIVE [place] Nitrite, Urine Negative NEGATIVE [place] pH, UA 5.0 [place] Protein (U) [Mass/Vol] 1+ Abnormal NEGATIVE Me [place], [place] Specific [place], UA 1.020 [place], [place] Turbidity UA CLEAR CLEAR [place] Urinalysis Comments [place] Urine Hgb TRACE Abnormal NEGATIVE [place] Urobilinogen, Urine Normal Normal [place] Urinalysis, Routineon 2019 Acetoacetic Acid,Ur Negative Normal NEG [facility] Comment on above: Performed By: #### U A, UMICAO #### [facility] [address] [place] [address] Test Carrier: Rojelio Dallas MD Bilirubin, SemiQt,Ur Negative Normal NEG [facility] Comment on above: Performed By: #### U A, UMICAO #### [facility] [address] [place] [address] Test Carrier: Rojelio Dallas MD Color (U) YELLOW Normal YEL [facility] Comment on above: Performed By: #### U A, UMICAO #### [facility] [address] [place] [address] Test Carrier: Rojelio Dallas MD Comment Normal [facility] Comment on above: Performed By: #### U A, UMICAO #### [facility] [address] [place] [address] Test Carrier: Rojelio Dallas MD Glucose Ql (U) Negative Normal NEG [facility] Comment on above: Performed By: #### U A, UMICAO #### [facility] [address] [place] [address] Test Carrier: Rojelio Dallas MD Hemoglobin, Ur TRACE Abnormal NEG [facility] Comment on above: Performed By: #### U A, UMICAO #### [facility] [address] [place], [place] [id number] Test Carrier: Rojelio Dallas MD Leukocyte esterase Test strip Ql (U) 3+ Abnormal NEG [facility] Comment on above: Performed By: #### U A, UMICAO #### [facility] [address] [place], [place] [phone] Test Carrier: Rojelio Dallas MD Nitrite,Ur Negative Normal NEG [facility] Comment on above: Performed By: #### U A, UMICAO #### [facility] [address] [place] [address] Test Carrier: Rojelio Dallas MD pH (U) 5.0 [pH] Normal 5.0-8.0 [facility] Comment on above: Performed By: #### U A, UMICAO #### [facility] [address] [place], [place] [id number] Test Carrier: Rojelio Dallas MD Protein Ql (U) 1+ Abnormal NEG [facility] Comment on above: Performed By: #### U A, UMICAO #### [facility] [address] [place], [place] [phone] Test Carrier: Rojelio Dallas MD Specific gravity (U) [Rel density] 1.020 Normal 1.005-1.030 [facility] Comment on above: Performed By: #### U A, UMICAO #### [facility] [address] [place], [place] [phone] Test Carrier: Rojelio Dallas MD Turbidity CLEAR Normal CLEAR [facility] Comment on above: Performed By: #### U A, UMICAO #### [facility] [address], [place] [phone] Test Carrier: Rojelio Dallas MD Urobilinogen,Ur Normal Normal NORM [facility] Comment on above: Performed By: #### U A, UMICAO #### [facility] [address] [place] [address] Test Carrier: Rojelio Dallas MD Urinalysis,Microon 0 ----- Normal [facility] Comment on above: Performed By: #### U A, UMICAO #### [facility] [address] [place] [address] Test Carrier: Rojelio Dallas MD RBC (U) [#/Vol] 0 TO 2 Normal 0-2 [facility] Comment on above: Performed By: #### U A, UMICAO #### [facility] [address] [place] [address] Test Carrier: Rojelio Dalals MD WBC (U) [#/Vol] 20 TO 50 Normal 0 [facility] Comment on above: Performed By: #### U A, UMICAO #### [facility] [address] [place] [address] Test Carrier: Rojelio Dallas MD Yeast LM Ql (Urine sed) MODERATE Abnormal [facility] Comment on above: Performed By: #### U A, UMICAO #### [facility] [address] [place] [address] Test Carrier: Rojelio Dallas MD Amorphous sediment LM Ql (Urine sed) NOT REPORTED Normal [facility] Comment on above: Performed By: #### U A, UMICAO #### [facility] [address] [place] [address] Test Carrier: Rojelio Dallas MD Bacteria LM.HPF (Urine sed) [#/Area] NOT REPORTED Normal [facility] Comment on above: Performed By: #### U A, UMICAO #### [facility] [address] [place] [address] [phone] Test Carrier: Rojelio Dallas MD Casts LM.LPF (Urine sed) [#/Area] NOT REPORTED Normal [facility] Comment on above: Performed By: #### U A, UMICAO #### [facility] [address] [place] [address] Test Carrier: Rojelio Dallas MD Crystals LM Nom (Urine sed) NOT REPORTED Normal NONE [facility] Comment on above: Performed By: #### U A, UMICAO #### [facility] [address] [place] [address] Test Carrier: Rojelio Dallas MD Epithelial cells LM.HPF (Urine sed) [#/Area] NOT REPORTED Normal [facility] Comment on above: Performed By: #### U A, UMICAO #### [facility] [address] [place], [place] [id number] Test Carrier: Rojelio Dallas MD Epithelial, Renal NOT REPORTED Normal 0 [facility] Comment on above: Performed By: #### U A, UMICAO #### [facility] [address] [place] [address] Test Carrier: Rojelio Dallas MD Mucus Strands NOT REPORTED Normal NONE [facility] Comment on above: Performed By: #### U A, UMICAO #### [facility] [address] [place], [place] [phone] Test Carrier: Rojelio Dallas MD Other Observations NOT REPORTED Normal NREQ [facility] Comment on above: Performed By: #### U A, UMICAO #### [facility] [address] [place] [address] Test Carrier: Rojelio Dallas MD Trichomonas NOT REPORTED Normal NONE [facility] Comment on above: Performed By: #### U A, UMICAO #### [facility] [address] [place], [place] [phone] Test Carrier: Rojelio Dallas MD Vital Signs Date Time Vital Sign Value Performing Clinician Facility 04-21-2024 14:45-0400 Body height 188 cm Melissa Buttolph INTERRELATED SPECIAL EDUCATION TEACHER.PRESCRIPTION EYEGLASS MAKER Work Phone: [facility] 04-21-2024 14:45-0400 Body mass index (BMI) [Ratio] 39.32 kg/m2 Melissa Buttolph INTERRELATED SPECIAL EDUCATION TEACHER.PRESCRIPTION EYEGLASS MAKER Work Phone: [facility] 04-21-2024 14:45-0400 Body weight 138.9 kg Melissa Buttolph INTERRELATED SPECIAL EDUCATION TEACHER.PRESCRIPTION EYEGLASS MAKER Work Phone: [facility] 04-21-2024 14:45-0400 Diastolic blood pressure 58 mm[Hg] Melissa Buttolph INTERRELATED SPECIAL EDUCATION TEACHER.PRESCRIPTION EYEGLASS MAKER Work Phone: [facility] 04-21-2024 14:45-0400 Heart rate 59 /min Melissa Buttolph INTERRELATED SPECIAL EDUCATION TEACHER.PRESCRIPTION EYEGLASS MAKER Work Phone: [facility] 04-21-2024 14:45-0400 Systolic blood pressure 127 mm[Hg] Melissa Buttolph INTERRELATED SPECIAL EDUCATION TEACHER.PRESCRIPTION EYEGLASS MAKER Work Phone: [facility] 04-10-2024 12:00-0400 Diastolic blood pressure 69 mm[Hg] TELEGRAPH LINEMAN-C Mary Alice Sánchez Work Phone: [facility] 04-10-2024 12:00-0400 Heart rate 80 /min TELEGRAPH LINEMAN[employer]C Mary Alice Sánchez Work Phone: [facility] 04-10-2024 12:00-0400 Respiratory rate 18 /min TELEGRAPH LINEMAN-C Mary Alice Cervantesmer Work Phone: [facility] 04-10-2024 12:00-0400 SaO2% (BldA) [Mass fraction] 95 % TELEGRAPH LINEMAN-C Mary Alice Cervantesmer Work Phone: [facility] 04-10-2024 12:00-0400 Systolic blood pressure 167 mm[Hg] TELEGRAPH LINEMAN-C Mary Alice Sánchez Work Phone: [facility] 04-10-2024 06:38-0400 Body weight 140 kg TELEGRAPH LINEMAN-C Mary Alice Princess Work Phone: [facility] 04-10-2024 06:35-0400 Body temperature 98.1 [degF] TELEGRAPH LINEMAN-C Mary Alice Princess Work Phone: [facility] 04-08-2024 17:17-0400 Body height 187.96 cm TELEGRAPH LINEMAN-C Mary Alice Princess Work Phone: [facility] 04-08-2024 02:01-0400 Inhaled oxygen concentration 21 % TELEGRAPH LINEMAN-C Mary Alice Princess Work Phone: [facility] 04-07-2024 19:52-0400 Diastolic blood pressure 71 mm[Hg] TELEGRAPH LINEMAN-C Mary Alice Princess Work Phone: [facility] 04-07-2024 19:52-0400 Heart rate 56 /min TELEGRAPH LINEMAN-C Mary Alice Princess Work Phone: [facility] 04-07-2024 19:52-0400 Respiratory rate 18 /min TELEGRAPH LINEMAN-C Mary Alice Princess Work Phone: [facility] 04-07-2024 19:52-0400 SaO2% (BldA) [Mass fraction] 93 % TELEGRAPH LINEMAN-C Mary Alice Princess Work Phone: [facility] 04-07-2024 19:52-0400 Systolic blood pressure 173 mm[Hg] TELEGRAPH LINEMAN-C Mary Alice Princess Work Phone: [facility] 04-07-2024 15:23-0400 Body height 187.96 cm TELEGRAPH LINEMAN-C Mary Alice Princess Work Phone: [facility] 04-07-2024 15:23-0400 Body temperature 97.4 [degF] TELEGRAPH LINEMAN-C Mary Alice Princess Work Phone: [facility] 04-07-2024 15:23-0400 Body weight 142.45 kg TELEGRAPH LINEMAN-C Mary Alice Princess Work Phone: [facility] 12-19-2023 08:36-0400 Body height 188 cm Leslee Deitzer DO Work Phone: [facility] 12-19-2023 08:36-0400 Body weight 142.88 kg Leslee Deitzer DO Work Phone: [facility] 12-19-2023 08:36-0400 Diastolic blood pressure 62 mm[Hg] Leslee Deitzer DO Work Phone: [facility] 12-19-2023 08:36-0400 Heart rate 54 /min Leslee Deitzer DO Work Phone: [facility] 12-19-2023 08:36-0400 Systolic blood pressure 113 mm[Hg] Leslee Deitzer DO Work Phone: [facility] 10-18-2023 14:50-0500 Diastolic blood pressure 52 mm[Hg] [facility] 10-18-2023 14:50-0500 Heart rate 54 /min [facility] 10-18-2023 14:50-0500 Respiratory rate 20 /min [facility] 10-18-2023 14:50-0500 SaO2% (BldA) [Mass fraction] 92 % [facility] 10-18-2023 14:50-0500 Systolic blood pressure 157 mm[Hg] [facility] 10-18-2023 13:51-0500 Body height 187.96 cm [facility] 10-18-2023 13:51-0500 Body temperature 97.5 [degF] [facility] 10-18-2023 13:51-0500 Body weight 140.61 kg [facility] 04-20-2023 13:19-0400 Body height 188 cm Sarika Cook MD Work Phone: [facility] 04-20-2023 13:19-0400 Body temperature 98.29 [degF] Sarika Cook MD Work Phone: [facility] 04-20-2023 13:19-0400 Body weight 148.96 kg Sarika Cook MD Work Phone: [facility] 04-20-2023 13:19-0400 Diastolic blood pressure 49 mm[Hg] Sairka Cook MD Work Phone: [facility] [facility] 13:19-0400 Heart rate 57 /min Sarika Cook MD Work Phone: [facility] 04-20-2023 13:19-0400 Respiratory rate 18 /min Sarika Cook MD Work Phone: [facility] 04-20-2023 13:19-0400 SaO2% (BldA) [Mass fraction] 94 % Sarika Cook MD Work Phone: [facility] 04-20-2023 13:19-0400 Systolic blood pressure 168 mm[Hg] Sarika Cook MD Work Phone: [facility] 09-18-2022 10:46-0500 Body height 188 cm Casandra Baljit PA-C Work Phone: [facility] 09-18-2022 10:46-0500 Body temperature 97.7 [degF] Casandra Baljit PA-C Work Phone: [facility] 09-18-2022 10:46-0500 Body weight 145.6 kg Casandra Baljit PA-C Work Phone: [facility] 09-18-2022 10:46-0500 Diastolic blood pressure 43 mm[Hg] Casandra Baljit PA-C Work Phone: [facility] 09-18-2022 10:46-0500 Heart rate 59 /min Casandra Baljit PA-C Work Phone: [facility] 09-18-2022 10:46-0500 Respiratory rate 18 /min Casandra Baljit PA-C Work Phone: [facility] 09-18-2022 10:46-0500 SaO2% (BldA) [Mass fraction] 95 % Casandra Baljit PA-C Work Phone: [facility] 09-18-2022 10:46-0500 Systolic blood pressure 146 mm[Hg] Casandra Holley PA-C Work Phone: [facility] 05-09-2022 00:12-0400 Body temperature 97.6 [degF] TELEGRAPH LINEMAN-C Mary Alice Princess Work Phone: [facility] 05-09-2022 00:12-0400 Diastolic blood pressure 63 mm[Hg] TELEGRAPH LINEMAN-C Mary Alice Princess Work Phone: [facility] 05-09-2022 00:12-0400 Heart rate 67 /min TELEGRAPH LINEMAN-C Mary Alice Princess Work Phone: [facility] 05-09-2022 00:12-0400 Respiratory rate 18 /min TELEGRAPH LINEMAN-C Mary Alice Princess Work Phone: [facility] 05-09-2022 00:12-0400 SaO2% (BldA) [Mass fraction] 94 % TELEGRAPH LINEMAN-C Mary Alice Princess Work Phone: [facility] 05-09-2022 00:12-0400 Systolic blood pressure 139 mm[Hg] TELEGRAPH LINEMAN-C Mary Alice Princess Work Phone: [facility] 05-08-2022 16:09-0400 Body height 187.96 cm TELEGRAPH LINEMAN-C Mary Alice Princess Work Phone: [facility] 05-08-2022 16:09-0400 Body weight 136.6 kg TELEGRAPH LINEMAN-C Mary Alice Princess Work Phone: [facility] 04-20-2022 14:06-0400 Body height 188 cm Pacc 2 Work Phone: [facility] 04-20-2022 14:06-0400 Body temperature 97.81 [degF] Pacc 2 Work Phone: [facility] 04-20-2022 14:06-0400 Body weight 141.52 kg Pacc 2 Work Phone: [facility] 04-20-2022 14:06-0400 Diastolic blood pressure 44 mm[Hg] Pacc 2 Work Phone: [facility] 04-20-2022 14:06-0400 Heart rate 68 /min Pacc 2 Work Phone: [facility] 04-20-2022 14:06-0400 Respiratory rate 16 /min Pacc 2 Work Phone: [facility] 04-20-2022 14:06-0400 SaO2% (BldA) [Mass fraction] 96 % Pacc 2 Work Phone: [facility] 04-20-2022 14:06-0400 Systolic blood pressure 148 mm[Hg] Pacc 2 Work Phone: [facility] 04-03-2022 12:57-0400 Body temperature 97.81 [degF] Chair Myriam Work Phone: [facility] 04-03-2022 12:57-0400 Diastolic blood pressure 61 mm[Hg] Chair [place] Work Phone: [facility] 04-03-2022 12:57-0400 Heart rate 65 /min Chair Myriam Work Phone: [facility] 04-03-2022 12:57-0400 Respiratory rate 18 /min Chair [place] Work Phone: [facility] 04-03-2022 12:57-0400 SaO2% (BldA) [Mass fraction] 95 % Chair [place] Work Phone: [facility] 04-03-2022 12:57-0400 Systolic blood pressure 140 mm[Hg] Chair Myriam Work Phone: [facility] 03-27-2022 13:08-0400 Diastolic blood pressure 47 mm[Hg] Chair [place] Work Phone: [facility] 03-27-2022 13:08-0400 Heart rate 60 /min Chair [place] Work Phone: [facility] 03-27-2022 13:08-0400 Respiratory rate 18 /min Chair Myriam Work Phone: [facility] 03-27-2022 13:08-0400 SaO2% (BldA) [Mass fraction] 95 % Chair Myriam Work Phone: [facility] 03-27-2022 13:08-0400 Systolic blood pressure 140 mm[Hg] Chair [place] Work Phone: [facility] 03-20-2022 14:19-0400 Diastolic blood pressure 54 mm[Hg] Chair Myriam Work Phone: [facility] 03-20-2022 14:19-0400 Heart rate 52 /min Chair [place] Work Phone: [facility] 03-20-2022 14:19-0400 Respiratory rate 18 /min Chair [place] Work Phone: [facility] 03-20-2022 14:19-0400 SaO2% (BldA) [Mass fraction] 95 % Chair [place] Work Phone: [facility] 03-20-2022 14:19-0400 Systolic blood pressure 128 mm[Hg] Chair [place] Work Phone: [facility] 03-20-2022 12:58-0400 Body temperature 97.7 [degF] Chair Myriam Work Phone: [facility] 03-07-2022 09:16-0400 Diastolic blood pressure 35 mm[Hg] Sarika Cook MD Work Phone: [facility] 03-07-2022 09:16-0400 Systolic blood pressure 133 mm[Hg] Sarika Cook MD Work Phone: [facility] 03-07-2022 09:12-0400 Body height 188 cm Sarika Cook MD Work Phone: [facility] 03-07-2022 09:12-0400 Body temperature 97.7 [degF] Sarika Cook MD Work Phone: [facility] 03-07-2022 09:12-0400 Body weight 141.98 kg Sarika Cook MD Work Phone: [facility] 03-07-2022 09:12-0400 Heart rate 67 /min Sarika Cook MD Work Phone: [facility] 03-07-2022 09:12-0400 Respiratory rate 18 /min Sarika Cook MD Work Phone: [facility] 03-07-2022 09:12-0400 SaO2% (BldA) [Mass fraction] 95 % Sarika Cook MD Work Phone: [facility] Encounters Encounter Date Encounter Type Care Provider Facility Start: 05-29-2024 End: 05-29-2024 ambulatory LEANN RAINES Not Available Start: 04-23-2024 End: 04-23-2024 ambulatory MARY ALICE S PRINCESS Facility:[facility] Start: 04-21-2024 End: 04-21-2024 ambulatory MARY ALICE S PRINCESS Facility:[facility] Start: 04-21-2024 End: 04-21-2024 Office outpatient visit 25 minutes Melissa Mckeon APRN.CNP Work Phone: Kidney Medicine Comment on above: Type 2 diabetes obed itus with stage 4 chronic kidney disease, with long-term current use of insulin (HCC) (Primary Dx); Hypertensive kidney disease with stage 4 chronic kidney disease (HCC); Chronic renal disease, stage IV (HCC); 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); BMI 40.0-44.9, adult (HCC); Hyperkalemia Start: 04-17-2024 End: 04-17-2024 Telemedicine consultation with patient Syd Gamboa MD Work Phone: Urology Start: 04-17-2024 End: 04-17-2024 ambulatory Syd Gamboa MD Work Phone: Urology Comment on above: BPH with obstruction /lower urinary tract symptoms (Primary Dx) Start: 04-14-2024 End: 04-14-2024 ambulatory MARY ALICE S PRINCESS Facility:[facility] Start: 04-08-2024 Non-patient / Non-visit TELEGRAPH LINEMAN-C P ajay Princess Work Phone: [facility] Work Phone: Start: 04-07-2024 End: 04-10-2024 Evaluation and management of inpatient TELEGRAPH LINEMAN-C Mary Alice Sánchez Work Phone: [facility] [place] [facility] Work Phone: Start: 04-07-2024 Telephone encounter Leslee gardiner DO Work Phone: Kidney Medicine Start: 04-07-2024 End: 04-07-2024 ambulatory LESLEE WEBSTER Facility:[facility] Start: 03-20-2024 End: 03-20-2024 ambulatory LEANN RAINES Not Available Start: 01-10-2024 End: 01-10-2024 ambulatory LEANN RAINES Not Available Start: 12-24-2023 End: 12-24-2023 Patient encounter procedure TELEGRAPH LINEMAN-C Mary Alice Sánchez Work Phone: [facility] [place] Work Phone: Start: 12-24-2023 End: 12-24-2023 ambulatory TELEGRAPH LINEMAN-C Mary Alice Sánchez Work Phone: [facility] Work Phone: Start: 12-20-2023 Telephone encounter Leslee gardiner DO Work Phone: Kidney Medicine Comment on above: Patient Request Start: 12-19-2023 End: 12-20-2023 ambulatory Leslee Webster DO Work Phone: Kidney Medicine Comment on above: Meds Start: 12-19-2023 End: 12-19-2023 Patient encounter procedure Leslee Webster DO Work Phone: Kidney Medicine Comment on above: Chronic renal diseas e, stage IV (HCC) (Primary Dx); Colorectal cancer (HCC); Type 2 diabetes mellitus with stage 4 chronic kidney disease, with long-term current use of insulin (HCC); Hypertensive kidney disease with stage 4 chronic kidney disease (HCC); 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) Start: 11-01-2023 End: 11-01-2023 ambulatory LEANNSha RAINES Not Available Start: 10-18-2023 Telephone encounter Pam Torres RN Work Phone: Hematology/Oncology Comment on above: Care Coordination (S ignatera results) Start: 10-18-2023 Non-patient / Non-visit [facility] Vascular Surgery Work Phone: Start: 10-18-2023 End: 10-18-2023 ambulatory Mary Alice Sánchez Facility:[facility] Start: 10-05-2023 End: 10-05-2023 ambulatory SARIKA COOK Facility:[facility] Start: 10-05-2023 Telephone encounter [facility]antes MD [facility] Comment on above: Future Appointment Start: 08-24-2023 End: 08-27-2023 ambulatory [facility] Work Phone: Hematology/Oncology Comment on above: Colorectal cancer (H CC) (Primary Dx) Start: 07-13-2023 End: 07-13-2023 ambulatory [facility] Myriam Work Phone: Hematology/Oncology Comment on above: History of colon can cer (Primary Dx) Start: 06-01-2023 End: 06-01-2023 ambulatory [facility] Myriam Work Phone: Hematology/Oncology Comment on above: History of colon can cer (Primary Dx) Start: 04-21-2023 Telephone encounter Syd crowe MD Work Phone: Urology Comment on above: Results Start: 04-20-2023 End: 04-20-2023 Patient encounter procedure Sarika Cook MD Work Phone: [employer] Start: 04-20-2023 End: 04-20-2023 ambulatory Sarika Cook MD Work Phone: Hematology/Oncology Comment on above: History of colon can cer (Primary Dx); Chronic renal disease, stage IV (HCC); BMI 40.0-44.9, adult (HCC) History of colon can cer (Primary Dx) Start: 04-17-2023 Telephone encounter Pam Torres RN Work Phone: Hematology/Oncology Comment on above: Care Coordination (C T results) Start: 04-16-2023 End: 04-16-2023 Subsequent hospital visit by physician Arrival Time Radiology Work Phone: Radiology Pet [facility] Comment on above: History of colon can cer [Z85.038] Start: 04-13-2023 Telephone encounter Casandra alba PA-C Work Phone: Hematology/Oncology Comment on above: Orders Start: 03-30-2023 Telephone encounter Carmina Villarreal RN H ematology/Oncology Comment on above: Orders Start: 03-05-2023 End: 03-05-2023 ambulatory [facility] Myriam Work Phone: Hematology/Oncology Comment on above: Colorectal cancer (H CC) (Primary Dx) Start: 01-22-2023 End: 01-22-2023 ambulatory [facility] Work Phone: Hematology/Oncology Comment on above: Colorectal cancer (H CC) (Primary Dx) Start: 10-10-2022 End: 10-11-2022 ambulatory [facility] Facility: Start: 10-06-2022 End: 10-06-2022 Subsequent hospital visit by physician Arrival Time Radiology Work Phone: Radiology Pet CT Comment on above: Malignant neoplasm o f ascending colon (HCC) [C18.2] Start: 09-18-2022 End: 09-18-2022 Patient encounter procedure Casandra Holley PAAjithC Work Phone: [facility] Start: 09-18-2022 End: 09-18-2022 ambulatory [facility] Myriam Work Phone: Hematology/Oncology Comment on above: Colorectal cancer (H CC); Overlapping malignant neoplasm of colon (HCC); Malignant neoplasm of ascending colon (HCC) Overlapping malignan t neoplasm of colon (HCC) (Primary Dx); Colorectal cancer (HCC); Malignant neoplasm of ascending colon (HCC); Iron deficiency anemia due to chronic blood loss; Stage 3b chronic kidney disease (HCC) Start: 06-30-2022 End: 07-01-2022 ambulatory MARY ALICE SÁNCHEZ Facility:[facility] Start: 06-23-2022 End: 06-23-2022 ambulatory [facility] Work Phone: Hematology/Oncology Comment on above: Rectal cancer (HCC) (Primary Dx) Start: 05-18-2022 End: 05-18-2022 Patient encounter procedure Terra Mon PA-C Work Phone: General Surgery Comment on above: Post-operative state (Primary Dx) Start: 05-08-2022 End: 05-09-2022 Emergency department patient visit TELEGRAPH LINEMANMarciano Sánchez Work Phone: [facility]-Emergency Room Start: 05-08-2022 ambulatory María Bahena MD Work Phone: General Surgery Comment on above: Throwing up Start: 04-20-2022 End: 04-21-2022 Admission to [facility] Pacc [place] 2 Work Phone: [facility] Start: 04-20-2022 End: 04-21-2022 [facility] Pacc [place] 2 Work Phone: Pre Anesthesia Comment on above: Pre-op evaluation (P rimary Dx); Incisional hernia without obstruction or gangrene; Primary hypertension; Difficult intravenous access; KIMMY (obstructive sleep apnea); Stage 3 chronic kidney disease, unspecified whether stage 3a or 3b CKD (HCC); Anemia of chronic renal failure, stage 3a (HCC); 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, with long-term current use of insulin (HCC); BMI 40.0-44.9, adult (HCC); Malignant neoplasm of ascending colon (HCC) Start: 04-20-2022 End: 04-21-2022 Preprocedural examination done Pacc [place] 2 Work Phone: Pre Anesthesia Start: 04-14-2022 End: 04-14-2022 ambulatory [facility] Myriam Work Phone: Hematology/Oncology Comment on above: Other hydronephrosis Start: 04-13-2022 Telephone encounter María sawyer MD Work Phone: General Surgery Comment on above: Schedule Surgery Results - Ct Other hydronephrosis (Primary Dx) Start: 04-11-2022 End: 04-11-2022 Subsequent hospital visit by physician [facility] Skyla Work Phone: Radiology Comment on above: History of incisiona l hernia repair [Z98.890, Z87.19] Start: 04-10-2022 Telephone encounter Casandra choprar PA-C Work Phone: Hematology/Oncology Comment on above: Lab Orders Start: 04-03-2022 End: 04-03-2022 ambulatory Chair 16 Myri[place] Work Phone: Hematology/Oncology Comment on above: 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) Start: 03-27-2022 End: 03-27-2022 ambulatory Chair 13 Myri[place] Work Phone: Hematology/Oncology Comment on above: 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 Start: 03-08-2022 Telephone encounter Pam Torres RN Work Phone: Hematology/Oncology Comment on above: Care Coordination (r esults) Start: 03-07-2022 End: 03-07-2022 Patient encounter procedure Sarika Cook MD Work Phone: [facility] Start: 03-07-2022 End: 03-07-2022 ambulatory Sarika Cook MD Work Phone: Hematology/Oncology Comment on above: Rectal cancer (HCC) (Primary Dx); Ventral hernia without obstruction or gangrene Malignant neoplasm o f rectosigmoid junction (HCC) Start: 01-13-2022 End: 01-13-2022 ambulatory [facility] Myriam Work Phone: Hematology/Oncology Comment on above: Rectal cancer (HCC) (Primary Dx) Start: 06-16-2020 End: 06-19-2020 Patient encounter procedure [facility] Start: 06-16-2020 End: 06-18-2020 Subsequent hospital visit by physician [facility] Vascular Imaging Room [facility] Vascular Lab Comment on above: Swelling of both low er extremities Start: 06-08-2020 End: 06-09-2020 Patient encounter procedure [facility] Start: 06-08-2020 End: 06-08-2020 Subsequent hospital visit by physician [facility]ILL[facility] Laboratory Procedures Date Procedure Procedure Detail Performing Clinician Start: 04-07-2024 Plain chest X-ray TELEGRAPH LINEMAN-C Mary Alice Sánchez Work Phone: Start: 04-07-2024 Urine culture TELEGRAPH LINEMAN-C Savannah Hernandez Work Phone: Start: 12-24-2023 Ultrasonography of bilateral kidneys TELEGRAPH LINEMAN-C Mayr Alice Sánchez Work Phone: Start: 12-19-2023 Urnls dip stick/tabl et rgnt auto w/o microscopy Leslee Deitzer DO Work Phone: Start: 04-16-2023 Ct abdomen & pelvis w/contrast material Sarika Cook MD Work Phone: Start: 04-16-2023 MISC SEND OUT TST 1 Edison Cook MD Work Phone: Start: 10-06-[address] atten uation skull base mid-thigh Casandra Posey Baljit DANIELS Work Phone: Start: 10-06-2022 Gluc bld gluc mntr d ev cleared fda spec home use [facility] Provider Start: 09-18-2022 Blood count complete auto&auto difrntl wbc Casandra Posey Baljit DANIELS Work Phone: Start: 05-08-2022 CT of abdomen and pe lvis without contrast TELEGRAPH LINEMAN-C Mary Alice Princess Work Phone: Start: 04-21-2022 Antibody screen Pacc 2 Work Phone: Start: 04-14-2022 Basic metabolic pane l calcium total Syd Gamboa MD Work Phone: Start: 04-11-2022 Ct abdomen & pelvis w/contrast material María Bahena MD Work Phone: Start: 03-07-2022 Blood count complete auto&auto difrntl wbc Sarika Cook MD Work Phone: Start: 08-24-2021 Adult depression scr eening assessment Lab[facility] Work Phone: Start: 06-16-2020 Dup-scan xtr veins c omplete bilateral study SYD GAMBOA Start: 06-16-2020 Dup-scan xtr veins c omplete bilateral study Syd Gamboa Work Phone: Start: 06-08-2020 Culture bacterial quanttative colony count urine SYD GAMBOA Start: 06-08-2020 Urinalysis microscopic only SYD GAMBOA Start: 06-08-2020 Urnls dip stick/tabl et rgnt auto w/o microscopy SYD GAMBOA Start: 06-08-2020 Urinalysis microscopic only Syd Gamboa Work Phone: Start: 06-08-2020 Urnls dip stick/tabl et rgnt auto w/o microscopy Syd Gamboa Work Phone: H/O: surgery S/P bladder repair [facility] [facility] Work Phone: SARS-CoV-2, Influenz a & RSV (PCR) TELEGRAPH LINEMANMarciano Sánchez Work Phone: Plan of Treatment Date Care Activity Detail Author Start: 05-25-2027 Urine microalbumin profile [facility] Start: 04-23-2025 Creatinine measurement Serum Creatin ine [facility] Start: 04-21-2025 BP Controlled (<130/80) BP Controlle d (<130/80) [facility] Start: 04-14-2025 Creatinine measurement Serum Creatin ine [facility] Start: 04-07-2025 [facility] blood count [facility] Start: 04-07-2025 Creatinine measurement Serum Creatin ine [facility] Start: 12-18-2024 BP Controlled (<130/80) BP Controlle d (<130/80) [facility] Start: 12-18-2024 Complete blood count Hemoglobin/[place] [facility] Start: 12-18-2024 Creatinine measurement Serum Creatin ine [facility] Start: 10-08-2024 End: 10-08-2024 Follow-up encounter 10/08/2024 3:15 PM EST Visit (SP) Office Hematology/Oncology [address] [place] [address] Sarika Cook MD [address] [place] [id number] 1 year follow up with glen estrada Hematology/Oncology Comment on above: 1 year follow up prabhu estrada Start: 10-08-2024 End: 10-08-2024 Patient encounter procedure 10/08/2024 3:00 PM EST Office Visit [facility] [address] [place] [address] 1 year follow up with lab sean [facility] Comment on above: 1 year follow up prabhu estrada Start: 10-05-2024 Complete blood count [facility] Start: 10-05-2024 Creatinine measurement Serum Creatin ine [facility] Start: 08-22-2024 End: 08-22-2024 Patient encounter procedure 08/22/2024 2:00 PM EST Office Visit Kidney Medicine [address] [place] [address] Melissa Mckeon APRN.[employer]ER [id number] [facility] [place] [address] 4 motnh f/u Kidney Medicine Comment on above: 4 motnh f/u Start: 07-28-2024 End: 10-27-2024 25-hydroxyvitamin D3 [Mass/volume] in Serum or Plasma VITAMIN D 25 HYDROXY Lab Routine Type 2 diabetes mellitus with stage 4 chronic kidney disease, with long-term current use of insulin (HCC) Hypertensive kidney disease with stage 4 chronic kidney disease (HCC) Chronic renal disease, stage IV (HCC) 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) Expected: 07/28/2024 (Approximate), Expires: 10/27/2024 [facility] Comment on above: Expected: 07/28/2024 (Approximate), Expires: 10/27/2024 Start: 07-28-2024 End: 10-27-2024 CBC W Auto Differential panel - Blood COMPLETE BLOOD COUNT AND DIFFERENTIAL Lab Routine Type 2 diabetes mellitus with stage 4 chronic kidney disease, with long-term current use of insulin (HCC) Hypertensive kidney disease with stage 4 chronic kidney disease (HCC) Chronic renal disease, stage IV (HCC) 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) Expected: 07/28/2024 (Approximate), Expires: 10/27/2024 [facility] Comment on above: Expected: 07/28/2024 (Approximate), Expires: 10/27/2024 Start: 07-28-2024 End: 10-27-2024 Ferritin [Mass/volume] in Serum or Plasma FERRITIN Lab Routine Type 2 diabetes mellitus with stage 4 chronic kidney disease, with long-term current use of insulin (HCC) Hypertensive kidney disease with stage 4 chronic kidney disease (HCC) Chronic renal disease, stage IV (HCC) 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) Expected: 07/28/2024 (Approximate), Expires: 10/27/2024 [facility] Comment on above: Expected: 07/28/2024 (Approximate), Expires: 10/27/2024 Start: 07-28-2024 End: 10-27-2024 Iron and Iron binding capacity panel - Serum or Plasma IRON AND TIBC Lab Routine Type 2 diabetes mellitus with stage 4 chronic kidney disease, with long-term current use of insulin (HCC) Hypertensive kidney disease with stage 4 chronic kidney disease (HCC) Chronic renal disease, stage IV (HCC) 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) Expected: 07/28/2024 (Approximate), Expires: 10/27/2024 [facility] Comment on above: Expected: 07/28/2024 (Approximate), Expires: 10/27/2024 Start: 07-28-2024 End: 10-27-2024 Magnesium [Mass/volume] in Serum or Plasma MAGNESIUM Lab Routine Type 2 diabetes mellitus with stage 4 chronic kidney disease, with long-term current use of insulin (HCC) Hypertensive kidney disease with stage 4 chronic kidney disease (HCC) Chronic renal disease, stage IV (HCC) 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) Expected: 07/28/2024 (Approximate), Expires: 10/27/2024 [facility] Comment on above: Expected: 07/28/2024 (Approximate), Expires: 10/27/2024 Start: 07-28-2024 End: 10-27-2024 Microalbumin/Creatinine [Mass Ratio] in Urine ALBUMIN/CREATININE RATIO, URINE Lab Routine Type 2 diabetes mellitus with stage 4 chronic kidney disease, with long-term current use of insulin (HCC) Hypertensive kidney disease with stage 4 chronic kidney disease (HCC) Chronic renal disease, stage IV (HCC) 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) Expected: 07/28/2024 (Approximate), Expires: 10/27/2024 [facility] Work Phone: Comment on above: Expected: 07/28/2024 (Approximate), Expires: 10/27/2024 Start: 07-28-2024 End: 10-27-2024 Parathyrin.intact [Mass/volume] in Serum or Plasma PTH INTACT Lab Routine Type 2 diabetes mellitus with stage 4 chronic kidney disease, with long-term current use of insulin (HCC) Hypertensive kidney disease with stage 4 chronic kidney disease (HCC) Chronic renal disease, stage IV (HCC) 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) Expected: 07/28/2024 (Approximate), Expires: 10/27/2024 [facility] Comment on above: Expected: 07/28/2024 (Approximate), Expires: 10/27/2024 Start: 07-28-2024 End: 10-27-2024 Protein/Creatinine [Mass Ratio] in Urine PROTEIN / CREATININE RATIO Lab Routine Type 2 diabetes mellitus with stage 4 chronic kidney disease, with long-term current use of insulin (HCC) Hypertensive kidney disease with stage 4 chronic kidney disease (HCC) Chronic renal disease, stage IV (HCC) 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) Expected: 07/28/2024 (Approximate), Expires: 10/27/2024 [facility] Comment on above: Expected: 07/28/2024 (Approximate), Expires: 10/27/2024 Start: 07-28-2024 End: 10-27-2024 Renal function 2000 panel - Serum or Plasma RENAL FUNCTION PANEL Lab Routine Type 2 diabetes mellitus with stage 4 chronic kidney disease, with long-term current use of insulin (HCC) Hypertensive kidney disease with stage 4 chronic kidney disease (HCC) Chronic renal disease, stage IV (HCC) 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) Expected: 07/28/2024 (Approximate), Expires: 10/27/2024 [facility] Comment on above: Expected: 07/28/2024 (Approximate), Expires: 10/27/2024 Start: 07-28-2024 End: 10-27-2024 Urate [Mass/volume] in Serum or Plasma URIC ACID Lab Routine Type 2 diabetes mellitus with stage 4 chronic kidney disease, with long-term current use of insulin (HCC) Hypertensive kidney disease with stage 4 chronic kidney disease (HCC) Chronic renal disease, stage IV (HCC) 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) Expected: 07/28/2024 (Approximate), Expires: 10/27/2024 [facility] Comment on above: Expected: 07/28/2024 (Approximate), Expires: 10/27/2024 Start: 07-28-2024 End: 10-27-2024 URINALYSIS, REFLEX MICROSCOPIC URINALYSIS, REFLEX MICROSCOPIC Lab Routine Type 2 diabetes mellitus with stage 4 chronic kidney disease, with long-term current use of insulin (HCC) Hypertensive kidney disease with stage 4 chronic kidney disease (HCC) Chronic renal disease, stage IV (HCC) 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) Expected: 07/28/2024 (Approximate), Expires: 10/27/2024 [facility] Comment on above: Expected: 07/28/2024 (Approximate), Expires: 10/27/2024 Start: 05-11-2024 Covid-19 Vaccine () Covid-19 Vaccine () [facility] Start: 05-11-2024 Covid-19 Vaccine () Covid-19 Vaccine () [facility] Start: 05-11-2024 Influenza vaccination Influenza Vacc ine (#1) [facility] Start: 04-23-2024 End: 04-23-2024 Patient encounter procedure 04/23/2024 11:00 AM EDT Office Visit [facility] [address] [place] [address] [place] [address] lab [facility] Comment on above: lab Start: 04-21-2024 End: 04-21-2024 Patient encounter procedure [facility] Comment on above: 4 month follow up Start: 04-21-2024 End: 07-21-2024 Renal function 2000 panel - Serum or Plasma RENAL FUNCTION PANEL Lab Routine Type 2 diabetes mellitus with stage 4 chronic kidney disease, with long-term current use of insulin (HCC) Hypertensive kidney disease with stage 4 chronic kidney disease (HCC) Hyperkalemia Expected: 04/21/2024 (Approximate), Expires: 07/21/2024 [facility] Comment on above: Expected: 04/21/2024 (Approximate), Expires: 07/21/2024 Start: 04-17-2024 End: 04-17-2024 ambulatory 04/17/2024 8:00 AM EDT [facility] [address] [address] Syd Gamboa MD [address] [place] [address] 1 year v v per staff Urology Comment on above: 1 year v v per staff Start: 04-12-2024 [facility] Start: 04-11-2024 [facility] Start: 04-10-2024 End: 04-10-2024 [facility] Start: 04-09-2024 [facility] Start: 04-08-2024 [facility] Start: 04-07-2024 End: 04-07-2024 [facility] Start: 04-07-2024 Referral to equipment coordinator [facility] Start: 04-07-2024 Hospital admission [facility] Start: 04-07-2024 End: 07-07-2024 CBC panel - Blood by Automated count COMPLETE BLOOD COUNT Lab Routine Chronic renal disease, stage IV (HCC) 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) Expected: 04/07/2024, Expires: 07/07/2024 [facility] Work Phone: Comment on above: Expected: 04/07/2024 , Expires: 07/07/2024 Start: 04-07-2024 End: 07-07-2024 Microalbumin/Creatinine [Mass Ratio] in Urine ALBUMIN/CREATININE RATIO, URINE Lab Routine Chronic renal disease, stage IV (HCC) Expected: 04/07/2024, Expires: 07/07/2024 [facility] Work Phone: Comment on above: Expected: 04/07/2024 , Expires: 07/07/2024 Start: 04-07-2024 End: 07-07-2024 Protein/Creatinine [Mass Ratio] in Urine PROTEIN / CREATININE RATIO Lab Routine Chronic renal disease, stage IV (HCC) Expected: 04/07/2024, Expires: 07/07/2024 [facility] Work Phone: Comment on above: Expected: 04/07/2024 , Expires: 07/07/2024 Start: 04-07-2024 End: 07-07-2024 Renal function 2000 panel - Serum or Plasma RENAL FUNCTION PANEL Lab Routine Chronic renal disease, stage IV (HCC) Expected: 04/07/2024, Expires: 07/07/2024 [facility] Work Phone: Comment on above: Expected: 04/07/2024 , Expires: 07/07/2024 Start: 03-30-2024 Complete blood count Hemoglobin/Haider tocrit [facility] Start: 03-30-2024 Creatinine measurement Serum Creatin ine [facility] Start: 03-30-2024 HEMOGLOBIN/HEMATOCRIT HEMOGLOBIN/HEM ATOCRIT [facility] Start: 03-30-2024 SERUM CREATININE SERUM CREATININE [facility] Start: 01-05-2024 Covid-19 Vaccine () Covid-19 Vaccine () [facility] Start: 12-19-2023 End: 03-19-2024 MONOCLONAL PROTEIN, SERUM (BLOOD) [facility] Work Phone: Comment on above: Expected: 12/19/2023 , Expires: 03/19/2024 Start: 10-21-2023 End: 12-21-2023 Carcinoembryonic Ag [Mass/volume] in Serum or Plasma CEA BLD Lab Routine History of colon cancer Expected: 10/21/2023 (Approximate), Expires: 12/21/2023 [facility] Work Phone: Comment on above: Expected: 10/21/2023 (Approximate), Expires: 12/21/2023 Start: 10-21-2023 End: 12-21-2023 CBC W Auto Differential panel - Blood CBC + DIFF Lab Routine History of colon cancer Expected: 10/21/2023 (Approximate), Expires: 12/21/2023 [facility] Work Phone: Comment on above: Expected: 10/21/2023 (Approximate), Expires: 12/21/2023 Start: 10-21-2023 End: 12-21-2023 Comprehensive metabolic 2000 panel - Serum or Plasma COMP METABOLIC PANEL Lab Routine History of colon cancer Expected: 10/21/2023 (Approximate), Expires: 12/21/2023 [facility] Work Phone: Comment on above: Expected: 10/21/2023 (Approximate), Expires: 12/21/2023 Start: 10-21-2023 End: 12-21-2023 MISC SEND OUT TST 1 MISC SEND OUT TST 1 Lab Routine History of colon cancer Expected: 10/21/2023 (Approximate), Expires: 12/21/2023 [facility] Work Phone: Comment on above: Expected: 10/21/2023 (Approximate), Expires: 12/21/2023 Start: 10-18-2023 [facility] Start: 09-18-2023 HEMOGLOBIN/HEMATOCRIT HEMOGLOBIN/HEM ATOCRIT [facility] Start: 09-18-2023 SERUM CREATININE SERUM CREATININE [facility] Start: 09-10-2023 Advance Directive Discussion Advance Directive Discussion [facility] Start: 09-10-2023 Behavioral Health Screening Behavioral Health Screening [facility] Start: 09-10-2023 Depression Assessment Depression Ass essment [facility] Start: 05-12-2023 HEMOGLOBIN/HEMATOCRIT HEMOGLOBIN/HEM ATOCRIT [facility] Start: 05-12-2023 SERUM CREATININE SERUM CREATININE [facility] Start: 05-11-2023 Covid-19 Vaccine ( season) Covid-19 Vaccine ( season) [facility] Start: 05-11-2023 Influenza vaccination [facility] Start: 04-20-2023 SERUM CREATININE SERUM CREATININE [facility] Start: 04-16-2023 End: 06-16-[address] [facility] SEND OUT TST 1 [facility] Work Phone: Comment on above: Expected: 04/16/2023 (Approximate), Expires: 06/16/2023 Start: 04-14-2023 SERUM CREATININE SERUM CREATININE [facility] Start: 04-10-2023 [facility]: 03-18-2023 End: 05-18-2023 Carcinoembryonic Ag [Mass/volume] in Serum or Plasma CEA BLD Lab Routine Colorectal cancer (HCC) Overlapping malignant neoplasm of colon (HCC) Expected: 03/18/2023, Expires: 05/18/2023 [facility] Work Phone: Comment on above: Expected: 03/18/2023 , Expires: 05/18/2023 Start: 03-18-2023 End: 05-18-2023 MISC SEND OUT TST 1 MISC SEND OUT TST 1 Lab Routine Colorectal cancer (HCC) Overlapping malignant neoplasm of colon (HCC) Expected: 03/18/2023, Expires: 05/18/2023 [facility] Work Phone: Comment on above: Expected: 03/18/2023 , Expires: 05/18/2023 Start: 03-07-2023 [facility]CR[facility] Start: 03-07-2023 SERUM CREATININE SERUM CREATININE [facility] Start: 12-28-2022 COVID-19 VACCINE (7 - Mixed Product series) COVID-19 VACCINE (7 - Mixed Product series) [facility] Start: 11-18-2022 HEMOGLOBIN/HEMATOCRIT HEMOGLOBIN/HEM [facility] Start: 11-18-2022 SERUM CREATININE SERUM CREATININE [facility] Start: 09-18-2022 End: 11-18-2022 CREATININE BLD CREATININE BLD Lab Routine Colorectal cancer (HCC) Overlapping malignant neoplasm of colon (HCC) Expected: 09/18/2022, Expires: 11/18/2022 [facility] Work Phone: Comment on above: Expected: 09/18/2022 , Expires: 11/18/2022 Start: 09-18-2022 End: 11-18-2022 Ferritin [Mass/volume] in Serum or Plasma FERRITIN BLD Lab Routine Colorectal cancer (HCC) Overlapping malignant neoplasm of colon (HCC) Malignant neoplasm of ascending colon (HCC) Iron deficiency anemia due to chronic blood loss Expected: 09/18/2022, Expires: 11/18/2022 [facility] Work Phone: Comment on above: Expected: 09/18/2022 , Expires: 11/18/2022 Start: 09-18-2022 End: 11-18-2022 Iron and Iron binding capacity panel - Serum or Plasma IRON + TIBC Lab Routine Colorectal cancer (HCC) Overlapping malignant neoplasm of colon (HCC) Malignant neoplasm of ascending colon (HCC) Iron deficiency anemia due to chronic blood loss Expected: 09/18/2022, Expires: 11/18/2022 [facility] Work Phone: Comment on above: Expected: 09/18/2022 , Expires: 11/18/2022 Start: 09-10-2022 ADVANCE DIRECTIVE DISCUSSION ADVANCE DIRECTIVE DISCUSSION [facility] Start: 09-10-2022 DEPRESSION ASSESSMENT DEPRESSION ASS ESSMENT [facility] Start: 09-06-2022 End: 11-06-2022 Carcinoembryonic Ag [Mass/volume] in Serum or Plasma CEA BLD Lab Routine Rectal cancer (HCC) Expected: 09/06/2022 (Approximate), Expires: 11/06/2022 [facility] Work Phone: Comment on above: Expected: 09/06/2022 (Approximate), Expires: 11/06/2022 Start: 09-06-2022 End: 11-06-2022 CBC W Auto Differential panel - Blood CBC + DIFF Lab Routine Rectal cancer (HCC) Expected: 09/06/2022 (Approximate), Expires: 11/06/2022 [facility] Work Phone: Comment on above: Expected: 09/06/2022 (Approximate), Expires: 11/06/2022 Start: 09-06-2022 End: 11-06-2022 Comprehensive metabolic 2000 panel - Serum or Plasma COMP METABOLIC PANEL Lab Routine Rectal cancer (HCC) Expected: 09/06/2022 (Approximate), Expires: 11/06/2022 [facility] Work Phone: Comment on above: Expected: 09/06/2022 (Approximate), Expires: 11/06/2022 Start: 09-06-2022 End: 11-06-2022 MISC SEND OUT TST 1 MISC SEND OUT TST 1 Lab Routine Rectal cancer (HCC) Expected: 09/06/2022 (Approximate), Expires: 11/06/2022 [facility] Work Phone: Comment on above: Expected: 09/06/2022 (Approximate), Expires: 11/06/2022 Start: 08-24-2022 Adult depression scr eening assessment DEPRESSION SCREENING [facility] Start: 05-11-2022 Influenza vaccination INFLUENZA (#1) [facility] Start: 04-13-2022 End: 06-13-2022 Basic metabolic 2000 panel - Serum or Plasma BASIC METABOLIC PNL Lab Routine Other hydronephrosis Expected: 04/13/2022, Expires: 06/13/2022 [facility] Work Phone: Comment on above: Expected: 04/13/2022 , Expires: 06/13/2022 Start: 03-21-2022 Hepatitis B screening URINE ALBUMIN:CREATININE RATIO [facility] Start: 02-21-2022 COVID-19 VACCINE (4 - Booster) COVID-19 VACCINE (4 - Booster) [facility] Start: 12-19-2021 COVID-19 VACCINE (4 - Booster) COVID-19 VACCINE (4 - Booster) [facility] Start: 12-01-2021 Hemoglobin A1c measurement HbA1C [facility] Start: 12-01-2021 Hemoglobin A1c/Hemoglobin.total in Blood HBA1C [facility] Start: 09-10-2021 ADVANCE DIRECTIVE DISCUSSION ADVANCE DIRECTIVE DISCUSSION [facility] Start: 09-10-2021 DEPRESSION ASSESSMENT DEPRESSION ASS ESSMENT [facility] Start: 2020 RSV Vaccine (1 - 1-d ose 75+ series) RSV Vaccine (1 - 1-dose 75+ series) [facility] Start: 05-11-2020 Influenza vaccination Flu vaccine (# 1) [place], [place] Start: 2010 Pneumococcal 65+ yea rs Vaccine (1 of 1 - PPSV23) Pneumococcal 65+ years Vaccine (1 of 1 - PPSV23) [place], [place] Start: 2005 Hepatitis B Vaccine (1 of 3 - Risk 3-dose series) Hepatitis B Vaccine (1 of 3 - Risk 3-dose series) [facility] Start: 2005 RSV Vaccine (1 - 1-d ose 60+ series) RSV Vaccine (1 - 1-dose 60+ series) [facility] Start: 11-29-1995 Screening for malign ant neoplasm of colon Colon cancer screen colonoscopy [place], [place] Start: 11-29-1995 Shingles Vaccine (1 of 2) Berumen gles Vaccine (1 of 2) [place], [place] Start: 11-29-1995 SHINGRIX VACCINE (1 of 2) BERUMEN GRIX VACCINE (1 of 2) [facility] Start: 1985 Lipid panel Lipid screen [place], [place] Start: 1964 DTaP/Tdap/Td vaccine (1 - Tdap) DTaP/Tdap/Td vaccine (1 - Tdap) [place], [place] Start: 1964 SHINGRIX VACCINE (1 of 2) BERUMEN GRIX VACCINE (1 of 2) [facility] Start: 11-29-1963 ANNUAL PCP TEAM LAB[employer] SUNNY DISEASE VISIT ANNUAL PCP TEAM CHRONIC DISEASE VISIT [facility] Start: 11-29-1963 Anxiety Screening Anxiety Screening [facility] Start: 11-29-1963 BP CONTROLLED (<130/80) BP CONTROLLE D (<130/80) [facility] Start: 11-29-1963 Depression Screening Depression Scre ening [facility] Start: 11-29-1963 Hepatitis B surface antibody level LDL CHOLESTEROL [facility] Start: 11-29-1963 HEPATITIS C SCREENING HEPATITIS C SC [facility] Start: 11-29-1963 Hepatitis C screening Hepatitis C Sc [facility] Start: 11-29-1955 3 comp foot exam completed DIABETIC FOOT EXAM [facility] Start: 11-29-1955 Diabetic foot examination Diabetic F oot Exam [facility] Start: 11-29-1955 Glaucoma screening Dilated Retinal E xam [facility] Start: 11-29-1955 Hepatitis C antibody , confirmatory test DILATED RETINAL EXAM [facility] Start: 1945 Hepatitis [place] Carcinoembryonic Ag [Mass/volume] in Serum or Plasma CEA BLD Lab Routine Malignant neoplasm of rectosigmoid junction (HCC) 03/07/2022 9:13 AM EDT [facility] Work Phone: Carcinoembryonic Ag [Mass/volume] in Serum or Plasma CEA BLD Lab Routine Colorectal cancer (HCC) Overlapping malignant neoplasm of colon (HCC) 09/18/2022 10:32 AM EST [facility] Work Phone: End: 06-08-2020 Culture, Urine Culture, Urine Microbiology Routine Once for 1 Occurrences starting 06/08/2020 until 06/08/2020 [place], [place] Comment on above: Once for 1 Occurrenc es starting 06/08/2020 until 06/08/2020 Culture, Urine Culture, Urine Microbiology Routine 06/08/2020 5:30 PM EDT [facility] [place] [place] Ferritin [Mass/volum e] in Serum or Plasma FERRITIN BLD Lab Routine Malignant neoplasm of rectosigmoid junction (HCC) [facility] Iron and Iron bindin g capacity panel - Serum or Plasma IRON + TIBC Lab Routine Malignant neoplasm of rectosigmoid junction (HCC) 03/07/2022 9:13 AM EDT [facility] Work Phone: Microalbumin/Creatin ine [Mass Ratio] in Urine ALBUMIN/CREATININE RATIO, URINE Lab Routine Chronic renal disease, stage IV (HCC) Type 2 diabetes mellitus with stage 4 chronic kidney disease, with long-term current use of insulin (HCC) Hypertensive kidney disease with stage 4 chronic kidney disease (HCC) [facility]/19/2023 8[facility]: MISC SEND OUT TEST 1 MISC SEND O UT TEST 1 Lab Routine Malignant neoplasm of rectosigmoid junction (HCC) 03/07/2022 9:14 AM [facility] Work Phone: MONOCLONAL PROT UR W/INTERP MONOCLONAL PROT UR W/INTERP Lab Routine Chronic renal disease, stage IV (HCC) 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) 12/19/2023 8:46 AM [facility] Work Phone: End: 10-18-2023 NM PET/CT SKULL-THIGH SUBSEQUENT NM PET/CT SKULL-THIGH SUBSEQUENT Radiology Routine Malignant neoplasm of ascending colon (HCC) 1 Occurrences starting 09/18/2022 until 10/18/2023 [facility] Work Phone: Comment on above: 1 Occurrences starti ng 09/18/2022 until 10/18/2023 Patient Education [facility] Work Phone: Patient referral [facility] Work Phone: Protein/Creatinine [ Mass Ratio] in Urine PROTEIN / CREATININE RATIO Lab Routine Chronic renal disease, stage IV (HCC) Type 2 diabetes mellitus with stage 4 chronic kidney disease, with long-term current use of insulin (HCC) Hypertensive kidney disease with stage 4 chronic kidney disease (HCC) 12/19/2023 8:46 AM EDT [facility] Work Phone: End: 01-17-2025 US Kidney - bilateral and Urinary bladder US KIDNEY/BLADDER Radiology Routine Chronic renal disease, stage IV (HCC) 1 Occurrences starting 12/19/2023 until 01/17/2025 [facility] Work Phone: Comment on above: 1 Occurrences starti ng 12/19/2023 until 01/17/2025 End: 01-17-2025 US Urinary bladder US PELVIS BLADDER Radiology Routine Chronic renal disease, stage IV (HCC) 1 Occurrences starting 12/19/2023 until 01/17/2025 [facility] Work Phone: Comment on above: 1 Occurrences starti ng 12/19/2023 until 01/17/[address] [facility] Immunizations Immunization Date Immunization Notes Care Provider Beatris timmons 09-05-2023 influenza virus vacc ine, unspecified formulation Shy Sofia APRN.CNP Work Phone: [facility] 08-29-2022 influenza, high-dose , quadrivalent vaccine (FLUZONE HIGH DOSE QUADRIVALENT) [facility] Work Phone: [facility] 08-29-2022 influenza virus vacc ine, unspecified formulation [facility] Work Phone: [facility] 08-11-2021 influenza, high-dose , quadrivalent vaccine (FLUZONE HIGH DOSE QUADRIVALENT) [facility] Work Phone: [facility] 11-12-2020 COVID-19 vaccine (UNSPECIFIED) [facility] Work Phone: [facility] 11-12-2020 COVID-19 vaccine, ag e 12+ yr (PFIZER-BIONTECH - PURPLE TOP) [facility] Work Phone: [facility] 10-22-2020 COVID-19 vaccine, ag e 12+ yr (PFIZER-BIONTECH - PURPLE TOP) [facility] Work Phone: [facility] 07-27-2020 influenza, high-dose , quadrivalent vaccine (FLUZONE HIGH DOSE QUADRIVALENT) [facility] Work Phone: [facility] Work Phone: 06-23-2019 influenza, seasonal, injectable [facility] Work Phone: [facility] 06-10-2019 pneumococcal polysaccharide vaccine, 23 valent [facility] Work Phone: [facility] 06-10-2019 Seasonal trivalent influenza vaccine, adjuvanted, preservative free Lab/[employer] Work Phone: [facility] 09-17-2018 Seasonal trivalent influenza vaccine, adjuvanted, preservative free [facility]/[employer] Work Phone: [facility] 07-10-2017 influenza, high dose seasonal, preservative-free Lab/[employer] Work Phone: [facility] 05-25-2017 pneumococcal conjuga te vaccine, 13 valent [facility] Work Phone: [facility] 05-25-2017 tetanus toxoid, redu malina diphtheria toxoid, and acellular pertussis vaccine, adsorbed Lab/[facility] [employer] Work Phone: [facility] 07-05-2016 influenza, high dose seasonal, preservative-free Lab/[employer] Work Phone: [facility] 07-28-2015 influenza, high dose seasonal, preservative-free Lab/Karissa Miguel Work Phone: [facility] Payers Date Payer Category Payer Self-pay [id number] 2015 Private Health Insurance [employer] HU[employer]NA MEDICARE SUPPLEMENT [id number] 2015-Present [phone] [address] [address] [place] [address] Indemnity [id number] 2015 Private Health Insurance [employer]NA HU[employer]NA MEDICARE SUPPLEMENT [id number] 2015-Present [phone] [address] [address] [place] [address] Indemnity [id number] 2010 Medicare MEDICARE MEDICAR E A AND B [id number] 2010-Present [phone] [place] [address] Medicare [id number] 2010 Medicare MEDICARE MEDICAR E A AND B [id number] 2010-Present [phone] [place] [address] Medicare [id number] 1959 Medicare [id number] 1959 Private Health Insurance [id number] 1945 Unknown [id number] .[id number] 1945 Unknown [id number] .[id number] 1945 Unknown [id number] .[id number] 1945 Unknown [id number] .[id number] 1945 Unknown [id number] .[id number] 1945 Unknown [id number] .[id number] 1945 Unknown [id number] .[id number] Unknown [id number] .2.531 Unknown [id number] .2.531 Unknown [id number] .2.531 Social History Date Type Detail Facility [facility] [place] Sex Assigned At Not on file [facility] [employer] [facility] [place] Start: 01-03-2022 End: 06-23-2022 Exposure to SARS-CoV-2 (event) Not sure Ecelles [facility] [employer] [place], [place] Start: 04-02-2020 End: 04-20-2022 Tobacco smoking status NHIS Never smoked tobacco [facility] Start: 04-02-2020 End: 04-20-2022 Tobacco use and exposure Smokeless tobacco non-user [facility] Start: 11-18-2021 End: 09-18-2022 Alcohol intake Ex-drinker (finding) [facility] Start: 1945 [facility]igned [facility] Start: 05-09-2022 History SDOH Financial 5 [facility] Start: 09-23-2022 End: 03-30-2023 History of Social function [facility] Start: 09-23-2022 End: 03-30-2023 Tobacco use panel [facility] How hard is it for y ou to pay for the very basics like food, housing, medical care, and heating Not hard at all [facility] Start: 05-07-2020 Gender identity Identifies as male gender (finding) [facility] Start: 11-17-2020 Sexual orientation Heterosexual (luis fannie) [facility] Medical Equipment Procedure Code Equipment Code Equipment Origin al Text Equipment Identifier Dates Insertion of central venous catheter (CVC) with subcutaneous port for chemotherapy Vascular port/catheter )[id number] FDA Start: 07-12-2020 Mesh Surgical Parietene Ds 12cm Round - [id number]_[facility] Start: 05-03-2022 Goals Date Patient Goal Desired Activity /State Functional Status Date Assessment Result Facility 04-10-2024 Functional status Patient at Baseline [facility] Work Phone: 04-07-2024 Functional status Patient at Baseline [facility] Work Phone: Mental Status Date Assessment Result Facility 04-10-2024 Cognitive function Cognitive Sta tus Patient at Baseline [facility] Work Phone: 04-07-2024 Cognitive function Cognitive Sta tus Patient at Baseline [facility] Work Phone: Clinical Notes 03-19-2021 to 04-21-2024 Melissa Mckeon APRN.KIESHA - 04/21/2024 2:30 PM EDTPatient Syd Lockett MD - 04/17/2024 8:00 AM EDT Note Date & Type Note Facility 04-21-2024 History of Present illness Narrative Department of Kidney Medicine Medical Specialties [facility] Portions of the encounter notes regarding history and diagnosis from previous visits of [facility] and the Kidney Medicine attending provider may have been copied. Information taken from other providers notes are not copied unless noted in portion attributed. These copied portions are updated where appropriate and reflect my current medical decision-making from this visit today and everything regarding this visit. Last F/U on 12/19/2023 with this provider. [facility] Food General Manager: Dr. Webster SERVICE DATE & Time: 04/21/2024 @ 2:30 PM Reason for visit: Follow up CKD and Hypertension HPI: Mr. Moerl is a 78 year old male who presents for follow up of CKD with a PMHx of colorectal cancer resected in 04/2020, required partial cystectomy as pathology noted to have abutment to the bladder. He was given Folox (07/2020-12/2020) and in February 2021 had denice reversal. He also has history of HTN, DM II, and BPH. Subjective: Presents with for visit. Feeling well without voiced complaints. Family Hx of kidney disease: Sister CKD. Kidney Stone history: No NSAID Use: Only Tylenol Smoking: None Alcohol: None Diet: Eating at home for the most part. Watches salt intake. Caffeine: Coffee 2 cups per day. Water intake is good. No Soda. Activity: fairly active. PAST MEDICAL HISTORY No date: Anemia No date: BPH (benign prostatic hyperplasia) 03/2020: Colon cancer (HCC) 07/19/2021: Difficult intravenous access No date: DM (diabetes mellitus) (HCC) No date: Gastritis No date: Hypertension 03/24/2020: Mass of colon Comment: Dr Vu No date: Morbid obesity (HCC) 04/06/2022: NEGATIVE HISTORY OF Comment: NO PNE, TB, HD No date: KIMMY (obstructive sleep apnea) PAST SURGICAL HISTORY: PAST SURGICAL HISTORY 03/24/2020: COLONOSCOPY AND BIOPSY Comment: Dr Vu 03/2020: COLONSCOPY SCREENING HIGH RISK 03/2020: EGD 1985: HERNIA REPAIR HX Comment: X2- umbilical and right inguinal hernia 05/11/2020: PAST SURGICAL HISTORY OF Comment: hemicolectomy with colostomy and partial cystectomy 02/2021: PAST SURGICAL HISTORY OF Comment: colostomy reversal 06/13/2021: REPAIR INCISIONAL HERNIA,REDUCIBLE 05/03/2022: REPAIR INCISIONAL HERNIA,REDUCIBLE 08/2021: TRANSURETHRAL ELEC-SURG PROSTATECTOM FAMILY HISTORY: FAMILY HISTORY Problem Relation Age of Onset Diabetes Mother Ischemic Heart Disease Mother CABG Stroke Father Diabetes Father Heart Attack Father 72 Cancer Sister Anesthesia Problems No Family History Blood Clots No Family History Clotting Disorder No Family History SOCIAL HISTORY: reports that he has never smoked. He has never used smokeless tobacco. He reports that he does not currently use alcohol. He reports that he does not use drugs. MEDICATIONS: allopurinol (ZYLOPRIM) 300 mg tablet atorvastatin (LIPITOR) 40 mg tablet TAKE 1 AND 1/2 TABLETS BY MOUTH ONCE A DAY OZEMPIC 0.25 mg or 0.5 mg (2 mg/3 mL) pen INJECT 0.25 MG SUBCUTANEOUSLY WEEKLY tamsulosin (FLOMAX) 0.4 mg Take 0.4 mg by mouth once daily. furosemide (LASIX) 20 mg tablet CPAP NIFEdipine XL (ADALAT CC, PROCARDIA XL) 60 mg 24 hr tablet Take 60 mg by mouth once daily. spironolactone (ALDACTONE) 25 mg tablet Take 25 mg by mouth every morning. A-C-E-zinc ox-cupric ox-lutein ([facility]) 7,160 unit- 113 mg-1 mg tab Take by mouth. losartan potassium (LOSARTAN ORAL) Take 100 mg by mouth once daily. oxybutynin XL (DITROPAN XL) 5 mg 24 hr tablet Take 5 mg by mouth once daily. cyanocobalamin (VITAMIN B-12) 500 mcg tablet fenofibrate nanocrystallized (TRICOR) 48 mg tablet Take 96 mg by mouth every morning. multivit-min/folic/vit K/lycop (ONE-A-DAY MEN'S MULTIVITAMIN ORAL) insulin NPH-insulin regular injection (HumuLIN, NovoLIN 70/30) If blood sugar before dinner is >200, start taking 5 unit(s) of 70/30 NPH before dinner and continue with the 7 unit(s) in the morning. If the blood sugar before dinner is again >200 the next day, add 2 unit(s) to the previous dose of evening insulin For AM insulin changes: Check blood sugar before lunch. If blood sugar > 200, add 2 unit(s) to the morning insulin and take 9 the next day. If the following day's pre-lunch sugar is again > 200, add another 2 unit(s) to the morning dose. FERROUS GLUCONATE ORAL Take 324 mg by mouth once daily. aspirin, enteric coated (ASPIRIN, ENTERIC COATED) 81 mg EC tablet Take 81 mg by mouth once daily. Ascorbic Acid 60 mg lozg Take by mouth. cholecalciferol (VITAMIN D3) 1,000 unit tab tablet Take 1,000 Units by mouth. Cinnamon Bark 500 mg cap Take 500 mg by mouth. Grllt-9-UBD-EPA-Fish Oil 300-1,000 mg cap Take by mouth. ALLERGIES: ALLERGIES Allergen Reactions Cephalexin Diarrhea Ciprofloxacin Other: See Comments Made pt dizzy Flagyl [Metronidazo* Other: See Comments Made pt dizzy Fluconazole Diarrhea REVIEW OF SYSTEMS: General no fever no weight loss no fatigue no night sweats Head / Neck no metallic or bitter taste Cardiac no chest pain or pressure no palpitations no dizziness no lightheadedness no syncope Vascular no edema Pulmonary no dyspnea on exertion no cough GI no loss of appetite no nausea no emesis no diarrhea CONSTIPATION no abdominal pain no urinary frequency NOCTURIA no urinary hesitancy no straining no decreased urine no frothy urine no pink or red urine no flank pain no groin pain Heme no easy bruising Other no daytime somnolence PHYSICAL EXAM: BP - standardized method Pulse 1 BP #1: 132/57 Pulse #1: 59 beats/min 2 BP #2 : 125/53 Pulse #2 : 60 beats/min 3 BP #3 : 125/64 Pulse #3 : 58 beats/min Average Average BP: 127/58 Average Pulse: 59 beats/min Orthostatic vitals Supine Sitting Standing Standing BP : 126/64 Standing pulse : 64 BP cuff location BP cuff location: Right upper arm BP cuff size BP cuff size: large adult Comments for BP values First BP (right) First BP (left) Last 14 BP Last 14 Encounter BP Readings: Date: BP: 12/19/2023 113/62 10/05/2023 150/57 04/20/2023 168/49 03/30/2023 155/60 09/18/2022 146/43 05/09/2022 130/66 05/03/2022 182/81 04/20/2022 148/44 04/19/2022 140/60 04/10/2022 113/44 04/06/2022 145/45 04/03/2022 140/61 03/27/2022 140/47 03/20/2022 128/54 Constitutional: NAD Neck: No JVD CV: RRR. Normal S1, S2. No murmurs, rubs, or gallops Respiratory: Normal respiratory effort. Lungs clear bilaterally. Abdomen: Soft, non-tender, non-distended. Normal bowel sounds. Back: No CVA Tenderness. Edema: None. DATA: Diagnostic tests reviewed for today's visit: CBC: Lab Results Component Value Date WBC 9.15 04/07/2024 HB 11.6 (L) 04/07/2024 HCT 36.5 (L) 04/07/2024 PLT 359 04/07/2024 BMP: Lab Results Component Value Date NA 135 (L) 04/14/2024 K 4.7 04/14/2024 CHLOR 103 04/14/2024 GLUC 215 (H) 04/14/2024 CA 9.6 04/14/2024 RENAL FUNCTION Lab Results Component Value Date BUN 64 (H) 04/14/2024 BUN 43 (H) 04/07/2024 BUN 32 (H) 12/19/2023 CREAT 2.91 (H) 04/14/2024 CREAT 2.82 (H) 04/07/2024 CREAT 2.32 (H) 12/19/2023 EGFRAA 44 10/07/2021 EGFRAA 44 08/26/2021 EGFRAA 57 08/11/2021 EGFROTH 21 (L) 04/14/2024 EGFROTH 22 (L) 04/07/2024 EGFROTH 28 (L) 12/19/2023 ACID/BASE Lab Results Component Value Date CO2 18 (L) 04/14/2024 ALB 4.4 04/07/2024 ANION 14 04/14/2024 BONE/MINERAL METABOLISM Lab Results Component Value Date CA 9.6 04/14/2024 P 4.0 04/07/2024 VITD25 27.5 (L) 12/19/2023 PTH 55 12/19/2023 IRON STUDIES Lab Results Component Value Date FE 54 12/19/2023 TIBC 381 12/19/2023 TRANSFERSAT 14.2 (L) 12/19/2023 NANO 71.0 12/19/2023 DIABETES Lab Results Component Value Date HBA1C 7.4 (H) 06/03/2021 LIPIDS: No results found for: CHOL , HDL , LDL , TG , LDLHDL URINE: Urine POC Lab Results Component Value Date UGLUCPOC Negative 12/19/2023 UBILIPOC Negative 12/19/2023 UKETONPOC Negative 12/19/2023 USGPOC <=1.005 (A) 12/19/2023 UHBPOC Trace-intact (A) 12/19/2023 UPHPOC 5.0 12/19/2023 UPROPOC Trace (A) 12/19/2023 UUROPOC 0.2 12/19/2023 UNITPOC Negative 12/19/2023 UWBCPOC Trace (A) 12/19/2023 UCOLPOC Yellow 12/19/2023 UCLARPOC Clear 12/19/2023 Lab Results Component Value Date PCRAT 0.36 (H) 04/07/2024 UALBCR 160 (H) 04/07/2024 Hepatitis B Status: No results found for: HEPSABQ Recent Kidney Medicine Essential Imaging Reviewed: No recent renal imaging. ASSESSMENT/ PLAN: 78 year old male who presents for follow up of CKD and Hypertension. Transplant referral completed: No, eGFR > 20. OTP/Kidney disease education/ Dialysis Education: No, can refer Blood thinners: ASA 81 mg daily CKD Stage IV: + CKD in the setting of multiple episodes of GOOD along with history of HTN and DM, BPH, he had TURP with Urology, noted last imaging with mild bilateral ureterectasis which was unchanged, no hydronephrosis seen and is followed by urology - + Proteinuria/ Albuminuria. (Last PCR 0.36/ ACR 160) -Renal function is stable at baseline range. -Baseline Creatinine typically runs: 2.3-2.9 -Last eGFR was: 21 -Discussed importance of BP control and BS control. -Continue to target HgbA1c of < 7 (7.4), NPH insulin, Ozempic -Goal LDL < 100 in CKD patients. On Statin. -Discussed avoidance of NSAIDs (Ibuprofen including Aleve, Advil, Motrin, Excedrin, Naproxen, Mobic, ASA (Besides for heart and stroke necessity) Avoid IV contrast. Ordering provider should discuss with Nephrology if needed, unless emergent. -We discussed the function of the kidneys in the body, how they work, how kidney function is measured, normal levels of kidney function, how kidney function changes over time. Discussed current level of kidney function and how that fits into the spectrum of kidney disease. Discussed possible and likely etiologies for this. Plan: No changes in plan of care. Lab review and follow up in 4 months. Hypertension: -Does check Bps at home -BP controlled on current regimen. -Volume status controlled. -Reviewed maintaining low salt diet. -Reviewed increasing activity level as able. Current regimen: nifedipine 60mg daily, losartan 100mg daily, furosemide 20 mg daily. Plan: Continue same regimen, No Changes. No refills needed today. 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 Ca, phos and PTH were all stable. -On Vit D3 supplement, 1000 units daily. Plan: Monitor for now. Heme: Anemia of CKD: Hgb above goal for CKD. On oral Iron. Plan: Continue to monitor CBC and Fe studies as needed. Follow up + In clinic in 4 months with Melissa. +OTP/ Kidney medicine Education as needed. I spent a total of 39 minutes on the date of the service which included preparing to see the patient, completing clinical documentation, obtaining and/or reviewing separately obtained history, performing a medically appropriate examination, counseling and educating the patient/family/caregiver, ordering medications, tests, or procedures, communicating results to the patient/family/caregiver, and care coordination (not separately reported). Current data and imaging studies were reviewed with patient. All questions were answered to patients satisfaction, who verbalized full understanding and was in agreement with above plan. Thank you for allowing me to participate in this patients care. Please do not hesitate to contact me by [facility] phone or Epic with questions. AMEENA Kahn Department of Kidney Medicine [facility] SIGNATURE: Melissa Mckeon APRN.CNP PATIENT NAME: Isaiah Morel DATE: April 21, 2024 2:10 PM [facility] PHONE: [phone] Office: [phone] PRIMARY CARE PHYSICIAN: Mary Alice Sánchez CNP, CNP documented in this encounter [facility] 04-21-2024 Note HNO ID: [id number] Author: MELISSA MCKEON APRN.CNP Service: ? Author Type: Nurse Practitioner Type: Progress Notes Filed: 04/22/2024 11:03 Note Text: Department of Kidney Medicine Medical Specialties [facility] Portions of the encounter notes regarding history and diagnosis from previous visits of mine and the Kidney Medicine attending provider may have been copied. Information taken from other providers notes are not copied unless noted in portion attributed. These copied portions are updated where appropriate and reflect my current medical decision-making from this visit today and everything regarding this visit. Last F/U on 12/19/2023 with this provider. [facility] Food General Manager: Dr. Webster SERVICE DATE AND Time: 04/21/2024 @ 2:30 PM Reason for visit: Follow up CKD and Hypertension HPI: Mr. Morel is a 78 year old male who presents for follow up of CKD with a PMHx of colorectal cancer resected in 04/2020, required partial cystectomy as pathology noted to have abutment to the bladder. He was given Folox (07/2020-12/2020) and in February 2021 had denice reversal. He also has history of HTN, DM II, and BPH. Subjective: Presents with for visit. Feeling well without voiced complaints. Family Hx of kidney disease: Sister CKD. Kidney Stone history: No NSAID Use: Only Tylenol Smoking: None Alcohol: None Diet: Eating at home for the most part. Watches salt intake. Caffeine: Coffee 2 cups per day. Water intake is good. No Soda. Activity: fairly active. PAST MEDICAL HISTORY No date: Anemia No date: BPH (benign prostatic hyperplasia) 03/2020: Colon cancer (HCC) 07/19/2021: Difficult intravenous access No date: DM (diabetes mellitus) (HCC) No date: Gastritis No date: Hypertension 03/24/2020: Mass of colon Comment: Dr Vu No date: Morbid obesity (HCC) 04/06/2022: NEGATIVE HISTORY OF Comment: NO PNE, TB, HD No date: KIMMY (obstructive sleep apnea) PAST SURGICAL HISTORY: PAST SURGICAL HISTORY 03/24/2020: COLONOSCOPY AND BIOPSY Comment: Dr Vu 03/2020: COLONSCOPY SCREENING HIGH RISK 03/2020: EGD 1985: HERNIA REPAIR HX Comment: X2- umbilical and right inguinal hernia 05/11/2020: PAST SURGICAL HISTORY OF Comment: hemicolectomy with colostomy and partial cystectomy 02/2021: PAST SURGICAL HISTORY OF Comment: colostomy reversal 06/13/2021: REPAIR INCISIONAL HERNIA,REDUCIBLE 05/03/2022: REPAIR INCISIONAL HERNIA,REDUCIBLE 08/2021: TRANSURETHRAL ELEC-SURG PROSTATECTOM FAMILY HISTORY: FAMILY HISTORY Problem Relation Age of Onset Diabetes Mother Ischemic Heart Disease Mother CABG Stroke Father Diabetes Father Heart Attack Father 72 Cancer Sister Anesthesia Problems No Family History Blood Clots No Family History Clotting Disorder No Family History SOCIAL HISTORY: reports that he has never smoked. He has never used smokeless tobacco. He reports that he does not currently use alcohol. He reports that he does not use drugs. MEDICATIONS: allopurinol (ZYLOPRIM) 300 mg tablet atorvastatin (LIPITOR) 40 mg tablet TAKE 1 AND 1/2 TABLETS BY MOUTH ONCE A DAY OZEMPIC 0.25 mg or 0.5 mg (2 mg/3 mL) pen INJECT 0.25 MG SUBCUTANEOUSLY WEEKLY tamsulosin (FLOMAX) 0.4 mg Take 0.4 mg by mouth once daily. furosemide (LASIX) 20 mg tablet CPAP NIFEdipine XL (ADALAT CC, PROCARDIA XL) 60 mg 24 hr tablet Take 60 mg by mouth once daily. spironolactone (ALDACTONE) 25 mg tablet Take 25 mg by mouth every morning. A-C-E-zinc ox-cupric ox-lutein ([facility]) 7,160 unit- 113 mg-1 mg tab Take by mouth. losartan potassium (LOSARTAN ORAL) Take 100 mg by mouth once daily. oxybutynin XL (DITROPAN XL) 5 mg 24 hr tablet Take 5 mg by mouth once daily. cyanocobalamin (VITAMIN B-12) 500 mcg tablet fenofibrate nanocrystallized (TRICOR) 48 mg tablet Take 96 mg by mouth every morning. multivit-min/folic/vit K/lycop (ONE-A-DAY MEN'S MULTIVITAMIN ORAL) insulin NPH-insulin regular injection (HumuLIN, NovoLIN 70/30) If blood sugar before dinner is >200, start taking 5 unit(s) of 70/30 NPH before dinner and continue with the 7 unit(s) in the morning. If the blood sugar before dinner is again >200 the next day, add 2 unit(s) to the previous dose of evening insulin For AM insulin changes: Check blood sugar before lunch. If blood sugar > 200, add 2 unit(s) to the morning insulin and take 9 the next day. If the following day's pre-lunch sugar is again > 200, add another 2 unit(s) to the morning dose. FERROUS GLUCONATE ORAL Take 324 mg by mouth once daily. aspirin, enteric coated (ASPIRIN, ENTERIC COATED) 81 mg EC tablet Take 81 mg by mouth once daily. Ascorbic Acid 60 mg lozg Take by mouth. cholecalciferol (VITAMIN D3) 1,000 unit tab tablet Take 1,000 Units by mouth. Cinnamon Bark 500 mg cap Take 500 mg by mouth. Onhyy-6-YVJ-EPA-Fish Oil 300-1,000 mg cap Take by mouth. ALLERGIES: ALLERGIES Allergen Reactions Cephalexin Diarrhea (more content not included)... [facility] 04-21-2024 Instructions Melissa Mckeon APRN.PRESCRIPTION EYEGLASS MAKER - 04/21/2024 2:29 PM EDT Please AVOID all NSAIDs such as (Advil, Motrin, Ibuprofen, Naproxen, Aleve, Aspirin, Anacin, Diclofenac, Daypro, Mobic, Meloxicam, Sulindac, Clinoril, etc), and LINN-2 inhibitors (Celebrex, Celecoxib, etc). Tylenol is OK. Please contact me with any questions or concerns about these medications. Follow up in 4 months. Please go to the lab after 07/28/2025 to get non fasting labs drawn, at any [facility] outpatient lab, orders are in the system. Please call [phone] or for central scheduling of labs, radiology testing or to make appointments for follow ups and Consults made at this appointment. Avoid phosphate containing bowel preparations - sodium phosphate (fleet's enemas) Avoid prolonged proton-pump inhibitor use (unless needed) - omeprazole (prilosec), esomeprazole (nexium), pantoprazole (protonix), and lansoprazole (prevacid) are common ones, These have been known to cause acute kidney injury and or progression of CKD. Can use pepcid or tums as an alternative if able. Avoid IV contrast if possible. If you need to be scheduled for a study requiring it, please have the ordering provider contact us. Usually I recommend taking medication that doesn't have phenylephrine and pseudoephedrine in it that can cause BP to go up. The above ingredients would be listed in the active ingredients box on the packaging. Use caution with all herbal medications, would suggest letting us know what supplements you take if any or if you plan to start a new supplement. Please call or message me if another provider starts you on another medication, some medications such as antibiotics, are not safe for patients with kidney disease. If you have any further questions or concerns please feel free to contact me through Your Policy Manager or call me at [phone] and ask for Kidney medicine department and then the nurses can get a hold of me. Increase activity levels as tolerated. For Obesity, a goal of weight loss is essential for the health of your kidneys and blood pressures. Check blood pressures daily and keep a log. If not able at least a few times per weeks at different times of the day. HOW TO CUT BACK ON SALT CONSUMPTION Here are the following guidelines to help reduce the amount of sodium in your diet Take the salt shaker off the table and omit salt from recipes and food preparation. Cook without salt or with only small amounts of added salt. Learn to enjoy the flavors of unsalted foods. Try flavoring foods with herbs, spices, and lemon juice. Read food labels carefully to determine the amounts of sodium. Learn to recognize ingredients that contain sodium. Salt, soy sauce, salt brine or any ingredient with sodium (such as monosodium glutamate) or baking soda (sodium bicarbonate) as part of its name contains sodium. Rinsing canned vegetables and fish will remove much of the salt. Season or marinate meat, poultry, and fish ahead of time with onion, garlic and your favorite herbs before cooking to bring out the flavor. Some terms describing sodium content: lite, light, lightly salted, low sodium, reduced sodium, sodium free, unsalted, no salt added, without salt added, very low sodium. Use lower sodium products, when available, to replace those with higher sodium content. Use simple techniques like saving chicken broth from a chicken you cook at home rather than buying a canned, powdered or bouillon cube broth. When dining out words that signal high sodium include: smoked, barbecued, pickled, broth, soy sauce, teriyaki, creole sauce, marinated, cocktail sauce, tomato base, Parmesan, and mustard sauce. FOODS RECOMMENDED FOODS TO AVOID MILK & DAIRY 2-3 servings each day All milk and milk products, except buttermilk Cream cheese Low sodium cheeses Yogurt MILK & DAIRY Buttermilk Cheese ([place], Festus, Cheddar, Blue, Gouda, Croatian, Velveeta) Cheese spreads FRUIT & VEGETABLES 5-9 servings/day Fresh or frozen vegetables No added salt or low salt canned vegetables No added salt tomato products Salt-free vegetable juices All fruit and fruit juices FRUIT & VEGETABLES Canned vegetables Frozen vegetables with seasoning and sauces Pickle relish, sweet or sour Pickled Vegetables Pickles and others prepared in brine Sauerkraut Vegetable or tomato juices, canned or bottled Pickled Fruits BREADS & GRAINS 6-11 servings/day Bread and rolls Dry and cooked cereals Pancakes, waffles Potatoes Salt-free potato chips Salt-free pretzels/snack chips Rice, barley, noodles, spaghetti, macaroni and other pastas Tortillas Unsalted crackers Unsalted popcorn BREADS & GRAINS Breads and rolls with salted tops Instant hot cereals Instant Food Products (e.g., cereals, pasta mixes, potatoes, rice, etc.) Such as boxed mixes like rice, scalloped potatoes, macaroni and cheese Popcorn, Prepackaged Microwave Salted popcorn Saltines, potato chips, pretzels, snack chips, pork rinds MEATS & MEAT SUBSTITUTES 2-3 servings or total of 6 oz daily All fresh and fresh frozen meats (poultry, fish, shellfish, beef, pork, palmer) Canned unsalted tuna fish Dried peas and beans Eggs Low sodium peanut butter Unsalted nuts Unsalted soybeans and other meat substitutes MEATS & MEAT SUBSTITUTES Cured, salted, canned or smoked meats, poultry, or fish such as corned beef, ham, velasquez, luncheon meats, beef jerky, bologna, pork rinds, hogmaws, ribs, chitterlings, frankfurter, sausage, chorizo, canned fish like tuna, sardines, mackerel, anchovies, caviar, salted cod, wong, sardines, lox, dry fish, and kippered salmon Dried Fish, Assorted (e.g., dried shrimp) Frozen pizza Frozen prepared meat entree dinners such as pot pies, macaroni and cheese Kosher meats Pickled Meats Regular peanut butter Salted nuts Soups Homemade soups, made with allowed ingredients Unsalted broth or bouillon Low sodium commercial soup Soups Broth and soups with added salt Regular canned soups Regular instant soups Regular bouillon cubes FATS & SNACKS (use sparingly) Margarine, vegetable oils and lard Unsalted gravies Unsalted butter Mayonnaise, sour cream Salt-free salad dressings Homemade salad dressings, made without added salt Whipping cream Sugar, honey, jelly, jam, syrup, candies Popsicle s, fruit ice, sherbet, fruit sorbet, marshmallows Homemade cookies, pies, cakes made with allowed ingredients FATS & SNACKS Butter Commercial salad dressings Cheese-based dressings Velasquez fat, fatback, salt pork Salad dressing mixes Olives, green and black Prepared frozen cream pies and cheese cake Instant pudding mixes Commercially prepared baked goods (Cakes, cookies, pie) Salted nuts MISC. Allspice, Mustard (dry) Sharon Extract Basil Hyde Leaves Capello's Belgian Style Seasoning [place] Seeds Chives Cider Vinegar Cinnamon Bassett Powder Rosa Crystal Dill Garlic Powder René Herbal Seasonings: Lawry's Seasoned Pepper Lawrbenny's Seasoning (no salt) Lemon Juice Mace Mrs. Dash Nutmeg Onion Powder Paprika Parsley Parsley Patch Peppermint Extract Pimento Sussy Rodriguez Salt free seasoning blends Savory Sodium-free Baking Powder Thyme Turmeric Vinegar Wilver's all-purpose Seasonings MISC. Accent [place] All commercially prepared and convenience foods such as TV dinners, box mixes, canned entrees, Hamburger Kane, meat pies, Vincentian dinners, pizza, Shake'n Bake mixes BBQ sauce Celery salt [place] sauce Garlic salt Horseradish Kitchen Bouquet Lemon pepper Marinade sauce Meat tenderizers Monosodium Glutamate (MSG) Onion salt Republican spreads Regular ketchup Relish Salad dressings Salt Seasoning salts Sodium Benzoate Sodium Caseinate Sodium Citrate Sodium Nitrate Sodium Phosphate Sodium Propionate Sodium Saccharin Soy sauce Steak sauce Tartar sauce Teriyaki sauce [facility] sauce Labeled no salt Products, Assorted [e.g., santacruz paste and sauces, oriental dried plums and other dried seeds, vegetables and fruits (lemon & rené) Good Chronic Kidney disease education and diet information at these web sites. WWW.KIDNEY.ORG (National kidney foundation, they give education and also you can apply for grants for medications, transportation and other CKD pt needs. WWW.KIDNEYSCHOOL.ORG (Tons of CKD information from CKD, diets, medications, dialysis and what not) Kidney.[email or web address]-support [email or web address] [email or web address] [email or web address]-d BLOOD PRESSURES If you have a blood pressure reader great, use it! I recommend checking your bood pressures at least daily and keep a log with the date and time and what arm you used to check this. It is always good to check your weight once a week, unless you have other conditions that require you to weigh more. Putting this in your health log is also a great idea. Also, if you are diabetic and check your blood sugars you can write those in your log as well, this way all of your providers are on the same page. If you do not have a reader, you can purchase a BP reader at any pharmacy store or [employer] and [employer] have them as well and are likely less expensive there. Some insurance companies will cover them, I would inquire with them if they do and if you need a prescription I would be happy to write for one. An arm cuff BP reader is generally the best as the wrist meters are generally not as accurate. Checking you blood pressures at home is simple. - take in the morning, sit in a quiet room, feet on the floor uncrossed, arm resting on a table at the level of your heart, take 3 blood pressure readings - by 1 minute each - discard the first measurement and average the other two - mychart message me or call the office at [phone] if your Systolic bps (Systolic is your top BP number) are constantly greater than 150 as you likely are sub optimally controlled. Also, do the same for Low Bps consistently less than 110 or if it is greater than this or if you have a continued frequency of dizziness/ Lightheadedness as this could indicate your Bps are low. Uncontrolled blood pressures are the leading cause of chronic health issues such as Stroke, heart strain leading to cardiovascular disease and Chronic Kidney disease leading the possible need of dialysis in the future. Increase water intake to at least 64 ounces per day, unless of course you were told to restrict your fluids in some situations such as, chronic fluid retention from heart failure, Chronic Kidney disease, Lymphedema, and Low sodium levels not consistent with dehydration or low volume status. Exercise daily, even just walking, [phone] steps per day with a goal of weight loss can and will help. Some caffeine is ok, but 1-2 cups of coffee or tea per day is enough. Soda is just bad in general, but a clear zero sugar is best. Alcohol in moderation of course. Quit smoking if you do. No energy drinks or pre work out type drinks. These are just not good for blood pressure or heart in general. For illnesses such as cold or sinus issues, I usually I recommend taking medication that doesn't have phenylephrine and pseudoephedrine in it that can cause BP to go up. The above ingredients would be listed in the active ingredients box on the packaging. If not sure, ask the pharmacist, they can surely help you. Use caution with all herbal medications, would suggest letting us know what supplements you take if any or if you plan to start a new supplement. Decrease potassium in diet. Avoid or decrease eating bananas, tomatoes, potatoes, avocados, spinach, orange juice, citrus fruits, brussel sprouts, beans, prunes, dried fruit, mushrooms Low potassium foods asparagus (6 hector) broccoli (half-cup) carrots (half-cup cooked) corn (half an ear) yellow squash or zucchini (half-cup) Low-potassium fruits: Apples (plus apple juice and applesauce) Blackberries Blueberries Cranberries Fruit cocktail Grapes and grape juice Mandarin oranges Peaches Pears Pineapple and pineapple juice Plums Raspberries Strawberries [place] Watermelon Low-potassium vegetables: [place] sprouts Asparagus (6 raw hector) Broccoli (raw or cooked from frozen) Cabbage Carrots (cooked) Cauliflower Celery (1 stalk) [place] (half an ear if it's on the cob) [place] Eggplant Green beans or wax beans Kale Lettuce Onion Parsley Peas (green) Peppers Radish Water chestnuts Watercress Yellow squash and zucchini documented in this encounter [facility] 04-17-2024 History of Present illness Narrative VIRTUAL VISIT PROGRESS NOTE This is a virtual visit using Fyberom Video Visit. It required patient-provider interaction for the medical decision making as documented below. I have communicated my name and active licensure. The patient's identity and physical location were verified at the time of this visit. Either the patient or their legal underwriting account representative has been informed of the risks and benefits of -- and alternatives to -- treatment through a remote evaluation and consents to proceed with the evaluation remotely. Persons Present: patient Chief Complaint: f/u BPH s/p TURP HPI: Isaiah Morel is a 78 year old male seen in follow up for BPH and LUTS. He is s/p TURP 08/10/2021 for urinary retention He was last seen via telephone visit 04/21/2023 Interval hx: Has been real good No new health issues No urinary issues Good urinary stream No hematuria or dysuria No abd pain, back pain, bone pain Recent admission for hyperK, now improved. Renal US reviewed 12/2023 - no hydro, no significant PVR HISTORY REVIEWED (electronic chart updated): PAST MEDICAL HISTORY No date: Anemia No date: BPH (benign prostatic hyperplasia) 03/2020: Colon cancer (HCC) 07/19/2021: Difficult intravenous access No date: DM (diabetes mellitus) (HCC) No date: Gastritis No date: Hypertension 03/24/2020: Mass of colon Comment: Dr Vu No date: Morbid obesity (HCC) 04/06/2022: NEGATIVE HISTORY OF Comment: NO PNE, TB, HD No date: KIMMY (obstructive sleep apnea) PAST SURGICAL HISTORY 03/24/2020: COLONOSCOPY AND BIOPSY Comment: Dr Vu 03/2020: COLONSCOPY SCREENING HIGH RISK 03/2020: EGD 1985: HERNIA REPAIR HX Comment: X2- umbilical and right inguinal hernia 05/11/2020: PAST SURGICAL HISTORY OF Comment: hemicolectomy with colostomy and partial cystectomy 02/2021: PAST SURGICAL HISTORY OF Comment: colostomy reversal 06/13/2021: REPAIR INCISIONAL HERNIA,REDUCIBLE 05/03/2022: REPAIR INCISIONAL HERNIA,REDUCIBLE 08/2021: TRANSURETHRAL ELEC-SURG PROSTATECTOM FAMILY HISTORY Problem Relation Age of Onset Diabetes Mother Ischemic Heart Disease Mother CABG Stroke Father Diabetes Father Heart Attack Father 72 Cancer Sister Anesthesia Problems No Family History Blood Clots No Family History Clotting Disorder No Family History Social History Tobacco Use Smoking status: Never Smokeless tobacco: Never Vaping Use Vaping Use: Never used Substance Use Topics Alcohol use: Not Currently Drug use: Never Comment: denies tx for drug/alcohol abuse in the past. Current Outpatient Medications Medication Sig allopurinol (ZYLOPRIM) 300 mg tablet atorvastatin (LIPITOR) 40 mg tablet TAKE 1 AND 1/2 TABLETS BY MOUTH ONCE A DAY OZEMPIC 0.25 mg or 0.5 mg (2 mg/3 mL) pen INJECT 0.25 MG SUBCUTANEOUSLY WEEKLY tamsulosin (FLOMAX) 0.4 mg Take 0.4 mg by mouth once daily. furosemide (LASIX) 20 mg tablet CPAP NIFEdipine XL (ADALAT CC, PROCARDIA XL) 60 mg 24 hr tablet Take 60 mg by mouth once daily. spironolactone (ALDACTONE) 25 mg tablet Take 25 mg by mouth every morning. A-C-E-zinc ox-cupric ox-lutein (MACUVITE [facility] C[facility]) 7,160 unit- 113 mg-1 mg tab Take by mouth. losartan potassium (LOSARTAN ORAL) Take 100 mg by mouth once daily. oxybutynin XL (DITROPAN XL) 5 mg 24 hr tablet Take 5 mg by mouth once daily. cyanocobalamin (VITAMIN B-12) 500 mcg tablet fenofibrate nanocrystallized (TRICOR) 48 mg tablet Take 96 mg by mouth every morning. multivit-min/folic/vit K/lycop (ONE-A-DAY MEN'S MULTIVITAMIN ORAL) insulin NPH-insulin regular injection (HumuLIN, NovoLIN 70/30) If blood sugar before dinner is >200, start taking 5 unit(s) of 70/30 NPH before dinner and continue with the 7 unit(s) in the morning. If the blood sugar before dinner is again >200 the next day, add 2 unit(s) to the previous dose of evening insulin For AM insulin changes: Check blood sugar before lunch. If blood sugar > 200, add 2 unit(s) to the morning insulin and take 9 the next day. If the following day's pre-lunch sugar is again > 200, add another 2 unit(s) to the morning dose. FERROUS GLUCONATE ORAL Take 324 mg by mouth once daily. aspirin, enteric coated (ASPIRIN, ENTERIC COATED) 81 mg EC tablet Take 81 mg by mouth once daily. Ascorbic Acid 60 mg lozg Take by mouth. cholecalciferol (VITAMIN D3) 1,000 unit tab tablet Take 1,000 Units by mouth. Cinnamon Bark 500 mg cap Take 500 mg by mouth. [place]oma-0-GIJ-EPA-Fish Oil 300-1,000 mg cap Take by mouth. No current facility-administered medications for this visit. ALLERGIES Allergen Reactions Cephalexin Diarrhea Ciprofloxacin Other: See Comments Made pt dizzy Flagyl [Metronidazo* Other: See Comments Made pt dizzy Fluconazole Diarrhea REVIEW OF SYSTEMS: GENERAL: feeling well without fatigue, no recent change in weight PHYSICAL EXAMINATION: VIDEO EXAM: (if completed, performed via video enabled technology) GENERAL: alert and appropriate, in no distress and well-hydrated, well nourished SKIN: no rash noted HEAD: normocephalic EYES: anicteric sclerae EARS: normal external ears NOSE: normal external nose RESPIRATORY: breathing non-labored ASSESSMENT: (N40.1, N13.8) BPH with obstruction/lower urinary tract symptoms (primary encounter diagnosis) PLAN: Continue nephrology f/u F/u with urology PRN I spent a total of 8 minutes on the date of the service which included preparing to see the patient, [id number] patient care, and completing clinical documentation Syd Gamboa MD documented in this encounter [facility] 04-17-2024 Note HNO ID: [id number] Author: SYD GAMBOA MD Service: ? Author Type: Physician Type: Progress Notes Filed: 04/17/2024 08:00 Note Text: VIRTUAL VISIT PROGRESS NOTE This is a virtual visit using Fyberom Video Visit. It required patient-provider interaction for the medical decision making as documented below. I have communicated my name and active licensure. The patient's identity and physical location were verified at the time of this visit. Either the patient or their legal underwriting account representative has been informed of the risks and benefits of -- and alternatives to -- treatment through a remote evaluation and consents to proceed with the evaluation remotely. Persons Present: patient Chief Complaint: f/u BPH s/p TURP HPI: Isaiah Morel is a 78 year old male seen in follow up for BPH and LUTS. He is s/p TURP 08/10/2021 for urinary retention He was last seen via telephone visit 04/21/2023 Interval hx: Has been real good No new health issues No urinary issues Good urinary stream No hematuria or dysuria No abd pain, back pain, bone pain Recent admission for hyperK, now improved. Renal US reviewed 12/2023 - no hydro, no significant PVR HISTORY REVIEWED (electronic chart updated): PAST MEDICAL HISTORY No date: Anemia No date: BPH (benign prostatic hyperplasia) 03/2020: Colon cancer (HCC) 07/19/2021: Difficult intravenous access No date: DM (diabetes mellitus) ([facility]) No date: Gastritis No date: Hypertension 03/24/2020: Mass of colon Comment: Dr Vu No date: Morbid obesity ([facility]) 04/06/2022: NEGATIVE HISTORY OF Comment: NO PNE, TB, HD No date: KIMMY (obstructive sleep apnea) PAST SURGICAL HISTORY 03/24/2020: COLONOSCOPY AND BIOPSY Comment: Dr Vu 03/2020: COLONSCOPY SCREENING HIGH RISK 03/2020: EGD 1985: HERNIA REPAIR HX Comment: X2- umbilical and right inguinal hernia 05/11/2020: PAST SURGICAL HISTORY OF Comment: hemicolectomy with colostomy and partial cystectomy 02/2021: PAST SURGICAL HISTORY OF Comment: colostomy reversal 06/13/2021: REPAIR INCISIONAL HERNIA,REDUCIBLE 05/03/2022: REPAIR INCISIONAL HERNIA,REDUCIBLE 08/2021: TRANSURETHRAL ELEC-SURG PROSTATECTOM FAMILY HISTORY Problem Relation Age of Onset Diabetes Mother Ischemic Heart Disease Mother CABG Stroke Father Diabetes Father Heart Attack Father 72 Cancer Sister Anesthesia Problems No Family History Blood Clots No Family History Clotting Disorder No Family History Social History Tobacco Use Smoking status: Never Smokeless tobacco: Never Vaping Use Vaping Use: Never used Substance Use Topics Alcohol use: Not Currently Drug use: Never Comment: denies tx for drug/alcohol abuse in the past. Current Outpatient Medications Medication Sig allopurinol (ZYLOPRIM) 300 mg tablet atorvastatin (LIPITOR) 40 mg tablet TAKE 1 AND 1/2 TABLETS BY MOUTH ONCE A DAY OZEMPIC 0.25 mg or 0.5 mg (2 mg/3 mL) pen INJECT 0.25 MG SUBCUTANEOUSLY WEEKLY tamsulosin (FLOMAX) 0.4 mg Take 0.4 mg by mouth once daily. furosemide (LASIX) 20 mg tablet CPAP NIFEdipine XL (ADALAT CC, PROCARDIA XL) 60 mg 24 hr tablet Take 60 mg by mouth once daily. spironolactone (ALDACTONE) 25 mg tablet Take 25 mg by mouth every morning. A-C-E-zinc ox-cupric ox-lutein ([facility]) 7,160 unit- 113 mg-1 mg tab Take by mouth. losartan potassium (LOSARTAN ORAL) Take 100 mg by mouth once daily. oxybutynin XL (DITROPAN XL) 5 mg 24 hr tablet Take 5 mg by mouth once daily. cyanocobalamin (VITAMIN B-12) 500 mcg tablet fenofibrate nanocrystallized (TRICOR) 48 mg tablet Take 96 mg by mouth every morning. multivit-min/folic/vit K/lycop (ONE-A-DAY MEN'S MULTIVITAMIN ORAL) insulin NPH-insulin regular injection (HumuLIN, NovoLIN 70/30) If blood sugar before dinner is >200, start taking 5 unit(s) of 70/30 NPH before dinner and continue with the 7 unit(s) in the morning. If the blood sugar before dinner is again >200 the next day, add 2 unit(s) to the previous dose of evening insulin For AM insulin changes: Check blood sugar before lunch. If blood sugar > 200, add 2 unit(s) to the morning insulin and take 9 the next day. If the following day's pre-lunch sugar is again > 200, add another 2 unit(s) to the morning dose. FERROUS GLUCONATE ORAL Take 324 mg by mouth once daily. aspirin, enteric coated (ASPIRIN, ENTERIC COATED) 81 mg EC tablet Take 81 mg by mouth once daily. Ascorbic Acid 60 mg lozg Take by mouth. cholecalciferol (VITAMIN D3) 1,000 unit tab tablet Take 1,000 Units by mouth. Cinnamon Bark 500 mg cap Take 500 mg by mouth. Hgmik-5-ZBX-EPA-Fish Oil 300-1,000 mg cap Take by mouth. No current facility-administered medications for this visit. ALLERGIES Allergen Reactions Cephalexin Diarrhea Ciprofloxacin Other: See Comments Made pt dizzy Flagyl [Metronidazo* Other: See Comments Made pt dizzy Fluconazole Diarrhea REVIEW OF SYSTEMS: GENERAL: feeling well without fatigue (more content not included)... [facility] 04-09-2024 Progress note Note Date/Time April 09, 2024 1:13pm [facility] [address] [place] [address] Nephrology Progress Note Signed Patient: Isaiah Morel MR#: [id number] : 1945 Acct:[id number] Age/Sex: 78 / M Adm Date: 4 Loc: Room: [address] [place] [address] Type: ADM IN Attending Dr: Lizzie Sinclair DO Copies to: ~ Date of Service: 04/09/2024 Subjective Subjective Narrative: Mr. 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 Patient follows with Dr. James equipment coordinator in [place] . he was receiving routine labs from an outpatient appointment and was found to have a potassium level of 6.7. In the emergency department lab work also revealed worsening kidney function with creatinine 2.8 mg deciliter from baseline around 2.4. Hyperkalemia was treated medically with insulin R/D50, calcium gluconate, as well as 1 dose of Lokelma. Repeat potassium dropped to 5.7. However lab this morning revealed potassium is up again to 6.7 mmol/L. She was then given another dose of calcium gluconate, 1 dose of Lasix 60 mg IV, Lokelma started 10 mg p.o. 3 times daily. Last potassium check is better at 6.3 mmol/L I reviewed the patient's home medications. She is on fenofibrate, vitamin B12, Aldactone, losartan, nifedipine, insulin/Ozempic and atorvastatin Of note, he did mention to us that he has been eating a lot of cantaloupe as of late Denies fever/chills, chest pain, shortness of breath, abd pain, N/V/D, and dizziness Interim history: Patient was seen and examined in his room. He is feeling better. Denied worsening breathing. Continues to be on room air Blood pressure was elevated this morning. Hydralazine was increased to 75 mg 3 times daily this morning. Blood pressure improved Denies chest pain. No nausea no vomiting. No diarrhea. Lab from this morning reviewed creatinine 2.6 mg deciliter from 2.5 mg deciliter. Hyperkalemia improved. Potassium down to 5.3 mg deciliter. Home spironolactone and losartan remain on hold Patient is currently on Lokelma 10 g 3 times daily. Patient also was given 1 dose of Lasix IV 40 mg yesterday. Exam Physical Exam Vital Signs: Temp Pulse Resp BP Pulse Ox O2 Del Method FiO2 97.6 F 59 L 20 137/67 95 Room Air 21 04/09/24 12:04 04/09/24 12:04 04/09/24 12:04/09/24 12:04/09/24 12:04/09/24 12:04/08/24 02:01 Narrative: General: No acute distress Head :atraumatic normocephalic Eyes: PERRLA. Neck: no JVD no bruit. Heart: S1-S2. RRR Respiratory: Clear to auscultation. No wheezing. No crackles Abdomen: Soft, positive bowel sounds,no tenderness. Neurology: Awake alert oriented x3. No focal deficits Extremity. No cyanosis. No edema Skin: No skin rash Objective Intake and Output I&O: Intake & Output 04/06/24 04/07/24 04/08/24 04/09/24 23:59 23:59 23:59 23:59 Intake Total 2150 / 2150 550 / 550 Output Total 1625 / 1625 Balance 525 / 525 550 / 550 Weight 313 lb 15.012 oz 311 lb 15.265 oz 312 lb 13.375 oz Meds and Allergies Meds: Active Medications Acetaminophen (Acetaminophen 325 Mg Tablet) 650 mg PO Q6HR PRN PRN Reason: Pain Scale 1 - 3 or fever Stop: 04/07/25 17:41 Last Admin: 04/08/24 20:43 Dose: 650 mg Allopurinol (Allopurinol 300 Mg Tablet) 300 mg PO DAILY [facility] Stop: 04/08/25 08:59 Last Admin: 04/09/24 08:00 Dose: 300 mg Aspirin (Aspirin 81 Mg Tab.Chew) 81 mg PO DAILY [facility] Stop: 04/08/25 08:59 Last Admin: 04/09/24 08:00 Dose: 81 mg Atorvastatin Calcium (Atorvastatin 40 Mg Tablet) 40 mg PO DAILY [facility]ANO Stop: 04/08/25 08:59 Last Admin: 04/09/24 08:00 Dose: 40 mg Enoxaparin Sodium (Enoxaparin 40 Mg/0.4 Ml Syringe) 40 mg SUBCUT DAILY@10 [facility] Stop: 04/08/25 09:59 Last Admin: 04/09/24 09:31 Dose: 40 mg Fenofibrate (Fenofibrate Nanocrystallized 48 Mg Tablet) 96 mg PO DAILY [facility] Stop: 04/08/25 08:59 Last Admin: 04/09/24 08:00 Dose: 96 mg Furosemide (Furosemide 20 Mg Tablet) 20 mg PO DAILY [facility] Stop: 04/08/25 08:59 Last Admin: 04/09/24 08:00 Dose: 20 mg Hydralazine HCl (Hydralazine 25 Mg Tablet) 75 mg PO TID [facility] Stop: 04/09/25 13:59 Insulin Aspart Prota 70%/Aspart 30% (Insulin Aspart Protamin/Aspart 300 Units/3 Ml Insuln.Pen) 18 units SUBCUT BID.WITH.BFAST.SUPPE [facility] Stop: 04/08/25 07:59 Last Admin: 04/09/24 08:50 Dose: 18 units Melatonin (Melatonin 5 Mg Tablet) 5 mg PO QHS PRN PRN Reason: Insomnia Stop: 04/07/25 17:41 Nifedipine (Nifedipine Er.24hr 60 Mg Tab.Er.24) 60 mg PO DAILY [facility] Stop: 04/08/25 08:59 Last Admin: 04/09/24 08:01 Dose: 60 mg Semaglutide [Ozempic ] 0.25 Mg Or 0.5 Mg (2 Mg/3 Ml) Pen Injector 0.25 mg SUBCUT QWEEK [facility] Stop: 04/14/25 08:59 Ondansetron HCl (Ondansetron 4 Mg/2 Ml Vial) 4 mg IV-PUSH Q8H PRN PRN Reason: Nausea And Vomiting Stop: 04/07/25 17:41 Oxybutynin Chloride (Oxybutynin Chloride 5 Mg Tab.Er.24) 10 mg PO DAILY [facility] Stop: 04/08/25 08:59 Last Admin: 04/09/24 08:00 Dose: 10 mg Sodium Chloride (Sodium Chloride 0.9 % 10 Ml Syringe) 0 ml IV-PUSH PRN PRN PRN Reason: Flush Stop: 04/07/25 15:07 Last Admin: 04/08/24 09:39 Dose: 10 ml Sodium Zirconium Cyclosilicate (Sodium Zirconium Cyclosilicate 10 Gm Powd.Pack) 10 gm PO TID [facility]; Protocol Stop: 04/08/25 08:59 Last Admin: 04/09/24 08:01 Dose: 10 gm Tamsulosin HCl (Tamsulosin 0.4 Mg Cap.Er.24h) 0.4 mg PO Q24H [facility] Stop: 04/07/25 19:14 Last Admin: 04/08/24 18:36 Dose: 0.4 mg Vitamin D (Cholecalciferol 25 Mcg (1,000 Units) Tablet) 25 mcg PO DAILY [facility] Stop: 04/08/25 08:59 Last Admin: 04/09/24 08:00 Dose: 25 mcg Allergies cephalexin [From Keflex] Adverse Reaction (Verified 04/07/24 15:08) Diarrhea ciprofloxacin [From Cipro] Adverse Reaction (Verified 04/07/24 15:08) Diarrhea fluconazole [From Diflucan] Adverse Reaction (Verified 04/07/24 15:08) Diarrhea Results - Nephrology Labs 04/08/24 06:49 04/09/24 06:35 Labs: 04/09/24 06:35 BUN 38 H Creatinine 2.65 H Radiology Impressions Impressions - last 24 hours: Any impression(s) listed above is documentation that was entered by the reading physician into a diagnostic report(s) for Isaiah Morel. I have reviewed the report(s) and am incorporating any findings in the treatment plan of this patient where applicable. A&P - Nephrology Assessment/Plan (1) Hyperkalemia: Assessment/Problem Details: This is likely combination of high potassium diet in addition to advanced CKD and being on Aldactone losartan. Patient has been having hyperkalemia without evidence of EKG changes except bradycardia. (2) Diabetes: Plan: Patient is currently on insulin 70/30. 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 Patientfollows with Dr. James in [facility]. Serum creatinine this morning 2.5 mg deciliter which is close to baseline (4) Hypertensive nephropathy: Plan: Home Aldactone losartan were held due to hyperkalemia. With high blood pressurethis morning Plan * Kidney function is close to baseline. Hyperkalemia improved. No need for renal placement therapy * Continue holding home Aldactone and losartan * Continue Lokelma. Will decrease the dose to 10 g daily .no need for diuresis. Continue low potassium diet * Will increase hydralazine to 75 mg 3 times daily for better control of blood pressure. Will continue to monitor blood pressure and adjust medication as needed ed * Maintain adequate sugar control as per the primary hospitalist service * Monitor electrolytes with daily BMP. Renal team will continue to follow. Call if any question or concern Documented By: Kellie Grider MD 04/09/24 1305 Signed By: <Electronically signed by Kellie Grider MD> 04/09/24 1315 [facility] Work Phone: 1(628) 737-713807-31-2024 Progress note Author Lizzie Sinclair [facility] April 09, 2024 12:05pm Note Date/Time April 09, 2024 12:0 6pm [facility] [address] [place] [address] Hospitalist Progress Note Signed Patient: Isaiah Morel MR#: [id number] : 1945 Acct:[id number] Age/Sex: 78 / M Adm Date: 4 Loc: Room: [address] [place] [address] Type: ADM IN Attending Dr: Lizzie Sinclair DO Copies to: ~ Date of Service: 04/09/2024 Subjective Subjective Narrative: Seen and, patient currently sitting up in the chair and states he still feels well, he has been having episodes of diarrhea since last night, 5 total so far. He says this is normal for him a couple days after his Ozempic shot though the timing is a little bit off of his normal schedule currently. Explained to him his creatinine and potassium levels today, no signs of dehydration at all. Exam Physical Exam Vital Signs: Temp Pulse Resp BP Pulse Ox O2 Del Method FiO2 97.6 F 59 L 20 137/67 95 Room Air 21 04/09/24 12:04 04/09/24 12:04 04/09/24 12:04 04/09/24 12:04 04/09/24 12:04 04/09/24 12:04 04/08/24 02:01 Narrative: General: Awake alert, no acute distress HEENT: head atraumatic, normocephalic, moist mucous membranes Neck: supple no masses, no lymphadenopathy CVS: regular rate and rhythm, no murmurs or gallops Respiratory: clear to auscultation bilaterally, no wheezing or crackles, symmetric expansion GI: soft, nondistended, nontender, positive bowel sounds with no organomegaly Extremity: moves all extremities, no restrictions of movements, no calf tenderness, no edema Neuro: AOx3, CN II-VII intact. Moves all extremities in all planes of motion. Skin: dry, intact no rashes or lesions Objective Lab Results 04/08/24 06:49 04/09/24 06:35 Microbiology Results Microbiology 04/07/24 18:19 Urine - Clean-Voided Midstream Urine Culture - Final 20,000 colonies/ml mixed bacterial skin contaminants 2 Days Meds Allergies and Active Meds Allergies cephalexin [From Keflex] Adverse Reaction (Verified 04/07/24 15:08) Diarrhea ciprofloxacin [From Cipro] Adverse Reaction (Verified 04/07/24 15:08) Diarrhea fluconazole [From Diflucan] Adverse Reaction (Verified 04/07/24 15:08) Diarrhea Active Meds: Active Medications Generic Name Dose Route Start Last Admin Trade Name Freq PRN Reason Stop Dose Admin Acetaminophen 650 mg 04/07/24 17:42 04/08/24 20:43 Acetaminophen 325 Mg Tablet PO 04/07/25 17:41 650 mg Q6HR PRN Administration Pain Scale 1 - 3 or fever Allopurinol 300 mg 04/08/24 09:00 04/09/24 08:00 Allopurinol 300 Mg Tablet PO 04/08/25 08:59 300 mg DAILY CHANO Administration Aspirin 81 mg 04/08/24 09:00 04/09/24 08:00 Aspirin 81 Mg Tab.Chew PO 04/08/25 08:59 81 mg DAILY CHANO Administration Atorvastatin Calcium 40 mg 04/08/24 09:00 04/09/24 08:00 Atorvastatin 40 Mg Tablet PO 04/08/25 08:59 40 mg DAILY CHANO Administration Enoxaparin Sodium 40 mg 04/08/24 10:00 04/09/24 09:31 Enoxaparin 40 Mg/0.4 Ml Syringe SUBCUT 04/08/25 09:59 40 mg DAILY@10 CHANO Administration Fenofibrate 96 mg 04/08/24 09:00 04/09/24 08:00 Fenofibrate Nanocrystallized 48 Mg Tablet PO 04/08/25 08:59 96 mg DAILY CHANO Administration Furosemide 20 mg 04/08/24 09:00 04/09/24 08:00 Furosemide 20 Mg Tablet PO 04/08/25 08:59 20 mg DAILY CHANO Administration Hydralazine HCl 75 mg 04/09/24 14:00 Hydralazine 25 Mg Tablet PO 04/09/25 13:59 TID CHANO Insulin Aspart Prota 70%/Aspart 30% 18 units 04/08/24 08:00 04/09/24 08:50 Insulin Aspart Protamin/Aspart 300 Units/3 Ml Insuln.Pen SUBCUT 04/08/25 07:59 18 units BID.WITH.BFAST.SUPPE CHANO Administration Melatonin 5 mg 04/07/24 17:42 Melatonin 5 Mg Tablet PO 04/07/25 17:41 QHS PRN Insomnia Nifedipine 60 mg 04/08/24 09:00 04/09/24 08:01 Nifedipine Er.24hr 60 Mg Tab.Er.24 PO 04/08/25 08:59 60 mg DAILY CHANO Administration Semaglutide [Ozempic 0.25 mg 04/14/24 09:00 ] 0.25 Mg Or 0.5 Mg SUBCUT 04/14/25 08:59 (2 Mg/3 Ml) Pen QWEEK [facility] Injector Ondansetron HCl 4 mg 04/07/24 17:42 Ondansetron 4 Mg/2 Ml Vial IV-PUSH 04/07/25 17:41 Q8H PRN Nausea And Vomiting Oxybutynin Chloride 10 mg 04/08/24 09:00 04/09/24 08:00 Oxybutynin Chloride 5 Mg Tab.Er.24 PO 04/08/25 08:59 10 mg DAILY CHANO Administration Sodium Chloride 0 ml 04/07/24 15:08 04/08/24 09:39 Sodium Chloride 0.9 % 10 Ml Syringe IV-PUSH 04/07/25 15:07 10 ml PRN PRN Administration Flush Sodium Zirconium Cyclosilicate 10 gm 04/08/24 09:00 04/09/24 08:01 Sodium Zirconium Cyclosilicate 10 Gm Powd.Pack PO 04/08/25 08:59 10 gm TID CHANO Administration Protocol Tamsulosin HCl 0.4 mg 04/07/24 19:15 04/08/24 18:36 Tamsulosin 0.4 Mg Cap.Er.24h PO 04/07/25 19:14 0.4 mg Q24H CHANO Administration Vitamin D 25 mcg 04/08/24 09:00 04/09/24 08:00 Cholecalciferol 25 Mcg (1,000 Units) Tablet PO 04/08/25 08:59 25 mcg DAILY CHANO Administration A&P - Hospitalist Assessment/Plan (1) Hyperkalemia: Plan: ? Potassium levels improving ? Lokelma 10 mg 3 times daily per nephrology ? Nephrology on consult, appreciate recommendations ? Urine creatinine, and potassium are within normal limits ? Holding his home dose of losartan and Aldactone ? Continue Lasix as ordered (2) Chronic kidney insufficiency: Plan: ? May have been a slight progression of his CKD, no evidence of GOOD at this point in time (3) BPH (benign prostatic hyperplasia): Plan: ? Continue home medications (4) Diabetes: Plan: ? Glucose checks ACHS ? Continue home medications Plan ? DVT prophylaxis addressed ? Renal diet ? Full code Documented By: Lizzie Sinclair DO 04/09/241203 Signed By: <Electronically signed by Lizzie Sinclair DO> 04/09/24 1207 [facility] Work Phone: [phone]) 761-443107-30-2024 Consult note Author Kellie Grider [facility] April 08, 2024 2:33pm Note Date/Time April 08, 2024 1:45 pm [facility] [address] [place] [address] Nephrology Consult Note Signed Patient: Isaiah Morel MR#: [id number] : 1945 Acct:[id number] Age/Sex: 78 / M Adm Date: 4 Loc: Room: [address] [place] [address] Type: ADM IN Attending Dr: Lizzie Sinclair DO Copies to: MD Will Fisher DO, RES Mary Alice Sánchez, KIESHA Sinclair DO~ Providers Consult Date: 04/08/24 Requesting Provider: Lizzie Sinclair DO Primary Care Provider: PRAKASH Cardenas HPI Reason for Consult: Chronic kidney disease, hyperkalemia History of Present Illness: Mr. 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 Patient follows with Dr. James equipment coordinator in [place] . he was receiving routine labs from an outpatient appointment and was found to have a potassium level of 6.7. In the emergency department lab work also revealed worsening kidney function with creatinine 2.8 mg deciliter from baseline around 2.4. Hyperkalemia was treated medically with insulin R/D50, calcium gluconate, as well as 1 dose of Lokelma. Repeat potassium dropped to 5.7. However lab this morning revealed potassium is up again to 6.7 mmol/L. She was then given another dose of calcium gluconate, 1 dose of Lasix 60 mg IV, Lokelma started 10 mg p.o. 3 times daily. Last potassium check is better at 6.3 mmol/L I reviewed the patient's home medications. She is on fenofibrate, vitamin B12, Aldactone, losartan, nifedipine, insulin/Ozempic and atorvastatin Of note, he did mention to us that he has been eating a lot of cantaloupe as of late Denies fever/chills, chest pain, shortness of breath, abd pain, N/V/D, and dizziness Review of Systems Review of Systems Review of systems: Unless otherwise stated in the report or unable to obtain because of the patient's clinical or mental status as evidenced by the medical record, the patient's positive and negative responses for review of systems for constitutional, eyes, ENT, cardiovascular, respiratory, gastrointestinal, neurological, genitourinary, musculoskeletal and skin as well as related systemsto the presenting problem are either as stated in the HPI or were not pertinent or were negative for the systems and/or complaints related to the presenting medical problem. [facility] Medical History (Updated 04/08/24 @ 14:29 by Kellie Grider MD) Diabetes KIMMY on CPAP Hyperlipidemia Asthma Problem List clean-up per request of Phys. [facility] Colon cancer 2019 with chemo BPH (benign prostatic hyperplasia) Problem List clean-up per request of Phys. [facility] Surgical History (Updated 10/18/23 @ 14:22 by Chivo Avila MD) History of vascular access device History of transurethral resection of prostate History of colectomy with colostomy and then reversal History of lateral meniscus repair of right knee Problem List clean-up [facility] History of lateral meniscus repair of left knee Problem List clean-up per request [facility]O hernia repair x2 Problem List clean-up per request of Phys. [facility] H/O bladder repair surgery May 11, 2020 Family History Mother Myocardial infarction Father Myocardial infarction Sister Cancer Social History Smoking Status: Never smoker Substance Use Type: None Meds Medications & Allergies Allergies cephalexin [From Keflex] Adverse Reaction (Verified 04/07/24 15:08) Diarrhea ciprofloxacin [From Cipro] Adverse Reaction (Verified 04/07/24 15:08) Diarrhea fluconazole [From Diflucan] Adverse Reaction (Verified 04/07/24 15:08) Diarrhea Home Medications ascorbic acid (vitamin C) 60 mg lozenges 60 mg PO DAILY 06/22/20 [History Confirmed 04/07/24] aspirin 81 mg chewable tablet 81 mg PO DAILY 06/22/20 [History Confirmed 04/07/24] cholecalciferol (vitamin D3) 25 mcg (1,000 unit) tablet 25 mcg PO DAILY 06/22/20[History Confirmed 04/07/24] cinnamon bark 500 mg capsule 500 mg PO DAILY 06/22/20 [History Confirmed 04/07/24] cyanocobalamin (vitamin B-12) 500 mcg tablet 500 mcg PO DAILY 06/22/20 [History Confirmed 10/18/23] fenofibrate nanocrystallized 48 mg tablet (Tricor) 96 mg PO DAILY 06/22/20 [History Confirmed 04/07/24] gvcbbdjt-iolxdcgv-anbhn acid 400 mcg-vit K 20 mcg-lycop 300 mcg tablet (Men's Daily Formula) 1 tab PO DAILY 06/22/20 [History Confirmed 04/07/24] omega 9-rmh-xbv-fish oil 300 mg-1,000 mg capsule 1 cap PO DAILY 06/22/20 [History Confirmed 04/07/24] oxybutynin chloride 10 mg tablet,extended release 24 hr (Ditropan XL) 5 mg PO DAILY 06/22/20 [History Confirmed 04/07/24] spironolactone 25 mg tablet 25 mg PO DAILY 06/22/20 [History Confirmed 04/07/24] furosemide 20 mg tablet 20 mg PO DAILY 05/08/22 [History Confirmed 04/07/24] losartan 100 mg tablet 100 mg PO DAILY 05/08/22 [History Confirmed 04/07/24] nifedipine 30 mg tablet,extended release 24 hr 60 mg PO DAILY 05/08/22 [History Confirmed 04/07/24] ferrous gluconate 324 mg (38 mg iron) tablet 324 mg PO DAILY 10/18/23 [History Confirmed 04/07/24] insulin human U-100 NPH-regulr 70-30 mix 100 unit/mL subcutaneous susp (Novolin 70/30 U-100 Insulin) 18 unit subcut BID.AC.BKFAST.SUPPER 10/18/23 [History Confirmed 04/07/24] semaglutide 0.25 mg or 0.5 mg (2 mg/3 mL) subcutaneous pen injector (Ozempic) 0.25 mg subcut QWEEK 10/18/23 [History Confirmed 04/07/24] tamsulosin 0.4 mg capsule 0.4 mg PO Q24H 10/18/23 [History Confirmed 04/07/24] allopurinol 300 mg tablet 300 mg PO DAILY 04/07/24 [History Confirmed 04/07/24] atorvastatin 40 mg tablet 40 mg PO DAILY 04/07/24 [History Confirmed 04/07/24] Active Medications: Active Medications Acetaminophen (Acetaminophen 325 Mg Tablet) 650 mg PO Q6HR PRN PRN Reason: Pain Scale 1 - 3 or fever Stop: 04/07/25 17:41 Allopurinol (Allopurinol 300 Mg Tablet) 300 mg PO DAILY [facility] Stop: 04/08/25 08:59 Last Admin: 04/08/24 08:46 Dose: 300 mg Aspirin (Aspirin 81 Mg Tab.Chew) 81 mg PO DAILY CHANO Stop: 04/08/25 08:59 Last Admin: 04/08/24 08:46 Dose: 81 mg Atorvastatin Calcium (Atorvastatin 40 Mg Tablet) 40 mg PO DAILY [facility] Stop: 04/08/25 08:59 Last Admin: 04/08/24 08:46 Dose: 40 mg Enoxaparin Sodium (Enoxaparin 40 Mg/0.4 Ml Syringe) 40 mg SUBCUT DAILY@10 CHANO Stop: 04/08/25 09:59 Last Admin: 04/08/24 09:39 Dose: 40 mg Fenofibrate (Fenofibrate Nanocrystallized 48 Mg Tablet) 96 mg PO DAILY [facility]ANO Stop: 04/08/25 08:59 Last Admin: 04/08/24 08:46 Dose: 96 mg Furosemide (Furosemide 20 Mg Tablet) 20 mg PO DAILY [facility] Stop: 04/08/25 08:59 Last Admin: 04/08/24 09:39 Dose: Not Given Hydralazine HCl (Hydralazine 50 Mg Tablet) 50 mg PO BID [facility] Stop: 04/08/25 08:59 Last Admin: 04/08/24 08:45 Dose: 50 mg Insulin Aspart Prota 70%/Aspart 30% (Insulin Aspart Protamin/Aspart 300 Units/3 Ml Insuln.Pen) 18 units SUBCUT BID.WITH.BFAST.SUPPE [facility] Stop: 04/08/25 07:59 Last Admin: 04/08/24 08:47 Dose: 18 units Melatonin (Melatonin 5 Mg Tablet) 5 mg PO QHS PRN PRN Reason: Insomnia Stop: 04/07/25 17:41 Nifedipine (Nifedipine Er.24hr 60 Mg Tab.Er.24) 60 mg PO DAILY [facility] Stop: 04/08/25 08:59 Last Admin: 04/08/24 08:46 Dose: 60 mg Semaglutide [Ozempic ] 0.25 Mg Or 0.5 Mg (2 Mg/3 Ml) Pen Injector 0.25 mg SUBCUT QWEEK [facility] Stop: 04/14/25 08:59 Ondansetron HCl (Ondansetron 4 Mg/2 Ml Vial) 4 mg IV-PUSH Q8H PRN PRN Reason: Nausea And Vomiting Stop: 04/07/25 17:41 Oxybutynin Chloride (Oxybutynin Chloride 5 Mg Tab.Er.24) 10 mg PO DAILY [facility] Stop: 04/08/25 08:59 Last Admin: 04/08/24 08:46 Dose: 10 mg Sodium Chloride (Sodium Chloride 0.9 % 10 Ml Syringe) 0 ml IV-PUSH PRN PRN PRN Reason: Flush Stop: 04/07/25 15:07 Last Admin: 04/08/24 09:39 Dose: 10 ml Sodium Zirconium Cyclosilicate (Sodium Zirconium Cyclosilicate 10 Gm Powd.Pack) 10 gm PO TID [facility]; Protocol Stop: 04/08/25 08:59 Last Admin: 04/08/24 09:08 Dose: 10 gm Tamsulosin HCl (Tamsulosin 0.4 Mg Cap.Er.24h) 0.4 mg PO Q24H [facility] Stop: 04/07/25 19:14 Last Admin: 04/07/24 21:29 Dose: 0.4 mg Vitamin D (Cholecalciferol 25 Mcg (1,000 Units) Tablet) 25 mcg PO DAILY [facility] Stop: 04/08/25 08:59 Last Admin: 04/08/24 08:46 Dose: 25 mcg Exam Physical Exam Vital Signs: Temp Pulse Resp BP Pulse Ox O2 Del Method FiO2 97.4 F L 53 L 20 174/64 H 96 Room Air 21 04/08/24 11:53 04/08/24 11:53 04/08/24 11:53 04/08/24 11:53 04/08/24 11:53 04/08/24 11:53 04/08/24 02:01 Narrative: GEN: Pleasant, cooperative, no acute distress. Obese. NECK: Supple. Trachea is midline. No adenopathy. LUNGS: CTAB. No wheezes or rhonchi CV: Slightly bradycardic. Regular rhythm. S1 and S2 present. No murmurs, rubs, or gallops. : No flank tenderness ABD: Soft. Non tender. Non distended. Bowel sounds present. EXT: Moves all extremities. Trace pitting edema lower extremities bilaterally. No calf muscle tenderness. NEURO: No FND. A+Ox3. SKIN: Dry. Intact. No rashes or lesions. PSYCH: Appropriate mood and affect for situation Results - Nephrology Labs 04/08/24 06:49 04/08/24 11:08 Labs: 04/07/24 04/07/24 04/08/24 16:41 18:19 06:49 BUN 41 H 38 H Creatinine 2.81 H 2.50 H Urine Color Yellow Urine Appearance Cloudy A Urine pH 5.0 Ur Specific [place] 1.013 Urine Protein 20 H Urine Glucose (UA) Normal Urine Ketones Negative Urine Occult Blood Negative Urine Nitrite Negative Ur Leukocyte Esterase 4+ H Urine RBC None seen Urine WBC Innumerable H Urine Bacteria None seen Radiology Impressions Impressions - last 24 hours: Impressions Chest X-Ray 04/07/24 16:43 IMPRESSION: Pleural-parenchymal opacities are noted in the lung bases with similar cardiomegaly. This is new compared to the prior exam. Impression dictated by: Weston Cooney M.D.04/07/2024 5:47 PM Dictation Location: [place] [address] Any impression(s) listed above is documentation that was entered by the reading physician into a diagnostic report(s) for Isaiah Morel. I have reviewed the report(s) and am incorporating any findings in the treatment plan of this patient where applicable. A&P - Nephrology Assessment/Plan (1) Hyperkalemia: Assessment/Problem Details: This is likely combination of high potassium diet in addition to advanced CKD and being on Aldactone losartan. Patient has been having hyperkalemia without evidence of EKG changes except bradycardia. (2) Diabetes: Plan: Patient is currently on insulin 70/30. 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 Patientfollows with Dr. James in [facility]. Serum creatinine this morning 2.5 mg deciliter which is close to baseline (4) Hypertensive nephropathy: Plan: Home Aldactone losartan were held due to hyperkalemia. With high blood pressurethis morning Plan * Serum potassium level improved with Lasix and Lokelma but remains more than 6. Will repeat potassium level at 3 PM. If remains more than 6 we will give the patient another dose of Lasix * Will place the patient on low potassium diet * Will hydralazine 50 mg twice daily for blood pressure control. Continue to hold Aldactone and losartan. Will continue to monitor blood pressure adjust medication as needed * Maintain adequate sugar control as per the primary hospitalist service * Monitor electrolytes with daily BMP Documented By: Kellie Grider MD 04/08/24 1337 Signed By: <Electronically signed by Kellie Grider MD> 04/08/24 1433 <Electronically signed by DO ANDREIA Moy> 04/08/24 1345 [facility] Work Phone: 1(742) 441-777207-30-2024 Progress note Author Lizzie Sinclair [facility] April 08, 2024 2:11pm Note Date/Time April 08, 2024 2:11 pm [facility] [address] [place] [address] Hospitalist Progress Note Signed Patient: Isaiah Morel MR#: [id number] : 1945 Acct:[id number] Age/Sex: 78 / M Adm Date: 4 Loc: 3T Room: [address] [place] [address] Type: ADM IN Attending Dr: Lizzie Sinclair DO Copies to: ~ Date of Service: 04/08/2024 Subjective Subjective Narrative: Seen and, patient currently sitting up in the chair and states the feels normal and at his baseline. Updated him on his potassium results this morning that they are still quite elevated. Had a very long discussion regarding medication and diet. Patient does endorse eating a lot of cantaloupe for the last few months and is wondering if that may have contributed to his potassium. Exam Physical Exam Vital Signs: Temp Pulse Resp BP Pulse Ox O2 Del Method FiO2 97.4 F L 53 L 20 174/64 H 96 Room Air 21 04/08/24 11:53 04/08/24 11:53 04/08/24 11:53 04/08/24 11:53 04/08/24 11:53 04/08/24 11:53 04/08/24 02:01 Narrative: General: Awake alert, no acute distress HEENT: head atraumatic, normocephalic, moist mucous membranes Neck: supple no masses, no lymphadenopathy CVS: regular rate and rhythm, no murmurs or gallops Respiratory: clear to auscultation bilaterally, no wheezing or crackles, symmetric expansion GI: soft, nondistended, nontender, positive bowel sounds with no organomegaly Extremity: moves all extremities, no restrictions of movements, no calf tenderness, no edema Neuro: AOx3, CN II-VII intact. Moves all extremities in all planes of motion. Skin: dry, intact no rashes or lesions Objective Lab Results 04/08/24 06:49 04/08/24 11:08 Microbiology Results Microbiology 04/07/24 18:19 Urine - Clean-Voided Midstream Urine Culture - Preliminary 15,000 colonies/ml mixed bacterial skin contaminants 1 Day Meds Allergies and Active Meds Allergies cephalexin [From Keflex] Adverse Reaction (Verified 04/07/24 15:08) Diarrhea ciprofloxacin [From Cipro] Adverse Reaction (Verified 04/07/24 15:08) Diarrhea fluconazole [From Diflucan] Adverse Reaction (Verified 04/07/24 15:08) Diarrhea Active Meds: Active Medications Generic Name Dose Route Start Last Admin Trade Name Freq PRN Reason Stop Dose Admin Acetaminophen 650 mg 04/07/24 17:42 Acetaminophen 325 Mg Tablet PO 04/07/25 17:41 Q6HR PRN Pain Scale 1 - 3 or fever Allopurinol 300 mg 04/08/24 09:00 04/08/24 08:46 Allopurinol 300 Mg Tablet PO 04/08/25 08:59 300 mg DAILY [facility]ANO Administration Aspirin 81 mg 04/08/24 09:00 04/08/24 08:46 Aspirin 81 Mg Tab.Chew PO 04/08/25 08:59 81 mg DAILY [facility]O Administration Atorvastatin Calcium 40 mg 04/08/24 09:00 04/08/24 08:46 Atorvastatin 40 Mg Tablet PO 04/08/25 08:59 40 mg DAILY [facility]O Administration Enoxaparin Sodium 40 mg 04/08/24 10:00 04/08/24 09:39 Enoxaparin 40 Mg/0.4 Ml Syringe SUBCUT 04/08/25 09:59 40 mg DAILY@10 [facility]ANO Administration Fenofibrate 96 mg 04/08/24 09:00 04/08/24 08:46 Fenofibrate Nanocrystallized 48 Mg Tablet PO 04/08/25 08:59 96 mg DAILY [facility]O Administration Furosemide 20 mg 04/08/24 09:00 04/08/24 09:39 Furosemide 20 Mg Tablet PO 04/08/25 08:59 Not Given DAILY [facility]ANO Hydralazine HCl 50 mg 04/08/24 09:00 04/08/24 08:45 Hydralazine 50 Mg Tablet PO 04/08/25 08:59 50 mg BID [facility]O Administration Insulin Aspart Prota 70%/Aspart 30% 18 units 04/08/24 08:00 04/08/24 08:47 Insulin Aspart Protamin/Aspart 300 Units/3 Ml Insuln.Pen SUBCUT 04/08/25 07:59 18 units BID.WITH.BFAST.SUPPE [facility] Administration Melatonin 5 mg 04/07/24 17:42 Melatonin 5 Mg Tablet PO 04/07/25 17:41 QHS PRN Insomnia Nifedipine 60 mg 04/08/24 09:00 04/08/24 08:46 Nifedipine Er.24hr 60 Mg Tab.Er.24 PO 04/08/25 08:59 60 mg DAILY [facility]O Administration Semaglutide [Ozempic 0.25 mg 04/14/24 09:00 ] 0.25 Mg Or 0.5 Mg SUBCUT 04/14/25 08:59 (2 Mg/3 Ml) Pen QWEEK [facility] Injector Ondansetron HCl 4 mg 04/07/24 17:42 Ondansetron 4 Mg/2 Ml Vial IV-PUSH 04/07/25 17:41 Q8H PRN Nausea And Vomiting Oxybutynin Chloride 10 mg 04/08/24 09:00 04/08/24 08:46 Oxybutynin Chloride 5 Mg Tab.Er.24 PO 04/08/25 08:59 10 mg DAILY [facility]O Administration Sodium Chloride 0 ml 04/07/24 15:08 04/08/24 09:39 Sodium Chloride 0.9 % 10 Ml Syringe IV-PUSH 04/07/25 15:07 10 ml PRN PRN Administration Flush Sodium Zirconium Cyclosilicate 10 gm 04/08/24 09:00 04/08/24 13:47 Sodium Zirconium Cyclosilicate 10 Gm Powd.Pack PO 04/08/25 08:59 10 gm TID [facility]O Administration Protocol Tamsulosin HCl 0.4 mg 04/07/24 19:15 04/07/24 21:29 Tamsulosin 0.4 Mg Cap.Er.24h PO 04/07/25 19:14 0.4 mg Q24H [facility] Administration Vitamin D 25 mcg 04/08/24 09:00 04/08/24 08:46 Cholecalciferol 25 Mcg (1,000 Units) Tablet PO 04/08/25 08:59 25 mcg DAILY [facility] Administration A&P - Hospitalist Assessment/Plan (1) Hyperkalemia: Plan: ? Potassium remains elevated, 6.7 this morning despite treatment yesterday with cocktail and Lokelma ? Lokelma 10 mg 3 times daily per nephrology ? Repeat potassium today at 3 PM ? Nephrology consulted ? Urine creatinine, and potassium are within normal limits ? Holding his home dose of losartan and Aldactone ? Continue Lasix as ordered (2) Chronic kidney insufficiency: Plan: ? May have been a slight progression of his CKD, no evidence of GOOD at this point in time (3) BPH (benign prostatic hyperplasia): Plan: ? Continue home medications (4) Diabetes: Plan: ? Glucose checks ACHS ? Continue home medications Plan ? DVT prophylaxis addressed ? Renal diet ? Full code Documented By: Lizzie Sinclair DO 04/08/24 1410 Signed By: <Electronically signed by Lizzie Sinclair, > 04/08/24 1411 [facility] Work Phone: 1(261) 859-519907-29-2024 History and physical note Author Lizzie Sinclair [facility] April 07, 2024 7:24pm Note Date/Time April 07, 2024 7:24 pm [facility] [address] [place] [address] Hospitalist H&P Signed Patient: Isaiah Morel MR#: [id number] : 1945 Acct:[id number] Age/Sex: 78 / M Adm Date: 4 Loc: Room: [address] [place] [address] Type: ADM IN Attending Dr: Lizzie Sinclair DO Copies to: KIESHA Cardenas, ~ HPI DATE OF EXAMINATION: 04/07/24 CHIEF COMPLAINT: abnormal labs HISTORY OF PRESENT ILLNESS: Mr Morel is a 78-year-old male with a past medical history of sleep apnea on CPAP, hyperlipidemia, prior colon cancer, BPH, and diabetes, and CKD who presents to hospital today at the request of her equipment coordinator. The patient had routine labs drawn for an outpatient appointment at his nephrology office in [place], the labs were notable for potassium of 6.7 and he subsequently received a phone call to come the emergency room for treatment. The patient upon my assessment has absolutely 0 complaints, he says he feels in his normal state of health. Repeat laboratory workup on admission to the emergency room shows potassium 6.4 and a creatinine of 2.81, the has on her phone that hislast creatinine was around 2.4. The patient has had CKD for some time now and to his knowledge there has been no progression. He reports no changes in his diet or fluid intake, the only recent medication change has been the addition ofOzempic for his diabetes in September. Review of Systems Review of Systems All other systems reviewed & are negative unless noted below or in HPI [facility] Medical History (Updated 04/07/24 @ 19:23 by Lizzie Sinclair DO) Diabetes KIMMY on CPAP Hyperlipidemia Asthma Problem List clean-up per request of Phys. [facility] 2019 with chemo BPH (benign prostatic hyperplasia) Problem List clean-up per request of Phys. EHR [facility] Surgical History (Updated 10/18/23 @ 14:22 by Chivo Avila MD) History of vascular access device History of transurethral resection of prostate History of colectomy with colostomy and then reversal History of lateral meniscus repair of right knee Problem List clean-up per request of Phys. [facility] History of lateral meniscus repair of left knee Problem List clean-up per request of Phys. [facility]HR [facility] H/O hernia repair x2 Problem List clean-up per request of Phys. [facility]HR [facility] H/O bladder repair surgery May 11, 2020 Family History Mother Myocardial infarction Father Myocardial infarction Sister Cancer Social History Smoking Status: Never smoker Substance Use Type: None Meds Medications and Allergies Allergies cephalexin [From Keflex] Adverse Reaction (Verified 04/07/24 15:08) Diarrhea ciprofloxacin [From Cipro] Adverse Reaction (Verified 04/07/24 15:08) Diarrhea fluconazole [From Diflucan] Adverse Reaction (Verified 04/07/24 15:08) Diarrhea Home Medications ascorbic acid (vitamin C) 60 mg lozenges 60 mg PO DAILY 06/22/20 [History Confirmed 04/07/24] aspirin 81 mg chewable tablet 81 mg PO DAILY 06/22/20 [History Confirmed 04/07/24] cholecalciferol (vitamin D3) 25 mcg (1,000 unit) tablet 25 mcg PO DAILY 06/22/20[History Confirmed 04/07/24] cinnamon bark 500 mg capsule 500 mg PO DAILY 06/22/20 [History Confirmed 04/07/24] cyanocobalamin (vitamin B-12) 500 mcg tablet 500 mcg PO DAILY 06/22/20 [History Confirmed 10/18/23] fenofibrate nanocrystallized 48 mg tablet (Tricor) 96 mg PO DAILY 06/22/20 [History Confirmed 04/07/24] skpbkfpx-azihvvfi-moedd acid 400 mcg-vit K 20 mcg-lycop 300 mcg tablet (Men's Daily Formula) 1 tab PO DAILY 06/22/20 [History Confirmed 04/07/24] omega 0-vvt-stv-fish oil 300 mg-1,000 mg capsule 1 cap PO DAILY 06/22/20 [History Confirmed 04/07/24] oxybutynin chloride 10 mg tablet,extended release 24 hr (Ditropan XL) 5 mg PO DAILY 06/22/20 [History Confirmed 04/07/24] spironolactone 25 mg tablet 25 mg PO DAILY 06/22/20 [History Confirmed 04/07/24] furosemide 20 mg tablet 20 mg PO DAILY 05/08/22 [History Confirmed 04/07/24] losartan 100 mg tablet 100 mg PO DAILY 05/08/22 [History Confirmed 04/07/24] nifedipine 30 mg tablet,extended release 24 hr 60 mg PO DAILY 05/08/22 [History Confirmed 04/07/24] ferrous gluconate 324 mg (38 mg iron) tablet 324 mg PO DAILY 10/18/23 [History Confirmed 04/07/24] insulin human U-100 NPH-regulr 70-30 mix 100 unit/mL subcutaneous susp (Novolin 70/30 U-100 Insulin) 18 unit subcut BID 10/18/23 [History Confirmed 04/07/24] semaglutide 0.25 mg or 0.5 mg (2 mg/3 mL) subcutaneous pen injector (Ozempic) 0.25 mg subcut QWEEK 10/18/23 [History Confirmed 04/07/24] tamsulosin 0.4 mg capsule 0.4 mg PO Q24H 10/18/23 [History Confirmed 04/07/24] allopurinol 300 mg tablet 300 mg PO DAILY 04/07/24 [History Confirmed 04/07/24] atorvastatin 40 mg tablet 40 mg PO DAILY 04/07/24 [History Confirmed 04/07/24] Exam Physical Exam Vital Signs: Temp Pulse Resp BP Pulse Ox O2 Del Method 97.4 F L 59 L 18 159/65 H 95 Room Air 04/07/24 15:23 04/07/24 18:53 04/07/24 18:04 04/07/24 18:53 04/07/24 18:53 04/07/24 18:53 Narrative: General: Awake alert, no acute distress HEENT: head atraumatic, normocephalic, moist mucous membranes Neck: supple no masses, no lymphadenopathy CVS: regular rate and rhythm, no murmurs or gallops Respiratory: clear to auscultation bilaterally, no wheezing or crackles, symmetric expansion GI: soft, nondistended, nontender, positive bowel sounds with no organomegaly Extremity: moves all extremities, no restrictions of movements, no calf tenderness, no edema Neuro: AOx3, CN II-VII intact. Moves all extremities in all planes of motion. Skin: dry, intact no rashes or lesions Results - Hospitalist H&P Lab Results Labs: Laboratory Last Values Corrected WBC 9.7 X10E3/uL (4.1-10.5) 04/07/24 16:41 Uncorrected WBC Count 9.7 x10E3/uL (4.1-10.5) 04/07/24 16:41 RBC 3.77 X10E6/uL (3.90-5.60) L 04/07/24 16:41 Hgb 11.6 g/dL (13.0-17.0) L 04/07/24 16:41 Hct 35.9 % (38.8-50.0) L 04/07/24 16:41 MCV 95.4 fl (83.5-101) 04/07/24 16:41 MCH 30.8 pg (27.5-35.2) 04/07/24 16:41 MCHC 32.3 g/dL (32.5-35.6) L 04/07/24 16:41 RDW 15.5 % (12.0-14.8) H 04/07/24 16:41 Plt Count 387 x10E3/uL (150-450) 04/07/24 16:41 MPV 8.0 fl (6.6-10.1) 04/07/24 16:41 Neut % (Auto) 61.8 % (.) 04/07/24 16:41 Lymph % (Auto) 27.7 % (.) 04/07/24 16:41 [place] % (Auto) 6.1 % (.) 04/07/24 16:41 Eos % (Auto) 3.0 % (.) 04/07/24 16:41 Baso % (Auto) 1.4 % (.) 04/07/24 16:41 Nucleat RBC Rel Count 0.1 /100 WBC (0-0.5) 04/07/24 16:41 Neut # (Auto) 6.0 x10E3/uL (1.8-7.7) 04/07/24 16:41 Lymph # (Auto) 2.7 x10E3/uL (1.00-4.8) 04/07/24 16:41 [place] # (Auto) 0.6 x10E3/uL (0.0-0.8) 04/07/24 16:41 Eos # (Auto) 0.3 x10E3/uL (0.0-0.45) 04/07/24 16:41 Baso # (Auto) 0.1 x10E3/uL (0.0-0.2) 04/07/24 16:41 Monocyte Dist Width 15.84 % (0.00-20.00) 04/07/24 16:41 PHA Creatinine Clear 32.58 04/07/24 16:41 Sodium 133 mmol/L (136-145) L 04/07/24 16:41 Potassium 6.4 mmol/L (3.5-5.1) H* 04/07/24 16:41 Chloride 108 mmol/L (98-107) H 04/07/24 16:41 Carbon Dioxide 20.3 mmol/L (21.0-31.0) L 04/07/24 16:41 Anion Gap 11.1 mEq/L (6.0-15.0) 04/07/24 16:41 BUN 41 mg/dL (7-25) H 04/07/24 16:41 Creatinine 2.81 mg/dL (0.70-1.30) H 04/07/24 16:41 Est GFR (CKD-EPI) 22.297 mL/Min 04/07/24 16:41 Glucose 134 mg/dL (70-100) H 04/07/24 16:41 Calcium 9.0 mg/dL (8.6-10.3) 04/07/24 16:41 Magnesium 1.8 mg/dL (1.9-2.7) L 04/07/24 16:41 Assessment & Plan Assessment/Plan (1) Hyperkalemia: Plan: ? Status post calcium, insulin, bicarb, and glucose treatment emergency room as well as 10 mg Lokelma ? Repeat potassium tonight at 10 PM ? Follow-up morning BMP and magnesium and treat accordingly ? Nephrology consulted ? Urine creatinine, and potassium ordered ? Holding his home dose of losartan and Aldactone ? Continue Lasix as ordered (2) Chronic kidney insufficiency: Plan: ? May have been a slight progression of his CKD, no evidence of GOOD at this point in time (3) BPH (benign prostatic hyperplasia): Plan: ? Continue home medications (4) Diabetes: Plan: ? Glucose checks ACHS ? Continue home medications Plan ? DVT prophylaxis addressed ? Renal diet ? Full code IP vs OBS Justification Based on differential dx, clinical care plan, and risk of adverse events, if untreated, in my clinical judgement this patient requires an acute care setting as: INPATIENT because of an expectation of an over 2 midnight stay. Estimated length of stay (# of days): 3 Documented By: Lizzie Sinclair DO 04/07/241916 Signed By: <Electronically signed by Lizzie Sinclair DO> 04/07/241923 [facility] Work Phone: [phone]) 794-579507-29-2024 Telephone encounter Note* Telephone Encounter - Leslee Webster DO - 04/07/2024 2:23 PM EDT Called patient, lab work done today with K of 6.7. not previously hyperkalemic but on spironolactone and losartan. Known CKD stage IV, creatinine up slightly. Advised going to the ED for evaluation and treatment. He is agreeable. Reviewed to call tomorrow for update. Called [facility] to review. Leslee Webster DO April 07, 2024, 2:26 PM [facility] Work Phone: [phone]) 602-587207-29-2024 Miscellaneous Notes* Telephone Encounter - Leslee Webster DO - 04/07/2024 2:23 PM EDT Called patient, lab work done today with K of 6.7. not previously hyperkalemic but on spironolactone and losartan. Known CKD stage IV, creatinine up slightly. Advised going to the ED for evaluation and treatment. He is agreeable. Reviewed to call tomorrow for update. Called [facility] to review. Leslee Webster DO April 07, 2024, 2:26 PM documented in this encounterA[facility]04-11-[facility]24 Miscellaneous Notes* Telephone Encounter - Carolin Coburn MA - 12/20/2023 4:29 PM EDT US orders have been printed and faxed to [phone]. Fax conformation received. Placed into fax folder. Carolin Coburn MA * Telephone Encounter - Cherelle Ochoa - 12/20/2023 11:06 AM EDT Odilia from [facility] is calling Leslee Webster DO today to request that 2 US orders be faxed over to them per patient request. Pelvis bladder and kidney bladder. Patient has been identified by name and birthdate. Duration of symptoms: N/A Person calling: ODILIA FROM [facility] SCHEDULING [phone] FAX [phone] primary OR [phone] Was an appointment scheduled: No Closing statement: Results or non-symptom based questions: Thank you for calling [facility], your call will be returned within the next business day. Cherelle Julian documented in this encounterAultman [facility]04-10-2024 Instructions* Patient Instructions* Leslee Webster DO - 12/19/2023 9:10 AM EDT Avoid all NSAIDs (over the counter ones include ibuprofen, naproxen, alleve, motrin and advil.) Avoid IV iodinated contrast if able to, please call me at [phone] if you are ordered a test requiring iodinated contrast Please verify your home medications and send me a message with any medication changes documented in this encounterAultman [facility] Hospital04-10-2024 History of Present illness Narrative* Leslee Webster DO - 12/19/2023 8:20 AM EDT Consultation requested by Dr Cook for an opinion regarding kidney function. My final recommendations will be communicated back to the requesting physician by way of shared medical record or letter via US mail HPI: Mr. Morel is a 78 year old male who presents for an evaluation for his kidney function. He has history of colorectal cancer resected in 04/2020, required partial cystectomy as pathology noted to have abutment to the bladder. He was given Folox (07/2020-12/2020) and in February 2021 had denice reversal. He also has history of HTN, DM, BPH. Patient was had DM now for around 30 years. Currently is on insulin for diabetes. He follows with opthalmology and does not have diabetic retinopathy per patient. After 2023, started on ozempic in place of metformin. States he feels better since coming off of metformin. Though having diarrhea now with ozempic. He reports he hydrates well. He states he has had some weight loss while on it. He has had HTN now for around 30 years. Patient does occasionally check his BPs at home and BP is usually controlled. He does tries to watch sodium intake. Home BP medications are amlodipine 5mg daily or nifedipine 60mg daily, (he is not sure which one and will check for me) spironolactone 25mg daily, losartan 100mg daily. He is not sure of his home meds. Patient denies NSAID, uses tylenol for pain. Denies foamy urine or gross hematuria. There is no family history of kidney disease. Patient denies history of kidney stones Creatinine had been around 0.9mg/dl, episodes of GOOD noted, in 08/2020 creatinine increased to 2.72mg/dL, then down to 1.2mg/dL, 03/02/2021, creatinine again up to 2.2mg/dL then down, 03/2021 increaesdto 5mg/dL mg/dL, (admitted with volume depletion and mild hydronephrosis of right kidney) improved,and back down to 1.7mg/dL, 04/2022 increased to 3mg/dL (in with nausea, vomiting), then down to 2.2mg/dL., last checked was 2.59mg/dL in 10/05/2023. His imaging in 04/2023 showed mild bilateral ureterectasis. PAST SURGICAL HISTORY Procedure Laterality Date COLONOSCOPY AND BIOPSY 03/24/2020 Dr Vu COLONSCOPY SCREENING HIGH RISK 03/2020 EGD 03/2020 HERNIA REPAIR HX 1985 X2- umbilical and right inguinal hernia PAST SURGICAL HISTORY OF 05/11/2020 hemicolectomy with colostomy and partial cystectomy PAST SURGICAL HISTORY OF 02/2021 colostomy reversal REPAIR INCISIONAL HERNIA,REDUCIBLE 06/13/2021 REPAIR INCISIONAL HERNIA,REDUCIBLE 05/03/2022 TRANSURETHRAL ELEC-SURG PROSTATECTOM 08/2021 Current Outpatient Medications Medication Sig OZEMPIC 0.25 mg or 0.5 mg (2 mg/3 mL) pen INJECT 0.25 MG SUBCUTANEOUSLY WEEKLY tamsulosin (FLOMAX) 0.4 mg Take 0.4 mg by mouth once daily. amLODIPine (NORVASC) 5 mg tablet Take 5 mg by mouth once daily. furosemide (LASIX) 20 mg tablet CPAP NIFEdipine XL (ADALAT CC, PROCARDIA XL) 60 mg 24 hr tablet Take 60 mg by mouth once daily. spironolactone (ALDACTONE) 25 mg tablet Take 25 mg by mouth every morning. A-C-E-zinc ox-cupric ox-lutein ([facility]) 7,160 unit- 113 mg-1 mg tab Take by mouth. losartan potassium (LOSARTAN ORAL) Take 100 mg by mouth once daily. oxybutynin XL (DITROPAN XL) 5 mg 24 hr tablet Take 5 mg by mouth once daily. cyanocobalamin (VITAMIN B-12) 500 mcg tablet fenofibrate nanocrystallized (TRICOR) 48 mg tablet Take 96 mg by mouth every morning. multivit-min/folic/vit K/lycop (ONE-A-DAY MEN'S MULTIVITAMIN ORAL) insulin NPH-insulin regular injection (HumuLIN, NovoLIN 70/30) If blood sugar before dinner is >200, start taking 5 unit(s) of 70/30 NPH before dinner and continue with the 7 unit(s) in the morning. If the blood sugar before dinner is again >200 the next day, add 2 unit(s) to the previous dose of evening insulin For AM insulin changes: Check blood sugar before lunch. If blood sugar > 200, add 2 unit(s) to the morning insulin and take 9 the next day. If the following day's pre-lunch sugar is again > 200, add another 2 unit(s) to the morning dose. FERROUS GLUCONATE ORAL Take 324 mg by mouth once daily. aspirin, enteric coated (ASPIRIN, ENTERIC COATED) 81 mg EC tablet Take 81 mg by mouth once daily. Ascorbic Acid 60 mg lozg Take by mouth. cholecalciferol (VITAMIN D3) 1,000 unit tab tablet Take 1,000 Units by mouth. Cinnamon Bark 500 mg cap Take 500 mg by mouth. Frqjb-2-JRQ-EPA-Fish Oil 300-1,000 mg cap Take by mouth. simvastatin (ZOCOR) 80 mg tablet Take 80 mg by mouth. No current facility-administered medications for this visit. Patient unsure of meds - will verify home meds ALLERGIES Allergen Reactions Cephalexin Diarrhea Ciprofloxacin Other: See Comments Made pt dizzy Flagyl [Metronidazo* Other: See Comments Made pt dizzy Fluconazole Diarrhea FAMILY HISTORY Problem Relation Age of Onset Diabetes Mother Ischemic Heart Disease Mother CABG Stroke Father Diabetes Father Heart Attack Father 72 Cancer Sister No family history of kidney disease Social history: reports that he has never smoked. He has never used smokeless tobacco. He reports that he does not currently use alcohol. He reports that he does not use drugs. PHYSICAL EXAMINATION: There were no vitals taken for this visit. BP - standardized method Pulse 1 BP #1: 110/60 Pulse #1: 54 beats/min 2 BP #2 : 117/63 Pulse #2 : 54 beats/min 3 BP #3 : 113/62 Pulse #3 : 54 beats/min Average Average BP: 113/62 Average Pulse: 54 beats/min Orthostatic vitals Supine Sitting Standing BP cuff location BP cuff location: Left upper arm BP cuff size BP cuff size: large adult Comments for BP values First BP (right) First BP (left) General appearance: well appearing, in no acute distress, alert HEENT: NC/AT Neck: supple Lungs: normal respiratory effort, clear to auscultation bilaterally Heart: RRR, normal S1 and S2 Abdomen: soft, NT, ND, normoactive BS Back: no CVA tenderness Extremities: + edema Neuro: alert and oriented x 3 Labs: CBC: Lab Results Component Value Date WBC 11.94 (H) 10/05/2023 HB 10.1 (L) 10/05/2023 HCT 31.1 (L) 10/05/2023 PLT 338 10/05/2023 BMP: Lab Results Component Value Date NA 133 (L) 10/05/2023 K 5.1 10/05/2023 CHLOR 102 10/05/2023 GLUC 250 (H) 10/05/2023 CA 9.5 10/05/2023 RENAL FUNCTION Lab Results Component Value Date BUN 48 (H) 10/05/2023 BUN 30 (H) 03/30/2023 BUN 36 (H) 09/18/2022 CREAT 2.59 (H) 10/05/2023 CREAT 2.24 (H) 03/30/2023 CREAT 2.28 (H) 09/18/2022 EGFRAA 44 10/07/2021 EGFRAA 44 08/26/2021 EGFRAA 57 08/11/2021 EGFROTH 25 (L) 10/05/2023 EGFROTH 29 (L) 03/30/2023 EGFROTH 29 (L) 09/18/2022 ACID/BASE Lab Results Component Value Date CO2 21 (L) 10/05/2023 ALB 4.1 10/05/2023 ANION 10 10/05/2023 BONE/MINERAL METABOLISM Lab Results Component Value Date CA 9.5 10/05/2023 P 1.4 (L) 03/22/2021 IRON STUDIES Lab Results Component Value Date FE 87 09/18/2022 TIBC 367 09/18/2022 TRANSFERSAT 23.7 09/18/2022 NANO 159.0 09/18/2022 DIABETES Lab Results Component Value Date HBA1C 7.4 (H) 06/03/2021 URINE: Urine POC Lab Results Component Value Date UGLUCPOC Negative 12/19/2023 UBILIPOC Negative 12/19/2023 UKETONPOC Negative 12/19/2023 USGPOC <=1.005 (A) 12/19/2023 UHBPOC Trace-intact (A) 12/19/2023 UPHPOC 5.0 12/19/2023 UPROPOC Trace (A) 12/19/2023 UUROPOC 0.2 12/19/2023 UNITPOC Negative 12/19/2023 UWBCPOC Trace (A) 12/19/2023 UCOLPOC Yellow 12/19/2023 UCLARPOC Clear 12/19/2023 ASSESSMENT/PLAN: Mr. Morel is a 78 year old male who presents for an evaluation for his kidney function. He has history of colorectal cancer resected in 04/2020, required partial cystectomy as pathology noted to have abutment to the bladder. He was given Folox (07/2020-12/2020) and in February 2021 had denice reversal. He also has history of HTN, DM, BPH. 1) CKD stage IV -with multiple episodes of GOOD along with history of HTN and BM, BPH, he had TURP with Urology, noted last imaging with mild bilateral ureterectasis which was unchanged, no hydronephrosis seen and is followed by urology - update renal US with pvr - We discussed CKD, and how renal function is measured and diagnosis and stages of CKD. We discussed comorbities associated with CKD (anemia of CKD, hyperparathyroidism secondary to CKD and also cardiovascular disease). - Discussed need for good diabetes, blood pressure and cholesterol control - Discussed avoiding nephrotoxins such as NSAIDs and IV iodinated contrast dye if able to, if needed, review with nephrology. If needed, needs IV hydration and monitoring of his kidney function 2) Hypertension: controlled here, unable to verify medications - printed out med list to have patient verify his home meds - knows to [employer] message me with medication changes 3) history of colorectal cancer - he is followed by oncology 4) Ca/Phos: okay, phos was low when previously checked - update 5.) PTH: will check 6) Heme: anemic - at goal for CKD, update iron studies, b12 and folate, check monoclonals 7)on ozempic - states his blood sugars are under better control and has had weight loss Follow up in 4 month(s), sooner prn. Leslee Webster DO I spent a total of 60 minutes on the date of the service which included preparing to see the patient, [id number] patient care, completing clinical documentation, obtaining and/or reviewing separately obtained history, performing a medically appropriate examination, counseling and educating the pat ient/family/caregiver, and ordering medications, tests, or procedures. documented in this encounterAultman [facility]04-10-2024 NoteHNO ID: [id number] Author: LESLEE WEBSTER DO Service: ? Author Type: Physician Type: Progress Notes Filed: 12/19/2023 09:49 Note Text: Consultation requested by Dr Cook for an opinion regarding kidney function. My final recommendations will be communicated back to the requesting physician by way of shared medical record or letter via US mail HPI: Mr. Morel is a 78 year old male who presents for an evaluation for his kidney function. He has history of colorectal cancer resected in 04/2020, required partial cystectomy as pathology noted to have abutment to the bladder. He was given Folox (07/2020-12/2020) and in February 2021 had denice reversal. He also has history of HTN, DM, BPH. Patient was had DM now for around 30 years. Currently is on insulin for diabetes. He follows with opthalmology and does not have diabetic retinopathy per patient. After 2023, started on ozempic in place of metformin. States he feels better since coming off of metformin. Though having diarrhea now with ozempic. He reports he hydrates well. He states he has had some weight loss while on it. He has had HTN now for around 30 years. Patient does occasionally check his BPs at home and BP is usually controlled. He does tries to watch sodium intake. Home BP medications are amlodipine 5mg daily or nifedipine 60mg daily, (he is not sure which one and will check for me) spironolactone 25mg daily, losartan 100mg daily. He is not sure of his home meds. Patient denies NSAID, uses tylenol for pain. Denies foamy urine or gross hematuria. There is no family history of kidney disease. Patient denies history of kidney stones Creatinine had been around 0.9mg/dl, episodes of GOOD noted, in 08/2020 creatinine increased to 2.72mg/dL, then down to 1.2mg/dL, 03/02/2021, creatinine again up to 2.2mg/dL then down, 03/2021 increaesd to 5mg/dL mg/dL, (admitted with volume depletion and mild hydronephrosis of right kidney) improved, and back down to 1.7mg/dL, 04/2022 increased to 3mg/dL (in with nausea, vomiting), then down to 2.2mg/dL., last checked was 2.59mg/dL in 10/05/2023. His imaging in 04/2023 showed mild bilateral ureterectasis. PAST SURGICAL HISTORY Procedure Laterality Date COLONOSCOPY AND BIOPSY 03/24/2020 Dr Vu COLONSCOPY SCREENING HIGH RISK 03/2020 EGD 03/2020 HERNIA REPAIR HX 1985 X2- umbilical and right inguinal hernia PAST SURGICAL HISTORY OF 05/11/2020 hemicolectomy with colostomy and partial cystectomy PAST SURGICAL HISTORY OF 02/2021 colostomy reversal REPAIR INCISIONAL HERNIA,REDUCIBLE 06/13/2021 REPAIR INCISIONAL HERNIA,REDUCIBLE 05/03/2022 TRANSURETHRAL ELEC-SURG PROSTATECTOM 08/2021 Current Outpatient Medications Medication Sig OZEMPIC 0.25 mg or 0.5 mg (2 mg/3 mL) pen INJECT 0.25 MG SUBCUTANEOUSLY WEEKLY tamsulosin (FLOMAX) 0.4 mg Take 0.4 mg by mouth once daily. amLODIPine (NORVASC) 5 mg tablet Take 5 mg by mouth once daily. furosemide (LASIX) 20 mg tablet CPAP NIFEdipine XL (ADALAT CC, PROCARDIA XL) 60 mg 24 hr tablet Take 60 mg by mouth once daily. spironolactone (ALDACTONE) 25 mg tablet Take 25 mg by mouth every morning. A-C-E-zinc ox-cupric ox-lutein ([facility]) 7,160 unit- 113 mg-1 mg tab Take by mouth. losartan potassium (LOSARTAN ORAL) Take 100 mg by mouth once daily. oxybutynin XL (DITROPAN XL) 5 mg 24 hr tablet Take 5 mg by mouth once daily. cyanocobalamin (VITAMIN B-12) 500 mcg tablet fenofibrate nanocrystallized (TRICOR) 48 mg tablet Take 96 mg by mouth every morning. multivit-min/folic/vit K/lycop (ONE-A-DAY MEN'S MULTIVITAMIN ORAL) insulin NPH-insulin regular injection (HumuLIN, NovoLIN 70/30) If blood sugar before dinner is >200, start taking 5 unit(s) of 70/30 NPH before dinner and continue with the 7 unit(s) in the morning. If the blood sugar before dinner is again >200 the next day, add 2 unit(s) to the previous dose of evening insulin For AM insulin changes: Check blood sugar before lunch. If blood sugar > 200, add 2 unit(s) to the morning insulin and take 9 the next day. If the following day's pre-lunch sugar is again > 200, add another 2 unit(s) to the morning dose. FERROUS GLUCONATE ORAL Take 324 mg by mouth once daily. aspirin, enteric coated (ASPIRIN, ENTERIC COATED) 81 mg EC tablet Take 81 mg by mouth once daily. Ascorbic Acid 60 mg lozg Take by mouth. cholecalciferol (VITAMIN D3) 1,000 unit tab tablet Take 1,000 Units by mouth. Cinnamon Bark 500 mg cap Take 500 mg by mouth. Xtlov-7-OQP-EPA-Fish Oil 300-1,000 mg cap Take by mouth. simvastatin (ZOCOR) 80 mg tablet Take 80 mg by mouth. No current facility-administered medications for this visit. Patient unsure of meds - will verify home meds ALLERGIES Allergen Reactions Cephalexin Diarrhea Ciprofloxacin Other: See Comments Made pt dizzy Flagyl [Metronidazo* Other: See Comments Made pt dizzy Fluconazole Diarrhea FAMILY HISTORY Problem Relation Age of Onset Tramaine (more content not included)...[facility]02-08-2024 Miscellaneous Notes* Telephone Encounter - Pma Torres RN - 10/18/2023 10:02 AM EST Pt notified Pam Torres RN * Telephone Encounter - Pam Torres RN - 10/18/2023 10:01 AM EST ----- Message from Sarika Cook MD sent at 10/17/2023 11:51 PM EST ----- Call with negative Signatera documented in this encounterA[facility]02-07-[facility]24 Miscellaneous Notes* Telephone Encounter - Hanna Neville - 10/17/2023 8:32 AM EST Called [facility] office. Patient is scheduled 10/17/23 @ 10:45 for Port Removal. Hanna Julian * Telephone Encounter - Hanna Neville - 10/10/2023 10:40 AM EST Called [facility] office. They have received this referral and their corporate travel coordinator will be calling patient soon to get scheduled. Hanna Julian * Telephone Encounter - Cherelle Collazo - 10/08/2023 9:42 AM EST Records faxed to [facility]. * Telephone Encounter - Hanna Neville - 10/08/2023 7:46 AM EST Josi:Information ready for you. Hanna Julian * Telephone Encounter - Cassi Méndez - 10/05/2023 3:42 PM EST Please refer patient to [facility], Drs. Beaver and Margarita for port removal. Matilda abreu the patient to schedule after review of records. Josi, please fax records Alfie, Please follow up on this appt. documented in this encounterAultman [facility]01-26-2024 NoteHNO ID: [id number] Author: SARIKA COOK MD Service: ? Author Type: Physician Type: Progress Notes Filed: 10/05/2023 15:32 Note Text: PATIENT NAME: Isaiah Morel [facility] NO.: [id number] ATTENDING PHYSICIAN: Sarika Cook MD DATE OF SERVICE: October 05, 2023 Some of the elements of this note have been copied from my previous progress note dated 04/20/2023. All the information has been reviewed carefully. Some of the elements of this note have been copied from my previous progress note dated October 05, 2023 DIAGNOSIS 1. 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 Pathology noted to have abutment to the bladder wall needing partial cystectomy (T4b). High risk stage 2. MSI-Stable. TREATMENTS 1. 05/11/2020 Exploratory laparotomy, right hemicolectomy, ileocolic anastomosis, partial sigmoidectomy, end colostomy with denice's pouch (Dr. Curiel). Partial cystectomy (Dr. Gamboa) Path below. 2. Adjuvant FOLFOX 07/13/2020- 12/22/2020 ( Last cycle without Oxali secondary to worsening neuropathy) 3. March 01, 2021: Panel 1: * DENICE REVERSAL WITH SIDE TO END COLO-COLONIC ANASTOMOSIS (EEA33) * TAKEDOWN OF END COLOSTOMY *TAP BLOCK *LYSIS OF ADHESION *FLEXIBLE SIGMOIDOSCOPY Panel 2: * INSERTION STENT URETERAL - General 2. TURP 08/2021 3. Colonoscopy 11/2021: The examined portion of the ileum was normal. - Submucosal nodule in the descending colon. Biopsied. - A few ulcers at the colonic anastomosis. Biopsied. - Internal hemorrhoids. A. Descending colon, biopsy: - Submucosal adipose tissue suggestive of submucosal lipoma. B. Colocolonic anastomosis, biopsy: - Mild architectural distortion and changes consistent with proximity to anastomotic site. PATH: A. Descending colon, biopsy: - Submucosal adipose tissue suggestive of submucosal lipoma. B. Colocolonic anastomosis, biopsy: - Mild architectural distortion and changes consistent with proximity to anastomotic site. 4. Signatera- 07/2020, 10/2020,01/2021, 04/2021. 08/2021, 02/2022 and 09/2022, 04/2023- Negative HPI: 77 yo man here for follow up Doing well and denies any new complaints. Current Outpatient Medications Medication Sig tamsulosin (FLOMAX) 0.4 mg Take 0.4 mg by mouth once daily. ondansetron orally disintegrating (ZOFRAN ODT) 4 mg disintegrating tablet Take 1 tablet by mouth every 8 hours as needed for nausea/vomiting. amLODIPine (NORVASC) 5 mg tablet Take 5 mg by mouth once daily. furosemide (LASIX) 20 mg tablet CPAP NIFEdipine XL (ADALAT CC, PROCARDIA XL) 60 mg 24 hr tablet Take 60 mg by mouth once daily. spironolactone (ALDACTONE) 25 mg tablet Take 25 mg by mouth every morning. A-C-E-zinc ox-cupric ox-lutein ([facility]) 7,160 unit- 113 mg-1 mg tab Take by mouth. losartan potassium (LOSARTAN ORAL) Take 100 mg by mouth once daily. oxybutynin XL (DITROPAN XL) 5 mg 24 hr tablet Take 5 mg by mouth once daily. cyanocobalamin (VITAMIN B-12) 500 mcg tablet fenofibrate nanocrystallized (TRICOR) 48 mg tablet Take 96 mg by mouth every morning. multivit-min/folic/vit K/lycop (ONE-A-DAY MEN'S MULTIVITAMIN ORAL) insulin NPH-insulin regular injection (HumuLIN, NovoLIN 70/30) If blood sugar before dinner is >200, start taking 5 unit(s) of 70/30 NPH before dinner and continue with the 7 unit(s) in the morning. If the blood sugar before dinner is again >200 the next day, add 2 unit(s) to the previous dose of evening insulin For AM insulin changes: Check blood sugar before lunch. If blood sugar > 200, add 2 unit(s) to the morning insulin and take 9 the next day. If the following day's pre-lunch sugar is again > 200, add another 2 unit(s) to the morning dose. FERROUS GLUCONATE ORAL Take 324 mg by mouth once daily. aspirin, enteric coated (ASPIRIN, ENTERIC COATED) 81 mg EC tablet Take 81 mg by mouth once daily. Ascorbic Acid 60 mg lozg Take by mouth. cholecalciferol (VITAMIN D3) 1,000 unit tab tablet Take 1,000 Units by mouth. Cinnamon Bark 500 mg cap Take 500 mg by mouth. metFORMIN (GLUCOPHAGE) 500 mg tablet Take 1 tablet by mouth twice daily with meals. montelukast (SINGULAIR) 10 mg tablet Take 10 mg by mouth. Peube-5-PJD-EPA-Fish Oil 300-1,000 mg cap Take by mouth. simvastatin (ZOCOR) 80 mg tablet Take 80 mg by mouth. No current facility-administered medications for this visit. ALLERGIES Allergen Reactions Cephalexin Diarrhea Ciprofloxacin Other: See Comments Made pt dizzy Flagyl [Metronidazo* Other: See Comments Made pt dizzy Fluconazole Diarrhea PAST MEDICAL HISTORY Diagnosis Date Anemia BPH (benign prostatic hyperplasia) Colon cancer (HCC) 03/2020 Difficult intravenous access 07/19/2021 DM (diabetes mellitus) (HCC) Gastritis Hypertension Mass of colon 03/24/2020 Dr Vu Morbid obesity (HCC) NEGATIVE HISTORY OF 04/06/2022 NO PNE, TB, HD KIMMY (obstructive sleep apnea) PAST SURGICAL HISTORY Procedure Laterality Date COLONOSCOPY AN (more content not included)...[facility] 06-11-2023 NoteReferral Lab 7Hovfbj91/02/2023 11:58 AM EDTNON-INTERFACED REF LABSAultman [facility]08-12-2023 Miscellaneous Notes* Telephone Encounter - Syd Gamboa MD - 04/21/2023 9:27 AM EDT April 21, 2023 9:27 AM Called patient evening 04/20 to check on patient. He had missed virtual visit 04/19 and wished to discuss via phone instead. HE is overall doing well without complaints. He is voiding well and emptyingthe bladder. No hematuria. No complaints at present.. All questions answered - please followup 1 year. Syd Gamboa MD documented in this encounterAultman [facility]08-11-2023 History of Present illness Narrative* Leila Betts RN - 04/20/2023 2:21 PM EDT No labs today per Dr. Taylor. Leila Betts, ZOE documented in this encounterAultman [facility]08-11-2023 History of Present illness Narrative* Sarika Cook MD - 04/20/2023 1:57 PM EDT PATIENT NAME: Isaiah Morel [facility] NO.: [id number] ATTENDING PHYSICIAN: Sarika Cook MD DATE OF SERVICE: April 20, 2023 Some of the elements of this note have been copied from my previous progress note dated 03/30/2023. All the information has been reviewed carefully. Some of the elements of this note have been copied from my previous progress note dated April 20, 2023 DIAGNOSIS 1. 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 Pathology noted to have abutment to the bladder wall needing partial cystectomy (T4b). High risk stage 2. MSI-Stable. TREATMENTS 1. 05/11/2020 Exploratory laparotomy, right hemicolectomy, ileocolic anastomosis, partial sigmoidectomy, end colostomy with denice's pouch (Dr. Curiel). Partial cystectomy (Dr. Gamboa) Path below. 2. Adjuvant FOLFOX 07/13/2020- 12/22/2020 ( Last cycle without Oxali secondary to worsening neuropathy) 3. March 01, 2021: Panel 1: * DENICE REVERSAL WITH SIDE TO END COLO-COLONIC ANASTOMOSIS (EEA33) * TAKEDOWN OF END COLOSTOMY *TAP BLOCK *LYSIS OF ADHESION *FLEXIBLE SIGMOIDOSCOPY Panel 2: * INSERTION STENT URETERAL - General 2. TURP 08/2021 3. Colonoscopy 11/2021: The examined portion of the ileum was normal. - Submucosal nodule in the descending colon. Biopsied. - A few ulcers at the colonic anastomosis. Biopsied. - Internal hemorrhoids. A. Descending colon, biopsy: - Submucosal adipose tissue suggestive of submucosal lipoma. B. Colocolonic anastomosis, biopsy: - Mild architectural distortion and changes consistent with proximity to anastomotic site. PATH: A. Descending colon, biopsy: - Submucosal adipose tissue suggestive of submucosal lipoma. B. Colocolonic anastomosis, biopsy: - Mild architectural distortion and changes consistent with proximity to anastomotic site. 4. Signatera- 07/2020, 10/2020,01/2021, 04/2021. 08/2021, 02/2022 and 09/2022- Negative HPI: 77 yo man here for follow up He states that his abdominal pain has improved and [facility]. Denies any rashes. Current Outpatient Medications Medication Sig tamsulosin (FLOMAX) 0.4 mg Take 0.4 mg by mouth once daily. ondansetron orally disintegrating (ZOFRAN ODT) 4 mg disintegrating tablet Take 1 tablet by mouth every 8 hours as needed for nausea/vomiting. amLODIPine (NORVASC) 5 mg tablet Take 5 mg by mouth once daily. furosemide (LASIX) 20 mg tablet CPAP NIFEdipine XL (ADALAT CC, PROCARDIA XL) 60 mg 24 hr tablet Take 60 mg by mouth once daily. spironolactone (ALDACTONE) 25 mg tablet Take 25 mg by mouth every morning. A-C-E-zinc ox-cupric ox-lutein ([facility]) 7,160 unit- 113 mg-1 mg tab Take by mouth. losartan potassium (LOSARTAN ORAL) Take 100 mg by mouth once daily. oxybutynin XL (DITROPAN XL) 5 mg 24 hr tablet Take 5 mg by mouth once daily. cyanocobalamin (VITAMIN B-12) 500 mcg tablet fenofibrate nanocrystallized (TRICOR) 48 mg tablet Take 96 mg by mouth every morning. multivit-min/folic/vit K/lycop (ONE-A-DAY MEN'S MULTIVITAMIN ORAL) insulin NPH-insulin regular injection (HumuLIN, NovoLIN 70/30) If blood sugar before dinner is >200, start taking 5 unit(s) of 70/30 NPH before dinner and continue with the 7 unit(s) in the morning. If the blood sugar before dinner is again >200 the next day, add 2 unit(s) to the previous dose of evening insulin For AM insulin changes: Check blood sugar before lunch. If blood sugar > 200, add 2 unit(s) to the morning insulin and take 9 the next day. If the following day's pre-lunch sugar is again > 200, add another 2 unit(s) to the morning dose. FERROUS GLUCONATE ORAL Take 324 mg by mouth once daily. aspirin, enteric coated (ASPIRIN, ENTERIC COATED) 81 mg EC tablet Take 81 mg by mouth once daily. Ascorbic Acid 60 mg lozg Take by mouth. cholecalciferol (VITAMIN D3) 1,000 unit tab tablet Take 1,000 Units by mouth. Cinnamon Bark 500 mg cap Take 500 mg by mouth. metFORMIN (GLUCOPHAGE) 500 mg tablet Take 1 tablet by mouth twice daily with meals. montelukast (SINGULAIR) 10 mg tablet Take 10 mg by mouth. Oatln-2-PLE-EPA-Fish Oil 300-1,000 mg cap Take by mouth. simvastatin (ZOCOR) 80 mg tablet Take 80 mg by mouth. No current facility-administered medications for this visit. Facility-Administered Medications Ordered in Other Visits Medication Dose Route Frequency sodium chloride 0.9 % (flush) 10-20 mL (BD POSIFLUSH) 10-20 mL INTRAVENOUS PRN heparin 100 unit/mL 500 Units injection 5 mL INTRAVENOUS DIRECTED PRN sodium chloride 0.9 % (flush) 10-20 mL (BD POSIFLUSH) 10-20 mL INTRAVENOUS DIRECTED PRN ALLERGIES Allergen Reactions Cephalexin Diarrhea Ciprofloxacin Other: See Comments Made pt dizzy Flagyl [Metronidazo* Other: See Comments Made pt dizzy Fluconazole Diarrhea PAST MEDICAL HISTORY Diagnosis Date Anemia BPH (benign prostatic hyperplasia) Colon cancer (HCC) 03/2020 Difficult intravenous access 07/19/2021 DM (diabetes mellitus) (HCC) Gastritis Hypertension Mass of colon 03/24/2020 Dr Vu Morbid obesity (HCC) NEGATIVE HISTORY OF 04/06/2022 NO PNE, TB, HD KIMMY (obstructive sleep apnea) PAST SURGICAL HISTORY Procedure Laterality Date COLONOSCOPY AND BIOPSY 03/24/2020 Dr Vu COLONSCOPY SCREENING HIGH RISK 03/2020 EGD 03/2020 HERNIA REPAIR HX 1985 X2- umbilical and right inguinal hernia PAST SURGICAL HISTORY OF 05/11/2020 hemicolectomy with colostomy and partial cystectomy PAST SURGICAL HISTORY OF 02/2021 colostomy reversal REPAIR INCISIONAL HERNIA,REDUCIBLE 06/13/2021 REPAIR INCISIONAL HERNIA,REDUCIBLE 05/03/2022 TRANSURETHRAL ELEC-SURG PROSTATECTOM 08/2021 FAMILY HISTORY Problem Relation Age of Onset Diabetes Mother Ischemic Heart Disease Mother CABG Stroke Father Diabetes Father Heart Attack Father 72 Cancer Sister Anesthesia Problems No Family History Blood Clots No Family History Clotting Disorder No Family History Social History Tobacco Use Smoking status: Never Smokeless tobacco: Never Vaping Use Vaping Use: Never used Substance Use Topics Alcohol use: Not Currently Drug use: Never Comment: denies tx for drug/alcohol abuse in the past. REVIEW OF SYSTEMS GENERAL: No weight loss, malaise or fevers. No night sweats. HEENT: Negative for headaches, No changes in hearing or vision, no nose bleeds or other nasal problems. RESPIRATORY: Negative for cough, wheezing and shortness of breath CARDIOVASCULAR: Negative for chest pain, leg swelling and palpitations GI: Negative for abdominal discomfort, blood in stools or black stools and change in bowel habits : Negative for dysuria, frequency and incontinence MUSCULOSKELETAL: Negative for joint pain or swelling, back pain, and muscle pain. SKIN: Negative for lesions, rash, and itching. HEMATOLOGY/LYMPHOLOGY Negative for prolonged bleeding, bruising easily, and swollen nodes. NEURO: Negative for numbness or tingling of hands/feet. No weakness. PHYSICAL EXAMINATION: BP (!) 168/49 Pulse (!) 57 Temp 36.8 C (98.3 F) (Temporal) Resp 18 Ht 188 cm (6' 2.02 ) Wt (!) 149 kg (328 lb 6.4 oz) SpO2 94% BMI 42.15 kg/m Wt 135.1 kg (297 lb 12.8 oz) BMI 38.24 kg/m2 Last 3 Encounter Wt Readings: Date: Wt: 04/05/2020 135.1 kg (297 lb 12.8 oz) General appearance:ECOG PERFORMANCE STATUS: 1- Restricted in physically strenuous activity. Carries out light duty. Patient in NAD. Skin: Skin color, texture, turgor normal. No rashes or lesions. Eyes: Anicteric sclera. Pupils are equally round and reactive to light. Extraocular movements are intact. Breast: No palpable breast masses. No nipple change or discharge. Lymph Nodes: No cervical, supraclavicular, axillary or inguinal adenopathy. Oropharynx: Lips, mucosa, and tongue normal. Back: No pain to percussion. Negative SLR test Lungs clear to auscultation, No wheezing or rhonchi Heart: RRR without murmur, gallop, or rubs. Abdomen soft, non-tender. No masses, organomegaly Extremities: ++edema, diabetic feet but no neuropathy Neuro: Gait and speech normal. Reflexes normal and symmetric. Muscular strength intact. Sensation grossly intact. Rectal: Deferred : Deferred LABS: Glucose (mg/dL) Date Value 03/30/2023 274 10/07/2021 245 Potassium (mmol/L) Date Value 03/30/2023 4.9 10/07/2021 5.4 Sodium (mmol/L) Date Value 03/30/2023 139 10/07/2021 136 Chloride (mmol/L) Date Value 03/30/2023 108 10/07/2021 106 CO2 (mmol/L) Date Value 03/30/2023 24 10/07/2021 22 Creatinine (mg/dL) Date Value 03/30/2023 2.24 10/07/2021 1.82 BUN (mg/dL) Date Value 03/30/2023 30 10/07/2021 36 Anion Gap (mmol/L) Date Value 03/30/2023 7 10/07/2021 8 Calcium (mg/dL) Date Value 10/07/2021 9.3 Calcium, Total (mg/dL) Date Value 03/30/2023 9.4 Protein, Total (g/dL) Date Value 03/30/2023 7.6 10/07/2021 7.6 Albumin (g/dL) Date Value 03/30/2023 4.2 10/07/2021 4.1 Bilirubin, Total (mg/dL) Date Value 03/30/2023 0.2 10/07/2021 <0.2 Alkaline Phosphatase (U/L) Date Value 03/30/2023 53 10/07/2021 46 AST (U/L) Date Value 03/30/2023 19 10/07/2021 12 ALT (U/L) Date Value 03/30/2023 18 10/07/2021 8 WBC Date Value Ref Range Status 03/30/2023 7.76 3.70 - 11.00 k/uL Final RBC Date Value Ref Range Status 03/30/2023 3.29 (L) 4.20 - 6.00 m/uL Final Hemoglobin Date Value Ref Range Status 03/30/2023 10.1 (L) 13.0 - 17.0 g/dL Final Hematocrit Date Value Ref Range Status 03/30/2023 31.4 (L) 39.0 - 51.0 % Final MCV Date Value Ref Range Status 03/30/2023 95.4 80.0 - 100.0 fL Final MCH Date Value Ref Range Status 03/30/2023 30.7 26.0 - 34.0 pg Final MCHC Date Value Ref Range Status 03/30/2023 32.2 30.5 - 36.0 g/dL Final RDW-CV Date Value Ref Range Status 03/30/2023 15.4 (H) 11.5 - 15.0 % Final Platelet Count Date Value Ref Range Status 03/30/2023 321 150 - 400 k/uL Final MPV Date Value Ref Range Status 03/30/2023 10.3 9.0 - 12.7 fL Final Abs Neut Date Value Ref Range Status 03/30/2023 3.97 1.45 - 7.50 k/uL Final Lymphocytes % Date Value Ref Range Status 03/30/2023 34.8 % Final Abs Lymph Date Value Ref Range Status 03/30/2023 2.70 1.00 - 4.00 k/uL Final Monocytes % Date Value Ref Range Status 03/30/2023 8.6 % Final Abs [place] Date Value Ref Range Status 03/30/2023 0.67 <0.87 k/uL Final Eosinophils % Date Value Ref Range Status 03/30/2023 4.3 % Final Abs Eosin Date Value Ref Range Status 03/30/2023 0.33 <0.46 k/uL Final Basophils % Date Value Ref Range Status 03/30/2023 0.4 % Final Abs Baso Date Value Ref Range Status 03/30/2023 0.03 <0.11 k/uL Final PATH: 05/11/2020 FINAL DIAGNOSIS 1. Right lateral abdominal wall margin, biopsy (A): No tumor. 2. Right bladder margin, biopsy (B): No tumor. 3. Left lateral margin, biopsy (C): No tumor. 4. Anterior bladder margin, biopsy (D): No tumor. 5. Right colon, sigmoid colon, and bladder dome, resection (E): - Adenocarcinoma involving cecum with transmural extension and adherence to bladder and abdominal wall, margins negative (see synoptic). - No tumor in forty-one lymph nodes (0/41). SYNOPTIC REPORT OF TAPIA PATHOLOGIC FINDINGS RIGHT COLON, SIGMOID COLON, AND BLADDER DOME: COLON AND RECTUM:RESECTION, INCLUDING TRANSANAL DISK EXCISION OF RECTAL NEOPLASMS WORKSHEET: Procedure: Right hemicolectomy Tumor Site: Cecum Tumor Size: Greatest dimension: 12.5 cm Macroscopic Tumor Perforation: Not identified Histologic Type: Adenocarcinoma Histologic Grade: G2: Moderately differentiated Tumor Extension: Tumor directly invades adjacent structures: Abdominal wall, bladder Margins: All margins are uninvolved by invasive carcinoma, high-grade dysplasia, intramucosal adenocarcinoma, and adenoma Margins examined: proximal, distal, mesenteric, bladder, abdominal wall Proximal Margin: Uninvolved by invasive carcinoma Distal Margin: Uninvolved by invasive carcinoma Circumferential Radial Margin: Not applicable Mesenteric Margin: Uninvolved by invasive carcinoma Other Margin(s): Margin: abdominal wall and bladder margins Uninvolved by invasive carcinoma Treatment Effect: No known presurgical therapy Lymphovascular Invasion: Not identified Perineural Invasion: Not identified Tumor Deposits: Not identified Regional Lymph Nodes: Number of nodes involved: 0 Number of nodes examined: 41 Pathologic Stage Classification (pTNM,AJCC 8th ed) TNM Descriptors: Not applicable Pathologic Staging (pTNM): pT4b: Tumor directly invades or is adherent to other organs or structures Regional Lymph Nodes (pN): pN0: No regional lymph node metastasis Distant Metastasis (pM): Not applicable/Not confirmed pathologically in this case Mismatch repair (MMR) status: Proficient (microsatellite stable IMAGING: CT of the Chest and Abdomen and Pelvis 04/21/2021: 1. Moderate elevation of the right hemidiaphragm, associated area of compressive atelectasis, stable. 2. Consolidative opacity within the posterior aspect of right lower lobe has progressed. Correlation with continued follow-up examinations is recommended. 3. Partially calcified right hilar adenopathy, unchanged. 4. 4 mm nodule along the right minor fissure, stable. 1. Several small retroperitoneal and mesenteric lymph nodes are again identified, unchanged. 2. 6 mm, nonspecific soft tissue density nodule within the right lower quadrant, stable. 3. A small amount cholelithiasis is appreciated on today's examination. PET Scan 09/2022: 1. Neck: No suspicious hypermetabolic foci 2. Chest: No evidence of FDG avid neoplastic process 3. Abdomen and pelvis: Post surgical changes. No suspicious hypermetabolic foci. 4. Skeleton: No hypermetabolic osseous lesions CT Abdomen w/o Contrast 04/2023: 1. Since 05/08/2022, no evidence of local recurrence or metastatic disease within the abdomen/pelvis. 2. Unchanged mild bilateral ureterectasis, extending to the distal ureters, immediately adjacent to the ureterovesical junctions. Consideration could be given to further assessment with cystoscopy, if warranted. 3. No acute abnormality within the abdomen/pelvis. 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 High risk Stage 2 - On FOLFOX post 12 cycles. However the last cycle of chemotherapy oxaliplatin was dropped secondary to neuropathy. Patient underwent Denice reversal in February 2021 and is this point doing quite well. Hs signatera last 09/2022 along with PET 09/2022 was negative. 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 Sarika Cook MD April 27, 2021 12:29 PM CC: MD Syd Lagunas MD Michael Valente, MD documented in this encounterAultman [facility]08-08-2023 Miscellaneous Notes* Telephone Encounter - Pam Torres RN - 04/17/2023 11:07 AM EDT Pt notified of results. Pam Torres RN * Telephone Encounter - Pam Torres RN - 04/17/2023 11:04 AM EDT ----- Message from Sarika Cook MD sent at 04/16/2023 8:46 PM EDT ----- Call with negative CT documented in this encounterA[facility] History of Present illness Narrative* Mary Rodriguez, RT(R) - 04/16/2023 10:15 AM EDT Radiology Service Progress Note PATIENT NAME: Isaiah Morel DATE OF SERVICE: April 16, 2023 TIME: 10:58 AM PATIENT IDENTITY VERIFICATION COMPLETED USING TWO (2) IDENTIFIERS: Name and Date of confirmedby patient verbally. FALL SCREENING: Has the patient had 2 falls in the last year or 1 fall with injury or currently using an Ambulatory Assistive Device (Walker, Cane, Wheelchair, Crutches, etc.)? No PATIENT GENDER DATA: Male PATIENT RELEVANT IMPLANT DATA REVIEWED: Not Applicable RADIOLOGY DEPARTMENT: CT; Exam(s) Completed: Abdomen/Pelvis With IV and Oral contrast PERIPHERAL IV DATA: Not applicable SIGNED BY: RT Kimberly(R) April 16, 2023 10:58 AM POWER port scanned 01/25/2021-HEP * Iqra Mejia RN - 04/16/2023 10:15 AM EDT Radiology Service Progress Note DATE OF SERVICE: April 16, 2023 TIME: 11:15 AM PATIENT WEIGHT: 322LBS PATIENT IDENTITY VERIFICATION COMPLETED USING TWO (2) STANDARD IDENTIFIERS: Name and Date of confirmed by patient verbally. FALL SCREENING: Has the patient had 2 falls in the last year or 1 fall with injury or currently using an Ambulatory Assistive Device (Walker, Cane, Wheelchair, Crutches, etc.)? No PATIENT GENDER DATA: Male ALLERGIES: Reviewed and unchanged CONTRAST ALLERGY: No EXAM: CT -CONTRAST INDUCED NEPHROPATHY RISK FACTORS: Patient age > 60 years CREATININE: Creatinine Date Value Ref Range Status 03/30/2023 2.24 (H) 0.73 - 1.22 mg/dL Final 09/18/2022 2.28 (H) 0.73 - 1.22 mg/dL Final 05/12/2022 2.11 (H) 0.73 - 1.22 mg/dL Final Estimated Glomerular Filtration Rate Date Value Ref Range Status 03/30/2023 29 (L) >=60 mL/min/1.73m Final Comment: Estimated Glomerular Filtration Rate (eGFR) is calculated using the 2020 CKD-EPI creatinine equation. This equation utilizes serum creatinine, sex, and age as parameters. The creatinine assay has traceable calibration to isotope dilution- mass spectrometry. Refer to KDIGO guidelines for clinical interpretation. In patients with unstable renal function, e.g. those with acute kidney injury, the eGFRmay not accurately reflect actual GFR. eGFR- Date Value Ref Range Status 10/07/2021 44 Final P.O.C.T. RESULTS: N/A April 16, 2023 TREATMENT: N/A and IV Hydration: Normal Saline solution 1000 ml over 1 hours. IV SITE: Ambulatory: A power injectable Mediport was accessed in the Left chest with a .75 inch 20 gauge needle. Blood Return, Flushed easily with normal saline, Good Blood Return Post Injection, Flushed with 20 cc saline followed by Heparin 500 units/5 cc, and No Complications IV SITE APPEARANCE: Clean,Dry and Intact SIGNATURE: Iqra Mejia RN PATIENT NAME: Isaiah Morel DATE: April 16, 2023 TIME: 11:15 AM documented in this encounterA[facility]08-06-[facility]23 Telephone encounter Note * Telephone Encounter - Casandra Holley PA-C - 04/15/2023 6:26 AM EDT Fluid orders placed Casandra Holley PA-C [facility]08-06-[facility]23 Miscellaneous Notes* Telephone Encounter - Casandra Holley PA-C - 04/15/2023 6:26 AM EDT Fluid orders placed Casandra Holley PA-C * Telephone Encounter - Casandra Holley PA-C - 04/13/2023 2:01 PM EDT Sarika, Do you want him to have IV fluids before the scan? Casandra Holley PA-C * Telephone Encounter - Iqra Mejia RN - 04/13/2023 9:47 AM EDT Pt with IV contrast CT 04/16.CR and GFR 2.-Will check Cre prescan. Would you like fluids before scan-if so, please order. Thank You! Iqra Mejia RN documented in this encounterA[facility]08-04-2023 Telephone encounter Note * Telephone Encounter - Casandra Holley PA-C - 04/13/2023 2:01 PM EDT Sarika, Do you want him to have IV fluids before the scan? Casandra Holley PA-C [facility]08-04-2023 Telephone encounter Note* Telephone Encounter - Iqra Mejia RN - 04/13/2023 9:47 AM EDT Pt with IV contrast CT 04/16.CR and GFR 2.-Will check Cre prescan. Would you like fluids before scan-if so, please order. Thank You! Iqra Mejia RN [facility]08-04-2023 Telephone encounter Note* Telephone Encounter - Iqra Mejia RN - 04/13/2023 9:25 AM EDT Pt of Dr Cook for CT with IV contrast on Apr 16.. Cr and GFR 2.24/29 on 03/30. Will check Cre prescan. Would you like him to receive fluids before scan-if so, please place orders Thank You! Iqra Mejia RN [facility]08-04-2023 Miscellaneous Notes* Telephone Encounter - Iqra Mejia RN - 04/13/2023 9:25 AM EDT Pt of Dr Cook for CT with IV contrast on Apr 16.. Cr and GFR 2. on 03/30. Will check Cre prescan. Would you like him to receive fluids before scan-if so, please place orders Thank You! Iqra Mejia RN documented in this encounterAult[facility]07-21-2023 Miscellaneous Notes* Telephone Encounter - Carmina Villarreal RN - 03/30/2023 12:24 PM EDT I am sending a new Signatera order for you to sign (because pt did not sign today's paperwork) and pt will have drawn on 04/16/23 when he is here for his CT scan. Radiology nurse made aware. Thank you, Carmina Villarreal RN documented in this encounterAultman [facility]01-27-2023 History of Present illness Narrative* Татьяна Barney RN - 10/06/2022 9:30 AM EST Radiology Service Progress Note DATE OF SERVICE: October 06, 2022 TIME: 9:43 AM PATIENT WEIGHT: 312 LBS PATIENT IDENTITY VERIFICATION COMPLETED USING TWO (2) STANDARD IDENTIFIERS: Name and Date of confirmed by patient verbally. FALL SCREENING: Has the patient had 2 falls in the last year or 1 fall with injury or currently using an Ambulatory Assistive Device (Walker, Cane, Wheelchair, Crutches, etc.)? No PATIENT GENDER DATA: Male ALLERGIES: Reviewed and unchanged EXAM: CT -CONTRAST INDUCED NEPHROPATHY RISK FACTORS: Not applicable CREATININE: Creatinine Date Value Ref Range Status 09/18/2022 2.28 (H) 0.73 - 1.22 mg/dL Final 05/12/2022 2.11 (H) 0.73 - 1.22 mg/dL Final 05/11/2022 2.10 (H) 0.73 - 1.22 mg/dL Final Estimated Glomerular Filtration Rate Date Value Ref Range Status 09/18/2022 29 (L) >=60 mL/min/1.73m Final Comment: Estimated Glomerular Filtration Rate (eGFR) is calculated using the 2020 CKD-EPI creatinine equation. This equation utilizes serum creatinine, sex, and age as parameters. The creatinine assay has traceable calibration to isotope dilution- mass spectrometry. Refer to KDIGO guidelines for clinical interpretation. In patients with unstable renal function, e.g. those with acute kidney injury, the eGFRmay not accurately reflect actual GFR. eGFR- Date Value Ref Range Status 10/07/2021 44 Final P.O.C.T. RESULTS: POC done: Yes, See Lab Tab October 06, 2022 TREATMENT: N/A IV SITE: Ambulatory: A peripheral IV was started in the Right hand with a Angio cath: 24 gauge. IV SITE APPEARANCE: Clean,Dry and Intact SIGNATURE: Татьяна Barney RN PATIENT NAME: Isaiah Morel DATE: October 06, 2022 TIME: 9:43 AM * Mary Rodriguez RT(R) - 10/06/2022 9:30 AM EST RADIOLOGY SERVICE PROGRESS NOTE SERVICE DATE: 10/06/2022 SERVICE TIME: 9:52 AM PATIENT IDENTITY VERIFICATION COMPLETED USING TWO (2) STANDARD IDENTIFIERS: Name and Date of confirmed by patient verbally POST EXAM PIV STATUS: Discontinued PROCEDURE TYPE: NM INJECT: PET/CT BODY SCAN. 20 mCi F18 FDG. No other medications given.. ADMINISTRATION TIME: 930 PATIENT DISCHARGED TO: Ambulatory patient, left [place] department area. A Diagnostic radioactive procedure has taken place, with no further precautions necessary other than routine body substance precautions. More information regarding radiation safety can be found usingthis link: [email or web address] SIGNATURE: RT Kimberly(Natasha) PATIENT NAME: Isaiah Morel DATE: October 06, 2022 TIME: 9:52 AM PAGER/CONTACT #: documented in this encounterAultman [facility]01-09-2023 History of Present illness Narrative* Casandra Holley PA-C - 09/18/2022 11:00 AM EST PATIENT NAME: Isaiah [facility] NO.: [id number] ATTENDING PHYSICIAN: Sarika Cook MD DATE OF SERVICE: September 18, 2022 (Elements copied from Dr. Cook's note dated March 07, 2022, have been reviewed and updated whereappropriate, and all reflect current assessment and medical decision making during today's encounter, September 18, 2022) CC: Follow up and survivorship DIAGNOSIS 1. 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 Pathology noted to have abutment to the bladder wall needing partial cystectomy (T4b). High risk stage 2. MSI-Stable. TREATMENTS 1. 05/11/2020 Exploratory laparotomy, right hemicolectomy, ileocolic anastomosis, partial sigmoidectomy, end colostomy with denice's pouch (Dr. Curiel). Partial cystectomy (Dr. Gamboa) Path below. 2. Adjuvant FOLFOX 07/13/2020- 12/22/2020 ( Last cycle without Oxali secondary to worsening neuropathy) 3. March 01, 2021: Panel 1: * DENICE REVERSAL WITH SIDE TO END COLO-COLONIC ANASTOMOSIS (EEA33) * TAKEDOWN OF END COLOSTOMY *TAP BLOCK *LYSIS OF ADHESION *FLEXIBLE SIGMOIDOSCOPY Panel 2: * INSERTION STENT URETERAL - General 2. TURP 08/2021 3. Colonoscopy 11/2021: The examined portion of the ileum was normal. - Submucosal nodule in the descending colon. Biopsied. - A few ulcers at the colonic anastomosis. Biopsied. - Internal hemorrhoids. A. Descending colon, biopsy: - Submucosal adipose tissue suggestive of submucosal lipoma. B. Colocolonic anastomosis, biopsy: - Mild architectural distortion and changes consistent with proximity to anastomotic site. 4. Signatera- 07/2020, 10/2020,01/2021, 04/2021. 08/2021, 02/2022- Negative HPI: 05/03/2022 Laparoscopic herniorrhaphy complicated by GOOD and ileus prompting readmission 05/09-05/12/2022. Still with small area of herniation, but it does not bother him. He overall feels well. Not much energy or ambition. Neuropathy in fingers is slightly improved. No pain. Eaitng and drinking. No new pain, nausea, vomiting. Feels well and still with Grade 1 neuropathy. Eating well and wants hernia looked at. States that had knee replacement as well. Current Outpatient Medications Medication Sig tamsulosin (FLOMAX) 0.4 mg Take 0.4 mg by mouth once daily. ondansetron orally disintegrating (ZOFRAN ODT) 4 mg disintegrating tablet Take 1 tablet by mouth every 8 hours as needed for nausea/vomiting. amLODIPine (NORVASC) 5 mg tablet Take 5 mg by mouth once daily. furosemide (LASIX) 20 mg tablet CPAP NIFEdipine XL (ADALAT CC, PROCARDIA XL) 60 mg 24 hr tablet Take 60 mg by mouth once daily. spironolactone (ALDACTONE) 25 mg tablet Take 25 mg by mouth every morning. A-C-E-zinc ox-cupric ox-lutein ([facility]) 7,160 unit- 113 mg-1 mg tab Take by mouth. losartan potassium (LOSARTAN ORAL) Take 100 mg by mouth once daily. oxybutynin XL (DITROPAN XL) 5 mg 24 hr tablet Take 5 mg by mouth once daily. cyanocobalamin (VITAMIN B-12) 500 mcg tablet fenofibrate nanocrystallized (TRICOR) 48 mg tablet Take 96 mg by mouth every morning. multivit-min/folic/vit K/lycop (ONE-A-DAY MEN'S MULTIVITAMIN ORAL) insulin NPH-insulin regular injection (HumuLIN, NovoLIN 70/30) If blood sugar before dinner is >200, start taking 5 unit(s) of 70/30 NPH before dinner and continue with the 7 unit(s) in the morning. If the blood sugar before dinner is again >200 the next day, add 2 unit(s) to the previous dose of evening insulin For AM insulin changes: Check blood sugar before lunch. If blood sugar > 200, add 2 unit(s) to the morning insulin and take 9 the next day. If the following day's pre-lunch sugar is again > 200, add another 2 unit(s) to the morning dose. FERROUS GLUCONATE ORAL Take 324 mg by mouth once daily. aspirin, enteric coated (ASPIRIN, ENTERIC COATED) 81 mg EC tablet Take 81 mg by mouth once daily. Ascorbic Acid 60 mg lozg Take by mouth. cholecalciferol (VITAMIN D3) 1,000 unit tab tablet Take 1,000 Units by mouth. Cinnamon Bark 500 mg cap Take 500 mg by mouth. metFORMIN (GLUCOPHAGE) 500 mg tablet Take 1 tablet by mouth twice daily with meals. montelukast (SINGULAIR) 10 mg tablet Take 10 mg by mouth. Bqiep-3-OHK-EPA-Fish Oil 300-1,000 mg cap Take by mouth. simvastatin (ZOCOR) 80 mg tablet Take 80 mg by mouth. No current facility-administered medications for this visit. ALLERGIES Allergen Reactions Cephalexin Diarrhea Ciprofloxacin Other: See Comments Made pt dizzy Flagyl [Metronidazo* Other: See Comments Made pt dizzy Fluconazole Diarrhea PAST MEDICAL HISTORY Diagnosis Date Anemia BPH (benign prostatic hyperplasia) Colon cancer (HCC) 03/2020 Difficult intravenous access 07/19/2021 DM (diabetes mellitus) (HCC) Gastritis Hypertension Mass of colon 03/24/2020 Dr Vu Morbid obesity (HCC) NEGATIVE HISTORY OF 04/06/2022 NO PNE, TB, HD KIMMY (obstructive sleep apnea) PAST SURGICAL HISTORY Procedure Laterality Date COLONOSCOPY AND BIOPSY 03/24/2020 Dr Vu COLONSCOPY SCREENING HIGH RISK 03/2020 EGD 03/2020 HERNIA REPAIR HX 1985 X2- umbilical and right inguinal hernia PAST SURGICAL HISTORY OF 05/11/2020 hemicolectomy with colostomy and partial cystectomy PAST SURGICAL HISTORY OF 02/2021 colostomy reversal REPAIR INCISIONAL HERNIA,REDUCIBLE 06/13/2021 REPAIR INCISIONAL HERNIA,REDUCIBLE 05/03/2022 TRANSURETHRAL ELEC-SURG PROSTATECTOM 08/2021 FAMILY HISTORY Problem Relation Age of Onset Diabetes Mother Ischemic Heart Disease Mother CABG Stroke Father Diabetes Father Heart Attack Father 72 Cancer Sister Anesthesia Problems No Family History Blood Clots No Family History Clotting Disorder No Family History Social History Tobacco Use Smoking status: Never Smokeless tobacco: Never Vaping Use Vaping Use: Never used Substance Use Topics Alcohol use: Not Currently Drug use: Never Comment: denies tx for drug/alcohol abuse in the past. Survivorship Review of Systems Patient identified the following survivorship concerns related to his recent cancer diagnosis and treatment: Cardiac Toxicity: No Emotional Health: No Cognitive Function: No Fatigue/Sleep: Yes Persistent fatigue or sleepiness despite a good night's sleep: No Fatigue interferes with usual activities: No Problems falling asleep, staying asleep or waking too early? No Being told you snore frequently or stop breathing during sleep? No Lymphedema: No Pain: No Endocrine: No Sexual Function: No Healthy Lifestyle: No Preventative Health: No General Health Overall, the patient feels his health is Good. Any other concerns not identified today: No REVIEW OF SYSTEMS GENERAL: No weight loss, malaise or fevers. No night sweats. HEENT: Negative for headaches, No changes in hearing or vision, no nose bleeds or other nasal problems. RESPIRATORY: Negative for cough, wheezing and shortness of breath CARDIOVASCULAR: Negative for chest pain, leg swelling and palpitations GI: Negative for abdominal discomfort, blood in stools or black stools and change in bowel habits : Negative for dysuria, frequency and incontinence MUSCULOSKELETAL: Negative for joint pain or swelling, back pain, and muscle pain. SKIN: Negative for lesions, rash, and itching. HEMATOLOGY/LYMPHOLOGY Negative for prolonged bleeding, bruising easily, and swollen nodes. NEURO: Negative for numbness or tingling of hands/feet. No weakness. PHYSICAL EXAMINATION: BP (!) 146/43 Pulse (!) 59 Temp 36.5 C (97.7 F) (Temporal) Resp 18 Ht 188 cm (6' 2.02 ) Wt (!) 145.6 kg (321 lb) SpO2 95% BMI 41.20 kg/m ECOG PERFORMANCE STATUS: 1- Restricted in physically strenuous activity. Carries out light duty. General: Alert and oriented, no distress, pleasant and cooperative. Heart: Regular, normal S1 and S2, no murmurs, rubs, or gallops Lungs: Clear to auscultation bilaterally Abdomen: small ventral reducible hernia Extremities: ++edema, diabetic feet but no neuropathy LABS: Glucose (mg/dL) Date Value 09/18/2022 197 10/07/2021 245 Potassium (mmol/L) Date Value 09/18/2022 4.7 10/07/2021 5.4 Sodium (mmol/L) Date Value 09/18/2022 139 10/07/2021 136 Chloride (mmol/L) Date Value 09/18/2022 107 10/07/2021 106 CO2 (mmol/L) Date Value 09/18/2022 24 10/07/2021 22 Creatinine (mg/dL) Date Value 09/18/2022 2.28 10/07/2021 1.82 BUN (mg/dL) Date Value 09/18/2022 36 10/07/2021 36 Anion Gap (mmol/L) Date Value 09/18/2022 8 10/07/2021 8 Calcium (mg/dL) Date Value 10/07/2021 9.3 Calcium, Total (mg/dL) Date Value 09/18/2022 8.9 Protein, Total (g/dL) Date Value 09/18/2022 7.1 10/07/2021 7.6 Albumin (g/dL) Date Value 09/18/2022 4.0 10/07/2021 4.1 Bilirubin, Total (mg/dL) Date Value 09/18/2022 0.2 10/07/2021 <0.2 Alkaline Phosphatase (U/L) Date Value 09/18/2022 45 10/07/2021 46 AST (U/L) Date Value 09/18/2022 11 10/07/2021 12 ALT (U/L) Date Value 09/18/2022 6 10/07/2021 8 WBC Date Value Ref Range Status 09/18/2022 7.61 3.70 - 11.00 k/uL Final RBC Date Value Ref Range Status 09/18/2022 3.21 (L) 4.20 - 6.00 m/uL Final Hemoglobin Date Value Ref Range Status 09/18/2022 9.6 (L) 13.0 - 17.0 g/dL Final Hematocrit Date Value Ref Range Status 09/18/2022 30.6 (L) 39.0 - 51.0 % Final MCV Date Value Ref Range Status 09/18/2022 95.3 80.0 - 100.0 fL Final MCH Date Value Ref Range Status 09/18/2022 29.9 26.0 - 34.0 pg Final MCHC Date Value Ref Range Status 09/18/2022 31.4 30.5 - 36.0 g/dL Final RDW-CV Date Value Ref Range Status 09/18/2022 17.4 (H) 11.5 - 15.0 % Final Platelet Count Date Value Ref Range Status 09/18/2022 328 150 - 400 k/uL Final MPV Date Value Ref Range Status 09/18/2022 9.9 9.0 - 12.7 fL Final Abs Neut Date Value Ref Range Status 09/18/2022 3.88 1.45 - 7.50 k/uL Final Lymph% Date Value Ref Range Status 09/18/2022 33.0 % Final Abs Lymph Date Value Ref Range Status 09/18/2022 2.51 1.00 - 4.00 k/uL Final [place]% Date Value Ref Range Status 09/18/2022 8.7 % Final Abs [place] Date Value Ref Range Status 09/18/2022 0.66 <0.87 k/uL Final Eosin% Date Value Ref Range Status 09/18/2022 6.0 % Final Abs Eosin Date Value Ref Range Status 09/18/2022 0.46 (H) <0.46 k/uL Final Baso% Date Value Ref Range Status 09/18/2022 0.8 % Final Abs Baso Date Value Ref Range Status 09/18/2022 0.06 <0.11 k/uL Final PATH: 05/11/2020 FINAL DIAGNOSIS 1. Right lateral abdominal wall margin, biopsy (A): No tumor. 2. Right bladder margin, biopsy (B): No tumor. 3. Left lateral margin, biopsy (C): No tumor. 4. Anterior bladder margin, biopsy (D): No tumor. 5. Right colon, sigmoid colon, and bladder dome, resection (E): - Adenocarcinoma involving cecum with transmural extension and adherence to bladder and abdominal wall, margins negative (see synoptic). - No tumor in forty-one lymph nodes (0/41). SYNOPTIC REPORT OF TAPIA PATHOLOGIC FINDINGS RIGHT COLON, SIGMOID COLON, AND BLADDER DOME: COLON AND RECTUM:RESECTION, INCLUDING TRANSANAL DISK EXCISION OF RECTAL NEOPLASMS WORKSHEET: Procedure: Right hemicolectomy Tumor Site: Cecum Tumor Size: Greatest dimension: 12.5 cm Macroscopic Tumor Perforation: Not identified Histologic Type: Adenocarcinoma Histologic Grade: G2: Moderately differentiated Tumor Extension: Tumor directly invades adjacent structures: Abdominal wall, bladder Margins: All margins are uninvolved by invasive carcinoma, high-grade dysplasia, intramucosal adenocarcinoma, and adenoma Margins examined: proximal, distal, mesenteric, bladder, abdominal wall Proximal Margin: Uninvolved by invasive carcinoma Distal Margin: Uninvolved by invasive carcinoma Circumferential Radial Margin: Not applicable Mesenteric Margin: Uninvolved by invasive carcinoma Other Margin(s): Margin: abdominal wall and bladder margins Uninvolved by invasive carcinoma Treatment Effect: No known presurgical therapy Lymphovascular Invasion: Not identified Perineural Invasion: Not identified Tumor Deposits: Not identified Regional Lymph Nodes: Number of nodes involved: 0 Number of nodes examined: 41 Pathologic Stage Classification (pTNM,AJCC 8th ed) TNM Descriptors: Not applicable Pathologic Staging (pTNM): pT4b: Tumor directly invades or is adherent to other organs or structures Regional Lymph Nodes (pN): pN0: No regional lymph node metastasis Distant Metastasis (pM): Not applicable/Not confirmed pathologically in this case Mismatch repair (MMR) status: Proficient (microsatellite stable IMAGING: CT of the Chest and Abdomen and Pelvis 04/21/2021: 1. Moderate elevation of the right hemidiaphragm, associated area of compressive atelectasis, stable. 2. Consolidative opacity within the posterior aspect of right lower lobe has progressed. Correlation with continued follow-up examinations is recommended. 3. Partially calcified right hilar adenopathy, unchanged. 4. 4 mm nodule along the right minor fissure, stable. 1. Several small retroperitoneal and mesenteric lymph nodes are again identified, unchanged. 2. 6 mm, nonspecific soft tissue density nodule within the right lower quadrant, stable. 3. A small amount cholelithiasis is appreciated on today's examination. 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 High risk Stage 2 - On FOLFOX post 12 cycles. However the last cycle of chemotherapy oxaliplatin was dropped secondary to neuropathy. Patient underwent Denice reversal in February 2021 and is this point doing quite well. His imaging studies April 2021 with no evidence of recurrence. Signatera negative last 02/2022 and pending today Colonoscopy 11/2021- Follow up in 3 year Will need yearly imaging, however with his stage 4 CKD will order PET instead of CT with contrast CKD 4-will refer to nephrology as creatinine is slowly worsening Continue follow-up with urology, markedly improved after TURP S/p ventral hernia repair 04/2022 Anemia-slightly worse today, will check iron panel, may benefit from EPO as well if iron stores arenot low Oxaliplatin induced grade 1 neuropathy-Stable Survivorship Discussion: An open discussion took place where the oncology treatment summary was reviewed with the patient. We also reviewed anticipated follow up plan of care and red flag symptoms. Survivorship specific concerns including Healthy Lifestyle, Health Maintenance, Physical activity, Nutrition, Genetics risk factors, PCP versus specialist role, Late and termite control service representative side effects from cancer diagnosis and treatment, Potential signs and symptoms of cancer recurrence, Lab, imaging and follow up schedule were discussed. The patient was given opportunity for questions. Appropriate referrals were provided. Over 50% of a total 25 minutes was spent counseling and/or coordinating care. Casandra Holley PA-C CC: MD Syd Lagunas MD Michael Valente, MD documented in this encounterAultman [facility]09-08-2022 History of Present illness Narrative* Terra Mon PA-C - 05/18/2022 11:46 AM EDT This patient is 15 days post op from laparoscopic repair of incisional hernia. His post op course was complicated by ileus last week, but he is presently denying any NV, abdominal pain. He is having 3 semi-formed BMs per day. He denies any watery stools. He is passing flatus. He is taking 1 glass of Metamucil per day. He is wearing his abdominal binder routinely. P.E. The wounds are healing well without evidence of infection. Assessment Satisfactory course Plan: Discussed lifting restrictions Local wound care with soap and water Patient and asking when bowels with return to normal. I advised over the next few weeks bowelsshould gradually return to normal, but if loose stools persist or worsens, let us know any may needGI consult. Continue wearing abdominal binder, but make sure incisions open to air several hours per day, especially after showering. Return to office PRN. Terra Mon PA-C documented in this encounterAultman [facility]08-29-2022 Miscellaneous Notes* Telephone Encounter - Becca Mijares RN - 05/08/2022 9:33 AM EDT Spoke with spouse and informed Zofran will be called into pharmacy on file. Informed if unable to keep even water down after starting Zofran that he may need to go to the ER to prevent dehydration, she voiced understanding. Will continue with the Prilosec to help with the reflux as well. I also informed to check behind patients ears to see if a patch was placed during surgery, Informed what the patch would look like and to remove if she finds it.Spouse verbalized understanding of the conversation and will reach out if any further concerns * Addendum Note - Terra Mon PA-C - 05/08/2022 9:20 AM EDTAddended by: TERRA MON on: 05/08/2022 09:20 AM Modules accepted: Orders * Telephone Encounter - Terra Mon PA-C - 05/08/2022 9:09 AM EDT Please confirm if patient had scopolamine patch and if so, when it was removed (nothing documented that patch was ordered but I want to confirm). We can try some dissolvable Zofran, but if patient unable to keep anything down including water, may need ED. Rx sent to pharm on dial. Please advise patient/. * Telephone Encounter - Becca Mijares RN - 05/08/2022 8:47 AM EDT Spoke with spouse and patient has been nauseated with little appetite. States he has been bringing up some green bile. Patient does have a history of GERD and just started back on OTC Prilosec on Sunday as he was having some belching and upset. Bowels have finally moved and not an issue. He is not taking the pain medications or Tylenol as he is not having any pain. Informed spouse I will send to the [facility] for additional review. Reaffirmed pharmacy on file and a response via my Chart or call was confirmed documented in this encounterAult[facility]22 Instructions* Patient Instructions* Patti Sosa PA-C - 04/20/2022 2:22 PM EDT PATIENT PREOPERATIVE INSTRUCTIONS María Bahena III, MD has scheduled you for your procedure at this surgery center: [facility]: [phone] --[id number] [place] [address]. Please enter through the entrance closest to [facility]. Please read below carefully for your personalized instructions. Dietary Restrictions: - Nothing to eat or drink after midnight except for a sip of water with approved medications. - Follow bowel prep instructions: clear liquids need to be stopped 2 hours prior to schedule arrival at facility Medications: Unless instructed differently below, stay on all of your medications until your surgery. Approved medications to take the morning of surgery with a sip of water: Nifedipine DO NOT TAKE YOUR LOSARTAN THE NIGHT BEFORE OR MORNING OF SURGERY - Accucheck day of surgery. - 70/30 insulin: If your blood sugar is >200, take half dose of your 70/30 insulin. If blood sugar is <200, do not administer 70/30 insulin. - No Metformin day of surgery If you take any medications for erectile dysfunction-Cialis (Tadalafil), Levitra, Staxyn (Vardenafil) Viagra (Sildenenafil please do not take these for 48 hours before surgery. If you start any new medications after today's visit, please contact the surgeon's office. Blood Thinning Medications: - Stop NSAIDS (Ibuprofen, Advil, Aleve, Motrin, Celebrex, Mobic, etc.) 7 days before surgery, as directed by your surgeon. - Stop Aspirin 7 days before surgery, as directed by your surgeon. - Stop Vitamin E, ALL multi-vitamins, herbals and dietary supplements 7 days before surgery. - You may take Tylenol (Acetaminophen) or any of your pain medications that do not contain aspirin or NSAIDS as needed. Important Reminders: - If you use CPAP/BIPAP, bring the machine with you to the surgery center. - If you are prescribed inhalers for breathing, continue using them. - Candy, mints, and tobacco products are NOT permitted the morning of surgery. - Hearing aids, dentures and glasses may be worn the morning of surgery. - NO jewelry, body piercings, makeup, hairpins or contacts are to be worn the day of surgery. If you develop symptoms such as a fever, cold, or flu, or have other changes to your health within TWO DAYS of scheduled surgery or the morning of surgery, please contact the surgery center above. Personal Belongings: -Please have photo ID and insurance cards. -If you do not have a copy of advance directives on file with us, please bring a copy with you on the day of surgery. - Leave ALL valuables and money at home or with family members. For Outpatient Procedures: - YOU MUST HAVE A RESPONSIBLE RESIDENTIAL SALES EXECUTIVE TAKE YOU HOME. A PROMPT CARE RN OR TREATING PLANT SUPERVISOR CANNOT BE MADE A RESPONSIBLE RESIDENTIAL SALES EXECUTIVE. - We recommend that a responsible person stays with you overnight to take care of you. - You cannot stay in a hotel alone after outpatient surgery. You will not be permitted to have yoursurgery, if you do not have someone to take care of you. Arrival Time for Surgery: - The Surgery Center or hospital where you are having surgery will call the afternoon before surgery (or Sunday for Sunday surgery) with a scheduled arrival time. - If you have not heard by 4 pm, please contact the surgery center above. Please be aware that emergency situations arise, which may delay or change your surgical time. If this happens, we will notify you as soon as possible and regret any inconvenience. If you already have an Advance Directive, please fax a copy to [phone] or email to for it to be added to your chart. If you do not have an Advance Directive, you can find the appropriate form and more information at [email or web address]. We recommend that youcomplete the Advance Directive form found on the website and bring it with you the day of your surgery. It can be witnessed and scanned into your chart that day. Patti Sosa PA-C documented in this encounterAultman [facility]08-11-2022 History and physical note * Patti Sosa PA-C - 04/20/2022 2:21 PM EDT HISTORY AND PHYSICAL EXAMINATION SERVICE DATE: 04/20/2022 SERVICE TIME: 2:21 PM PRIMARY CARE PHYSICIAN: Mary Alice Sánchez APRN.PRESCRIPTION EYEGLASS MAKER REASON FOR VISIT: Isaiah Morel is a 76 year old male who is scheduled for LAPAROSCOPIC HERNIORRHAPHY INCISIONAL ABDOMEN REDUCIBLE at the request of Dr. María Bahena III for consultation. My final recommendation will be communicated back to the requesting physician by way of shared medical record or letter. The patient has the following: ACTIVE PROBLEM LIST Malignant Neoplasm of Ascending Colon (Hcc) Pelvic Mass Dm (Diabetes Mellitus) (Hcc) Hypertension Bph (Benign Prostatic Hyperplasia) Gastritis Hyperlipidemia S/P Bladder Repair Malignant Neoplasm of Rectosigmoid Junction (Hcc) Kimmy (Obstructive Sleep Apnea) Rectal Cancer (Hcc) Modi Catheter in Place Encounter for Postoperative Wound Care Mild Protein-Calorie Malnutrition (Hcc) Bmi 40.0-44.9, Adult (Hcc) Anemia Ckd (Chronic Kidney Disease), Stage Iii (Hcc) Difficult Intravenous Access Iron Deficiency Anemia Due to Chronic Blood Loss Anemia of Chronic Renal Failure, Stage 3a (Hcc) Subjective CHIEF COMPLAINT: Hernia HPI: 76 year old male presents for upcoming hernia repair. States he had hernia repaired in 2020, there was a bulge after the surgery however this is more medial and it has since increased in size. Denies heavy lifting. Has mild discomfort. Recommended for above surgery and elected to proceed. PAST MEDICAL HISTORY Diagnosis Date Anemia BPH (benign prostatic hyperplasia) Colon cancer (HCC) 03/2020 Difficult intravenous access 07/19/2021 DM (diabetes mellitus) (HCC) Gastritis Hypertension Mass of colon 03/24/2020 Dr Vu Morbid obesity (HCC) NEGATIVE HISTORY OF 04/06/2022 NO PNE, TB, HD PAST SURGICAL HISTORY Procedure Laterality Date COLONOSCOPY AND BIOPSY 03/24/2020 Dr Vu COLONSCOPY SCREENING HIGH RISK 03/2020 EGD 03/2020 HERNIA REPAIR HX 1985 X2- umbilical and right inguinal hernia PAST SURGICAL HISTORY OF 05/11/2020 hemicolectomy with colostomy and partial cystectomy PAST SURGICAL HISTORY OF 02/2021 colostomy reversal REPAIR INCISIONAL HERNIA,REDUCIBLE 06/13/2021 TRANSURETHRAL ELEC-SURG PROSTATECTOM 08/2021 FAMILY HISTORY Problem Relation Age of Onset Diabetes Mother Ischemic Heart Disease Mother CABG Stroke Father Diabetes Father Heart Attack Father 72 Cancer Sister Anesthesia Problems No Family History Blood Clots No Family History Clotting Disorder No Family History SOCIAL HISTORY: Social History Tobacco Use Smoking status: Never Smokeless tobacco: Never Substance Use Topics Alcohol use: Not Currently Drug use: Never Comment: denies tx for drug/alcohol abuse in the past. MEDICATIONS: Prior to Admission medications as of 04/20/22 1409 Medication Sig Last Dose Taking peg 3350-Electrolytes (GOLYTELY) 236-22.74-6.74 -5.86 gram suspension As directed Yes amLODIPine (NORVASC) 5 mg tablet Take 5 mg by mouth once daily. Yes atorvastatin (LIPITOR) 80 mg tablet Yes CPAP Yes NIFEdipine XL (ADALAT CC, PROCARDIA XL) 60 mg 24 hr tablet Take 60 mg by mouth once daily. Yes spironolactone (ALDACTONE) 25 mg tablet Take 25 mg by mouth every morning. Yes A-C-E-zinc ox-cupric ox-lutein (MACUVITE [facility]) 7,160 unit- 113 mg-1 mg tab Take by mouth. Yes losartan potassium (LOSARTAN ORAL) Take 100 mg by mouth once daily. Yes oxybutynin XL (DITROPAN XL) 5 mg 24 hr tablet Take 5 mg by mouth once daily. Yes cyanocobalamin (VITAMIN B-12) 500 mcg tab tab(s) Yes fenofibrate nanocrystallized (TRICOR) 48 mg tablet Take 96 mg by mouth every morning. Yes multivit-min/folic/vit K/lycop (ONE-A-DAY MEN'S MULTIVITAMIN ORAL) Yes insulin NPH-insulin regular injection (HumuLIN, NovoLIN 70/30) If blood sugar before dinner is >200, start taking 5 unit(s) of 70/30 NPH before dinner and continue with the 7 unit(s) in the morning. If the blood sugar before dinner is again >200 the next day, add 2 unit(s) to the previous dose of evening insulin For AM insulin changes: Check blood sugar before lunch. If blood sugar > 200, add 2 unit(s) to the morning insulin and take 9 the next day. If the following day's pre-lunch sugar is again > 200, add another 2 unit(s) to the morning dose. Patient taking differently: 18 Units twice daily with meals. 18 units twice a day Yes FERROUS GLUCONATE ORAL Take 324 mg by mouth once daily. Yes aspirin, enteric coated (ASPIRIN, ENTERIC COATED) 81 mg EC tablet Take 81 mg by mouth once daily. Yes Ascorbic Acid 60 mg lozg Take by mouth. Yes cholecalciferol (VITAMIN D3) 1,000 unit tab tablet Take 1,000 Units by mouth. Yes Cinnamon Bark 500 mg cap Take 500 mg by mouth. Yes metFORMIN (GLUCOPHAGE) 500 mg tablet Take 1 tablet by mouth twice daily with meals. Yes montelukast (SINGULAIR) 10 mg tablet Take 10 mg by mouth. Yes Lgkix-3-FUP-EPA-Fish Oil 300-1,000 mg cap Take by mouth. Yes simvastatin (ZOCOR) 80 mg tablet Take 80 mg by mouth. Yes furosemide (LASIX) 20 mg tablet No medication comments found. CURRENT ALLERGIES: ALLERGIES Allergen Reactions Cephalexin Diarrhea Ciprofloxacin Other: See Comments Made pt dizzy Flagyl [Metronidazo* Other: See Comments Made pt dizzy Fluconazole Diarrhea COVID VACCINATION STATUS: Fully vaccinated REVIEW OF SYSTEMS: PAIN ASSESSMENT: General: No weight loss, malaise or fevers. Neuro: No history of TIA's, stroke, RABBLER tumor, impaired sensorium, hemiplegia, paraplegia or quadraplegia. No neurological symptoms or problems. Respiratory: No history of current cough or dyspnea, or pneumonia in the past 6 weeks. No history of respiratory/pulmonary symptoms or problems. + KIMMY compliant with CPAP Cardiovascular: Negative for Arrhythmia, CAD, Chest Pain, Valvular Heart Disease + HTN + HLD GI: No history of GI symptoms or problems. No history of esophageal varices, recent ascites, or ETOH greater than 2 drinks per day. : No difficulty urinating, nocturia > 1 time per night or hematuria + CKD + BPH s/p TURP 08/10/21 Endocrine: Diabetes Mellitus on insulin, Diabetes Mellitus on oral agent + DM - fasting glucose 134 today Hematology: Chronic anti-coagulation / platelet meds (Aspirin) + anemia and follows with hematology. Anemia stable hgb 9.5 - had a series of iron infusions and completed 04/14 Oncology: + colorectal cancer s/p resection in April 2020 and bladder reconstruction s/p chemo follows with Dr. Taylor and monitored Psych: No history of psychiatric symptoms or problems. Musculoskeletal: Negative for joint pain or swelling, back pain or muscle pain. Skin: Negative for lesions, rash and itching. Objective PHYSICAL EXAM: VITALS: BP 148/44 Pulse 68 Temp (Src) 97.8 (Temporal Artery) Resp 16 Ht 6' 2 (1.88m) Wt 312 lb (141.5kg) SpO2 96% BMI 40.04 kg/(m^2). General: Alert and oriented, No acute distress Skin: Normal color, no rash, no lesions. HEENT: EOM, pupils equal, round and reactive. Cardiovascular: Normal S1 & S2, no rubs, murmurs or gallops. No JVD. Pulse regular. Lungs: Normal breath sounds, no wheezes or crackles. Abdomen: Soft, non-tender, no rigidity. incisional hernia present. Nontender Extremities: No deformity, no edema or tenderness, no joint swelling or clubbing. Neurological: Normal cognition and motor skills. Pulses: Carotid and radial pulses normal +2. Diagnostic tests reviewed for today's visit: Lab Value Units Date High Low HB 9.5 g/dL 04/10/2022 17.0 13.0 HCT 30.2 % 04/10/2022 51.0 39.0 WBC 8.89 k/uL 04/10/2022 11.00 3.70 PLT 479 k/uL 04/10/2022 400 150 NA 135 mmol/L 04/20/2022 144 136 K 4.6 mmol/L 04/20/2022 5.1 3.7 GLUC 322 mg/dL 04/20/2022 99 74 BUN 26 mg/dL 04/20/2022 24 9 CREAT 1.93 mg/dL 04/20/2022 1.22 0.73 PTSEC No results within date range. INR No results within date range. APTT No results within date range. ALT 7 U/L 03/07/2022 54 10 AST 11 U/L 03/07/2022 40 14 TBILI 0.2 mg/dL 03/07/2022 1.3 0.2 TSH No results within date range. Lab Value Units Date High Low HCGQT No results within date range. UHCG No results within date range. HCG, BODY* No results within date range. Lab Value Units Date High Low ABORHD No results within date range. ABSCREEN No results within date range. Hemoglobin A1C (%) Date Value 06/03/2021 7.4 05/20/2020 7.6 All in [facility] Assessment/Plan Hypertension Assessment: stable on meds Difficult intravenous access Assessment: Mediport in place KIMMY (obstructive sleep apnea) Assessment: Compliant with CPAP and advised to bring DOS CKD (chronic kidney disease), stage III ([facility]) Assessment: stable Anemia of chronic renal failure, stage 3a (HCC) Assessment: hemoglobin 9.5 on labs 04/10/22 and at baseline. Completed iron infusions on 04/14/22 and follows with Hematology DM (diabetes mellitus) ([facility]) Assessment: fasting glucose 134 today on insulin BMI 40.0-44.9, adult ([facility]) Assessment: Body mass index is 40.06 kg/m . Malignant neoplasm of ascending colon (HCC) Assessment: s/p resection in April 2020 and bladder reconstruction s/p chemo follows with Dr. Taylor and monitored METS: Do moderate work around the house such as vacuuming, sweeping floors, or carrying in groceries (3.50 METs) Do yardwork, such as raking leaves, weeding,or pushing a power mower (4.50 METs) Climb a flight of stairs or walk up a hill (5.50 METs) Patient denies any chest pain or undue shortness of breath with the above physical activity. ASA Class: 3 ANESTHESIA FINDINGS: Intubation History: No history of difficult intubation Significant Anesthesia Considerations: None and Difficult IV/Vein Access: has Mediport in place Airway Exam: General: Normal appearance Mallampati Score is CLASS III ULBT: Class II - Lower incisors can bite the upper lip below the pepe line Neck: Normal appearance and function, Distance from hyoid to mentum during neck extension is at least 3 finger breaths Mouth: Normal tongue size and Mouth opening greater than 2 finger breaths Dentition: Upper denture and Partial Airway History: No abnormal airway history Sleep Apnea Probability Snores loudly: No Tired, fatigued or sleepy in daytime: No Stops breathing or choking/gasping during sleep: Yes High blood pressure: Yes Sleep Apnea Probability Score 02/24/2021 Sleep Apnea Screen V2 80.05 (Recommend sleep study) PLAN This patient is optimally prepared for surgery. CONSULTS: Patient does not require consults for optimization at this time. The Following Tests/Procedures Have Been Initiated: Orders Placed This Encounter Type and Screen, 30 day Standing Status: Future Number of Occurrences: 1 Standing Expiration Date: 06/20/2022 Order Specific Question: [facility] Planned Surgery or Procedure: Answer: [facility] - Hernia repair Planned Anesthetic: General Instructions Given to Patient: Instructions located in the after visit summary. Patient given verbal and written preop instructions and voices comprehension and compliance. SIGNATURE: Patti Sosa PA-C PATIENT NAME: Isaiah Morel DATE: April 20, 2022 TIME: 2:21 PM documented in this encounterAult[facility]08-04-2022 Miscellaneous Notes* Telephone Encounter - Malissa Mayen - 04/13/2022 3:10 PM EDT Cleared by Dr Gamboa, see other tel enc from 04/13. Will contact patient to set up surgery with Dr Bahena. * Telephone Encounter - Malissa Mayen - 04/13/2022 12:10 PM EDT Images from the original note were not included. documented in this encounterAultman [facility]08-04-2022 Miscellaneous Notes* Telephone Encounter - Malissa Mayen - 04/13/2022 3:08 PM EDT Noted. Thank you. * Telephone Encounter - Syd Gamboa MD - 04/13/2022 2:18 PM EDT This does not need to hold up his surgery. I will message him and have him check kidney function, but it has been stable now for a while. * Telephone Encounter - Malissa Mayen - 04/13/2022 12:24 PM EDT Cur form received, see tel enc from 04/13. * Telephone Encounter - Terra Mon PA-C - 04/13/2022 12:01 PM EDT Bowel prep escripted to pharm on dial. * Telephone Encounter - Terra Mon PA-C - 04/13/2022 10:[address] report and also images with Dr. Bahena and he feels that patient does have an incisional hernia in the area of concern. Dr. Bahena recommending laparoscopic repair due to 4.3 cm size of defect: IMPRESSION: 1. Moderate bilateral hydronephrosis and hydroureter, increased since 04/20/2021. Given mild circumferential urinary bladder wall thickening and history of TURP, findings may be secondary to chronic outlet obstruction. Consider urology consultation for further assessment. 2. Increased laxity of the midline anterior abdominal wall with rectus diastases. 3. New small fat-containing left paramidline abdominal wall hernia. I advised patient of above and offered him in person vs VV vs discussed surgery with me over the phone today. Patient prefers to discuss with me today. I explained laparoscopic incisional hernia surgery procedure to him and advised risks including bleeding, infection, injury to the bowel, post operative pain, chronic pain and recurrence. I advised due to his surgical history, he is likely to require extensive LILA, which puts him at increased risk for bowel injury. I advised we will need him to do a Go lytely prep the day before the procedure as a precaution. I advised we would need clearance from his urologist before proceeding with surgery given above findings. We will also need ASA clearance (please find out who is prescribing, I forgot to ask patient). Surgery will need to be done at [facility]. CUR form completed and given to [place] clinical tofax to Belinda long. Will also forward this to patient's urologist given incidental/actionable findings. Encouraged patient to contact his office to f/u on this. documented in this encounterAultman [facility]08-02-2022 History of Present illness Narrative* Татьяна Strauss, CT - 04/11/2022 2:20 PM EDT Radiology Service Progress Note DATE OF SERVICE: April 11, 2022 TIME: 1:47 PM PATIENT IDENTITY VERIFICATION COMPLETED USING TWO (2) STANDARD IDENTIFIERS: Name and Date of confirmed by patient verbally. FALL SCREENING: Has the patient had 2 falls in the last year or 1 fall with injury or currently using an Ambulatory Assistive Device (Walker, Cane, Wheelchair, Crutches, etc.)? No PATIENT GENDER DATA: Male PATIENT RELEVANT IMPLANT DATA REVIEWED: Not Applicable ALLERGIES: Reviewed and unchanged CONTRAST ALLERGY: NO. EXAM: CT -CONTRAST INDUCED NEPHROPATHY RISK FACTORS: Patient age > 60 years CREATININE: Creatinine Date Value Ref Range Status 03/07/2022 1.71 (H) 0.73 - 1.22 mg/dL Final 11/18/2021 1.78 (H) 0.73 - 1.22 mg/dL Final 10/07/2021 1.82 (H) 0.73 - 1.22 mg/dL Final Estimated Glomerular Filtration Rate Date Value Ref Range Status 03/07/2022 41 (L) >=60 mL/min/1.73m Final Comment: Estimated Glomerular Filtration Rate (eGFR) is calculated using the 2020 CKD-EPI creatinine equation. This equation utilizes serum creatinine, sex, and age as parameters. The creatinine assay has traceable calibration to isotope dilution- mass spectrometry. Refer to KDIGO guidelines for clinical interpretation. In patients with unstable renal function, e.g. those with acute kidney injury, the eGFRmay not accurately reflect actual GFR. eGFR- Date Value Ref Range Status 10/07/2021 44 Final P.O.C.T. RESULTS: N/A April 11, 2022 TREATMENT: N/A PERIPHERAL IV DATA: Ambulatory: A power injectable Midline was accessed in the Left side. Blood Return, Flushed easily with normal saline, Good Blood Return Post Injection, Flushed with 20 cc saline followed by Heparin 500 units/5 cc and No Complications RADIOLOGY DEPARTMENT: CT; Exam(s) Completed: Abdomen/Pelvis SIGNATURE: SAWYER Ryan PATIENT NAME: Isaiah Morel DATE: April 11, 2022 TIME: 1:47 PM documented in this encounterAultman Alliance [facility]08-01-2022 Miscellaneous Notes* Telephone Encounter - Cherelle Diaz RN - 04/10/2022 1:23 PM EDT I pended a CBC, Can you sign it for me? Patient is here for Jamal. Thanks. Cherelle Diaz RN documented in this encounterAultman Alliance [facility]08-01-2022 Evaluation note* Diagnosis Iron deficiency anemia due to chronic blood loss- Primary Iron deficiency anemia secondary to blood loss (chronic) Anemia of chronic renal failure, stage 3a (HCC) documented in this encounter [facility]07-[facility] History of Present illness Narrative* Huong Wesley RN - 04/03/2022 1:14 PM EDT . documented in this encounterAultman [facility] Hospital07-13-2022 Miscellaneous Notes* Telephone Encounter - Luda Ahuja RN - 03/22/2022 11:24 AM EDT Call placed to pt. No answer. Left message informing pt of Signatera results and to return call if any questions/concerns. Luda Ahuja RN documented in this encounterAultman Alliance [facility] Hospital07-11-2022 History of Present illness Narrative* Huong Wesley RN - 03/20/2022 1:21 PM EDT . documented in this encounterAultman [facility]07-11-2022 Evaluation note* Diagnosis Iron deficiency anemia due to chronic blood loss- Primary Iron deficiency anemia secondary to blood loss (chronic) Anemia of chronic renal failure, stage 3a (HCC) Ventral hernia without obstruction or gangrene Ventral hernia, unspecified, without mention of obstruction or gangrene documented in this encounter [facility] History of Present illness Narrative* Syd Gamboa MD - 03/14/2022 11:36 AM EDT DISTANCE HEALTH VISIT This Team Access Model visit is a virtual encounter. It required patient- provider interaction for the medical decision making as documented below. Isaiah Morel is a 76 year old male seen for followup BPH with LUTS and urinary retention. He was last seen 09/13/2021. He is s/p TURP 08/10/2021 for urinary retention. Interval Hx: Overall feeling well No urinary complaints Occasional leakage in the morning Urine flow real good No hematuria or dysuria Planned for iron transfusions Very happy with current voiding status Creatinine Date Value Ref Range Status 03/07/2022 1.71 (H) 0.73 - 1.22 mg/dL Final 11/18/2021 1.78 (H) 0.73 - 1.22 mg/dL Final 10/07/2021 1.82 (H) 0.73 - 1.22 mg/dL Final 08/26/2021 1.82 (H) 0.73 - 1.22 mg/dL Final HISTORY REVIEWED (electronic chart updated): - medical history - medications - allergies REVIEW OF SYSTEMS: GENERAL: feeling well without fatigue, no recent change in weight RESPIRATORY: no cough, no wheezing or shortness of breath CARDIOVASCULAR: no chest pain, no palpitations GI: normal appetite, tolerating PO well, BMs normal and no abdominal pain : as per HPI MUSCULOSKELETAL: denies any painful or swollen joints, no muscle aches SKIN: no rash PSYCH: denies depressed or anxious mood, sleep is normal NEURO: +neuropathy from chemo PHYSICAL EXAMINATION: VIDEO EXAM: (if done, performed via video enabled technology) GENERAL: alert and appropriate, in no distress, well-hydrated, well nourished and happy, smiling, interactive SKIN: no rash noted HEAD: normocephalic EYES: anicteric sclerae EARS: normal external ears NOSE: normal external nose RESPIRATORY: breathing non-labored ASSESSMENT: (N40.1, N13.8) BPH with urinary obstruction (primary encounter diagnosis) PLAN: Virtual visit 1 year He will call in the interim if new bothersome urinary symptoms. I spent a total of 15 minutes on the date of the service which included preparing to see the patient, [id number] patient care and completing clinical documentation. Syd Gamboa MD documented [facility] this encounter[facility] Miscellaneous Notes* Telephone Encounter - Lori Phelps - 03/14/2022 9:59 AM EDT Patient has been scheduled to begin 03/20. Patient has been scheduled for Venofer x4 03/20, 03/27, 04/03, 04/10. Patient has been notified. Lori Phelps * Telephone Encounter - Sarika Cook MD - 03/09/2022 3:05 PM EDT entered * Telephone Encounter - Mary Weston RN - 03/09/2022 10:08 AM EDT Pt notified and agrees w/ recommendations. Dr Cook: Please place orders for iron and Aranesp Clerical: Please call pt to schedule. Thanks! Mary Weston RN * Telephone Encounter - Pam Torres RN - 03/08/2022 3:38 PM EDT Message left for pt on the two numbers listed, requesting a call back. Pam Torres RN * Telephone Encounter - Pam Torres RN - 03/08/2022 3:37 PM EDT ----- Message from Sarika Cook MD sent at 03/08/2022 12:56 PM EDT ----- Please let him know that because of his anemia he can benefit from IV iron and also aranesp if he is open to that documented in this encounterA[facility] Evaluation note* Diagnosis Iron deficiency anemia due to chronic blood loss Iron deficiency anemia secondary to blood loss (chronic) Anemia of chronic renal failure, stage 3a (HCC) documented in this encounter [facility] Nurse Note* Rosa Kaur - 03/07/2022 9:23 AM EDT Pt states that his neuropathy is worsening. Rosa Kaur documented in this encounterA[facility]06[facility] History of Present illness Narrative* Sarika Cook MD - 03/07/2022 9:22 AM EDT PATIENT NAME: [facility] NO.: [id number] ATTENDING PHYSICIAN: Sarika Cook MD DATE OF SERVICE: March 07, 2022 Some of the elements of this note have been copied from my previous progress note dated 11/18/2021. All the information has been reviewed carefully. Some of the elements of this note have been copied from my previous progress note dated March 07, 2022 DIAGNOSIS 1. 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 Pathology noted to have abutment to the bladder wall needing partial cystectomy (T4b). High risk stage 2. MSI-Stable. TREATMENTS 1. 05/11/2020 Exploratory laparotomy, right hemicolectomy, ileocolic anastomosis, partial sigmoidectomy, end colostomy with denice's pouch (Dr. Cuirel). Partial cystectomy (Dr. Gamboa) Path below. 2. Adjuvant FOLFOX 07/13/2020- 12/22/2020 ( Last cycle without Oxali secondary to worsening neuropathy) 3. March 01, 2021: Panel 1: * DENICE REVERSAL WITH SIDE TO END COLO-COLONIC ANASTOMOSIS (EEA33) * TAKEDOWN OF END COLOSTOMY *TAP BLOCK *LYSIS OF ADHESION *FLEXIBLE SIGMOIDOSCOPY Panel 2: * INSERTION STENT URETERAL - General 2. TURP 08/2021 3. Colonoscopy 11/2021: The examined portion of the ileum was normal. - Submucosal nodule in the descending colon. Biopsied. - A few ulcers at the colonic anastomosis. Biopsied. - Internal hemorrhoids. A. Descending colon, biopsy: - Submucosal adipose tissue suggestive of submucosal lipoma. B. Colocolonic anastomosis, biopsy: - Mild architectural distortion and changes consistent with proximity to anastomotic site. 4. Signatera- 07/2020, 10/2020,01/2021, 04/2021. 08/2021- Negative HPI: 76 yo man here for follow up Feels well and still with Grade 1 neuropathy. Eating well and wants hernia looked at. States that had knee replacement as well. Current Outpatient Medications Medication Sig amLODIPine (NORVASC) 5 mg tablet Take 5 mg by mouth once daily. atorvastatin (LIPITOR) 80 mg tablet furosemide (LASIX) 20 mg tablet CPAP NIFEdipine XL (ADALAT CC, PROCARDIA XL) 60 mg 24 hr tablet Take 60 mg by mouth once daily. spironolactone (ALDACTONE) 25 mg tablet Take 25 mg by mouth every morning. A-C-E-zinc ox-cupric ox-lutein ([facility]) 7,160 unit- 113 mg-1 mg tab Take by mouth. losartan potassium (LOSARTAN ORAL) Take 100 mg by mouth once daily. oxybutynin XL (DITROPAN XL) 5 mg 24 hr tablet Take 5 mg by mouth once daily. cyanocobalamin (VITAMIN B-12) 500 mcg tab tab(s) fenofibrate nanocrystallized (TRICOR) 48 mg tablet Take 96 mg by mouth every morning. multivit-min/folic/vit K/lycop (ONE-A-DAY MEN'S MULTIVITAMIN ORAL) insulin NPH-insulin regular injection (HumuLIN, NovoLIN 70/30) If blood sugar before dinner is >200, start taking 5 unit(s) of 70/30 NPH before dinner and continue with the 7 unit(s) in the morning. If the blood sugar before dinner is again >200 the next day, add 2 unit(s) to the previous dose of evening insulin For AM insulin changes: Check blood sugar before lunch. If blood sugar > 200, add 2 unit(s) to the morning insulin and take 9 the next day. If the following day's pre-lunch sugar is again > 200, add another 2 unit(s) to the morning dose. (Patient taking differently: 18 Units twice daily with meals. 18 units twice a day ) FERROUS GLUCONATE ORAL Take 324 mg by mouth once daily. aspirin, enteric coated (ASPIRIN, ENTERIC COATED) 81 mg EC tablet Take 81 mg by mouth once daily. Ascorbic Acid 60 mg lozg Take by mouth. cholecalciferol (VITAMIN D3) 1,000 unit tab tablet Take 1,000 Units by mouth. Cinnamon Bark 500 mg cap Take 500 mg by mouth. metFORMIN (GLUCOPHAGE) 500 mg tablet Take 1 tablet by mouth twice daily with meals. montelukast (SINGULAIR) 10 mg tablet Take 10 mg by mouth. Riari-9-WMX-EPA-Fish Oil 300-1,000 mg cap Take by mouth. simvastatin (ZOCOR) 80 mg tablet Take 80 mg by mouth. polyethylene glycol 3350 (MIRALAX, GLYCOLAX) 17 gram/dose powder Use as directed for Miralax / Gatorade Bowel Prep Kit Gatorade Sports Drink Use as directed for Miralax / Gatorade Bowel Prep Kit Bisacodyl (DULCOLAX) 5 mg tab Use as directed for Miralax / Gatorade Bowel Prep Kit loperamide (IMODIUM) 2 mg cap(s) Take 1-2 capsules by mouth four times daily as needed. Follow instructions in discharge paperwork; start with 1 tablet once daily, increase dose if needed acetaminophen (TYLENOL) 500 mg tablet Take 2 tablets by mouth every 6 hours as needed for pain. No current facility-administered medications for this visit. ALLERGIES Allergen Reactions Cephalexin Diarrhea Ciprofloxacin Other: See Comments Made pt dizzy Flagyl [Metronidazo* Other: See Comments Made pt dizzy Fluconazole Diarrhea PAST MEDICAL HISTORY Diagnosis Date Anemia BPH (benign prostatic hyperplasia) Colon cancer (HCC) 03/2020 Difficult intravenous access 07/19/2021 DM (diabetes mellitus) (HCC) Gastritis Hypertension Mass of colon 03/24/2020 Dr Vu Morbid obesity (HCC) PAST SURGICAL HISTORY Procedure Laterality Date COLONOSCOPY AND BIOPSY 03/24/2020 Dr Vu COLONSCOPY SCREENING HIGH RISK 03/2020 EGD 03/2020 HERNIA REPAIR HX 1985 X2- umbilical and right inguinal hernia PAST SURGICAL HISTORY OF 05/11/2020 hemicolectomy with colostomy and partial cystectomy PAST SURGICAL HISTORY OF 02/2021 colostomy reversal REPAIR INCISIONAL HERNIA,REDUCIBLE 06/13/2021 TRANSURETHRAL ELEC-SURG PROSTATECTOM 08/2021 FAMILY HISTORY Problem Relation Age of Onset Diabetes Mother Ischemic Heart Disease Mother CABG Stroke Father Diabetes Father Heart Attack Father 72 Cancer Sister Anesthesia Problems No Family History Blood Clots No Family History Clotting Disorder No Family History Social History Tobacco Use Smoking status: Never Smoker Smokeless tobacco: Never Used Substance Use Topics Alcohol use: Not Currently Drug use: Never REVIEW OF SYSTEMS GENERAL: No weight loss, malaise or fevers. No night sweats. HEENT: Negative for headaches, No changes in hearing or vision, no nose bleeds or other nasal problems. RESPIRATORY: Negative for cough, wheezing and shortness of breath CARDIOVASCULAR: Negative for chest pain, leg swelling and palpitations GI: Negative for abdominal discomfort, blood in stools or black stools and change in bowel habits : Negative for dysuria, frequency and incontinence MUSCULOSKELETAL: Negative for joint pain or swelling, back pain, and muscle pain. SKIN: Negative for lesions, rash, and itching. HEMATOLOGY/LYMPHOLOGY Negative for prolonged bleeding, bruising easily, and swollen nodes. NEURO: Negative for numbness or tingling of hands/feet. No weakness. PHYSICAL EXAMINATION: BP (!) 133/35 Pulse 67 Temp 36.5 C (97.7 F) (Temporal) Resp 18 Ht 188 cm (6' 2.02 ) Wt (!) 142 kg (313 lb) SpO2 95% BMI 40.17 kg/m Wt 135.1 kg (297 lb 12.8 oz) BMI 38.24 kg/m2 Last 3 Encounter Wt Readings: Date: Wt: 04/05/2020 135.1 kg (297 lb 12.8 oz) General appearance:ECOG PERFORMANCE STATUS: 1- Restricted in physically strenuous activity. Carries out light duty. Patient in NAD. Skin: Skin color, texture, turgor normal. No rashes or lesions. Eyes: Anicteric sclera. Pupils are equally round and reactive to light. Extraocular movements are intact. Breast: No palpable breast masses. No nipple change or discharge. Lymph Nodes: No cervical, supraclavicular, axillary or inguinal adenopathy. Oropharynx: Lips, mucosa, and tongue normal. Back: No pain to percussion. Negative SLR test Lungs clear to auscultation, No wheezing or rhonchi Heart: RRR without murmur, gallop, or rubs. Abdomen soft, non-tender. No masses, organomegaly Extremities: ++edema, diabetic feet but no neuropathy Neuro: Gait and speech normal. Reflexes normal and symmetric. Muscular strength intact. Sensation grossly intact. Rectal: Deferred : Deferred LABS: Glucose (mg/dL) Date Value 11/18/2021 182 10/07/2021 245 Potassium (mmol/L) Date Value 11/18/2021 5.2 10/07/2021 5.4 Sodium (mmol/L) Date Value 11/18/2021 138 10/07/2021 136 Chloride (mmol/L) Date Value 11/18/2021 106 10/07/2021 106 CO2 (mmol/L) Date Value 11/18/2021 23 10/07/2021 22 Creatinine (mg/dL) Date Value 11/18/2021 1.78 10/07/2021 1.82 BUN (mg/dL) Date Value 11/18/2021 37 10/07/2021 36 Anion Gap (mmol/L) Date Value 11/18/2021 9 10/07/2021 8 Calcium (mg/dL) Date Value 10/07/2021 9.3 Calcium, Total (mg/dL) Date Value 11/18/2021 9.7 Protein, Total (g/dL) Date Value 11/18/2021 7.3 10/07/2021 7.6 Albumin (g/dL) Date Value 11/18/2021 4.1 10/07/2021 4.1 Bilirubin, Total (mg/dL) Date Value 11/18/2021 <0.2 10/07/2021 <0.2 Alkaline Phosphatase (U/L) Date Value 11/18/2021 45 10/07/2021 46 AST (U/L) Date Value 11/18/2021 14 10/07/2021 12 ALT (U/L) Date Value 11/18/2021 9 10/07/2021 8 WBC Date Value Ref Range Status 11/18/2021 6.86 3.70 - 11.00 k/uL Final RBC Date Value Ref Range Status 11/18/2021 3.22 (L) 4.20 - 6.00 m/uL Final Hemoglobin Date Value Ref Range Status 11/18/2021 9.8 (L) 13.0 - 17.0 g/dL Final Hematocrit Date Value Ref Range Status 11/18/2021 30.0 (L) 39.0 - 51.0 % Final MCV Date Value Ref Range Status 11/18/2021 93.2 80.0 - 100.0 fL Final MCH Date Value Ref Range Status 11/18/2021 30.4 26.0 - 34.0 pg Final MCHC Date Value Ref Range Status 11/18/2021 32.7 30.5 - 36.0 g/dL Final RDW-CV Date Value Ref Range Status 11/18/2021 13.9 11.5 - 15.0 % Final Platelet Count Date Value Ref Range Status 11/18/2021 307 150 - 400 k/uL Final MPV Date Value Ref Range Status 11/18/2021 9.9 9.0 - 12.7 fL Final Abs Neut Date Value Ref Range Status 11/18/2021 3.11 1.45 - 7.50 k/uL Final Lymph% Date Value Ref Range Status 11/18/2021 37.6 % Final Abs Lymph Date Value Ref Range Status 11/18/2021 2.58 1.00 - 4.00 k/uL Final [place]% Date Value Ref Range Status 11/18/2021 10.8 % Final Abs [place] Date Value Ref Range Status 11/18/2021 0.74 <0.87 k/uL Final Eosin% Date Value Ref Range Status 11/18/2021 5.0 % Final Abs Eosin Date Value Ref Range Status 11/18/2021 0.34 <0.46 k/uL Final Baso% Date Value Ref Range Status 11/18/2021 0.9 % Final Abs Baso Date Value Ref Range Status 11/18/2021 0.06 <0.11 k/uL Final PATH: 05/11/2020 FINAL DIAGNOSIS 1. Right lateral abdominal wall margin, biopsy (A): No tumor. 2. Right bladder margin, biopsy (B): No tumor. 3. Left lateral margin, biopsy (C): No tumor. 4. Anterior bladder margin, biopsy (D): No tumor. 5. Right colon, sigmoid colon, and bladder dome, resection (E): - Adenocarcinoma involving cecum with transmural extension and adherence to bladder and abdominal wall, margins negative (see synoptic). - No tumor in forty-one lymph nodes (0/41). SYNOPTIC REPORT OF TAPIA PATHOLOGIC FINDINGS RIGHT COLON, SIGMOID COLON, AND BLADDER DOME: COLON AND RECTUM:RESECTION, INCLUDING TRANSANAL DISK EXCISION OF RECTAL NEOPLASMS WORKSHEET: Procedure: Right hemicolectomy Tumor Site: Cecum Tumor Size: Greatest dimension: 12.5 cm Macroscopic Tumor Perforation: Not identified Histologic Type: Adenocarcinoma Histologic Grade: G2: Moderately differentiated Tumor Extension: Tumor directly invades adjacent structures: Abdominal wall, bladder Margins: All margins are uninvolved by invasive carcinoma, high-grade dysplasia, intramucosal adenocarcinoma, and adenoma Margins examined: proximal, distal, mesenteric, bladder, abdominal wall Proximal Margin: Uninvolved by invasive carcinoma Distal Margin: Uninvolved by invasive carcinoma Circumferential Radial Margin: Not applicable Mesenteric Margin: Uninvolved by invasive carcinoma Other Margin(s): Margin: abdominal wall and bladder margins Uninvolved by invasive carcinoma Treatment Effect: No known presurgical therapy Lymphovascular Invasion: Not identified Perineural Invasion: Not identified Tumor Deposits: Not identified Regional Lymph Nodes: Number of nodes involved: 0 Number of nodes examined: 41 Pathologic Stage Classification (pTNM,AJCC 8th ed) TNM Descriptors: Not applicable Pathologic Staging (pTNM): pT4b: Tumor directly invades or is adherent to other organs or structures Regional Lymph Nodes (pN): pN0: No regional lymph node metastasis Distant Metastasis (pM): Not applicable/Not confirmed pathologically in this case Mismatch repair (MMR) status: Proficient (microsatellite stable IMAGING: CT of the Chest and Abdomen and Pelvis 04/21/2021: 1. Moderate elevation of the right hemidiaphragm, associated area of compressive atelectasis, stable. 2. Consolidative opacity within the posterior aspect of right lower lobe has progressed. Correlation with continued follow-up examinations is recommended. 3. Partially calcified right hilar adenopathy, unchanged. 4. 4 mm nodule along the right minor fissure, stable. 1. Several small retroperitoneal and mesenteric lymph nodes are again identified, unchanged. 2. 6 mm, nonspecific soft tissue density nodule within the right lower quadrant, stable. 3. A small amount cholelithiasis is appreciated on today's examination. 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 High risk Stage 2 - On FOLFOX post 12 cycles. However the last cycle of chemotherapy oxaliplatin was dropped secondary to neuropathy. Patient underwent Denice reversal in February 2021 and is this point doing quite well. His imaging studies April 2021 with no evidence of recurrence. Signatera negative last 08/2021 and pending today Colonoscopy 11/2021- Follow up in 3 year Continue follow-up with urology, markedly improved after TURP Gen surg referral for ventral hernia repair, See back in 6 months Follow creatinine Anemia-Stable,. Iron stores pending. Oxaliplatin induced grade 1 neuropathy-Stable Sarika Cook MD April 27, 2021 12:29 PM CC: MD Syd Lagunas MD Michael Valente, MD documented in this encounter[facility] History of Past illness Narrative* Problem Noted Date Resolved Date Acute renal failure (ARF) 03/19/20212021 Last Assessment & Plan: Assessment: -Cr trending down -FENa consistent with pre-renal failure PLAN: -avoid nephrotoxins -trend BUN and Cr -MIVF Hypokalemia 03/07/2021 03/10/2021 Last Assessment & Plan: Assessment: -K today 3.2 PLAN: -received 40meq per protocol --give additional 40meq given limited response over past few days Acute on chronic kidney failure 03/03/2021 03/04/2021 Last Assessment & Plan: Assessment: -baseline Cr 1.4 --elevated today at 2.2 PLAN: -keep modi -1L NSB given concurrent elevated BUN -trend Cr Attention to colostomy 03/02/2021 Last Assessment & Plan: Assessment: -colostomy closed 03/01/2021 PLAN: -post op care -daily shower and dressing change Hyperkalemia 03/02/2021 03/03/2021 Last Assessment & Plan: Assessment: -K today 5.3 PLAN: -NS MIVF -trend Morbid obesity 02/28/2021 06/03/2021 Last Assessment & Plan: Assessment: -BMI 41.5 PLAN: -diet education -encourage ambulation Hyponatremia 05/13/2020 06/03/2021 Last Assessment & Plan: Assessment: -Na today 132 PLAN: -continue to monitor with daily BMPs -NS IVF Colostomy in place 05/13/2020 10/27/2021 Last Assessment & Plan: Assessment: -healthy -functioning PLAN: -care per ET nursing -self care instruction with -coordinate home care Asthma 07/19/2021 Last Assessment & Plan: Assessment: -not in acute exacerbation PLAN: -home albuterol PRN Post-operative state 10/27/2021 Last Assessment & Plan: Assessment: -POD9 Hartmanns reversal with side to end colocolonic anastomosis, takedown of end colostomy, lysis of adhesions, flexible sigmoidoscopy PLAN: -diet: advance to clears, fulls later if well -gastric ulcer ppx: protonix -encourage ambulation -incentive spirometry Post-operative pain 06/03/2021 Last Assessment & Plan: Assessment: -well controlled PLAN: -multimodal regimen Ileostomy in place 05/13/2020 Last Assessment & Plan: Assessment: -healthy -awaiting function PLAN: -care per ET nursing -self care instruction with -coordinate home care documented as of this encounter (statuses as of 01/13/2022) [facility] History of Past illness Narrative* Problem Noted Date Resolved Date Acute renal failure (ARF) 03/19/20212021 Last Assessment & Plan: Assessment: -Cr trending down -FENa consistent with pre-renal failure PLAN: -avoid nephrotoxins -trend BUN and Cr -MIVF Hypokalemia 03/07/2021 03/10/2021 Last Assessment & Plan: Assessment: -K today 3.2 PLAN: -received 40meq per protocol --give additional 40meq given limited response over past few days Acute on chronic kidney failure 03/03/2021 03/04/2021 Last Assessment & Plan: Assessment: -baseline Cr 1.4 --elevated today at 2.2 PLAN: -keep modi -1L NSB given concurrent elevated BUN -trend Cr Attention to colostomy 03/02/2021 Last Assessment & Plan: Assessment: -colostomy closed 03/01/2021 PLAN: -post op care -daily shower and dressing change Hyperkalemia 03/02/2021 03/03/2021 Last Assessment & Plan: Assessment: -K today 5.3 PLAN: -NS MIVF -trend Morbid obesity 02/28/2021 06/03/2021 Last Assessment & Plan: Assessment: -BMI 41.5 PLAN: -diet education -encourage ambulation Hyponatremia 05/13/2020 06/03/2021 Last Assessment & Plan: Assessment: -Na today 132 PLAN: -continue to monitor with daily BMPs -NS IVF Colostomy in place 05/13/2020 10/27/2021 Last Assessment & Plan: Assessment: -healthy -functioning PLAN: -care per ET nursing -self care instruction with -coordinate home care Asthma 07/19/2021 Last Assessment & Plan: Assessment: -not in acute exacerbation PLAN: -home albuterol PRN Post-operative state 10/27/2021 Last Assessment & Plan: Assessment: -POD9 Hartmanns reversal with side to end colocolonic anastomosis, takedown of end colostomy, lysis of adhesions, flexible sigmoidoscopy PLAN: -diet: advance to clears, fulls later if well -gastric ulcer ppx: protonix -encourage ambulation -incentive spirometry Post-operative pain 06/03/2021 Last Assessment & Plan: Assessment: -well controlled PLAN: -multimodal regimen Ileostomy in place 05/13/2020 Last Assessment & Plan: Assessment: -healthy -awaiting function PLAN: -care per ET nursing -self care instruction with -coordinate home care documented as of this encounter (statuses as of 03/07/2022) [facility] History of Past illness Narrative* Problem Noted Date Resolved Date Acute renal failure (ARF) 03/19/20212021 Last Assessment & Plan: Assessment: -Cr trending down -FENa consistent with pre-renal failure PLAN: -avoid nephrotoxins -trend BUN and Cr -MIVF Hypokalemia 03/07/2021 03/10/2021 Last Assessment & Plan: Assessment: -K today 3.2 PLAN: -received 40meq per protocol --give additional 40meq given limited response over past few days Acute on chronic kidney failure 03/03/2021 03/04/2021 Last Assessment & Plan: Assessment: -baseline Cr 1.4 --elevated today at 2.2 PLAN: -keep modi -1L NSB given concurrent elevated BUN -trend Cr Attention to colostomy 03/02/2021 Last Assessment & Plan: Assessment: -colostomy closed 03/01/2021 PLAN: -post op care -daily shower and dressing change Hyperkalemia 03/02/2021 03/03/2021 Last Assessment & Plan: Assessment: -K today 5.3 PLAN: -NS MIVF -trend Morbid obesity 02/28/2021 06/03/2021 Last Assessment & Plan: Assessment: -BMI 41.5 PLAN: -diet education -encourage ambulation Hyponatremia 05/13/2020 06/03/2021 Last Assessment & Plan: Assessment: -Na today 132 PLAN: -continue to monitor with daily BMPs -NS IVF Colostomy in place 05/13/2020 10/27/2021 Last Assessment & Plan: Assessment: -healthy -functioning PLAN: -care per ET nursing -self care instruction with -coordinate home care Asthma 07/19/2021 Last Assessment & Plan: Assessment: -not in acute exacerbation PLAN: -home albuterol PRN Post-operative state 10/27/2021 Last Assessment & Plan: Assessment: -POD9 Hartmanns reversal with side to end colocolonic anastomosis, takedown of end colostomy, lysis of adhesions, flexible sigmoidoscopy PLAN: -diet: advance to clears, fulls later if well -gastric ulcer ppx: protonix -encourage ambulation -incentive spirometry Post-operative pain 06/03/2021 Last Assessment & Plan: Assessment: -well controlled PLAN: -multimodal regimen Ileostomy in place 05/13/2020 Last Assessment & Plan: Assessment: -healthy -awaiting function PLAN: -care per ET nursing -self care instruction with -coordinate home care documented as of this encounter (statuses as of 03/07/2022) [facility] History of Past illness Narrative* Problem Noted Date Resolved Date Acute renal failure (ARF) 03/19/20212021 Last Assessment & Plan: Assessment: -Cr trending down -FENa consistent with pre-renal failure PLAN: -avoid nephrotoxins -trend BUN and Cr -MIVF Hypokalemia 03/07/2021 03/10/2021 Last Assessment & Plan: Assessment: -K today 3.2 PLAN: -received 40meq per protocol --give additional 40meq given limited response over past few days Acute on chronic kidney failure 03/03/2021 03/04/2021 Last Assessment & Plan: Assessment: -baseline Cr 1.4 --elevated today at 2.2 PLAN: -keep modi -1L NSB given concurrent elevated BUN -trend Cr Attention to colostomy 03/02/2021 Last Assessment & Plan: Assessment: -colostomy closed 03/01/2021 PLAN: -post op care -daily shower and dressing change Hyperkalemia 03/02/2021 03/03/2021 Last Assessment & Plan: Assessment: -K today 5.3 PLAN: -NS MIVF -trend Morbid obesity 02/28/2021 06/03/2021 Last Assessment & Plan: Assessment: -BMI 41.5 PLAN: -diet education -encourage ambulation Hyponatremia 05/13/2020 06/03/2021 Last Assessment & Plan: Assessment: -Na today 132 PLAN: -continue to monitor with daily BMPs -NS IVF Colostomy in place 05/13/2020 10/27/2021 Last Assessment & Plan: Assessment: -healthy -functioning PLAN: -care per ET nursing -self care instruction with -coordinate home care Asthma 07/19/2021 Last Assessment & Plan: Assessment: -not in acute exacerbation PLAN: -home albuterol PRN Post-operative state 10/27/2021 Last Assessment & Plan: Assessment: -POD9 Hartmanns reversal with side to end colocolonic anastomosis, takedown of end colostomy, lysis of adhesions, flexible sigmoidoscopy PLAN: -diet: advance to clears, fulls later if well -gastric ulcer ppx: protonix -encourage ambulation -incentive spirometry Post-operative pain 06/03/2021 Last Assessment & Plan: Assessment: -well controlled PLAN: -multimodal regimen Ileostomy in place 05/13/2020 Last Assessment & Plan: Assessment: -healthy -awaiting function PLAN: -care per ET nursing -self care instruction with -coordinate home care documented as of this encounter (statuses as of 03/14/2022) [facility]07-10-2021 History of Past illness Narrative* Problem Noted Date Resolved Date Acute renal failure (ARF) 03/19/20212021 Last Assessment & Plan: Assessment: -Cr trending down -FENa consistent with pre-renal failure PLAN: -avoid nephrotoxins -trend BUN and Cr -MIVF Hypokalemia 03/07/2021 03/10/2021 Last Assessment & Plan: Assessment: -K today 3.2 PLAN: -received 40meq per protocol --give additional 40meq given limited response over past few days Acute on chronic kidney failure 03/03/2021 03/04/2021 Last Assessment & Plan: Assessment: -baseline Cr 1.4 --elevated today at 2.2 PLAN: -keep modi -1L NSB given concurrent elevated BUN -trend Cr Attention to colostomy 03/02/2021 Last Assessment & Plan: Assessment: -colostomy closed 03/01/2021 PLAN: -post op care -daily shower and dressing change Hyperkalemia 03/02/2021 03/03/2021 Last Assessment & Plan: Assessment: -K today 5.3 PLAN: -NS MIVF -trend Morbid obesity 02/28/2021 06/03/2021 Last Assessment & Plan: Assessment: -BMI 41.5 PLAN: -diet education -encourage ambulation Hyponatremia 05/13/2020 06/03/2021 Last Assessment & Plan: Assessment: -Na today 132 PLAN: -continue to monitor with daily BMPs -NS IVF Colostomy in place 05/13/2020 10/27/2021 Last Assessment & Plan: Assessment: -healthy -functioning PLAN: -care per ET nursing -self care instruction with -coordinate home care Asthma 07/19/2021 Last Assessment & Plan: Assessment: -not in acute exacerbation PLAN: -home albuterol PRN Post-operative state 10/27/2021 Last Assessment & Plan: Assessment: -POD9 Hartmanns reversal with side to end colocolonic anastomosis, takedown of end colostomy, lysis of adhesions, flexible sigmoidoscopy PLAN: -diet: advance to clears, fulls later if well -gastric ulcer ppx: protonix -encourage ambulation -incentive spirometry Post-operative pain 06/03/2021 Last Assessment & Plan: Assessment: -well controlled PLAN: -multimodal regimen Ileostomy in place 05/13/2020 Last Assessment & Plan: Assessment: -healthy -awaiting function PLAN: -care per ET nursing -self care instruction with -coordinate home care documented as of this encounter (statuses as of 03/14/2022) [facility]07-10-2021 History of Past illness Narrative* Problem Noted Date Resolved Date Acute renal failure (ARF) 03/19/20212021 Last Assessment & Plan: Assessment: -Cr trending down -FENa consistent with pre-renal failure PLAN: -avoid nephrotoxins -trend BUN and Cr -MIVF Hypokalemia 03/07/2021 03/10/2021 Last Assessment & Plan: Assessment: -K today 3.2 PLAN: -received 40meq per protocol --give additional 40meq given limited response over past few days Acute on chronic kidney failure 03/03/2021 03/04/2021 Last Assessment & Plan: Assessment: -baseline Cr 1.4 --elevated today at 2.2 PLAN: -keep modi -1L NSB given concurrent elevated BUN -trend Cr Attention to colostomy 03/02/2021 Last Assessment & Plan: Assessment: -colostomy closed 03/01/2021 PLAN: -post op care -daily shower and dressing change Hyperkalemia 03/02/2021 03/03/2021 Last Assessment & Plan: Assessment: -K today 5.3 PLAN: -NS MIVF -trend Morbid obesity 02/28/2021 06/03/2021 Last Assessment & Plan: Assessment: -BMI 41.5 PLAN: -diet education -encourage ambulation Hyponatremia 05/13/2020 06/03/2021 Last Assessment & Plan: Assessment: -Na today 132 PLAN: -continue to monitor with daily BMPs -NS IVF Colostomy in place 05/13/2020 10/27/2021 Last Assessment & Plan: Assessment: -healthy -functioning PLAN: -care per ET nursing -self care instruction with -coordinate home care Asthma 07/19/2021 Last Assessment & Plan: Assessment: -not in acute exacerbation PLAN: -home albuterol PRN Post-operative state 10/27/2021 Last Assessment & Plan: Assessment: -POD9 Hartmanns reversal with side to end colocolonic anastomosis, takedown of end colostomy, lysis of adhesions, flexible sigmoidoscopy PLAN: -diet: advance to clears, fulls later if well -gastric ulcer ppx: protonix -encourage ambulation -incentive spirometry Post-operative pain 06/03/2021 Last Assessment & Plan: Assessment: -well controlled PLAN: -multimodal regimen Ileostomy in place 05/13/2020 Last Assessment & Plan: Assessment: -healthy -awaiting function PLAN: -care per ET nursing -self care instruction with -coordinate home care documented as of this encounter (statuses as of 03/20/2022) [facility]07-10-2021 History of Past illness Narrative* Problem Noted Date Resolved Date Acute renal failure (ARF) 03/19/20212021 Last Assessment & Plan: Assessment: -Cr trending down -FENa consistent with pre-renal failure PLAN: -avoid nephrotoxins -trend BUN and Cr -MIVF Hypokalemia 03/07/2021 03/10/2021 Last Assessment & Plan: Assessment: -K today 3.2 PLAN: -received 40meq per protocol --give additional 40meq given limited response over past few days Acute on chronic kidney failure 03/03/2021 03/04/2021 Last Assessment & Plan: Assessment: -baseline Cr 1.4 --elevated today at 2.2 PLAN: -keep modi -1L NSB given concurrent elevated BUN -trend Cr Attention to colostomy 03/02/2021 Last Assessment & Plan: Assessment: -colostomy closed 03/01/2021 PLAN: -post op care -daily shower and dressing change Hyperkalemia 03/02/2021 03/03/2021 Last Assessment & Plan: Assessment: -K today 5.3 PLAN: -NS MIVF -trend Morbid obesity 02/28/2021 06/03/2021 Last Assessment & Plan: Assessment: -BMI 41.5 PLAN: -diet education -encourage ambulation Hyponatremia 05/13/2020 06/03/2021 Last Assessment & Plan: Assessment: -Na today 132 PLAN: -continue to monitor with daily BMPs -NS IVF Colostomy in place 05/13/2020 10/27/2021 Last Assessment & Plan: Assessment: -healthy -functioning PLAN: -care per ET nursing -self care instruction with -coordinate home care Asthma 07/19/2021 Last Assessment & Plan: Assessment: -not in acute exacerbation PLAN: -home albuterol PRN Post-operative state 10/27/2021 Last Assessment & Plan: Assessment: -POD9 Hartmanns reversal with side to end colocolonic anastomosis, takedown of end colostomy, lysis of adhesions, flexible sigmoidoscopy PLAN: -diet: advance to clears, fulls later if well -gastric ulcer ppx: protonix -encourage ambulation -incentive spirometry Post-operative pain 06/03/2021 Last Assessment & Plan: Assessment: -well controlled PLAN: -multimodal regimen Ileostomy in place 05/13/2020 Last Assessment & Plan: Assessment: -healthy -awaiting function PLAN: -care per ET nursing -self care instruction with -coordinate home care documented as of this encounter (statuses as of 03/22/2022) [facility]07-10-2021 History of Past illness Narrative* Problem Noted Date Resolved Date Acute renal failure (ARF) 03/19/20212021 Last Assessment & Plan: Assessment: -Cr trending down -FENa consistent with pre-renal failure PLAN: -avoid nephrotoxins -trend BUN and Cr -MIVF Hypokalemia 03/07/2021 03/10/2021 Last Assessment & Plan: Assessment: -K today 3.2 PLAN: -received 40meq per protocol --give additional 40meq given limited response over past few days Acute on chronic kidney failure 03/03/2021 03/04/2021 Last Assessment & Plan: Assessment: -baseline Cr 1.4 --elevated today at 2.2 PLAN: -keep modi -1L NSB given concurrent elevated BUN -trend Cr Attention to colostomy 03/02/2021 Last Assessment & Plan: Assessment: -colostomy closed 03/01/2021 PLAN: -post op care -daily shower and dressing change Hyperkalemia 03/02/2021 03/03/2021 Last Assessment & Plan: Assessment: -K today 5.3 PLAN: -NS MIVF -trend Morbid obesity 02/28/2021 06/03/2021 Last Assessment & Plan: Assessment: -BMI 41.5 PLAN: -diet education -encourage ambulation Hyponatremia 05/13/2020 06/03/2021 Last Assessment & Plan: Assessment: -Na today 132 PLAN: -continue to monitor with daily BMPs -NS IVF Colostomy in place 05/13/2020 10/27/2021 Last Assessment & Plan: Assessment: -healthy -functioning PLAN: -care per ET nursing -self care instruction with -coordinate home care Asthma 07/19/2021 Last Assessment & Plan: Assessment: -not in acute exacerbation PLAN: -home albuterol PRN Post-operative state 10/27/2021 Last Assessment & Plan: Assessment: -POD9 Hartmanns reversal with side to end colocolonic anastomosis, takedown of end colostomy, lysis of adhesions, flexible sigmoidoscopy PLAN: -diet: advance to clears, fulls later if well -gastric ulcer ppx: protonix -encourage ambulation -incentive spirometry Post-operative pain 06/03/2021 Last Assessment & Plan: Assessment: -well controlled PLAN: -multimodal regimen Ileostomy in place 05/13/2020 Last Assessment & Plan: Assessment: -healthy -awaiting function PLAN: -care per ET nursing -self care instruction with -coordinate home care documented as of this encounter (statuses as of 03/27/2022) [facility]07-10-2021 History of Past illness Narrative* Problem Noted Date Resolved Date Acute renal failure (ARF) 03/19/20212021 Last Assessment & Plan: Assessment: -Cr trending down -FENa consistent with pre-renal failure PLAN: -avoid nephrotoxins -trend BUN and Cr -MIVF Hypokalemia 03/07/2021 03/10/2021 Last Assessment & Plan: Assessment: -K today 3.2 PLAN: -received 40meq per protocol --give additional 40meq given limited response over past few days Acute on chronic kidney failure 03/03/2021 03/04/2021 Last Assessment & Plan: Assessment: -baseline Cr 1.4 --elevated today at 2.2 PLAN: -keep modi -1L NSB given concurrent elevated BUN -trend Cr Attention to colostomy 03/02/2021 Last Assessment & Plan: Assessment: -colostomy closed 03/01/2021 PLAN: -post op care -daily shower and dressing change Hyperkalemia 03/02/2021 03/03/2021 Last Assessment & Plan: Assessment: -K today 5.3 PLAN: -NS MIVF -trend Morbid obesity 02/28/2021 06/03/2021 Last Assessment & Plan: Assessment: -BMI 41.5 PLAN: -diet education -encourage ambulation Hyponatremia 05/13/2020 06/03/2021 Last Assessment & Plan: Assessment: -Na today 132 PLAN: -continue to monitor with daily BMPs -NS IVF Colostomy in place 05/13/2020 10/27/2021 Last Assessment & Plan: Assessment: -healthy -functioning PLAN: -care per ET nursing -self care instruction with -coordinate home care Asthma 07/19/2021 Last Assessment & Plan: Assessment: -not in acute exacerbation PLAN: -home albuterol PRN Post-operative state 10/27/2021 Last Assessment & Plan: Assessment: -POD9 Hartmanns reversal with side to end colocolonic anastomosis, takedown of end colostomy, lysis of adhesions, flexible sigmoidoscopy PLAN: -diet: advance to clears, fulls later if well -gastric ulcer ppx: protonix -encourage ambulation -incentive spirometry Post-operative pain 06/03/2021 Last Assessment & Plan: Assessment: -well controlled PLAN: -multimodal regimen Ileostomy in place 05/13/2020 Last Assessment & Plan: Assessment: -healthy -awaiting function PLAN: -care per ET nursing -self care instruction with -coordinate home care documented as of this encounter (statuses as of 04/03/2022) [facility]07-10-2021 History of Past illness Narrative* Problem Noted Date Resolved Date Acute renal failure (ARF) 03/19/20212021 Last Assessment & Plan: Assessment: -Cr trending down -FENa consistent with pre-renal failure PLAN: -avoid nephrotoxins -trend BUN and Cr -MIVF Hypokalemia 03/07/2021 03/10/2021 Last Assessment & Plan: Assessment: -K today 3.2 PLAN: -received 40meq per protocol --give additional 40meq given limited response over past few days Acute on chronic kidney failure 03/03/2021 03/04/2021 Last Assessment & Plan: Assessment: -baseline Cr 1.4 --elevated today at 2.2 PLAN: -keep modi -1L NSB given concurrent elevated BUN -trend Cr Attention to colostomy 03/02/2021 Last Assessment & Plan: Assessment: -colostomy closed 03/01/2021 PLAN: -post op care -daily shower and dressing change Hyperkalemia 03/02/2021 03/03/2021 Last Assessment & Plan: Assessment: -K today 5.3 PLAN: -NS MIVF -trend Morbid obesity 02/28/2021 06/03/2021 Last Assessment & Plan: Assessment: -BMI 41.5 PLAN: -diet education -encourage ambulation Hyponatremia 05/13/2020 06/03/2021 Last Assessment & Plan: Assessment: -Na today 132 PLAN: -continue to monitor with daily BMPs -NS IVF Colostomy in place 05/13/2020 10/27/2021 Last Assessment & Plan: Assessment: -healthy -functioning PLAN: -care per ET nursing -self care instruction with -coordinate home care Asthma 07/19/2021 Last Assessment & Plan: Assessment: -not in acute exacerbation PLAN: -home albuterol PRN Post-operative state 10/27/2021 Last Assessment & Plan: Assessment: -POD9 Hartmanns reversal with side to end colocolonic anastomosis, takedown of end colostomy, lysis of adhesions, flexible sigmoidoscopy PLAN: -diet: advance to clears, fulls later if well -gastric ulcer ppx: protonix -encourage ambulation -incentive spirometry Post-operative pain 06/03/2021 Last Assessment & Plan: Assessment: -well controlled PLAN: -multimodal regimen Ileostomy in place 05/13/2020 Last Assessment & Plan: Assessment: -healthy -awaiting function PLAN: -care per ET nursing -self care instruction with -coordinate home care documented as of this encounter (statuses as of 04/10/2022) [facility]07-10-2021 History of Past illness Narrative* Problem Noted Date Resolved Date Acute renal failure (ARF) 03/19/20212021 Last Assessment & Plan: Assessment: -Cr trending down -FENa consistent with pre-renal failure PLAN: -avoid nephrotoxins -trend BUN and Cr -MIVF Hypokalemia 03/07/2021 03/10/2021 Last Assessment & Plan: Assessment: -K today 3.2 PLAN: -received 40meq per protocol --give additional 40meq given limited response over past few days Acute on chronic kidney failure 03/03/2021 03/04/2021 Last Assessment & Plan: Assessment: -baseline Cr 1.4 --elevated today at 2.2 PLAN: -keep modi -1L NSB given concurrent elevated BUN -trend Cr Attention to colostomy 03/02/2021 Last Assessment & Plan: Assessment: -colostomy closed 03/01/2021 PLAN: -post op care -daily shower and dressing change Hyperkalemia 03/02/2021 03/03/2021 Last Assessment & Plan: Assessment: -K today 5.3 PLAN: -NS MIVF -trend Morbid obesity 02/28/2021 06/03/2021 Last Assessment & Plan: Assessment: -BMI 41.5 PLAN: -diet education -encourage ambulation Hyponatremia 05/13/2020 06/03/2021 Last Assessment & Plan: Assessment: -Na today 132 PLAN: -continue to monitor with daily BMPs -NS IVF Colostomy in place 05/13/2020 10/27/2021 Last Assessment & Plan: Assessment: -healthy -functioning PLAN: -care per ET nursing -self care instruction with -coordinate home care Asthma 07/19/2021 Last Assessment & Plan: Assessment: -not in acute exacerbation PLAN: -home albuterol PRN Post-operative state 10/27/2021 Last Assessment & Plan: Assessment: -POD9 Hartmanns reversal with side to end colocolonic anastomosis, takedown of end colostomy, lysis of adhesions, flexible sigmoidoscopy PLAN: -diet: advance to clears, fulls later if well -gastric ulcer ppx: protonix -encourage ambulation -incentive spirometry Post-operative pain 06/03/2021 Last Assessment & Plan: Assessment: -well controlled PLAN: -multimodal regimen Ileostomy in place 05/13/2020 Last Assessment & Plan: Assessment: -healthy -awaiting function PLAN: -care per ET nursing -self care instruction with -coordinate home care documented as of this encounter (statuses as of 04/13/2022) [facility]07-10-2021 History of Past illness Narrative* Problem Noted Date Resolved Date Acute renal failure (ARF) 03/19/20212021 Last Assessment & Plan: Assessment: -Cr trending down -FENa consistent with pre-renal failure PLAN: -avoid nephrotoxins -trend BUN and Cr -MIVF Hypokalemia 03/07/2021 03/10/2021 Last Assessment & Plan: Assessment: -K today 3.2 PLAN: -received 40meq per protocol --give additional 40meq given limited response over past few days Acute on chronic kidney failure 03/03/2021 03/04/2021 Last Assessment & Plan: Assessment: -baseline Cr 1.4 --elevated today at 2.2 PLAN: -keep modi -1L NSB given concurrent elevated BUN -trend Cr Attention to colostomy 03/02/2021 Last Assessment & Plan: Assessment: -colostomy closed 03/01/2021 PLAN: -post op care -daily shower and dressing change Hyperkalemia 03/02/2021 03/03/2021 Last Assessment & Plan: Assessment: -K today 5.3 PLAN: -NS MIVF -trend Morbid obesity 02/28/2021 06/03/2021 Last Assessment & Plan: Assessment: -BMI 41.5 PLAN: -diet education -encourage ambulation Hyponatremia 05/13/2020 06/03/2021 Last Assessment & Plan: Assessment: -Na today 132 PLAN: -continue to monitor with daily BMPs -NS IVF Colostomy in place 05/13/2020 10/27/2021 Last Assessment & Plan: Assessment: -healthy -functioning PLAN: -care per ET nursing -self care instruction with -coordinate home care Asthma 07/19/2021 Last Assessment & Plan: Assessment: -not in acute exacerbation PLAN: -home albuterol PRN Post-operative state 10/27/2021 Last Assessment & Plan: Assessment: -POD9 Hartmanns reversal with side to end colocolonic anastomosis, takedown of end colostomy, lysis of adhesions, flexible sigmoidoscopy PLAN: -diet: advance to clears, fulls later if well -gastric ulcer ppx: protonix -encourage ambulation -incentive spirometry Post-operative pain 06/03/2021 Last Assessment & Plan: Assessment: -well controlled PLAN: -multimodal regimen Ileostomy in place 05/13/2020 Last Assessment & Plan: Assessment: -healthy -awaiting function PLAN: -care per ET nursing -self care instruction with -coordinate home care documented as of this encounter (statuses as of 04/13/2022) [facility]07-10-2021 History of Past illness Narrative* Problem Noted Date Resolved Date Acute renal failure (ARF) 03/19/20212021 Last Assessment & Plan: Assessment: -Cr trending down -FENa consistent with pre-renal failure PLAN: -avoid nephrotoxins -trend BUN and Cr -MIVF Hypokalemia 03/07/2021 03/10/2021 Last Assessment & Plan: Assessment: -K today 3.2 PLAN: -received 40meq per protocol --give additional 40meq given limited response over past few days Acute on chronic kidney failure 03/03/2021 03/04/2021 Last Assessment & Plan: Assessment: -baseline Cr 1.4 --elevated today at 2.2 PLAN: -keep modi -1L NSB given concurrent elevated BUN -trend Cr Attention to colostomy 03/02/2021 Last Assessment & Plan: Assessment: -colostomy closed 03/01/2021 PLAN: -post op care -daily shower and dressing change Hyperkalemia 03/02/2021 03/03/2021 Last Assessment & Plan: Assessment: -K today 5.3 PLAN: -NS MIVF -trend Morbid obesity 02/28/2021 06/03/2021 Last Assessment & Plan: Assessment: -BMI 41.5 PLAN: -diet education -encourage ambulation Hyponatremia 05/13/2020 06/03/2021 Last Assessment & Plan: Assessment: -Na today 132 PLAN: -continue to monitor with daily BMPs -NS IVF Colostomy in place 05/13/2020 10/27/2021 Last Assessment & Plan: Assessment: -healthy -functioning PLAN: -care per ET nursing -self care instruction with -coordinate home care Asthma 07/19/2021 Last Assessment & Plan: Assessment: -not in acute exacerbation PLAN: -home albuterol PRN Post-operative state 10/27/2021 Last Assessment & Plan: Assessment: -POD9 Hartmanns reversal with side to end colocolonic anastomosis, takedown of end colostomy, lysis of adhesions, flexible sigmoidoscopy PLAN: -diet: advance to clears, fulls later if well -gastric ulcer ppx: protonix -encourage ambulation -incentive spirometry Post-operative pain 06/03/2021 Last Assessment & Plan: Assessment: -well controlled PLAN: -multimodal regimen Ileostomy in place 05/13/2020 Last Assessment & Plan: Assessment: -healthy -awaiting function PLAN: -care per ET nursing -self care instruction with -coordinate home care documented as of this encounter (statuses as of 04/14/2022) [facility]07-10-2021 History of Past illness Narrative* Problem Noted Date Resolved Date Acute renal failure (ARF) 03/19/20212021 Last Assessment & Plan: Assessment: -Cr trending down -FENa consistent with pre-renal failure PLAN: -avoid nephrotoxins -trend BUN and Cr -MIVF Hypokalemia 03/07/2021 03/10/2021 Last Assessment & Plan: Assessment: -K today 3.2 PLAN: -received 40meq per protocol --give additional 40meq given limited response over past few days Acute on chronic kidney failure 03/03/2021 03/04/2021 Last Assessment & Plan: Assessment: -baseline Cr 1.4 --elevated today at 2.2 PLAN: -keep modi -1L NSB given concurrent elevated BUN -trend Cr Attention to colostomy 03/02/2021 Last Assessment & Plan: Assessment: -colostomy closed 03/01/2021 PLAN: -post op care -daily shower and dressing change Hyperkalemia 03/02/2021 03/03/2021 Last Assessment & Plan: Assessment: -K today 5.3 PLAN: -NS MIVF -trend Morbid obesity 02/28/2021 06/03/2021 Last Assessment & Plan: Assessment: -BMI 41.5 PLAN: -diet education -encourage ambulation Hyponatremia 05/13/2020 06/03/2021 Last Assessment & Plan: Assessment: -Na today 132 PLAN: -continue to monitor with daily BMPs -NS IVF Colostomy in place 05/13/2020 10/27/2021 Last Assessment & Plan: Assessment: -healthy -functioning PLAN: -care per ET nursing -self care instruction with -coordinate home care Asthma 07/19/2021 Last Assessment & Plan: Assessment: -not in acute exacerbation PLAN: -home albuterol PRN Post-operative state 10/27/2021 Last Assessment & Plan: Assessment: -POD9 Hartmanns reversal with side to end colocolonic anastomosis, takedown of end colostomy, lysis of adhesions, flexible sigmoidoscopy PLAN: -diet: advance to clears, fulls later if well -gastric ulcer ppx: protonix -encourage ambulation -incentive spirometry Post-operative pain 06/03/2021 Last Assessment & Plan: Assessment: -well controlled PLAN: -multimodal regimen Ileostomy in place 05/13/2020 Last Assessment & Plan: Assessment: -healthy -awaiting function PLAN: -care per [facility] nursing -self care instruction with -coordinate home care documented as of this encounter (statuses as of 04/24/2022) [facility]-10-2021 History of Past illness Narrative* Problem Noted Date Resolved Date Acute renal failure (ARF) 03/19/20212021 Last Assessment & Plan: Assessment: -Cr trending down -FENa consistent with pre-renal failure PLAN: -avoid nephrotoxins -trend BUN and Cr -MIVF Hypokalemia 03/07/2021 03/10/2021 Last Assessment & Plan: Assessment: -K today 3.2 PLAN: -received 40meq per protocol --give additional 40meq given limited response over past few days Acute on chronic kidney failure 03/03/2021 03/04/2021 Last Assessment & Plan: Assessment: -baseline Cr 1.4 --elevated today at 2.2 PLAN: -keep modi -1L NSB given concurrent elevated BUN -trend Cr Attention to colostomy 03/02/2021 Last Assessment & Plan: Assessment: -colostomy closed 03/01/2021 PLAN: -post op care -daily shower and dressing change Hyperkalemia 03/02/2021 03/03/2021 Last Assessment & Plan: Assessment: -K today 5.3 PLAN: -NS MIVF -trend Morbid obesity 02/28/2021 06/03/2021 Last Assessment & Plan: Assessment: -BMI 41.5 PLAN: -diet education -encourage ambulation Hyponatremia 05/13/2020 06/03/2021 Last Assessment & Plan: Assessment: -Na today 132 PLAN: -continue to monitor with daily BMPs -NS IVF Colostomy in place 05/13/2020 10/27/2021 Last Assessment & Plan: Assessment: -healthy -functioning PLAN: -care per ET nursing -self care instruction with -coordinate home care Asthma 07/19/2021 Last Assessment & Plan: Assessment: -not in acute exacerbation PLAN: -home albuterol PRN Post-operative state 10/27/2021 Last Assessment & Plan: Assessment: -POD9 Hartmanns reversal with side to end colocolonic anastomosis, takedown of end colostomy, lysis of adhesions, flexible sigmoidoscopy PLAN: -diet: advance to clears, fulls later if well -gastric ulcer ppx: protonix -encourage ambulation -incentive spirometry Post-operative pain 06/03/2021 Last Assessment & Plan: Assessment: -well controlled PLAN: -multimodal regimen Ileostomy in place 05/13/2020 Last Assessment & Plan: Assessment: -healthy -awaiting function PLAN: -care per ET nursing -self care instruction with -coordinate home care documented as of this encounter (statuses as of 05/08/2022) [facility]21 History of Past illness Narrative* Problem Noted Date Resolved Date Acute renal failure (ARF) 03/19/20212021 Last Assessment & Plan: Assessment: -Cr trending down -FENa consistent with pre-renal failure PLAN: -avoid nephrotoxins -trend BUN and Cr -MIVF Hypokalemia 03/07/2021 03/10/2021 Last Assessment & Plan: Assessment: -K today 3.2 PLAN: -received 40meq per protocol --give additional 40meq given limited response over past few days Acute on chronic kidney failure 03/03/2021 03/04/2021 Last Assessment & Plan: Assessment: -baseline Cr 1.4 --elevated today at 2.2 PLAN: -keep modi -1L NSB given concurrent elevated BUN -trend Cr Attention to colostomy 03/02/2021 Last Assessment & Plan: Assessment: -colostomy closed 03/01/2021 PLAN: -post op care -daily shower and dressing change Hyperkalemia 03/02/2021 03/03/2021 Last Assessment & Plan: Assessment: -K today 5.3 PLAN: -NS MIVF -trend Morbid obesity 02/28/2021 06/03/2021 Last Assessment & Plan: Assessment: -BMI 41.5 PLAN: -diet education -encourage ambulation Hyponatremia 05/13/2020 06/03/2021 Last Assessment & Plan: Assessment: -Na today 132 PLAN: -continue to monitor with daily BMPs -NS IVF Colostomy in place 05/13/2020 10/27/2021 Last Assessment & Plan: Assessment: -healthy -functioning PLAN: -care per ET nursing -self care instruction with -coordinate home care Asthma 07/19/2021 Last Assessment & Plan: Assessment: -not in acute exacerbation PLAN: -home albuterol PRN Post-operative state 10/27/2021 Last Assessment & Plan: Assessment: -POD9 Hartmanns reversal with side to end colocolonic anastomosis, takedown of end colostomy, lysis of adhesions, flexible sigmoidoscopy PLAN: -diet: advance to clears, fulls later if well -gastric ulcer ppx: protonix -encourage ambulation -incentive spirometry Post-operative pain 06/03/2021 Last Assessment & Plan: Assessment: -well controlled PLAN: -multimodal regimen Ileostomy in place 05/13/2020 Last Assessment & Plan: Assessment: -healthy -awaiting function PLAN: -care per ET nursing -self care instruction with -coordinate home care documented as of this encounter (statuses as of 05/18/2022) [facility]07-10-2021 History of Past illness Narrative* Problem Noted Date Resolved Date Acute renal failure (ARF) 03/19/20212021 Last Assessment & Plan: Assessment: -Cr trending down -FENa consistent with pre-renal failure PLAN: -avoid nephrotoxins -trend BUN and Cr -MIVF Hypokalemia 03/07/2021 03/10/2021 Last Assessment & Plan: Assessment: -K today 3.2 PLAN: -received 40meq per protocol --give additional 40meq given limited response over past few days Acute on chronic kidney failure 03/03/2021 03/04/2021 Last Assessment & Plan: Assessment: -baseline Cr 1.4 --elevated today at 2.2 PLAN: -keep modi -1L NSB given concurrent elevated BUN -trend Cr Attention to colostomy 03/02/2021 Last Assessment & Plan: Assessment: -colostomy closed 03/01/2021 PLAN: -post op care -daily shower and dressing change Hyperkalemia 03/02/2021 03/03/2021 Last Assessment & Plan: Assessment: -K today 5.3 PLAN: -NS MIVF -trend Morbid obesity 02/28/2021 06/03/2021 Last Assessment & Plan: Assessment: -BMI 41.5 PLAN: -diet education -encourage ambulation Hyponatremia 05/13/2020 06/03/2021 Last Assessment & Plan: Assessment: -Na today 132 PLAN: -continue to monitor with daily BMPs -NS IVF Colostomy in place 05/13/2020 10/27/2021 Last Assessment & Plan: Assessment: -healthy -functioning PLAN: -care per ET nursing -self care instruction with -coordinate home care Asthma 07/19/2021 Last Assessment & Plan: Assessment: -not in acute exacerbation PLAN: -home albuterol PRN Post-operative state 10/27/2021 Last Assessment & Plan: Assessment: -POD9 Hartmanns reversal with side to end colocolonic anastomosis, takedown of end colostomy, lysis of adhesions, flexible sigmoidoscopy PLAN: -diet: advance to clears, fulls later if well -gastric ulcer ppx: protonix -encourage ambulation -incentive spirometry Post-operative pain 06/03/2021 Last Assessment & Plan: Assessment: -well controlled PLAN: -multimodal regimen Ileostomy in place 05/13/2020 Last Assessment & Plan: Assessment: -healthy -awaiting function PLAN: -care per ET nursing -self care instruction with -coordinate home care documented as of this encounter (statuses as of 06/23/2022) [facility]07-10-2021 History of Past illness Narrative* Problem Noted Date Resolved Date Acute renal failure (ARF) 03/19/20212021 Last Assessment & Plan: Assessment: -Cr trending down -FENa consistent with pre-renal failure PLAN: -avoid nephrotoxins -trend BUN and Cr -MIVF Hypokalemia 03/07/2021 03/10/2021 Last Assessment & Plan: Assessment: -K today 3.2 PLAN: -received 40meq per protocol --give additional 40meq given limited response over past few days Acute on chronic kidney failure 03/03/2021 03/04/2021 Last Assessment & Plan: Assessment: -baseline Cr 1.4 --elevated today at 2.2 PLAN: -keep modi -1L NSB given concurrent elevated BUN -trend Cr Attention to colostomy 03/02/2021 Last Assessment & Plan: Assessment: -colostomy closed 03/01/2021 PLAN: -post op care -daily shower and dressing change Hyperkalemia 03/02/2021 03/03/2021 Last Assessment & Plan: Assessment: -K today 5.3 PLAN: -NS MIVF -trend Rectal cancer 03/01/2021 09/14/2022 Last Assessment & Plan: Assessment: colostomy reversed. chemo completed 12/2020 Morbid obesity 02/28/2021 06/03/2021 Last Assessment & Plan: Assessment: -BMI 41.5 PLAN: -diet education -encourage ambulation Malignant neoplasm of rectosigmoid junction 06/1109/14/2022 Last Assessment & Plan: Assessment: s/p colon resection, partial cystectomy and temporary colostomy. Patient reports finishing chemotherapy December 2020 Hyponatremia 05/13/2020 06/03/2021 Last Assessment & Plan: Assessment: -Na today 132 PLAN: -continue to monitor with daily BMPs -NS IVF Colostomy in place 05/13/2020 10/27/2021 Last Assessment & Plan: Assessment: -healthy -functioning PLAN: -care per ET nursing -self care instruction with -coordinate home care Malignant neoplasm of ascending colon 05/10/2020 09/14/2022 Last Assessment & Plan: Assessment: s/p resection in April 2020 and bladder reconstruction s/p chemo follows with Dr. Taylor and monitored Asthma 07/19/2021 Last Assessment & Plan: Assessment: -not in acute exacerbation PLAN: -home albuterol PRN Post-operative state 10/27/2021 Last Assessment & Plan: Assessment: -POD9 Hartmanns reversal with side to end colocolonic anastomosis, takedown of end colostomy, lysis of adhesions, flexible sigmoidoscopy PLAN: -diet: advance to clears, fulls later if well -gastric ulcer ppx: protonix -encourage ambulation -incentive spirometry Post-operative pain 06/03/2021 Last Assessment & Plan: Assessment: -well controlled PLAN: -multimodal regimen Ileostomy in place 05/13/2020 Last Assessment & Plan: Assessment: -healthy -awaiting function PLAN: -care per ET nursing -self care instruction with -coordinate home care documented as of this encounter (statuses as of 09/18/2022) [facility]07-10-2021 History of Past illness Narrative* Problem Noted Date Resolved Date Acute renal failure (ARF) 03/19/20212021 Last Assessment & Plan: Assessment: -Cr trending down -FENa consistent with pre-renal failure PLAN: -avoid nephrotoxins -trend BUN and Cr -MIVF Hypokalemia 03/07/2021 03/10/2021 Last Assessment & Plan: Assessment: -K today 3.2 PLAN: -received 40meq per protocol --give additional 40meq given limited response over past few days Acute on chronic kidney failure 03/03/2021 03/04/2021 Last Assessment & Plan: Assessment: -baseline Cr 1.4 --elevated today at 2.2 PLAN: -keep modi -1L NSB given concurrent elevated BUN -trend Cr Attention to colostomy 03/02/2021 Last Assessment & Plan: Assessment: -colostomy closed 03/01/2021 PLAN: -post op care -daily shower and dressing change Hyperkalemia 03/02/2021 03/03/2021 Last Assessment & Plan: Assessment: -K today 5.3 PLAN: -NS MIVF -trend Rectal cancer 03/01/2021 09/14/2022 Last Assessment & Plan: Assessment: colostomy reversed. chemo completed 12/2020 Morbid obesity 02/28/2021 06/03/2021 Last Assessment & Plan: Assessment: -BMI 41.5 PLAN: -diet education -encourage ambulation Malignant neoplasm of rectosigmoid junction 06/1109/14/2022 Last Assessment & Plan: Assessment: s/p colon resection, partial cystectomy and temporary colostomy. Patient reports finishing chemotherapy December 2020 Hyponatremia 05/13/2020 06/03/2021 Last Assessment & Plan: Assessment: -Na today 132 PLAN: -continue to monitor with daily BMPs -NS IVF Colostomy in place 05/13/2020 10/27/2021 Last Assessment & Plan: Assessment: -healthy -functioning PLAN: -care per ET nursing -self care instruction with -coordinate home care Malignant neoplasm of ascending colon 05/10/2020 09/14/2022 Last Assessment & Plan: Assessment: s/p resection in April 2020 and bladder reconstruction s/p chemo follows with Dr. Taylor and monitored Asthma 07/19/2021 Last Assessment & Plan: Assessment: -not in acute exacerbation PLAN: -home albuterol PRN Post-operative state 10/27/2021 Last Assessment & Plan: Assessment: -POD9 Hartmanns reversal with side to end colocolonic anastomosis, takedown of end colostomy, lysis of adhesions, flexible sigmoidoscopy PLAN: -diet: advance to clears, fulls later if well -gastric ulcer ppx: protonix -encourage ambulation -incentive spirometry Post-operative pain 06/03/2021 Last Assessment & Plan: Assessment: -well controlled PLAN: -multimodal regimen Ileostomy in place 05/13/2020 Last Assessment & Plan: Assessment: -healthy -awaiting function PLAN: -care per ET nursing -self care instruction with -coordinate home care documented as of this encounter (statuses as of 09/18/2022) [facility]07-10-2021 History of Past illness Narrative* Problem Noted Date Resolved Date Acute renal failure (ARF) 03/19/20212021 Last Assessment & Plan: Assessment: -Cr trending down -FENa consistent with pre-renal failure PLAN: -avoid nephrotoxins -trend BUN and Cr -MIVF Hypokalemia 03/07/2021 03/10/2021 Last Assessment & Plan: Assessment: -K today 3.2 PLAN: -received 40meq per protocol --give additional 40meq given limited response over past few days Acute on chronic kidney failure 03/03/2021 03/04/2021 Last Assessment & Plan: Assessment: -baseline Cr 1.4 --elevated today at 2.2 PLAN: -keep modi -1L NSB given concurrent elevated BUN -trend Cr Attention to colostomy 03/02/2021 Last Assessment & Plan: Assessment: -colostomy closed 03/01/2021 PLAN: -post op care -daily shower and dressing change Hyperkalemia 03/02/2021 03/03/2021 Last Assessment & Plan: Assessment: -K today 5.3 PLAN: -NS MIVF -trend Rectal cancer 03/01/2021 09/14/2022 Last Assessment & Plan: Assessment: colostomy reversed. chemo completed 12/2020 Morbid obesity 02/28/2021 06/03/2021 Last Assessment & Plan: Assessment: -BMI 41.5 PLAN: -diet education -encourage ambulation Malignant neoplasm of rectosigmoid junction 06/1109/14/2022 Last Assessment & Plan: Assessment: s/p colon resection, partial cystectomy and temporary colostomy. Patient reports finishing chemotherapy December 2020 Hyponatremia 05/13/2020 06/03/2021 Last Assessment & Plan: Assessment: -Na today 132 PLAN: -continue to monitor with daily BMPs -NS IVF Colostomy in place 05/13/2020 10/27/2021 Last Assessment & Plan: Assessment: -healthy -functioning PLAN: -care per ET nursing -self care instruction with -coordinate home care Malignant neoplasm of ascending colon 05/10/2020 09/14/2022 Last Assessment & Plan: Assessment: s/p resection in April 2020 and bladder reconstruction s/p chemo follows with Dr. Taylor and monitored Asthma 07/19/2021 Last Assessment & Plan: Assessment: -not in acute exacerbation PLAN: -home albuterol PRN Post-operative state 10/27/2021 Last Assessment & Plan: Assessment: -POD9 Hartmanns reversal with side to end colocolonic anastomosis, takedown of end colostomy, lysis of adhesions, flexible sigmoidoscopy PLAN: -diet: advance to clears, fulls later if well -gastric ulcer ppx: protonix -encourage ambulation -incentive spirometry Post-operative pain 06/03/2021 Last Assessment & Plan: Assessment: -well controlled PLAN: -multimodal regimen Ileostomy in place 05/13/2020 Last Assessment & Plan: Assessment: -healthy -awaiting function PLAN: -care per ET nursing -self care instruction with -coordinate home care documented as of this encounter (statuses as of 01/23/2023) [facility]07-10-2021 History of Past illness Narrative* Problem Noted Date Resolved Date Acute renal failure (ARF) 03/19/20212021 Last Assessment & Plan: Assessment: -Cr trending down -FENa consistent with pre-renal failure PLAN: -avoid nephrotoxins -trend BUN and Cr -MIVF Hypokalemia 03/07/2021 03/10/2021 Last Assessment & Plan: Assessment: -K today 3.2 PLAN: -received 40meq per protocol --give additional 40meq given limited response over past few days Acute on chronic kidney failure 03/03/2021 03/04/2021 Last Assessment & Plan: Assessment: -baseline Cr 1.4 --elevated today at 2.2 PLAN: -keep modi -1L NSB given concurrent elevated BUN -trend Cr Attention to colostomy 03/02/2021 Last Assessment & Plan: Assessment: -colostomy closed 03/01/2021 PLAN: -post op care -daily shower and dressing change Hyperkalemia 03/02/2021 03/03/2021 Last Assessment & Plan: Assessment: -K today 5.3 PLAN: -NS MIVF -trend Rectal cancer 03/01/2021 09/14/2022 Last Assessment & Plan: Assessment: colostomy reversed. chemo completed 12/2020 Morbid obesity 02/28/2021 06/03/2021 Last Assessment & Plan: Assessment: -BMI 41.5 PLAN: -diet education -encourage ambulation Malignant neoplasm of rectosigmoid junction 06/1109/14/2022 Last Assessment & Plan: Assessment: s/p colon resection, partial cystectomy and temporary colostomy. Patient reports finishing chemotherapy December 2020 Hyponatremia 05/13/2020 06/03/2021 Last Assessment & Plan: Assessment: -Na today 132 PLAN: -continue to monitor with daily BMPs -NS IVF Colostomy in place 05/13/2020 10/27/2021 Last Assessment & Plan: Assessment: -healthy -functioning PLAN: -care per ET nursing -self care instruction with -coordinate home care Malignant neoplasm of ascending colon 05/10/2020 09/14/2022 Last Assessment & Plan: Assessment: s/p resection in April 2020 and bladder reconstruction s/p chemo follows with Dr. Taylor and monitored Asthma 07/19/2021 Last Assessment & Plan: Assessment: -not in acute exacerbation PLAN: -home albuterol PRN Post-operative state 10/27/2021 Last Assessment & Plan: Assessment: -POD9 Hartmanns reversal with side to end colocolonic anastomosis, takedown of end colostomy, lysis of adhesions, flexible sigmoidoscopy PLAN: -diet: advance to clears, fulls later if well -gastric ulcer ppx: protonix -encourage ambulation -incentive spirometry Post-operative pain 06/03/2021 Last Assessment & Plan: Assessment: -well controlled PLAN: -multimodal regimen Ileostomy in place 05/13/2020 Last Assessment & Plan: Assessment: -healthy -awaiting function PLAN: -care per ET nursing -self care instruction with -coordinate home care documented as of this encounter (statuses as of 03/05/2023) [facility]07-10-2021 History of Past illness Narrative* Problem Noted Date Diagnosed Date Resolved Date Acute renal failure (ARF) 03/19/2021 Last Assessment & Plan: Assessment: -Cr trending down -FENa consistent with pre-renal failure PLAN: -avoid nephrotoxins -trend BUN and Cr -MIVF Hypokalemia 03/07/2021 03/10/2021 Last Assessment & Plan: Assessment: -K today 3.2 PLAN: -received 40meq per protocol --give additional 40meq given limited response over past few days Acute on chronic kidney failure 03/03/2021 03/04/2021 Last Assessment & Plan: Assessment: -baseline Cr 1.4 --elevated today at 2.2 PLAN: -keep modi -1L NSB given concurrent elevated BUN -trend Cr Attention to colostomy 03/02/202110/27 Last Assessment & Plan: Assessment: -colostomy closed 03/01/2021 PLAN: -post op care -daily shower and dressing change Hyperkalemia 03/02/2021 03/03/2021 Last Assessment & Plan: Assessment: -K today 5.3 PLAN: -NS MIVF -trend Rectal cancer 03/01/2021 09/14/2022 Last Assessment & Plan: Assessment: colostomy reversed. chemo completed 12/2020 Morbid obesity 02/28/2021 06/03/2021 Last Assessment & Plan: Assessment: -BMI 41.5 PLAN: -diet education -encourage ambulation Malignant neoplasm of rectosigmoid junction 06/29/2020 09/14/2022 Last Assessment & Plan: Assessment: s/p colon resection, partial cystectomy and temporary colostomy. Patient reports finishing chemotherapy December 2020 Hyponatremia 05/13/2020 06/03/2021 Last Assessment & Plan: Assessment: -Na today 132 PLAN: -continue to monitor with daily BMPs -NS IVF Colostomy in place 05/13/2020 Last Assessment & Plan: Assessment: -healthy -functioning PLAN: -care per ET nursing -self care instruction with -coordinate home care Malignant neoplasm of ascending colon 05/10/2020 09/14/2022 Last Assessment & Plan: Assessment: s/p resection in April 2020 and bladder reconstruction s/p chemo follows with Dr. Taylor and monitored Asthma 07/19/2021 Last Assessment & Plan: Assessment: -not in acute exacerbation PLAN: -home albuterol PRN Post-operative state 022 Last Assessment & Plan: Assessment: -POD9 Hartmanns reversal with side to end colocolonic anastomosis, takedown of end colostomy, lysis of adhesions, flexible sigmoidoscopy PLAN: -diet: advance to clears, fulls later if well -gastric ulcer ppx: protonix -encourage ambulation -incentive spirometry Post-operative pain 06/03/20 21 Last Assessment & Plan: Assessment: -well controlled PLAN: -multimodal regimen Ileostomy in place 0 Last Assessment & Plan: Assessment: -healthy -awaiting function PLAN: -care per ET nursing -self care instruction with -coordinate home care documented as of this encounter (statuses as of 04/17/2023) [facility]07-10-2021 History of Past illness Narrative* Problem Noted Date Diagnosed Date Resolved Date Acute renal failure (ARF) 03/19/2021 Last Assessment & Plan: Assessment: -Cr trending down -FENa consistent with pre-renal failure PLAN: -avoid nephrotoxins -trend BUN and Cr -MIVF Mild protein-calorie malnutrition 03/10/2021 04/20/2023 Last Assessment & Plan: Assessment: -oak tanner assessment PLAN: -supplements Hypokalemia 03/07/2021 03/10/2021 Last Assessment & Plan: Assessment: -K today 3.2 PLAN: -received 40meq per protocol --give additional 40meq given limited response over past few days Acute on chronic kidney failure 03/03/2021 03/04/2021 Last Assessment & Plan: Assessment: -baseline Cr 1.4 --elevated today at 2.2 PLAN: -keep modi -1L NSB given concurrent elevated BUN -trend Cr Attention to colostomy 03/02/202110/27 Last Assessment & Plan: Assessment: -colostomy closed 03/01/2021 PLAN: -post op care -daily shower and dressing change Hyperkalemia 03/02/2021 03/03/2021 Last Assessment & Plan: Assessment: -K today 5.3 PLAN: -NS MIVF -trend Rectal cancer 03/01/2021 09/14/2022 Last Assessment & Plan: Assessment: colostomy reversed. chemo completed 12/2020 Morbid obesity 02/28/2021 06/03/2021 Last Assessment & Plan: Assessment: -BMI 41.5 PLAN: -diet education -encourage ambulation Malignant neoplasm of rectosigmoid junction 06/29/2020 09/14/2022 Last Assessment & Plan: Assessment: s/p colon resection, partial cystectomy and temporary colostomy. Patient reports finishing chemotherapy December 2020 Hyponatremia 05/13/2020 06/03/2021 Last Assessment & Plan: Assessment: -Na today 132 PLAN: -continue to monitor with daily BMPs -NS IVF Colostomy in place 05/13/2020 Last Assessment & Plan: Assessment: -healthy -functioning PLAN: -care per ET nursing -self care instruction with -coordinate home care Malignant neoplasm of ascending colon 05/10/2020 09/14/2022 Last Assessment & Plan: Assessment: s/p resection in April 2020 and bladder reconstruction s/p chemo follows with Dr. Taylor and monitored Asthma 07/19/2021 Last Assessment & Plan: Assessment: -not in acute exacerbation PLAN: -home albuterol PRN Post-operative state 022 Last Assessment & Plan: Assessment: -POD9 Hartmanns reversal with side to end colocolonic anastomosis, takedown of end colostomy, lysis of adhesions, flexible sigmoidoscopy PLAN: -diet: advance to clears, fulls later if well -gastric ulcer ppx: protonix -encourage ambulation -incentive spirometry Post-operative pain 06/03/20 Last Assessment & Plan: Assessment: -well controlled PLAN: -multimodal regimen Ileostomy in place Last Assessment & Plan: Assessment: -healthy -awaiting function PLAN: -care per ET nursing -self care instruction with -coordinate home care documented as of this encounter (statuses as of 04/21/2023) [facility]07-10-2021 History of Past illness Narrative* Problem Noted Date Diagnosed Date Resolved Date Acute renal failure (ARF) 03/19/2021 Last Assessment & Plan: Assessment: -Cr trending down -FENa consistent with pre-renal failure PLAN: -avoid nephrotoxins -trend BUN and Cr -MIVF Mild protein-calorie malnutrition 03/10/2021 04/20/2023 Last Assessment & Plan: Assessment: -oak tanner assessment PLAN: -supplements Hypokalemia 03/07/2021 03/10/2021 Last Assessment & Plan: Assessment: -K today 3.2 PLAN: -received 40meq per protocol --give additional 40meq given limited response over past few days Acute on chronic kidney failure 03/03/2021 03/04/2021 Last Assessment & Plan: Assessment: -baseline Cr 1.4 --elevated today at 2.2 PLAN: -keep modi -1L NSB given concurrent elevated BUN -trend Cr Attention to colostomy 03/02/202110/27 Last Assessment & Plan: Assessment: -colostomy closed 03/01/2021 PLAN: -post op care -daily shower and dressing change Hyperkalemia 03/02/2021 03/03/2021 Last Assessment & Plan: Assessment: -K today 5.3 PLAN: -NS MIVF -trend Rectal cancer 03/01/2021 09/14/2022 Last Assessment & Plan: Assessment: colostomy reversed. chemo completed 12/2020 Morbid obesity 02/28/2021 06/03/2021 Last Assessment & Plan: Assessment: -BMI 41.5 PLAN: -diet education -encourage ambulation Malignant neoplasm of rectosigmoid junction 06/29/2020 09/14/2022 Last Assessment & Plan: Assessment: s/p colon resection, partial cystectomy and temporary colostomy. Patient reports finishing chemotherapy December 2020 Hyponatremia 05/13/2020 06/03/2021 Last Assessment & Plan: Assessment: -Na today 132 PLAN: -continue to monitor with daily BMPs -NS IVF Colostomy in place 05/13/2020 Last Assessment & Plan: Assessment: -healthy -functioning PLAN: -care per ET nursing -self care instruction with -coordinate home care Malignant neoplasm of ascending colon 05/10/2020 09/14/2022 Last Assessment & Plan: Assessment: s/p resection in April 2020 and bladder reconstruction s/p chemo follows with Dr. Taylor and monitored Asthma 07/19/2021 Last Assessment & Plan: Assessment: -not in acute exacerbation PLAN: -home albuterol PRN Post-operative state 022 Last Assessment & Plan: Assessment: -POD9 Hartmanns reversal with side to end colocolonic anastomosis, takedown of end colostomy, lysis of adhesions, flexible sigmoidoscopy PLAN: -diet: advance to clears, fulls later if well -gastric ulcer ppx: protonix -encourage ambulation -incentive spirometry Post-operative pain 06/03/20 21 Last Assessment & Plan: Assessment: -well controlled PLAN: -multimodal regimen Ileostomy in place 0 Last Assessment & Plan: Assessment: -healthy -awaiting function PLAN: -care per ET nursing -self care instruction with -coordinate home care documented as of this encounter (statuses as of 04/21/2023) [facility]07-10-2021 History of Past illness Narrative* Problem Noted Date Diagnosed Date Resolved Date Acute renal failure (ARF) 03/19/2021 Last Assessment & Plan: Assessment: -Cr trending down -FENa consistent with pre-renal failure PLAN: -avoid nephrotoxins -trend BUN and Cr -MIVF Mild protein-calorie malnutrition 03/10/2021 04/20/2023 Last Assessment & Plan: Assessment: -oak tanner assessment PLAN: -supplements Hypokalemia 03/07/2021 03/10/2021 Last Assessment & Plan: Assessment: -K today 3.2 PLAN: -received 40meq per protocol --give additional 40meq given limited response over past few days Acute on chronic kidney failure 03/03/2021 03/04/2021 Last Assessment & Plan: Assessment: -baseline Cr 1.4 --elevated today at 2.2 PLAN: -keep modi -1L NSB given concurrent elevated BUN -trend Cr Attention to colostomy 03/02/202110/27 Last Assessment & Plan: Assessment: -colostomy closed 03/01/2021 PLAN: -post op care -daily shower and dressing change Hyperkalemia 03/02/2021 03/03/2021 Last Assessment & Plan: Assessment: -K today 5.3 PLAN: -NS MIVF -trend Rectal cancer 03/01/2021 09/14/2022 Last Assessment & Plan: Assessment: colostomy reversed. chemo completed 12/2020 Morbid obesity 02/28/2021 06/03/2021 Last Assessment & Plan: Assessment: -BMI 41.5 PLAN: -diet education -encourage ambulation Malignant neoplasm of rectosigmoid junction 06/29/2020 09/14/2022 Last Assessment & Plan: Assessment: s/p colon resection, partial cystectomy and temporary colostomy. Patient reports finishing chemotherapy December 2020 Hyponatremia 05/13/2020 06/03/2021 Last Assessment & Plan: Assessment: -Na today 132 PLAN: -continue to monitor with daily BMPs -NS IVF Colostomy in place 05/13/2020 Last Assessment & Plan: Assessment: -healthy -functioning PLAN: -care per ET nursing -self care instruction with -coordinate home care Malignant neoplasm of ascending colon 05/10/2020 09/14/2022 Last Assessment & Plan: Assessment: s/p resection in April 2020 and bladder reconstruction s/p chemo follows with Dr. Taylor and monitored Asthma 07/19/2021 Last Assessment & Plan: Assessment: -not in acute exacerbation PLAN: -home albuterol PRN Post-operative state 022 Last Assessment & Plan: Assessment: -POD9 Hartmanns reversal with side to end colocolonic anastomosis, takedown of end colostomy, lysis of adhesions, flexible sigmoidoscopy PLAN: -diet: advance to clears, fulls later if well -gastric ulcer ppx: protonix -encourage ambulation -incentive spirometry Post-operative pain 06/03/20 21 Last Assessment & Plan: Assessment: -well controlled PLAN: -multimodal regimen Ileostomy in place 0 Last Assessment & Plan: Assessment: -healthy -awaiting function PLAN: -care per ET nursing -self care instruction with -coordinate home care documented as of this encounter (statuses as of 04/21/2023) [facility]07-10-2021 History of Past illness Narrative* Problem Noted Date Diagnosed Date Resolved Date Acute renal failure (ARF) 03/19/2021 Last Assessment & Plan: Assessment: -Cr trending down -FENa consistent with pre-renal failure PLAN: -avoid nephrotoxins -trend BUN and Cr -MIVF Mild protein-calorie malnutrition 03/10/2021 04/20/2023 Last Assessment & Plan: Assessment: -oak tanner assessment PLAN: -supplements Hypokalemia 03/07/2021 03/10/2021 Last Assessment & Plan: Assessment: -K today 3.2 PLAN: -received 40meq per protocol --give additional 40meq given limited response over past few days Acute on chronic kidney failure 03/03/2021 03/04/2021 Last Assessment & Plan: Assessment: -baseline Cr 1.4 --elevated today at 2.2 PLAN: -keep modi -1L NSB given concurrent elevated BUN -trend Cr Attention to colostomy 03/02/202110/27 Last Assessment & Plan: Assessment: -colostomy closed 03/01/2021 PLAN: -post op care -daily shower and dressing change Hyperkalemia 03/02/2021 03/03/2021 Last Assessment & Plan: Assessment: -K today 5.3 PLAN: -NS MIVF -trend Rectal cancer 03/01/2021 09/14/2022 Last Assessment & Plan: Assessment: colostomy reversed. chemo completed 12/2020 Morbid obesity 02/28/2021 06/03/2021 Last Assessment & Plan: Assessment: -BMI 41.5 PLAN: -diet education -encourage ambulation Malignant neoplasm of rectosigmoid junction 06/29/2020 09/14/2022 Last Assessment & Plan: Assessment: s/p colon resection, partial cystectomy and temporary colostomy. Patient reports finishing chemotherapy December 2020 Hyponatremia 05/13/2020 06/03/2021 Last Assessment & Plan: Assessment: -Na today 132 PLAN: -continue to monitor with daily BMPs -NS IVF Colostomy in place 05/13/2020 Last Assessment & Plan: Assessment: -healthy -functioning PLAN: -care per ET nursing -self care instruction with -coordinate home care Malignant neoplasm of ascending colon 05/10/2020 09/14/2022 Last Assessment & Plan: Assessment: s/p resection in April 2020 and bladder reconstruction s/p chemo follows with Dr. Taylor and monitored Asthma 07/19/2021 Last Assessment & Plan: Assessment: -not in acute exacerbation PLAN: -home albuterol PRN Post-operative state 022 Last Assessment & Plan: Assessment: -POD9 Hartmanns reversal with side to end colocolonic anastomosis, takedown of end colostomy, lysis of adhesions, flexible sigmoidoscopy PLAN: -diet: advance to clears, fulls later if well -gastric ulcer ppx: protonix -encourage ambulation -incentive spirometry Post-operative pain 06/03/20 21 Last Assessment & Plan: Assessment: -well controlled PLAN: -multimodal regimen Ileostomy in place 0 Last Assessment & Plan: Assessment: -healthy -awaiting function PLAN: -care per ET nursing -self care instruction with -coordinate home care documented as of this encounter (statuses as of 04/21/2023) [facility]07-10-2021 History of Past illness Narrative* Problem Noted Date Diagnosed Date Resolved Date Acute renal failure (ARF) 03/19/2021 Last Assessment & Plan: Assessment: -Cr trending down -FENa consistent with pre-renal failure PLAN: -avoid nephrotoxins -trend BUN and Cr -MIVF Mild protein-calorie malnutrition 03/10/2021 04/20/2023 Last Assessment & Plan: Assessment: -oak tanner assessment PLAN: -supplements Hypokalemia 03/07/2021 03/10/2021 Last Assessment & Plan: Assessment: -K today 3.2 PLAN: -received 40meq per protocol --give additional 40meq given limited response over past few days Acute on chronic kidney failure 03/03/2021 03/04/2021 Last Assessment & Plan: Assessment: -baseline Cr 1.4 --elevated today at 2.2 PLAN: -keep modi -1L NSB given concurrent elevated BUN -trend Cr Attention to colostomy 03/02/202110/27 Last Assessment & Plan: Assessment: -colostomy closed 03/01/2021 PLAN: -post op care -daily shower and dressing change Hyperkalemia 03/02/2021 03/03/2021 Last Assessment & Plan: Assessment: -K today 5.3 PLAN: -NS MIVF -trend Rectal cancer 03/01/2021 09/14/2022 Last Assessment & Plan: Assessment: colostomy reversed. chemo completed 12/2020 Morbid obesity 02/28/2021 06/03/2021 Last Assessment & Plan: Assessment: -BMI 41.5 PLAN: -diet education -encourage ambulation Malignant neoplasm of rectosigmoid junction 06/29/2020 09/14/2022 Last Assessment & Plan: Assessment: s/p colon resection, partial cystectomy and temporary colostomy. Patient reports finishing chemotherapy December 2020 Hyponatremia 05/13/2020 06/03/2021 Last Assessment & Plan: Assessment: -Na today 132 PLAN: -continue to monitor with daily BMPs -NS IVF Colostomy in place 05/13/2020 Last Assessment & Plan: Assessment: -healthy -functioning PLAN: -care per ET nursing -self care instruction with -coordinate home care Malignant neoplasm of ascending colon 05/10/2020 09/14/2022 Last Assessment & Plan: Assessment: s/p resection in April 2020 and bladder reconstruction s/p chemo follows with Dr. Taylor and monitored Asthma 07/19/2021 Last Assessment & Plan: Assessment: -not in acute exacerbation PLAN: -home albuterol PRN Post-operative state 022 Last Assessment & Plan: Assessment: -POD9 Hartmanns reversal with side to end colocolonic anastomosis, takedown of end colostomy, lysis of adhesions, flexible sigmoidoscopy PLAN: -diet: advance to clears, fulls later if well -gastric ulcer ppx: protonix -encourage ambulation -incentive spirometry Post-operative pain 06/03/20 21 Last Assessment & Plan: Assessment: -well controlled PLAN: -multimodal regimen Ileostomy in place Last Assessment & Plan: Assessment: -healthy -awaiting function PLAN: -care per ET nursing -self care instruction with -coordinate home care documented as of this encounter (statuses as of 04/21/2023) [facility]07-10-2021 History of Past illness Narrative* Problem Noted Date Diagnosed Date Resolved Date Acute renal failure (ARF) 03/19/2021 Last Assessment & Plan: Assessment: -Cr trending down -FENa consistent with pre-renal failure PLAN: -avoid nephrotoxins -trend BUN and Cr -MIVF Mild protein-calorie malnutrition 03/10/2021 04/20/2023 Last Assessment & Plan: Assessment: -oak tanner assessment PLAN: -supplements Hypokalemia 03/07/2021 03/10/2021 Last Assessment & Plan: Assessment: -K today 3.2 PLAN: -received 40meq per protocol --give additional 40meq given limited response over past few days Acute on chronic kidney failure 03/03/2021 03/04/2021 Last Assessment & Plan: Assessment: -baseline Cr 1.4 --elevated today at 2.2 PLAN: -keep modi -1L NSB given concurrent elevated BUN -trend Cr Attention to colostomy 03/02/202110/27 Last Assessment & Plan: Assessment: -colostomy closed 03/01/2021 PLAN: -post op care -daily shower and dressing change Hyperkalemia 03/02/2021 03/03/2021 Last Assessment & Plan: Assessment: -K today 5.3 PLAN: -NS MIVF -trend Rectal cancer 03/01/2021 09/14/2022 Last Assessment & Plan: Assessment: colostomy reversed. chemo completed 12/2020 Morbid obesity 02/28/2021 06/03/2021 Last Assessment & Plan: Assessment: -BMI 41.5 PLAN: -diet education -encourage ambulation Malignant neoplasm of rectosigmoid junction 06/29/2020 09/14/2022 Last Assessment & Plan: Assessment: s/p colon resection, partial cystectomy and temporary colostomy. Patient reports finishing chemotherapy December 2020 Hyponatremia 05/13/2020 06/03/2021 Last Assessment & Plan: Assessment: -Na today 132 PLAN: -continue to monitor with daily BMPs -NS IVF Colostomy in place 05/13/2020 Last Assessment & Plan: Assessment: -healthy -functioning PLAN: -care per ET nursing -self care instruction with -coordinate home care Malignant neoplasm of ascending colon 05/10/2020 09/14/2022 Last Assessment & Plan: Assessment: s/p resection in April 2020 and bladder reconstruction s/p chemo follows with Dr. Taylor and monitored Asthma 07/19/2021 Last Assessment & Plan: Assessment: -not in acute exacerbation PLAN: -home albuterol PRN Post-operative state 022 Last Assessment & Plan: Assessment: -POD9 Hartmanns reversal with side to end colocolonic anastomosis, takedown of end colostomy, lysis of adhesions, flexible sigmoidoscopy PLAN: -diet: advance to clears, fulls later if well -gastric ulcer ppx: protonix -encourage ambulation -incentive spirometry Post-operative pain 06/03/20 21 Last Assessment & Plan: Assessment: -well controlled PLAN: -multimodal regimen Ileostomy in place Last Assessment & Plan: Assessment: -healthy -awaiting function PLAN: -care per ET nursing -self care instruction with -coordinate home care documented as of this encounter (statuses as of 05/19/2023) [facility]07-10-2021 History of Past illness Narrative* Problem Noted Date Diagnosed Date Resolved Date Acute renal failure (ARF) 03/19/2021 Last Assessment & Plan: Assessment: -Cr trending down -FENa consistent with pre-renal failure PLAN: -avoid nephrotoxins -trend BUN and Cr -MIVF Mild protein-calorie malnutrition 03/10/2021 04/20/2023 Last Assessment & Plan: Assessment: -oak tanner assessment PLAN: -supplements Hypokalemia 03/07/2021 03/10/2021 Last Assessment & Plan: Assessment: -K today 3.2 PLAN: -received 40meq per protocol --give additional 40meq given limited response over past few days Acute on chronic kidney failure 03/03/2021 03/04/2021 Last Assessment & Plan: Assessment: -baseline Cr 1.4 --elevated today at 2.2 PLAN: -keep modi -1L NSB given concurrent elevated BUN -trend Cr Attention to colostomy 03/02/202110/27 Last Assessment & Plan: Assessment: -colostomy closed 03/01/2021 PLAN: -post op care -daily shower and dressing change Hyperkalemia 03/02/2021 03/03/2021 Last Assessment & Plan: Assessment: -K today 5.3 PLAN: -NS MIVF -trend Rectal cancer 03/01/2021 09/14/2022 Last Assessment & Plan: Assessment: colostomy reversed. chemo completed 12/2020 Morbid obesity 02/28/2021 06/03/2021 Last Assessment & Plan: Assessment: -BMI 41.5 PLAN: -diet education -encourage ambulation Malignant neoplasm of rectosigmoid junction 06/29/2020 09/14/2022 Last Assessment & Plan: Assessment: s/p colon resection, partial cystectomy and temporary colostomy. Patient reports finishing chemotherapy December 2020 Hyponatremia 05/13/2020 06/03/2021 Last Assessment & Plan: Assessment: -Na today 132 PLAN: -continue to monitor with daily BMPs -NS IVF Colostomy in place 05/13/2020 Last Assessment & Plan: Assessment: -healthy -functioning PLAN: -care per ET nursing -self care instruction with -coordinate home care Malignant neoplasm of ascending colon 05/10/2020 09/14/2022 Last Assessment & Plan: Assessment: s/p resection in April 2020 and bladder reconstruction s/p chemo follows with Dr. Taylor and monitored Asthma 07/19/2021 Last Assessment & Plan: Assessment: -not in acute exacerbation PLAN: -home albuterol PRN Post-operative state 022 Last Assessment & Plan: Assessment: -POD9 Hartmanns reversal with side to end colocolonic anastomosis, takedown of end colostomy, lysis of adhesions, flexible sigmoidoscopy PLAN: -diet: advance to clears, fulls later if well -gastric ulcer ppx: protonix -encourage ambulation -incentive spirometry Post-operative pain 06/03/20 Last Assessment & Plan: Assessment: -well controlled PLAN: -multimodal regimen Ileostomy in place Last Assessment & Plan: Assessment: -healthy -awaiting function PLAN: -care per ET nursing -self care instruction with -coordinate home care documented as of this encounter (statuses as of 06/02/2023) [facility]07-10-2021 History of Past illness Narrative* Problem Noted Date Diagnosed Date Resolved Date Acute renal failure (ARF) 03/19/2021 Last Assessment & Plan: Assessment: -Cr trending down -FENa consistent with pre-renal failure PLAN: -avoid nephrotoxins -trend BUN and Cr -MIVF Mild protein-calorie malnutrition 03/10/2021 04/20/2023 Last Assessment & Plan: Assessment: -oak tanner assessment PLAN: -supplements Hypokalemia 03/07/2021 03/10/2021 Last Assessment & Plan: Assessment: -K today 3.2 PLAN: -received 40meq per protocol --give additional 40meq given limited response over past few days Acute on chronic kidney failure 03/03/2021 03/04/2021 Last Assessment & Plan: Assessment: -baseline Cr 1.4 --elevated today at 2.2 PLAN: -keep modi -1L NSB given concurrent elevated BUN -trend Cr Attention to colostomy 03/02/202110/27 Last Assessment & Plan: Assessment: -colostomy closed 03/01/2021 PLAN: -post op care -daily shower and dressing change Hyperkalemia 03/02/2021 03/03/2021 Last Assessment & Plan: Assessment: -K today 5.3 PLAN: -NS MIVF -trend Rectal cancer 03/01/2021 09/14/2022 Last Assessment & Plan: Assessment: colostomy reversed. chemo completed 12/2020 Morbid obesity 02/28/2021 06/03/2021 Last Assessment & Plan: Assessment: -BMI 41.5 PLAN: -diet education -encourage ambulation Malignant neoplasm of rectosigmoid junction 06/29/2020 09/14/2022 Last Assessment & Plan: Assessment: s/p colon resection, partial cystectomy and temporary colostomy. Patient reports finishing chemotherapy December 2020 Hyponatremia 05/13/2020 06/03/2021 Last Assessment & Plan: Assessment: -Na today 132 PLAN: -continue to monitor with daily BMPs -NS IVF Colostomy in place 05/13/2020 Last Assessment & Plan: Assessment: -healthy -functioning PLAN: -care per ET nursing -self care instruction with -coordinate home care Malignant neoplasm of ascending colon 05/10/2020 09/14/2022 Last Assessment & Plan: Assessment: s/p resection in April 2020 and bladder reconstruction s/p chemo follows with Dr. Taylor and monitored Asthma 07/19/2021 Last Assessment & Plan: Assessment: -not in acute exacerbation PLAN: -home albuterol PRN Post-operative state 022 Last Assessment & Plan: Assessment: -POD9 Hartmanns reversal with side to end colocolonic anastomosis, takedown of end colostomy, lysis of adhesions, flexible sigmoidoscopy PLAN: -diet: advance to clears, fulls later if well -gastric ulcer ppx: protonix -encourage ambulation -incentive spirometry Post-operative pain 06/03/20 21 Last Assessment & Plan: Assessment: -well controlled PLAN: -multimodal regimen Ileostomy in place 0 Last Assessment & Plan: Assessment: -healthy -awaiting function PLAN: -care per ET nursing -self care instruction with -coordinate home care documented as of this encounter (statuses as of 07/14/2023) [facility]07-10-2021 History of Past illness Narrative* Problem Noted Date Diagnosed Date Resolved Date Acute renal failure (ARF) 03/19/2021 Last Assessment & Plan: Assessment: -Cr trending down -FENa consistent with pre-renal failure PLAN: -avoid nephrotoxins -trend BUN and Cr -MIVF Mild protein-calorie malnutrition 03/10/2021 04/20/2023 Last Assessment & Plan: Assessment: -oak tanner assessment PLAN: -supplements Hypokalemia 03/07/2021 03/10/2021 Last Assessment & Plan: Assessment: -K today 3.2 PLAN: -received 40meq per protocol --give additional 40meq given limited response over past few days Acute on chronic kidney failure 03/03/2021 03/04/2021 Last Assessment & Plan: Assessment: -baseline Cr 1.4 --elevated today at 2.2 PLAN: -keep modi -1L NSB given concurrent elevated BUN -trend Cr Attention to colostomy 03/02/202110/27 Last Assessment & Plan: Assessment: -colostomy closed 03/01/2021 PLAN: -post op care -daily shower and dressing change Hyperkalemia 03/02/2021 03/03/2021 Last Assessment & Plan: Assessment: -K today 5.3 PLAN: -NS MIVF -trend Rectal cancer 03/01/2021 09/14/2022 Last Assessment & Plan: Assessment: colostomy reversed. chemo completed 12/2020 Morbid obesity 02/28/2021 06/03/2021 Last Assessment & Plan: Assessment: -BMI 41.5 PLAN: -diet education -encourage ambulation Malignant neoplasm of rectosigmoid junction 06/29/2020 09/14/2022 Last Assessment & Plan: Assessment: s/p colon resection, partial cystectomy and temporary colostomy. Patient reports finishing chemotherapy December 2020 Hyponatremia 05/13/2020 06/03/2021 Last Assessment & Plan: Assessment: -Na today 132 PLAN: -continue to monitor with daily BMPs -NS IVF Colostomy in place 05/13/2020 2 Last Assessment & Plan: Assessment: -healthy -functioning PLAN: -care per ET nursing -self care instruction with -coordinate home care Malignant neoplasm of ascending colon 05/10/2020 09/14/2022 Last Assessment & Plan: Assessment: s/p resection in April 2020 and bladder reconstruction s/p chemo follows with Dr. Taylor and monitored Asthma 07/19/2021 Last Assessment & Plan: Assessment: -not in acute exacerbation PLAN: -home albuterol PRN Post-operative state 022 Last Assessment & Plan: Assessment: -POD9 Hartmanns reversal with side to end colocolonic anastomosis, takedown of end colostomy, lysis of adhesions, flexible sigmoidoscopy PLAN: -diet: advance to clears, fulls later if well -gastric ulcer ppx: protonix -encourage ambulation -incentive spirometry Post-operative pain 06/03/20 21 Last Assessment & Plan: Assessment: -well controlled PLAN: -multimodal regimen Ileostomy in place 0 Last Assessment & Plan: Assessment: -healthy -awaiting function PLAN: -care per ET nursing -self care instruction with -coordinate home care documented as of this encounter (statuses as of 08/25/2023) [facility]07-10-2021 History of Past illness Narrative* Problem Noted Date Diagnosed Date Resolved Date Acute renal failure (ARF) 03/19/2021 Last Assessment & Plan: Assessment: -Cr trending down -FENa consistent with pre-renal failure PLAN: -avoid nephrotoxins -trend BUN and Cr -MIVF Mild protein-calorie malnutrition 03/10/2021 04/20/2023 Last Assessment & Plan: Assessment: -oak tanner assessment PLAN: -supplements Hypokalemia 03/07/2021 03/10/2021 Last Assessment & Plan: Assessment: -K today 3.2 PLAN: -received 40meq per protocol --give additional 40meq given limited response over past few days Acute on chronic kidney failure 03/03/2021 03/04/2021 Last Assessment & Plan: Assessment: -baseline Cr 1.4 --elevated today at 2.2 PLAN: -keep modi -1L NSB given concurrent elevated BUN -trend Cr Attention to colostomy 03/02/202110/27 Last Assessment & Plan: Assessment: -colostomy closed 03/01/2021 PLAN: -post op care -daily shower and dressing change Hyperkalemia 03/02/2021 03/03/2021 Last Assessment & Plan: Assessment: -K today 5.3 PLAN: -NS MIVF -trend Rectal cancer 03/01/2021 09/14/2022 Last Assessment & Plan: Assessment: colostomy reversed. chemo completed 12/2020 Morbid obesity 02/28/2021 06/03/2021 Last Assessment & Plan: Assessment: -BMI 41.5 PLAN: -diet education -encourage ambulation Malignant neoplasm of rectosigmoid junction 06/29/2020 09/14/2022 Last Assessment & Plan: Assessment: s/p colon resection, partial cystectomy and temporary colostomy. Patient reports finishing chemotherapy December 2020 Hyponatremia 05/13/2020 06/03/2021 Last Assessment & Plan: Assessment: -Na today 132 PLAN: -continue to monitor with daily BMPs -NS IVF Colostomy in place 05/13/2020 Last Assessment & Plan: Assessment: -healthy -functioning PLAN: -care per ET nursing -self care instruction with -coordinate home care Malignant neoplasm of ascending colon 05/10/2020 09/14/2022 Last Assessment & Plan: Assessment: s/p resection in April 2020 and bladder reconstruction s/p chemo follows with Dr. Taylor and monitored Asthma 07/19/2021 Last Assessment & Plan: Assessment: -not in acute exacerbation PLAN: -home albuterol PRN Post-operative state 022 Last Assessment & Plan: Assessment: -POD9 Hartmanns reversal with side to end colocolonic anastomosis, takedown of end colostomy, lysis of adhesions, flexible sigmoidoscopy PLAN: -diet: advance to clears, fulls later if well -gastric ulcer ppx: protonix -encourage ambulation -incentive spirometry Post-operative pain 06/03/20 21 Last Assessment & Plan: Assessment: -well controlled PLAN: -multimodal regimen Ileostomy in place 0 Last Assessment & Plan: Assessment: -healthy -awaiting function PLAN: -care per ET nursing -self care instruction with -coordinate home care documented as of this encounter (statuses as of 10/18/2023) [facility]07-10-2021 History of Past illness Narrative* Problem Noted Date Diagnosed Date Resolved Date Acute renal failure (ARF) 03/19/2021 Last Assessment & Plan: Assessment: -Cr trending down -FENa consistent with pre-renal failure PLAN: -avoid nephrotoxins -trend BUN and Cr -MIVF Mild protein-calorie malnutrition 03/10/2021 04/20/2023 Last Assessment & Plan: Assessment: -oak tanner assessment PLAN: -supplements Hypokalemia 03/07/2021 03/10/2021 Last Assessment & Plan: Assessment: -K today 3.2 PLAN: -received 40meq per protocol --give additional 40meq given limited response over past few days Acute on chronic kidney failure 03/03/2021 03/04/2021 Last Assessment & Plan: Assessment: -baseline Cr 1.4 --elevated today at 2.2 PLAN: -keep modi -1L NSB given concurrent elevated BUN -trend Cr Attention to colostomy 03/02/202110/27 Last Assessment & Plan: Assessment: -colostomy closed 03/01/2021 PLAN: -post op care -daily shower and dressing change Hyperkalemia 03/02/2021 03/03/2021 Last Assessment & Plan: Assessment: -K today 5.3 PLAN: -NS MIVF -trend Rectal cancer 03/01/2021 09/14/2022 Last Assessment & Plan: Assessment: colostomy reversed. chemo completed 12/2020 Morbid obesity 02/28/2021 06/03/2021 Last Assessment & Plan: Assessment: -BMI 41.5 PLAN: -diet education -encourage ambulation Malignant neoplasm of rectosigmoid junction 06/29/2020 09/14/2022 Last Assessment & Plan: Assessment: s/p colon resection, partial cystectomy and temporary colostomy. Patient reports finishing chemotherapy December 2020 Hyponatremia 05/13/2020 06/03/2021 Last Assessment & Plan: Assessment: -Na today 132 PLAN: -continue to monitor with daily BMPs -NS IVF Colostomy in place 05/13/2020 Last Assessment & Plan: Assessment: -healthy -functioning PLAN: -care per ET nursing -self care instruction with -coordinate home care Malignant neoplasm of ascending colon 05/10/2020 09/14/2022 Last Assessment & Plan: Assessment: s/p resection in April 2020 and bladder reconstruction s/p chemo follows with Dr. Taylor and monitored Asthma 07/19/2021 Last Assessment & Plan: Assessment: -not in acute exacerbation PLAN: -home albuterol PRN Post-operative state 022 Last Assessment & Plan: Assessment: -POD9 Hartmanns reversal with side to end colocolonic anastomosis, takedown of end colostomy, lysis of adhesions, flexible sigmoidoscopy PLAN: -diet: advance to clears, fulls later if well -gastric ulcer ppx: protonix -encourage ambulation -incentive spirometry Post-operative pain 06/03/20 21 Last Assessment & Plan: Assessment: -well controlled PLAN: -multimodal regimen Ileostomy in place Last Assessment & Plan: Assessment: -healthy -awaiting function PLAN: -care per ET nursing -self care instruction with -coordinate home care documented as of this encounter (statuses as of 12/19/2023) [facility]07-10-2021 History of Past illness Narrative* Problem Noted Date Diagnosed Date Resolved Date Acute renal failure (ARF) 03/19/2021 Last Assessment & Plan: Assessment: -Cr trending down -FENa consistent with pre-renal failure PLAN: -avoid nephrotoxins -trend BUN and Cr -MIVF Mild protein-calorie malnutrition 03/10/2021 04/20/2023 Last Assessment & Plan: Assessment: -oak tanner assessment PLAN: -supplements Hypokalemia 03/07/2021 03/10/2021 Last Assessment & Plan: Assessment: -K today 3.2 PLAN: -received 40meq per protocol --give additional 40meq given limited response over past few days Acute on chronic kidney failure 03/03/2021 03/04/2021 Last Assessment & Plan: Assessment: -baseline Cr 1.4 --elevated today at 2.2 PLAN: -keep modi -1L NSB given concurrent elevated BUN -trend Cr Attention to colostomy 03/02/202110/27 Last Assessment & Plan: Assessment: -colostomy closed 03/01/2021 PLAN: -post op care -daily shower and dressing change Hyperkalemia 03/02/2021 03/03/2021 Last Assessment & Plan: Assessment: -K today 5.3 PLAN: -NS MIVF -trend Rectal cancer 03/01/2021 09/14/2022 Last Assessment & Plan: Assessment: colostomy reversed. chemo completed 12/2020 Morbid obesity 02/28/2021 06/03/2021 Last Assessment & Plan: Assessment: -BMI 41.5 PLAN: -diet education -encourage ambulation Malignant neoplasm of rectosigmoid junction 06/29/2020 09/14/2022 Last Assessment & Plan: Assessment: s/p colon resection, partial cystectomy and temporary colostomy. Patient reports finishing chemotherapy December 2020 Hyponatremia 05/13/2020 06/03/2021 Last Assessment & Plan: Assessment: -Na today 132 PLAN: -continue to monitor with daily BMPs -NS IVF Colostomy in place 05/13/2020 Last Assessment & Plan: Assessment: -healthy -functioning PLAN: -care per ET nursing -self care instruction with -coordinate home care Malignant neoplasm of ascending colon 05/10/2020 09/14/2022 Last Assessment & Plan: Assessment: s/p resection in April 2020 and bladder reconstruction s/p chemo follows with Dr. Taylor and monitored Asthma 07/19/2021 Last Assessment & Plan: Assessment: -not in acute exacerbation PLAN: -home albuterol PRN Post-operative state 022 Last Assessment & Plan: Assessment: -POD9 Hartmanns reversal with side to end colocolonic anastomosis, takedown of end colostomy, lysis of adhesions, flexible sigmoidoscopy PLAN: -diet: advance to clears, fulls later if well -gastric ulcer ppx: protonix -encourage ambulation -incentive spirometry Post-operative pain 06/03/20 21 Last Assessment & Plan: Assessment: -well controlled PLAN: -multimodal regimen Ileostomy in place 0 Last Assessment & Plan: Assessment: -healthy -awaiting function PLAN: -care per ET nursing -self care instruction with -coordinate home care documented as of this encounter (statuses as of 12/20/2023) [facility]07-10-2021 History of Past illness Narrative* Problem Noted Date Diagnosed Date Resolved Date Acute renal failure (ARF) 03/19/2021 Last Assessment & Plan: Assessment: -Cr trending down -FENa consistent with pre-renal failure PLAN: -avoid nephrotoxins -trend BUN and Cr -MIVF Mild protein-calorie malnutrition 03/10/2021 04/20/2023 Last Assessment & Plan: Assessment: -oak tanner assessment PLAN: -supplements Hypokalemia 03/07/2021 03/10/2021 Last Assessment & Plan: Assessment: -K today 3.2 PLAN: -received 40meq per protocol --give additional 40meq given limited response over past few days Acute on chronic kidney failure 03/03/2021 03/04/2021 Last Assessment & Plan: Assessment: -baseline Cr 1.4 --elevated today at 2.2 PLAN: -keep modi -1L NSB given concurrent elevated BUN -trend Cr Attention to colostomy 03/02/202110/27 Last Assessment & Plan: Assessment: -colostomy closed 03/01/2021 PLAN: -post op care -daily shower and dressing change Hyperkalemia 03/02/2021 03/03/2021 Last Assessment & Plan: Assessment: -K today 5.3 PLAN: -NS MIVF -trend Rectal cancer 03/01/2021 09/14/2022 Last Assessment & Plan: Assessment: colostomy reversed. chemo completed 12/2020 Morbid obesity 02/28/2021 06/03/2021 Last Assessment & Plan: Assessment: -BMI 41.5 PLAN: -diet education -encourage ambulation Malignant neoplasm of rectosigmoid junction 06/29/2020 09/14/2022 Last Assessment & Plan: Assessment: s/p colon resection, partial cystectomy and temporary colostomy. Patient reports finishing chemotherapy December 2020 Hyponatremia 05/13/2020 06/03/2021 Last Assessment & Plan: Assessment: -Na today 132 PLAN: -continue to monitor with daily BMPs -NS IVF Colostomy in place 05/13/2020 Last Assessment & Plan: Assessment: -healthy -functioning PLAN: -care per ET nursing -self care instruction with -coordinate home care Malignant neoplasm of ascending colon 05/10/2020 09/14/2022 Last Assessment & Plan: Assessment: s/p resection in April 2020 and bladder reconstruction s/p chemo follows with Dr. Taylor and monitored Asthma 07/19/2021 Last Assessment & Plan: Assessment: -not in acute exacerbation PLAN: -home albuterol PRN Post-operative state 022 Last Assessment & Plan: Assessment: -POD9 Hartmanns reversal with side to end colocolonic anastomosis, takedown of end colostomy, lysis of adhesions, flexible sigmoidoscopy PLAN: -diet: advance to clears, fulls later if well -gastric ulcer ppx: protonix -encourage ambulation -incentive spirometry Post-operative pain 06/03/20 21 Last Assessment & Plan: Assessment: -well controlled PLAN: -multimodal regimen Ileostomy in place 0 Last Assessment & Plan: Assessment: -healthy -awaiting function PLAN: -care per ET nursing -self care instruction with -coordinate home care documented as of this encounter (statuses as of 12/21/2023) [facility] Diagnosis Rectal cancer (HCC)- Primary Malignant neoplasm of rectum documented in this encounter [facility] note* Diagnosis Rectal cancer (HCC)- Primary Malignant neoplasm of rectum Ventral hernia without obstruction or gangrene Ventral hernia, unspecified, without mention of obstruction or gangrene [facility]* Diagnosis Malignant neoplasm of rectosigmoid junction (HCC) Malignant neoplasm of rectosigmoid junction [facility]* Diagnosis BPH with urinary obstruction- Primary Hypertrophy of prostate with urinary obstruction and other lower urinary tract symptoms (LUTS) documented [facility] this [facility]* Diagnosis Iron deficiency anemia due to chronic blood loss- Primary Iron deficiency anemia secondary to blood loss (chronic) documented [facility]* Diagnosis Other hydronephrosis- Primary [facility] Diagnosis Other hydronephrosis [facility]* Diagnosis Pre-op evaluation- Primary Preoperative examination, unspecified Incisional hernia without obstruction or gangrene Primary hypertension Unspecified essential hypertension Difficult intravenous access Other specified conditions influencing health status KIMMY (obstructive sleep apnea) Obstructive sleep apnea (adult) (pediatric) Stage 3 chronic kidney disease, unspecified whether stage 3a or 3b CKD (HCC) Anemia of chronic renal failure, stage 3a (HCC) 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, with long-term current use of insulin (HCC) BMI 40.0-44.9, adult (HCC) Body Mass Index 40.0-44.9, adult Malignant neoplasm of ascending colon (HCC) Malignant neoplasm of ascending colon History of incisional hernia repair Other postprocedural status Abdominal wall bulge Abdominal or pelvic swelling, mass or lump, unspecified site [facility]* Diagnosis Post-operative state- Primary Other postprocedural status [facility] Diagnosis Rectal cancer (HCC)- Primary Malignant neoplasm of rectum [facility] Diagnosis Colorectal cancer (HCC) Malignant neoplasm of rectosigmoid junction Overlapping malignant neoplasm of colon (HCC) Malignant neoplasm of ascending colon (HCC) Malignant neoplasm of ascending colon [facility] Diagnosis Overlapping malignant neoplasm of colon (HCC)- Primary Colorectal cancer (HCC) Malignant neoplasm of rectosigmoid junction Malignant neoplasm of ascending colon (HCC) Malignant neoplasm of ascending 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) Stage 3b chronic kidney disease (HCC) [facility] Colorectal cancer (HCC)- Primary Malignant neoplasm of rectosigmoid junction [facility] Diagnosis Colorectal cancer (HCC)- Primary Malignant neoplasm of rectosigmoid junction [facility] Diagnosis History of incisional hernia repair Other postprocedural status Abdominal wall bulge Abdominal or pelvic swelling, mass or lump, unspecified site [facility] [place] [facility]* Diagnosis History of colon cancer- Primary Personal history of malignant neoplasm of large intestine Chronic renal disease, stage IV (HCC) Chronic kidney disease, Stage IV (severe) BMI 40.0-44.9, adult (HCC) Body Mass Index 40.0-44.9, adult [facility] [place] [facility]* Diagnosis History of colon cancer- Primary Personal history of malignant neoplasm of large intestine [facility] Diagnosis Rectal cancer (HCC)- Primary Malignant neoplasm of rectum [facility] History of colon cancer- Primary Personal history of malignant neoplasm of large intestine [facility]* Diagnosis History of colon cancer- Primary Personal history of malignant neoplasm of large intestine [facility] Diagnosis Colorectal cancer (HCC)- Primary Malignant neoplasm of rectosigmoid junction [facility] Diagnosis Onset Date Resolution Status History of vascular access device 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 Work Phone: evaluation note* Diagnosis Onset Date Resolution Status BPH (benign prostatic hyperplasia) acute Chronic kidney insufficiency acute Diabetes acute Hyperkalemia acute Hypertensive nephropathy acu te [facility] Work Phone: Evaluation note* Diagnosis BPH with obstruction/lower urinary tract symptoms- Primary Hypertrophy of prostate with urinary obstruction and other lower urinary tract symptoms (LUTS) [facility]* Diagnosis Type 2 diabetes mellitus with stage 4 chronic kidney disease, with long-term current use of insulin (HCC)- Primary Hypertensive kidney disease with stage 4 chronic kidney disease (HCC) Chronic renal disease, stage IV (HCC) Chronic kidney disease, Stage IV (severe) 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) BMI 40.0-44.9, adult (HCC) Body Mass Index 40.0-44.9, adult Hyperkalemia Hyperpotassemia documented [facility] encounter [facility]* Diagnosis Post-operative pain- Primary Other acute postoperative pain Type 2 diabetes mellitus with other specified complication, with long-term current use of insulin (HCC) Hyperlipidemia, unspecified hyperlipidemia type Essential hypertension Unspecified essential hypertension Gastritis Unspecified gastritis and gastroduodenitis without mention of hemorrhage Ileostomy in place (HCC) Ileostomy status Mild protein-calorie malnutrition (HCC) Malnutrition of mild degree Hyperkalemia Hyperpotassemia Acute on chronic kidney failure (HCC) Acute kidney failure, unspecified Hypokalemia Hypopotassemia Pre-op evaluation- Primary Preoperative examination, unspecified Malignant neoplasm of ascending colon (HCC) Malignant neoplasm of ascending colon Morbid obesity (HCC) Morbid obesity KIMMY (obstructive sleep apnea) Obstructive sleep apnea (adult) (pediatric) Diabetes mellitus due to underlying condition with 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, without long-term current use of insulin (HCC) Essential hypertension Unspecified essential hypertension Benign prostatic hyperplasia, unspecified whether lower urinary tract symptoms present Uncomplicated asthma, unspecified asthma severity, unspecified whether persistent Malignant neoplasm of rectosigmoid junction (HCC) 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 (HCC) Colostomy status Acute renal failure with tubular necrosis (HCC) Acute kidney failure with lesion of tubular necrosis Hydronephrosis of right kidney Hydronephrosis Metabolic acidosis Acidosis Hyponatremia Hyposmolality and/or hyponatremia Modi catheter in place Other postprocedural status Encounter for postoperative wound care Other specified aftercare following surgery Mild protein-calorie malnutrition (HCC) Malnutrition of mild degree Preop examination- Primary Preoperative examination, unspecified Incisional hernia without obstruction or gangrene Type 2 diabetes mellitus with diabetic neuropathy, with long-term current use of insulin (HCC) Primary hypertension Unspecified essential hypertension Benign prostatic hyperplasia, unspecified whether lower urinary tract symptoms present Hyperlipidemia, unspecified hyperlipidemia type S/P bladder repair Other postprocedural status Malignant neoplasm of rectosigmoid junction (HCC) Malignant neoplasm of rectosigmoid junction BMI 38.0-38.9,adult Body Mass Index 38.0-38.9, adult Anemia, unspecified type Stage 3 chronic kidney disease, unspecified whether stage 3a or 3b CKD (HCC) KIMMY (obstructive sleep apnea) Obstructive sleep apnea (adult) (pediatric) Modi catheter in place Other postprocedural status Preop examination- Primary Preoperative examination, unspecified Benign prostatic hyperplasia with lower urinary tract symptoms, symptom details unspecified KIMMY (obstructive sleep apnea) Obstructive sleep apnea (adult) (pediatric) Difficult intravenous access Other specified conditions influencing health status Primary hypertension Unspecified essential hypertension Stage 3 chronic kidney disease, unspecified whether stage 3a or 3b CKD (HCC) 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, with long-term current use of insulin (HCC) Rectal cancer (HCC) Malignant neoplasm of rectum BMI 38.0-38.9,adult Body Mass Index 38.0-38.9, adult Pre-operative examination- Primary Preoperative examination, unspecified Rectal cancer (HCC) Malignant neoplasm of rectum KIMMY (obstructive sleep apnea) Obstructive sleep apnea (adult) (pediatric) Primary hypertension Unspecified essential hypertension Difficult intravenous access Other specified conditions influencing health status 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, with long-term current use of insulin (HCC) Anemia, unspecified type Stage 3 chronic kidney disease, unspecified whether stage 3a or 3b CKD (HCC) Hyperlipidemia, unspecified hyperlipidemia type BMI 38.0-38.9,adult Body Mass Index 38.0-38.9, adult Pre-op evaluation- Primary Preoperative examination, unspecified Incisional hernia without obstruction or gangrene Primary hypertension Unspecified essential hypertension Difficult intravenous access Other specified conditions influencing health status KIMMY (obstructive sleep apnea) Obstructive sleep apnea (adult) (pediatric) Stage 3 chronic kidney disease, unspecified whether stage 3a or 3b CKD (HCC) Anemia of chronic renal failure, stage 3a (HCC) (HCC) 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, with long-term current use of insulin (HCC) BMI 40.0-44.9, adult (HCC) Body Mass Index 40.0-44.9, adult Malignant neoplasm of ascending colon (HCC) Malignant neoplasm of ascending colon History of colon cancer Personal history of malignant neoplasm of large intestine Malignant neoplasm of ascending colon (HCC) Malignant neoplasm of ascending colon Rectal cancer (HCC) Malignant neoplasm of rectum [facility]* Diagnosis Post-operative pain- Primary Other acute postoperative pain Type 2 diabetes mellitus with other specified complication, with long-term current use of insulin (HCC) Hyperlipidemia, unspecified hyperlipidemia type Essential hypertension Unspecified essential hypertension Gastritis Unspecified gastritis and gastroduodenitis without mention of hemorrhage Ileostomy in place (HCC) Ileostomy status Mild protein-calorie malnutrition (HCC) Malnutrition of mild degree Hyperkalemia Hyperpotassemia Acute on chronic kidney failure (HCC) Acute kidney failure, unspecified Hypokalemia Hypopotassemia Pre-op evaluation- Primary Preoperative examination, unspecified Malignant neoplasm of ascending colon (HCC) Malignant neoplasm of ascending colon Morbid obesity (HCC) Morbid obesity KIMMY (obstructive sleep apnea) Obstructive sleep apnea (adult) (pediatric) Diabetes mellitus due to underlying condition with 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, without long-term current use of insulin (HCC) Essential hypertension Unspecified essential hypertension Benign prostatic hyperplasia, unspecified whether lower urinary tract symptoms present Uncomplicated asthma, unspecified asthma severity, unspecified whether persistent Malignant neoplasm of rectosigmoid junction (HCC) 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 (HCC) Colostomy status Acute renal failure with tubular necrosis (HCC) Acute kidney failure with lesion of tubular necrosis Hydronephrosis of right kidney Hydronephrosis Metabolic acidosis Acidosis Hyponatremia Hyposmolality and/or hyponatremia Modi catheter in place Other postprocedural status Encounter for postoperative wound care Other specified aftercare following surgery Mild protein-calorie malnutrition (HCC) Malnutrition of mild degree Preop examination- Primary Preoperative examination, unspecified Incisional hernia without obstruction or gangrene Type 2 diabetes mellitus with diabetic neuropathy, with long-term current use of insulin (HCC) Primary hypertension Unspecified essential hypertension Benign prostatic hyperplasia, unspecified whether lower urinary tract symptoms present Hyperlipidemia, unspecified hyperlipidemia type S/P bladder repair Other postprocedural status Malignant neoplasm of rectosigmoid junction (HCC) Malignant neoplasm of rectosigmoid junction BMI 38.0-38.9,adult Body Mass Index 38.0-38.9, adult Anemia, unspecified type Stage 3 chronic kidney disease, unspecified whether stage 3a or 3b CKD (HCC) KIMMY (obstructive sleep apnea) Obstructive sleep apnea (adult) (pediatric) Modi catheter in place Other postprocedural status Preop examination- Primary Preoperative examination, unspecified Benign prostatic hyperplasia with lower urinary tract symptoms, symptom details unspecified KIMMY (obstructive sleep apnea) Obstructive sleep apnea (adult) (pediatric) Difficult intravenous access Other specified conditions influencing health status Primary hypertension Unspecified essential hypertension Stage 3 chronic kidney disease, unspecified whether stage 3a or 3b CKD (HCC) 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, with long-term current use of insulin (HCC) Rectal cancer (HCC) Malignant neoplasm of rectum BMI 38.0-38.9,adult Body Mass Index 38.0-38.9, adult Pre-operative examination- Primary Preoperative examination, unspecified Rectal cancer (HCC) Malignant neoplasm of rectum KIMMY (obstructive sleep apnea) Obstructive sleep apnea (adult) (pediatric) Primary hypertension Unspecified essential hypertension Difficult intravenous access Other specified conditions influencing health status 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, with long-term current use of insulin (HCC) Anemia, unspecified type Stage 3 chronic kidney disease, unspecified whether stage 3a or 3b CKD (HCC) Hyperlipidemia, unspecified hyperlipidemia type BMI 38.0-38.9,adult Body Mass Index 38.0-38.9, adult Pre-op evaluation- Primary Preoperative examination, unspecified Incisional hernia without obstruction or gangrene Primary hypertension Unspecified essential hypertension Difficult intravenous access Other specified conditions influencing health status KIMMY (obstructive sleep apnea) Obstructive sleep apnea (adult) (pediatric) Stage 3 chronic kidney disease, unspecified whether stage 3a or 3b CKD (HCC) Anemia of chronic renal failure, stage 3a (HCC) (HCC) 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, with long-term current use of insulin (HCC) BMI 40.0-44.9, adult (HCC) Body Mass Index 40.0-44.9, adult Malignant neoplasm of ascending colon (HCC) Malignant neoplasm of ascending colon Malignant neoplasm of ascending colon (HCC) Malignant neoplasm of ascending colon [facility] Author Lizzie Sinclair [facility] April 07, 2024 7:24pm Note Date/Time April 07, 2024 7:24 pm [facility] [address] [place] [address] Hospitalist H&P Signed Patient: Isaiah Morel MR#: [id number] : 1945 Acct:[id number] Age/Sex: 78 / M Adm Date: 4 Loc: Room: [address] [place] [id number] Type: ADM IN Attending Dr: Lizzie Sinclair DO Copies to: KIESHA Cardenas, DO~ HPI DATE OF EXAMINATION: 04/07/24 CHIEF COMPLAINT: abnormal labs HISTORY OF PRESENT ILLNESS: Mr Morel is a 78-year-old male with a past medical history of sleep apnea on CPAP, hyperlipidemia, prior colon cancer, BPH, and diabetes, and CKD who presents to hospital today at the request of her equipment coordinator. The patient had routine labs drawn for an outpatient appointment at his nephrology office in [place], the labs were notable for potassium of 6.7 and he subsequently received a phone call to come the emergency room for treatment. The patient upon my assessment has absolutely 0 complaints, he says he feels in his normal state of health. Repeat laboratory workup on admission to the emergency room shows potassium 6.4 and a creatinine of 2.81, the has on her phone that hislast creatinine was around 2.4. The patient has had CKD for some time now and to his knowledge there has been no progression. He reports no changes in his diet or fluid intake, the only recent medication change has been the addition ofOzempic for his diabetes in September. Review of Systems Review of Systems All other systems reviewed & are negative unless noted below or in HPI [facility] Medical History (Updated 04/07/24 @ 19:23 by Lizzie Sinclair, ) Diabetes KIMMY on CPAP Hyperlipidemia Asthma Problem List clean-up per request of Phys. [facility] Colon [facility] 2019 with chemo BPH (benign prostatic hyperplasia) Problem List clean-up per request of Phys. [facility] Surgical History (Updated 10/18/23 @ 14:22 by Chivo Avila MD) History of vascular access device History of transurethral resection of prostate History of colectomy with colostomy and then reversal History of lateral meniscus repair of right knee Problem List clean-up per request of Phys. [facility] History of lateral meniscus repair of left knee Problem List clean-up per request of Phys. [facility] H/O hernia repair x2 Problem List clean-up per request of Phys. [facility] bladder repair surgery May 11, 2020 Family History Mother Myocardial infarction Father Myocardial infarction Sister Cancer Social History Smoking Status: Never smoker Substance Use Type: None Meds Medications and Allergies Allergies cephalexin [From Keflex] Adverse Reaction (Verified 04/07/24 15:08) Diarrhea ciprofloxacin [From Cipro] Adverse Reaction (Verified 04/07/24 15:08) Diarrhea fluconazole [From Diflucan] Adverse Reaction (Verified 04/07/24 15:08) Diarrhea Home Medications ascorbic acid (vitamin C) 60 mg lozenges 60 mg PO DAILY 06/22/20 [History Confirmed 04/07/24] aspirin 81 mg chewable tablet 81 mg PO DAILY 06/22/20 [History Confirmed 04/07/24] cholecalciferol (vitamin D3) 25 mcg (1,000 unit) tablet 25 mcg PO DAILY 06/22/20[History Confirmed 04/07/24] cinnamon bark 500 mg capsule 500 mg PO DAILY 06/22/20 [History Confirmed 04/07/24] cyanocobalamin (vitamin B-12) 500 mcg tablet 500 mcg PO DAILY 06/22/20 [History Confirmed 10/18/23] fenofibrate nanocrystallized 48 mg tablet (Tricor) 96 mg PO DAILY 06/22/20 [History Confirmed 04/07/24] dzjkceyo-uygeifbp-honul acid 400 mcg-vit K 20 mcg-lycop 300 mcg tablet (Men's Daily Formula) 1 tab PO DAILY 06/22/20 [History Confirmed 04/07/24] omega 7-dxk-nka-fish oil 300 mg-1,000 mg capsule 1 cap PO DAILY 06/22/20 [History Confirmed 04/07/24] oxybutynin chloride 10 mg tablet,extended release 24 hr (Ditropan XL) 5 mg PO DAILY 06/22/20 [History Confirmed 04/07/24] spironolactone 25 mg tablet 25 mg PO DAILY 06/22/20 [History Confirmed 04/07/24] furosemide 20 mg tablet 20 mg PO DAILY 05/08/22 [History Confirmed 04/07/24] losartan 100 mg tablet 100 mg PO DAILY 05/08/22 [History Confirmed 04/07/24] nifedipine 30 mg tablet,extended release 24 hr 60 mg PO DAILY 05/08/22 [History Confirmed 04/07/24] ferrous gluconate 324 mg (38 mg iron) tablet 324 mg PO DAILY 10/18/23 [History Confirmed 04/07/24] insulin human U-100 NPH-regulr 70-30 mix 100 unit/mL subcutaneous susp (Novolin 70/30 U-100 Insulin) 18 unit subcut BID 10/18/23 [History Confirmed 04/07/24] semaglutide 0.25 mg or 0.5 mg (2 mg/3 mL) subcutaneous pen injector (Ozempic) 0.25 mg subcut QWEEK 10/18/23 [History Confirmed 04/07/24] tamsulosin 0.4 mg capsule 0.4 mg PO Q24H 10/18/23 [History Confirmed 04/07/24] allopurinol 300 mg tablet 300 mg PO DAILY 04/07/24 [History Confirmed 04/07/24] atorvastatin 40 mg tablet 40 mg PO DAILY 04/07/24 [History Confirmed 04/07/24] Exam Physical Exam Vital Signs: Temp Pulse Resp BP Pulse Ox O2 Del Method 97.4 F L 59 L 18 159/65 H 95 Room Air 04/07/24 15:23 04/07/24 18:53 04/07/24 18:04 04/07/24 18:53 04/07/24 18:53 04/07/24 18:53 Narrative: General: Awake alert, no acute distress HEENT: head atraumatic, normocephalic, moist mucous membranes Neck: supple no masses, no lymphadenopathy CVS: regular rate and rhythm, no murmurs or gallops Respiratory: clear to auscultation bilaterally, no wheezing or crackles, symmetric expansion GI: soft, nondistended, nontender, positive bowel sounds with no organomegaly Extremity: moves all extremities, no restrictions of movements, no calf tenderness, no edema Neuro: AOx3, CN II-VII intact. Moves all extremities in all planes of motion. Skin: dry, intact no rashes or lesions Results - Hospitalist H&P Lab Results Labs: Laboratory Last Values Corrected WBC 9.7 X10E3/uL (4.1-10.5) 04/07/24 16:41 Uncorrected WBC Count 9.7 x10E3/uL (4.1-10.5) 04/07/24 16:41 RBC 3.77 X10E6/uL (3.90-5.60) L 04/07/24 16:41 Hgb 11.6 g/dL (13.0-17.0) L 04/07/24 16:41 Hct 35.9 % (38.8-50.0) L 04/07/24 16:41 MCV 95.4 fl (83.5-101) 04/07/24 16:41 MCH 30.8 pg (27.5-35.2) 04/07/24 16:41 MCHC 32.3 g/dL (32.5-35.6) L 04/07/24 16:41 RDW 15.5 % (12.0-14.8) H 04/07/24 16:41 Plt Count 387 x10E3/uL (150-450) 04/07/24 16:41 MPV 8.0 fl (6.6-10.1) 04/07/24 16:41 Neut % (Auto) 61.8 % (.) 04/07/24 16:41 Lymph % (Auto) 27.7 % (.) 04/07/24 16:41 [place] % (Auto) 6.1 % (.) 04/07/24 16:41 Eos % (Auto) 3.0 % (.) 04/07/24 16:41 Baso % (Auto) 1.4 % (.) 04/07/24 16:41 Nucleat RBC Rel Count 0.1 /100 WBC (0-0.5) 04/07/24 16:41 Neut # (Auto) 6.0 x10E3/uL (1.8-7.7) 04/07/24 16:41 Lymph # (Auto) 2.7 x10E3/uL (1.00-4.8) 04/07/24 16:41 [place] # (Auto) 0.6 x10E3/uL (0.0-0.8) 04/07/24 16:41 Eos # (Auto) 0.3 x10E3/uL (0.0-0.45) 04/07/24 16:41 Baso # (Auto) 0.1 x10E3/uL (0.0-0.2) 04/07/24 16:41 Monocyte Dist Width 15.84 % (0.00-20.00) 04/07/24 16:41 PHA Creatinine Clear 32.58 04/07/24 16:41 Sodium 133 mmol/L (136-145) L 04/07/24 16:41 Potassium 6.4 mmol/L (3.5-5.1) H* 04/07/24 16:41 Chloride 108 mmol/L (98-107) H 04/07/24 16:41 Carbon Dioxide 20.3 mmol/L (21.0-31.0) L 04/07/24 16:41 Anion Gap 11.1 mEq/L (6.0-15.0) 04/07/24 16:41 BUN 41 mg/dL (7-25) H 04/07/24 16:41 Creatinine 2.81 mg/dL (0.70-1.30) H 04/07/24 16:41 Est GFR (CKD-EPI) 22.297 mL/Min 04/07/24 16:41 Glucose 134 mg/dL (70-100) H 04/07/24 16:41 Calcium 9.0 mg/dL (8.6-10.3) 04/07/24 16:41 Magnesium 1.8 mg/dL (1.9-2.7) L 04/07/24 16:41 Assessment & Plan Assessment/Plan (1) Hyperkalemia: Plan: ? Status post calcium, insulin, bicarb, and glucose treatment emergency room as well as 10 mg Lokelma ? Repeat potassium tonight at 10 PM ? Follow-up morning BMP and magnesium and treat accordingly ? Nephrology consulted ? Urine creatinine, and potassium ordered ? Holding his home dose of losartan and Aldactone ? Continue Lasix as ordered (2) Chronic kidney insufficiency: Plan: ? May have been a slight progression of his CKD, no evidence of GOOD at this point in time (3) BPH (benign prostatic hyperplasia): Plan: ? Continue home medications (4) Diabetes: Plan: ? Glucose checks ACHS ? Continue home medications Plan ? DVT prophylaxis addressed ? Renal diet ? Full code IP vs OBS Justification Based on differential dx, clinical care plan, and risk of adverse events, if untreated, in my clinical judgement this patient requires an acute care setting as: INPATIENT because of an expectation of an over 2 midnight stay. Estimated length of stay (# of days): 3 Documented By: Lizzie Sinclair DO 04/07/241916 Signed By: <Electronically signed by Lizzie Sinclair DO> 04/07/241923 [facility] Work Phone: Progress note Author Kellie Grider [facility] April 10, 2024 12:18pm Note Date/Time April 10, 2024 12: 18pm [facility] [address] [place] [address] Nephrology Progress Note Signed Patient: Isaiah Morel MR#: [id number] : 1945 Acct:[id number] Age/Sex: 78 / M Adm Date: 4 Loc: Room: [address] [place] [address] Type: ADM IN Attending Dr: Lizzie Sinclair DO Copies to: ~ Date of Service: 04/10/2024 Subjective Subjective Narrative: Mr. 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 Patient follows with Dr. James equipment coordinator in [place] . he was receiving routine labs from an outpatient appointment and was found to have a potassium level of 6.7. In the emergency department lab work also revealed worsening kidney function with creatinine 2.8 mg deciliter from baseline around 2.4. Hyperkalemia was treated medically with insulin R/D50, calcium gluconate, as well as 1 dose of Lokelma. Repeat potassium dropped to 5.7. However lab this morning revealed potassium is up again to 6.7 mmol/L. She was then given another dose of calcium gluconate, 1 dose of Lasix 60 mg IV, Lokelma started 10 mg p.o. 3 times daily. Last potassium check is better at 6.3 mmol/L I reviewed the patient's home medications. She is on fenofibrate, vitamin B12, Aldactone, losartan, nifedipine, insulin/Ozempic and atorvastatin Of note, he did mention to us that he has been eating a lot of cantaloupe as of late Denies fever/chills, chest pain, shortness of breath, abd pain, N/V/D, and dizziness Interim history: Patient was seen and examined in his room. Denied worsening breathing. Continues to be on room air Blood pressure is elevated again.. Hydralazine was increased to 75 mg 3 times daily yesterday. Patient remains on low-dose Lasix 20 mg p.o. daily Denies chest pain. No nausea no vomiting. No diarrhea. Lab from this morning reviewed creatinine 2.69 mg deciliter . Patient continuesto be slightly hyperkalemic. Potassium this morning is 5.3 mmol/L. Home spironolactone and losartan remain on hold Patient is currently on Lokelma 10 g daily. Exam Physical Exam Vital Signs: Temp Pulse Resp BP Pulse Ox O2 Del Method FiO2 98.1 F 80 18 167/69 H 95 Room Air 21 04/10/24 06:35 04/10/24 12:00 04/10/24 12:00 04/10/24 12:00 04/10/24 12:00 04/10/24 12:00 04/08/24 02:01 Narrative: General: No acute distress Head :atraumatic normocephalic Eyes: PERRLA. Neck: no JVD no bruit. Heart: S1-S2. RRR Respiratory: Clear to auscultation. No wheezing. No crackles Abdomen: Soft, positive bowel sounds,no tenderness. Neurology: Awake alert oriented x3. No focal deficits Extremity. No cyanosis. No edema Skin: No skin rash Objective Intake and Output I&O: Intake & Output 04/07/24 04/08/24 04/09/24 04/10/24 23:59 23:59 23:59 23:59 Intake Total 2150 / 2150 1750 / 1750 240 / 240 Output Total 1625 / 1625 Balance 525 / 525 1750 / 1750 240 / 240 Weight 313 lb 15.012 oz 311 lb 15.265 oz 312 lb 13.375 oz 308 lb 10.354 oz Meds and Allergies Meds: Active Medications Acetaminophen (Acetaminophen 325 Mg Tablet) 650 mg PO Q6HR PRN PRN Reason: Pain Scale 1 - 3 or fever Stop: 04/07/25 17:41 Last Admin: 04/08/24 20:43 Dose: 650 mg Allopurinol (Allopurinol 300 Mg Tablet) 300 mg PO DAILY [facility] Stop: 04/08/25 08:59 Last Admin: 04/10/24 08:04 Dose: 300 mg Aspirin (Aspirin 81 Mg Tab.Chew) 81 mg PO DAILY [facility] Stop: 04/08/25 08:59 Last Admin: 04/10/24 08:04 Dose: 81 mg Atorvastatin Calcium (Atorvastatin 40 Mg Tablet) 40 mg PO DAILY [facility] Stop: 04/08/25 08:59 Last Admin: 04/10/24 08:04 Dose: 40 mg Enoxaparin Sodium (Enoxaparin 40 Mg/0.4 Ml Syringe) 40 mg SUBCUT DAILY@10 [facility] Stop: 04/08/25 09:59 Last Admin: 04/10/24 09:32 Dose: 40 mg Fenofibrate (Fenofibrate Nanocrystallized 48 Mg Tablet) 96 mg PO DAILY [facility] Stop: 04/08/25 08:59 Last Admin: 04/10/24 08:04 Dose: 96 mg Furosemide (Furosemide 40 Mg Tablet) 40 mg PO BID@0800,1600 [facility] Stop: 04/10/25 09:44 Last Admin: 04/10/24 09:59 Dose: 40 mg Hydralazine HCl (Hydralazine 50 Mg Tablet) 100 mg PO TID [facility] Stop: 04/10/25 13:59 Insulin Aspart Prota 70%/Aspart 30% (Insulin Aspart Protamin/Aspart 300 Units/3 Ml Insuln.Pen) 18 units SUBCUT BID.WITH.BFAST.SUPPE [facility] Stop: 04/08/25 07:59 Last Admin: 04/10/24 08:05 Dose: 18 units Melatonin (Melatonin 5 Mg Tablet) 5 mg PO QHS PRN PRN Reason: Insomnia Stop: 04/07/25 17:41 Nifedipine (Nifedipine Er.24hr 60 Mg Tab.Er.24) 60 mg PO DAILY [facility] Stop: 04/08/25 08:59 Last Admin: 04/10/24 08:04 Dose: 60 mg Semaglutide [Ozempic ] 0.25 Mg Or 0.5 Mg (2 Mg/3 Ml) Pen Injector 0.25 mg SUBCUT QWEEK [facility] Stop: 04/14/25 08:59 Ondansetron HCl (Ondansetron 4 Mg/2 Ml Vial) 4 mg IV-PUSH Q8H PRN PRN Reason: Nausea And Vomiting Stop: 04/07/25 17:41 Oxybutynin Chloride (Oxybutynin Chloride 5 Mg Tab.Er.24) 10 mg PO DAILY [facility] Stop: 04/08/25 08:59 Last Admin: 04/10/24 08:04 Dose: 10 mg Sodium Chloride (Sodium Chloride 0.9 % 10 Ml Syringe) 0 ml IV-PUSH PRN PRN PRN Reason: Flush Stop: 04/07/25 15:07 Last Admin: 04/08/24 09:39 Dose: 10 ml Sodium Zirconium Cyclosilicate (Sodium Zirconium Cyclosilicate 10 Gm Powd.Pack) 10 gm PO DAILY [facility]; Protocol Stop: 04/10/25 08:59 Last Admin: 04/10/24 08:04 Dose: 10 gm Tamsulosin HCl (Tamsulosin 0.4 Mg Cap.Er.24h) 0.4 mg PO Q24H [facility] Stop: 04/07/25 19:14 Last Admin: 04/09/24 18:26 Dose: 0.4 mg Vitamin D (Cholecalciferol 25 Mcg (1,000 Units) Tablet) 25 mcg PO DAILY [facility] Stop: 04/08/25 08:59 Last Admin: 04/10/24 08:04 Dose: 25 mcg Allergies cephalexin [From Keflex] Adverse Reaction (Verified 04/07/24 15:08) Diarrhea ciprofloxacin [From Cipro] Adverse Reaction (Verified 04/07/24 15:08) Diarrhea fluconazole [From Diflucan] Adverse Reaction (Verified 04/07/24 15:08) Diarrhea Results - Nephrology Labs 04/08/24 06:49 04/10/24 06:59 Labs: 04/10/24 06:59 BUN 43 H Creatinine 2.69 H Radiology Impressions Impressions - last 24 hours: Any impression(s) listed above is documentation that was entered by the reading physician into a diagnostic report(s) for Isaiah Morel. I have reviewed the report(s) and am incorporating any findings in the treatment plan of this patient where applicable. A&P - Nephrology Assessment/Plan (1) Hyperkalemia: Assessment/Problem Details: This is likely combination of high potassium diet in addition to advanced CKD and being on Aldactone losartan. Patient has been having hyperkalemia without evidence of EKG changes except bradycardia. (2) Diabetes: Plan: Patient is currently on insulin 70/30. 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 [facility]. Serum creatinine this morning 2.5 mg deciliter which is close to baseline (4) Hypertensive nephropathy: Plan: Home Aldactone losartan were held due to hyperkalemia. With high blood pressurethis morning Plan * Kidney function remains close to baseline. Hyperkalemia improved. No need for renal placement therapy * Continue holding home Aldactone and losartan * Continue Lokelma 10 g daily.no need for diuresis. * Will increase lasix to 40 mg PO daily to help controlling hyperkalemia and BP. Will increase hydralazine to 100 mg PO TID * Maintain adequate sugar control as per the primary hospitalist service * Monitor electrolytes with daily BMP. Patient can be discharged from nephrology standpoint. Please discharge the patient with Lokelma 10 g p.o. daily for 3 days, Lasix 40 mg p.o. twice daily, hydralazine 100 mg 3 times daily. Please check renal function panel early next week. Patient has a follow-up appointment coming with his equipment coordinator Dr. James next week Documented By: Kellie Grider MD 04/10/24 1214 Signed By: <Electronically signed by Kellie Grider MD> 04/10/24 1218 [facility] Work Phone: Reason for referral (narrative)* Diagnostic Procedure Only (Routine) - Pending Review Specialty Diagnoses / Procedures Referred By Contac t Referred To Contact MOLECULAR & FUNCTIONAL IMAGING Diagnoses Malignant neoplasm of ascending colon (HCC) Procedures NM PET/CT SKULL-THIGH SUBSEQUENT PET IMAGING CT ATTENUATION SKULL BASE MID-THIGH Casandra Holley PA-C [address] [place] [address] [place] [address] Molecular & Functional Imaging [address] [place] [address] Referral ID Status Reason Start Date Expiration Date Visits Requested Visits Authorized [id number] Pending Review Auto-Generat ed Referral 09/18/2022 10/18/2023 1 1 * Consult, Test, Treat (Routine) - Authorized Specialty Diagnoses / Procedures Referred By Thu t Referred To Contact Nephrology Diagnoses Stage 3b chronic kidney disease (HCC) Procedures CONSULT TO KIDNEY MEDICINE OFFICE/OUTPATIENT [facility] 60-74 MINUTES Casandra Holley PA-C [address] [place] [address] [place] [address] Referral ID Status Reason Start Date Expiration Date Visits Requested Visits Authorized [id number] Authorized PCP Requested Referral 09/18/2022 09/18/2023 1 1 [facility] for referral (narrative)* Diagnostic Procedure Only (Routine) - Pending Review Specialty Diagnoses / Procedures Referred By Contac t Referred To Contact US IMAGING Diagnoses Chronic renal disease, stage IV (HCC) Procedures US PELVIS BLADDER US PELVIC NONOBSTETRIC IMAGE DCMTN LIMITED/F/U Leslee Webster DO [address] [place] [address] [place] [address] Referral ID Status Reason Start Date Expiration Date Visits Requested Visits Authorized [id number] Pending Review Auto-Generat ed Referral 12/19/2023 01/17/2025 1 1 * Diagnostic Procedure Only (Routine) - Pending Review Specialty Diagnoses / Procedures Referred By Contac t Referred To Contact US IMAGING Diagnoses Chronic renal disease, stage IV (HCC) Procedures US KIDNEY/BLADDER US RETROPERITONEAL REAL TIME W/IMAGE COMPLETE Leslee Webster DO [address] [place] [address] [facility] [place] [address] Referral ID Status Reason Start Date Expiration Date Visits Requested Visits Authorized [id number] Pending Review Auto-Generat ed Referral 12/19/2023 01/17/2025 1 1 [facility] for referral (narrative)* Diagnostic Procedure Only (Routine) - Closed Specialty Diagnoses / Procedures Referred By Contac t Referred To Contact MOLECULAR & FUNCTIONAL IMAGING Diagnoses Malignant neoplasm of ascending colon (HCC) Procedures NM PET/CT SKULL-THIGH SUBSEQUENT PET IMAGING CT ATTENUATION SKULL BASE MID-THIGH Casandra Holley PA-C [address] [place] [address] [place] [address] Molecular & Functional Imaging [address] [place] [address] Referral ID Status Reason Start Date Expiration Date V isits Requested Visits Authorized [id number] Closed Auto-Generate d Referral 09/18/2022 10/18/2023 1 1 [facility] for visit Narrative* Diagnostic Procedure Only (Routine) - Authorized Specialty Diagnoses / Procedures Referred By Contac t Referred To Contact Hematology / HEMATOLOGY/ONCOLOGY Diagnoses Port q 6 weeks Procedures LAB/PORT Casandra Holley PA-C [address] [place] [address] [place] [address] [address] Miguel [address] [place] [address] Referral ID Status Reason Start Date Expiration Date V isits Requested Visits Authorized [id number] Authorized 01/19/2023 09/09/2023 99 99 [facility] Summary Purpose Family History No Family History Records Found Relationship Condition Age at Onset Recorded Date/T rubin Not Specified Myocardial infarction Unknown father Myocardial infarction Unknown sister Malignant neoplasm Unknown Relationship Condition Age at Onset Recorded Date/T rubin mother Myocardial infarction Unknown father Myocardial infarction Unknown sister Malignant neoplasm Unknown Advance Directives No Advanced Directives Records FoundDocuments on File Type Date Recorded Patient Lead Electrician Expl anation Advance Directive(s) 08/09/2021 1:49 PM Advance Directive(s) 07/12/2021 10:33 AM Advance Directive(s) 06/13/2021 6:07 AM Advance Directive(s) 03/21/2021 4:51 PM Advance Directive(s) 02/28/2021 10:15 AM Advance Directive(s) 02/28/2021 10:16 AM Advance Directive(s) 02/09/2021 10:57 AM Advance Directive(s) 05/04/2020 10:25 AM Documents on File Type Date Recorded Patient Lead Electrician Expl anation Advance Directive(s) 08/09/2021 1:49 PM Advance Directive(s) 07/12/2021 10:33 AM Advance Directive(s) 06/13/2021 6:07 AM Advance Directive(s) 03/21/2021 4:51 PM Advance Directive(s) 02/28/2021 10:15 AM Advance Directive(s) 02/28/2021 10:16 AM Advance Directive(s) 02/09/2021 10:57 AM Advance Directive(s) 05/04/2020 10:25 AM Documents on File Type Date Recorded Patient Lead Electrician Expl anation Advance Directive(s) 02/28/2021 10:16 AM Advance Directive Response Recorded Date/ Time Advance Directives No June 22, 2020 3:34pm Documents on File Type Date Recorded Patient Lead Electrician Expl anation Advance Directive(s) 02/28/2021 10:16 AM Advance Directive Response Recorded Date/ Time Advance Directives No June 22, 2020 2:34pm Reason for Referral Status Reason Specialty Diagnoses / Procedures Referred By Contact Referred To Contact Pending Review Radiology Diagnoses Swelling of both lower extremities Procedures VL DUP LOWER EXTREMITY VENOUS BILATERAL Syd Gamboa MD [address] [place] [address] Specialty Diagnoses / Procedures Referred By Contac t Referred To Contact General Surgery Diagnoses Ventral hernia without obstruction or gangrene Procedures CONSULT TO GENERAL SURGERY OFFICE/OUTPATIENT [facility] 60-74 MINUTES Sarika Cook MD [address] [place] [id number] Referral ID Status Reason Start Date Expiration Date Visits Requested Visits Authorized [id number] Authorized PCP Requested Referral 03/21/2022 03/07/2023 1 1 Specialty Diagnoses / Procedures Referred By Contac t Referred To Contact CT IMAGING Diagnoses History of incisional hernia repair Abdominal wall bulge Procedures CT ABD/PEL W IVCON CT ABD & PELVIS W/CONTR[place] María [place] [address] [place] [address] Ct Imaging Referral ID Status Reason Start Date Expiration Date V isits Requested Visits Authorized [id number] Closed Auto-Generate d Referral 04/06/2022 05/06/2023 2 2 Specialty Diagnoses / Procedures Referred By Contac t Referred To Contact CT IMAGING Diagnoses History of colon cancer Malignant neoplasm of ascending colon (HCC) Procedures CT ABD/PEL W IVCON CT ABD & PELVIS W/CONTRAST Sarika Cook MD [address] [place] [address] [address] [place] [address] Referral ID Status Reason Start Date Expiration Date V isits Requested Visits Authorized [id number] Closed Auto-Generate d Referral 04/13/2023 04/28/2024 1 1 Assessments Diagnosis Swelling of both lower extremities Medications Administered Section Inactive Administered Medications - up to 3 most recent administrations Medication Order MAR Action Action Date Dose Rate Site darbepoetin sherine in polysorbat 300 mcg injection (ARANESP) 300 mcg, SUBCUTANEOUS, ONCE, 1 dose, On 03/20/22 at 1430, PROTECT FROM LIGHT. REFRIGERATE Given 03/20/2022 2:23 PM EDT 300 mcg Arm, Right iron sucrose 200 mg in NaCl 0.9% 100ml (VENOFER) 200 mg, INTRAVENOUS, at 400 mL/hr, Administer over 15 Minutes, ONCE, 1 dose, On Sun03/20/22 at 1330, Please conduct a 30 minute post dose observation. New Bag/Syringe/Bottl e 03/20/2022 1:21 PM EDT 200 mg 400 mL/hr Inactive Administered Medications - up to 3 most recent administrations Medication Order MAR Action Action Date Dose Rate Site iron sucrose 200 mg in NaCl 0.9% 100ml (VENOFER) 200 mg, INTRAVENOUS, at 400 mL/hr, Administer over 15 Minutes, ONCE, 1 dose, On Sun03/27/22 at 1330, Please conduct a 30 minute post dose observation. New Bag/Syringe/Bottle 03/27/2022 1:19 PM EDT 200 mg 400 mL/hr Inactive Administered Medications - up to 3 most recent administrations Medication Order MAR Action Action Date Dose Rate Site iron sucrose 200 mg in NaCl 0.9% 100ml (VENOFER) 200 mg, INTRAVENOUS, at 400 mL/hr, Administer over 15 Minutes, ONCE, 1 dose, On Sun04/03/22 at 1330, Please conduct a 30 minute post dose observation. New Bag/Syringe/Bottle 04/03/2022 1:14 PM EDT 200 mg 400 mL/hr Chief Complaint and Reason for Visit Chief Complaint Vomiting,nausea Chief Complaint Colorectal Cancer Reason for Visit History of vascular access device Chief Complaint Colorectal Cancer n18.4 Reason for Visit History of vascular access device Chief Complaint dr sent Reason for Visit BPH (benign prostati c hyperplasia) Chronic kidney insufficiency Diabetes Hyperkalemia Chief Complaint dr sent dr sent Reason for Visit BPH (benign prostati c hyperplasia) Chronic kidney insufficiency Diabetes Hyperkalemia Hypertensive nephropathy Additional Source Comments (unrecognized sect ion and content) No Status Records FoundNo Status Records FoundNo Status Records FoundNo Status Records FoundNo Status Records FoundNo Status Records FoundNo Status Records FoundNo Status Records FoundNo Status Records FoundNo Status Records Found INFORMATION SOURCE (unrecogn ized section and content) DATE CREATED AUTHOR 06/10/2020 [facility] DATE CREATED AUTHOR AUTHOR'S ORGANIZ ATION 06/19/2020 [facility] DATE CREATED AUTHOR AUTHOR'S ORGANIZ ATION 06/16/2021 [facility] DATE CREATED AUTHOR AUTHOR'S ORGANIZ ATION 10/31/2021 [facility] DATE CREATED AUTHOR AUTHOR'S ORGANIZ ATION 01/03/2022 [facility] DATE CREATED AUTHOR AUTHOR'S ORGANIZ ATION 10/11/2022 [facility] DATE CREATED AUTHOR AUTHOR'S ORGANIZ ATION 12/22/2023 [facility] DATE CREATED AUTHOR AUTHOR'S ORGANIZ ATION 04/25/2024 [facility] DATE CREATED AUTHOR AUTHOR'S ORGANIZ ATION 06/03/2024 [facility] DATE CREATED AUTHOR AUTHOR'S ORGANIZ ATION 07/09/2024 [facility] Reason for Visit (unrecogniz ed section and content) Status Reason Specialty Diagnoses / Procedures Referred By Contact Referred To Contact Closed Vascular Lab Diagnoses Swelling of lower extremity Procedures VL DUP LOWER EXTREMITY VENOUS BILATERAL Syd Gamboa MD [address] [place] [address] [facility] [address] [place] [address] Reason Comments Malignant neoplasm of rectosigmoid junct ion 7 week follow up Reason Comments Care Coordination results Reason Comments Follow Up Specialty Diagnoses / Procedures Referred By Contac t Referred To Contact Diagnoses Iron deficiency anemia due to chronic blood loss Sarika Cook MD [address] [place] [address] [facility] [address] [place] [address] Referral ID Status Reason Start Date Expiration Date V isits Requested Visits Authorized [id number] Authorized 03/09/2022 06/07/2022 99 99 Reason Comments Results Reason Comments Lab Orders Reason Comments Schedule Surgery Reason Comments Results - Ct Reason Comments Anesthesia Consult Reason Comments Post Op Pod 15 f/u after hav ing incisional hernia repair. Reason Comments Rectal Cancer Follow up/port draw Specialty Diagnoses / Procedures Referred By Contac t Referred To Contact Hematology / HEMATOLOGY/ONCOLOGY Diagnoses Port q 6 weeks Procedures LAB/PORT Casandra Holley PA-C [address] [place] [address] [facility] [address] [place] [address] Referral ID Status Reason Start Date Expiration Date V isits Requested Visits Authorized [id number] Authorized 01/19/2023 09/09/2023 99 99 Reason [address] Coord[address] CT results Reason Comments Radiology CT Specialty Diagnoses / Procedures Referred By Contac t Referred To Contact CT IMAGING Diagnoses History of incisional hernia repair Abdominal wall bulge Procedures CT ABD/PEL W IVCON CT ABD & PELVIS W/CONTR[place]ía [place] [address] [place] [address] Ct Imaging Referral ID Status Reason Start Date Expiration Date V isits Requested Visits Authorized [id number] Closed Auto-Generate d Referral 04/06/2022 05/06/2023 2 2 Reason Comments Colon Cancer Reason Comments Orders Reason Comments Future Appointment Reason Comments Care Coordination Signatera results Reason Comments New Patient Chronic renal diseas e Consult Specialty Diagnoses / Procedures Referred By Contac t Referred To Contact Nephrology Diagnoses Chronic renal disease, stage IV (HCC) Procedures CONSULT TO KIDNEY MEDICINE OFFICE/OUTPATIENT [facility] 60 MINUTES Sarika Cook MD [address] [place] [address] Referral ID Status Reason Start Date Expiration Date V isits Requested Visits Authorized [id number] Closed PCP Requested Referral 10/05/2023 10/04/2024 1 1 Reason Comments Patient Request Reason Comments Follow Up Ckd Specialty Diagnoses / Procedures Referred By Contac t Referred To Contact CT IMAGING Diagnoses History of colon cancer Malignant neoplasm of ascending colon (HCC) Procedures CT ABD/PEL W IVCON CT ABD & PELVIS W/CONTRAST Sarika Cook MD [address] [place] [address] [place] [address] Referral ID Status Reason Start Date Expiration Date V isits Requested Visits Authorized [id number] Closed Auto-Generate d Referral 04/13/2023 04/28/2024 1 1 Reason Comments Radiology NM Specialty Diagnoses / Procedures Referred By Contac t Referred To Contact MOLECULAR & FUNCTIONAL IMAGING Diagnoses Malignant neoplasm of ascending colon (HCC) Procedures NM PET/CT SKULL-THIGH SUBSEQUENT PET IMAGING CT ATTENUATION SKULL BASE MID-THIGH Casandra Holley, FRANCES [address] [place] [address] [place] [address] Molecular & Functional Imaging [address] [place] [address] Referral ID Status Reason Start Date Expiration Date V isits Requested Visits Authorized [id number] Closed Auto-Generate d Referral 09/18/2022 10/18/2023 1 1 Source Comments (unrecognize d section and content) In the event this informatio n is protected by the Federal Confidentiality of Alcohol and Drug Abuse Patient Records regulations: The Federal rules restrict any use of the information to criminally investigate or prosecute any alcohol or drug abuse patient.[facility] the event this information is protected by the Federal Confidentiality of Alcohol and Drug Abuse Patient Records regulations: The Federal rules restrict any use of the information to criminally investigate or prosecute any alcohol or drug abuse patient.[facility] the event this information is protected by the Federal Confidentiality of Alcohol and Drug Abuse Patient Records regulations: The Federal rules restrict any use of the information to criminally investigate or prosecute any alcohol or drug abuse patient.[facility] the event this information is protected by the Federal Confidentiality of Alcohol and Drug Abuse Patient Records regulations: The Federal rules restrict any use of the information to criminally investigate or prosecute any alcohol or drug abuse patient.[facility] the event this information is protected by the Federal Confidentiality of Alcohol and Drug Abuse Patient Records regulations: The Federal rules restrict any use of the information to criminally investigate or prosecute any alcohol or drug abuse patient.[facility] the event this information is protected by the Federal Confidentiality of Alcohol and Drug Abuse Patient Records regulations: The Federal rules restrict any use of the information to criminally investigate or prosecute any alcohol or drug abuse patient.[facility] the event this information is protected by the Federal Confidentiality of Alcohol and Drug Abuse Patient Records regulations: The Federal rules restrict any use of the information to criminally investigate or prosecute any alcohol or drug abuse patient.[facility] the event this information is protected by the Federal Confidentiality of Alcohol and Drug Abuse Patient Records regulations: The Federal rules restrict any use of the information to criminally investigate or prosecute any alcohol or drug abuse patient.[facility] the event this information is protected by the Federal Confidentiality of Alcohol and Drug Abuse Patient Records regulations: The Federal rules restrict any use of the information to criminally investigate or prosecute any alcohol or drug abuse patient.[facility] the event this information is protected by the Federal Confidentiality of Alcohol and Drug Abuse Patient Records regulations: The Federal rules restrict any use of the information to criminally investigate or prosecute any alcohol or drug abuse patient.[facility] the event this information is protected by the Federal Confidentiality of Alcohol and Drug Abuse Patient Records regulations: The Federal rules restrict any use of the information to criminally investigate or prosecute any alcohol or drug abuse patient.[facility] the event this information is protected by the Federal Confidentiality of Alcohol and Drug Abuse Patient Records regulations: The Federal rules restrict any use of the information to criminally investigate or prosecute any alcohol or drug abuse patient.[facility] the event this information is protected by the Federal Confidentiality of Alcohol and Drug Abuse Patient Records regulations: The Federal rules restrict any use of the information to criminally investigate or prosecute any alcohol or drug abuse patient.[facility] the event this information is protected by the Federal Confidentiality of Alcohol and Drug Abuse Patient Records regulations: The Federal rules restrict any use of the information to criminally investigate or prosecute any alcohol or drug abuse patient.[facility] Hospital[facility] the event this information is protected by the Federal Confidentiality of Alcohol and Drug Abuse Patient Records regulations: The Federal rules restrict any use of the information to criminally investigate or prosecute any alcohol or drug abuse patient.[facility] the event this information is protected by the Federal Confidentiality of Alcohol and Drug Abuse Patient Records regulations: The Federal rules restrict any use of the information to criminally investigate or prosecute any alcohol or drug abuse patient.[facility] the event this information is protected by the Federal Confidentiality of Alcohol and Drug Abuse Patient Records regulations: The Federal rules restrict any use of the information to criminally investigate or prosecute any alcohol or drug abuse patient.[facility] the event this information is protected by the Federal Confidentiality of Alcohol and Drug Abuse Patient Records regulations: The Federal rules restrict any use of the information to criminally investigate or prosecute any alcohol or drug abuse patient.[facility] the event this information is protected by the Federal Confidentiality of Alcohol and Drug Abuse Patient Records regulations: The Federal rules restrict any use of the information to criminally investigate or prosecute any alcohol or drug abuse patient.[facility] the event this information is protected by the Federal Confidentiality of Alcohol and Drug Abuse Patient Records regulations: The Federal rules restrict any use of the information to criminally investigate or prosecute any alcohol or drug abuse patient.[facility] Hospital[facility] the event this information is protected by the Federal Confidentiality of Alcohol and Drug Abuse Patient Records regulations: The Federal rules restrict any use of the information to criminally investigate or prosecute any alcohol or drug abuse patient.[facility] the event this information is protected by the Federal Confidentiality of Alcohol and Drug Abuse Patient Records regulations: The Federal rules restrict any use of the information to criminally investigate or prosecute any alcohol or drug abuse patient.[facility] the event this information is protected by the Federal Confidentiality of Alcohol and Drug Abuse Patient Records regulations: The Federal rules restrict any use of the information to criminally investigate or prosecute any alcohol or drug abuse patient.[facility] the event this information is protected by the Federal Confidentiality of Alcohol and Drug Abuse Patient Records regulations: The Federal rules restrict any use of the information to criminally investigate or prosecute any alcohol or drug abuse patient.[facility] HospitalIn the event this information is protected by the Federal Confidentiality of Alcohol and Drug Abuse Patient Records regulations: The Federal rules restrict any use of the information to criminally investigate or prosecute any alcohol or drug abuse patient.[facility] Hospital[facility] the event this information is protected by the Federal Confidentiality of Alcohol and Drug Abuse Patient Records regulations: The Federal rules restrict any use of the information to criminally investigate or prosecute any alcohol or drug abuse patient.[facility] HospitalIn the event this information is protected by the Federal Confidentiality of Alcohol and Drug Abuse Patient Records regulations: The Federal rules restrict any use of the information to criminally investigate or prosecute any alcohol or drug abuse patient.[facility] HospitalIn the event this information is protected by the Federal Confidentiality of Alcohol and Drug Abuse Patient Records regulations: The Federal rules restrict any use of the information to criminally investigate or prosecute any alcohol or drug abuse patient.[facility] HospitalIn the event this information is protected by the Federal Confidentiality of Alcohol and Drug Abuse Patient Records regulations: The Federal rules restrict any use of the information to criminally investigate or prosecute any alcohol or drug abuse patient.[facility] HospitalIn the event this information is protected by the Federal Confidentiality of Alcohol and Drug Abuse Patient Records regulations: The Federal rules restrict any use of the information to criminally investigate or prosecute any alcohol or drug abuse patient.[facility] HospitalIn the event this information is protected by the Federal Confidentiality of Alcohol and Drug Abuse Patient Records regulations: The Federal rules restrict any use of the information to criminally investigate or prosecute any alcohol or drug abuse patient.[facility] HospitalIn the event this information is protected by the Federal Confidentiality of Alcohol and Drug Abuse Patient Records regulations: The Federal rules restrict any use of the information to criminally investigate or prosecute any alcohol or drug abuse patient.[facility] HospitalIn the event this information is protected by the Federal Confidentiality of Alcohol and Drug Abuse Patient Records regulations: The Federal rules restrict any use of the information to criminally investigate or prosecute any alcohol or drug abuse patient.[facility] HospitalIn the event this information is protected by the Federal Confidentiality of Alcohol and Drug Abuse Patient Records regulations: The Federal rules restrict any use of the information to criminally investigate or prosecute any alcohol or drug abuse patient.[facility] HospitalIn the event this information is protected by the Federal Confidentiality of Alcohol and Drug Abuse Patient Records regulations: The Federal rules restrict any use of the information to criminally investigate or prosecute any alcohol or drug abuse patient.[facility] HospitalIn the event this information is protected by the Federal Confidentiality of Alcohol and Drug Abuse Patient Records regulations: The Federal rules restrict any use of the information to criminally investigate or prosecute any alcohol or drug abuse patient.[facility] HospitalIn the event this information is protected by the Federal Confidentiality of Alcohol and Drug Abuse Patient Records regulations: The Federal rules restrict any use of the information to criminally investigate or prosecute any alcohol or drug abuse patient.[facility] HospitalIn the event this information is protected by the Federal Confidentiality of Alcohol and Drug Abuse Patient Records regulations: The Federal rules restrict any use of the information to criminally investigate or prosecute any alcohol or drug abuse patient.[facility] HospitalIn the event this information is protected by the Federal Confidentiality of Alcohol and Drug Abuse Patient Records regulations: The Federal rules restrict any use of the information to criminally investigate or prosecute any alcohol or drug abuse patient.[facility] HospitalIn the event this information is protected by the Federal Confidentiality of Alcohol and Drug Abuse Patient Records regulations: The Federal rules restrict any use of the information to criminally investigate or prosecute any alcohol or drug abuse patient.[facility] HospitalIn the event this information is protected by the Federal Confidentiality of Alcohol and Drug Abuse Patient Records regulations: The Federal rules restrict any use of the information to criminally investigate or prosecute any alcohol or drug abuse patient.[facility] HospitalIn the event this information is protected by the Federal Confidentiality of Alcohol and Drug Abuse Patient Records regulations: The Federal rules restrict any use of the information to criminally investigate or prosecute any alcohol or drug abuse patient.[facility] HospitalIn the event this information is protected by the Federal Confidentiality of Alcohol and Drug Abuse Patient Records regulations: The Federal rules restrict any use of the information to criminally investigate or prosecute any alcohol or drug abuse patient.[facility] HospitalIn the event this information is protected by the Federal Confidentiality of Alcohol and Drug Abuse Patient Records regulations: The Federal rules restrict any use of the information to criminally investigate or prosecute any alcohol or drug abuse patient.[facility] Care Teams (unrecognized sec tion and content) Team Status: Active Member Role Status Dates PRAKASH Cardenas Primary Care Provider Active Team Status: Inactive Member Role Status Dates PRAKASH Cardenas Primary Care Provider Active Start: April 07, 2024 End: April 10, 2024 Pola Quintanilla MD Emergency Provider Active St art: April 07, 2024 End: April 10, 2024 Lizzie Sinclair DO Admit Provider, Atte nding Provider Active Start: April 07, 2024 End: April 10, 2024 Kellie Grider MD Other Provider Active Start: Gissell martinez 2023 End: April 10, 2024 Team Status: Active Member Role Status Dates PRAKASH Cardenas Primary Care Provider Active Start: April 08, 2024 Pola Quintanilla MD Emergency Provider Active St art: April 08, 2024 Lizzie Sinclair , Admit Provider, Other Provider Act muna Start: April 08, 2024 Kellie Grider MD Attending Provider, Other Provider Active Start: April 08, 2024 Team Status: Active Member Role Status Dates PRAKASH Cardenas Primary Care Provider Active Start: October 18, 2023 Anthony Beaver MD Other Provider Active Start : October 18, 2023 Chivo Avila MD Attending Provider Active Start: October 18, 2023 Staff Command And Control Officer Relationship Specialty Start Date End Date Syd Henry MD PCP - General Family Practice 11/10/20 Pola Vu [address] [place] [phone] Livestock Sales Representative General Surgery 03/31/20 Pam Torres RN [address] [place] [address] Specialty Medical Appliance Maker Hematology/Oncology 07/02/20 Sarika Cook MD [address] [facility] [place] [address] Physician Hematology/Oncology 07/02/20 Casandra Holley, PAAjithC [address] [place] [address] Physician Research Editor Hematology/Oncology 07/02/20 Staff Command And Control Officer Relationship Specialty Start Date End Date Syd Henry MD PCP - General Family Practice 11/10/20 Pola Vu [address] [place] [phone] [facility] General Surgery 03/31/20 Pam Torres RN [address] [place] [place] [address] Specialty Medical Appliance Maker Hematology/Oncology 07/02/20 Sarika Cook MD [address] [place] [address] Physician Hematology/Oncology 07/02/20 Casandra Holley, PA-C [address] [place] [address] Physician Research Editor Hematology/Oncology 07/02/20 Staff Command And Control Officer Relationship Specialty Start Date End Date Syd Henry MD PCP - General Family Practice 11/10/20 Pola Vu [address] [place] [phone] [facility] General Surgery 03/31/20 Pam Torres RN [address] [place] [place] [address] Specialty Medical Appliance Maker Hematology/Oncology 07/02/20 Sarika Cook MD [address] [place] [address] Physician Hematology/Oncology 07/02/20 Casandra Holley PAAjithC [address] [place] [address] Physician Research Editor Hematology/Oncology 07/02/20 Staff Command And Control Officer Relationship Specialty Start Date End Date Syd Henry MD PCP - General Family Practice 11/10/20 Pola Vu [address] [place] [phone] Livestock Sales Representative General Surgery 03/31/20 Pam Torres, RN [address] [place] [address] Specialty Medical Appliance Maker Hematology/Oncology 07/02/20 Sarika Cook MD [address] [place] [address] Physician Hematology/Oncology 07/02/20 Casandra Holley PA-C [address] [facility] [place] [address] Physician Research Editor Hematology/Oncology 07/02/20 Staff Command And Control Officer Relationship Specialty Start Date End Date Syd Henry MD PCP - General Family Practice 11/10/20 Pola Vu [address] [place] [phone] Livestock Sales Representative General Surgery 03/31/20 Pam Torres RN [address] [place] [address] Specialty Medical Appliance Maker Hematology/Oncology 07/02/20 Sarika Cook MD [address] [place] [address] Physician Hematology/Oncology 07/02/20 Casandra Holley PA-C [address] [place] [address] Physician Research Editor Hematology/Oncology 07/02/20 Staff Command And Control Officer Relationship Specialty Start Date End Date Syd Henry MD PCP - General Family Practice 11/10/20 Pola Vu [address] [facility] [place] [phone] Livestock Sales Representative General Surgery 03/31/20 Pam Torres RN [address] [place] [place] [address] Specialty Medical Appliance Maker Hematology/Oncology 07/02/20 Sarika Cook MD [address] [facility] [place] [address] Physician Hematology/Oncology 07/02/20 Casandra Holley PA-C [address] [place] [address] Physician Research Editor Hematology/Oncology 07/02/20 Staff Command And Control Officer Relationship Specialty Start Date End Date Syd Henry MD PCP - General Family Practice 11/10/20 Pola Vu [address] [place] [phone] Livestock Sales Representative General Surgery 03/31/20 Pam Torres RN [address] [place] [address] Specialty Medical Appliance Maker Hematology/Oncology 07/02/20 Sarika Cook MD [address] [facility] [place] [address] Physician Hematology/Oncology 07/02/20 Casandra Holley PA-C [address] [place] [address] Physician Research Editor Hematology/Oncology 07/02/20 Staff Command And Control Officer Relationship Specialty Start Date End Date Syd Henry MD PCP - General Family Practice 11/10/20 Pola Vu [address] [place] [phone] Livestock Sales Representative General Surgery 03/31/20 Pam Torres RN [address] [place] [address] Specialty Medical Appliance Maker Hematology/Oncology 07/02/20 Sarika Cook MD [address] [place] [address] Physician Hematology/Oncology 07/02/20 Casandra Holley PA-C [address] [facility] [place] [place] [address] Physician Research Editor Hematology/Oncology 07/02/20 Staff Command And Control Officer Relationship Specialty Start Date End Date Mary Alice Sánchez, INTERRELATED SPECIAL EDUCATION TEACHER.PRESCRIPTION EYEGLASS MAKER [address] [place] [address] PCP - General Family Practice 04/14/22 Pola Vu [place] [address] Livestock Sales Representative General Surgery 03/31/20 Pam Torres RN [address] [place] [address] Specialty Medical Appliance Maker Hematology/Oncology 07/02/20 Sarika Cook MD [address] [place] [address] Physician Hematology/Oncology 07/02/20 Casandra Holley PA-C [address] [facility] [place] [place] [address] Physician Research Editor Hematology/Oncology 07/02/20 Staff Command And Control Officer Relationship Specialty Start Date End Date Mary Alice Sánchez, INTERRELATED SPECIAL EDUCATION TEACHER.PRESCRIPTION EYEGLASS MAKER [address] [place] [address] PCP - General Family Practice 04/14/22 [place] [address] Livestock Sales Representative General Surgery 03/31/20 Pam Torres RN [address] [facility] [place] [place] [address] Specialty Medical Appliance Maker Hematology/Oncology 07/02/20 Sarika Cook MD [address] [place] [address] Physician Hematology/Oncology 07/02/20 Casandra Holley PA-C [address] [place] [address] [place] [address] Physician Research Editor Hematology/Oncology 07/02/20 Staff Command And Control Officer Relationship Specialty Start Date End Date Mary Alice Sánchez, INTERRELATED SPECIAL EDUCATION TEACHER.PRESCRIPTION EYEGLASS MAKER [address] [place] [address] PCP - General Family Practice 04/14/22 Pola Vu [address] [place] [address] Livestock Sales Representative General Surgery 03/31/20 Pam Torres RN [address] [facility] [place] [address] Specialty Medical Appliance Maker Hematology/Oncology 07/02/20 Sarika Cook MD [address] [place] [address] Physician Hematology/Oncology 07/02/20 Casandra Holley PA-C [address] [facility] [address] [place] [place] [address] Physician Research Editor Hematology/Oncology 07/02/20 Team Status: Inactive Member Role Status Dates Mary Alice Sánchez , EAMON-C Primary Care Provider Active Josh Porter DO Emergency Provider Active Staff Command And Control Officer Relationship Specialty Start Date End Date Mary Alice Sánchez, INTERRELATED SPECIAL EDUCATION TEACHER.PRESCRIPTION EYEGLASS MAKER [address] [place] [address] PCP - General Family Practice 04/14/22 Pola Vu [address] [place] [address] Livestock Sales Representative General Surgery 03/31/20 Pam Torres RN [address] [facility] [address] [place] [place] [address] Specialty Medical Appliance Maker Hematology/Oncology 07/02/20 Sarika Cook MD [address] [place] [address] Physician Hematology/Oncology 07/02/20 Casandra Holley PA-C [address] [facility] [place] [place] [address] Physician Research Editor Hematology/Oncology 07/02/20 Staff Command And Control Officer Relationship Specialty Start Date End Date Mary Alice Sánchez APRN.PRESCRIPTION EYEGLASS MAKER [address] [place] [address] PCP - General Family Medicine 04/14/22 Pola Vu [address] [facility] [place] [address] Livestock Sales Representative General Surgery 03/31/20 Pam Torres RN [address] [facility] [place] [place] [address] Specialty Medical Appliance Maker Hematology/Oncology 07/02/20 Sarika Cook MD [address] [place] [address] Physician Hematology/Oncology 07/02/20 Casandra Holley PA-C [address] [place] [address] Physician Research Editor Hematology/Oncology 07/02/20 Staff Command And Control Officer Relationship Specialty Start Date End Date Mary Alice Sánchez, PRESCRIPTION EYEGLASS MAKER [address] [place] [address] PCP - General Internal Medicine 06/28/22 [place] [address] [facility] General Surgery 03/31/20 Pam Torres RN [address] [facility] [place] [place] [address] Specialty Medical Appliance Maker Hematology/Oncology 07/02/20 Sarika Cook MD [address] [place] [address] Physician Hematology/Oncology 07/02/20 Casandra Holley PA-C [address] [facility] [address] [place] [place] [address] Physician Research Editor Hematology/Oncology 07/02/20 Staff Command And Control Officer Relationship Specialty Start Date End Date Mary Alice Sánchez, PRESCRIPTION EYEGLASS MAKER [address] [place] [address] PCP - General Internal Medicine 06/28/22 Pola Vu [address] [place] [address] [facility] General Surgery 03/31/20 Pam Torres RN [address] [facility] [place] [place] [address] Specialty Medical Appliance Maker Hematology/Oncology 07/02/20 Sarika Cook MD [address] [place] [address] Physician Hematology/Oncology 07/02/20 Casandra Holley PA-C [address] [place] [address] Physician Research Editor Hematology/Oncology 07/02/20 Staff Command And Control Officer Relationship Specialty Start Date End Date Mary Alice Sánchez, PRESCRIPTION EYEGLASS MAKER [address] [place] [address] PCP - General Internal Medicine 06/28/22 Pola Vu [address] [place] [address] Livestock Sales Representative General Surgery 03/31/20 Pam Torres, ZOE [address] [facility] [address] [place] [address] Specialty Medical Appliance Maker Hematology/Oncology 07/02/20 Sarika Cook MD [address] [place] [address] Physician Hematology/Oncology 07/02/20 Casandra Holley PA-C [address] [facility] [address] [address] [place] [address] Physician Research Editor Hematology/Oncology 07/02/20 Staff Command And Control Officer Relationship Specialty Start Date End Date Mary Alice Sánchez, PRESCRIPTION EYEGLASS MAKER [address] [place] [address] PCP - General Internal Medicine 06/28/22 Pola Vu [address] [place] [address] [facility] General Surgery 03/31/20 Pam Torres RN [address] [facility] [address] [place] [place] [address] Specialty Medical Appliance Maker Hematology/Oncology 07/02/20 Sarika Cook MD [address] [place] [address] Physician Hematology/Oncology 07/02/20 Casandra Holley PA-C [address] [place] [address] Physician Research Editor Hematology/Oncology 07/02/20 Staff Command And Control Officer Relationship Specialty Start Date End Date Mary Alice Sánchez PRESCRIPTION EYEGLASS MAKER [address] [place] [address] PCP - General Internal Medicine 06/28/22 Pola Vu [address] [place] [address] Livestock Sales Representative General Surgery 03/31/20 Pam Torres RN [address] [facility] [place] [address] Specialty Medical Appliance Maker Hematology/Oncology 07/02/20 Sarika Cook MD [facility] [place] [address] Physician Hematology/Oncology 07/02/20 Casandra Holley PA-C [facility] [place] [address] Physician Research Editor Hematology/Oncology 07/02/20 Staff Command And Control Officer Relationship Specialty Start Date End Date Syd Henry MD [address] [facility] [place] [address] PCP - General Family Medicine 11/10/20 04/13/22 Pola Vu [address] [place] [address] [facility] General Surgery 03/31/20 Pam Torres RN [address] [facility] [place] [address] Specialty Medical Appliance Maker Hematology/Oncology 07/02/20 Sarika Cook MD [address] [facility] [place] [address] Physician Hematology/Oncology 07/02/20 Casandra Holley PA-C [address] [facility] [place] [address] Physician Research Editor Hematology/Oncology 07/02/20 Staff Command And Control Officer Relationship Specialty Start Date End Date Syd Henry MD [address] [facility] [place] [address] PCP - General Family Medicine 11/10/20 04/13/22 Pola Vu [address] [place] [address] Livestock Sales Representative General Surgery 03/31/20 Pam Torres RN [address] [facility] [place] [address] Specialty Medical Appliance Maker Hematology/Oncology 07/02/20 Sarika Cook MD [address] [place] [address] [place] [address] Physician Hematology/Oncology 07/02/20 Casandra Holley PA-C [address] [place] [address] [place] [address] Physician Research Editor Hematology/Oncology 07/02/20 Staff Command And Control Officer Relationship Specialty Start Date End Date Mary Alice Sánchez CNP [address] [place] [address] PCP - General Internal Medicine 06/28/22 Pola Vu [address] [place] [address] Livestock Sales Representative General Surgery 03/31/20 Pam Torres RN [address] [facility] [place] [address] Specialty Medical Appliance Maker Hematology/Oncology 07/02/20 Sarika Cook MD [address] [facility] [place] [address] Physician Hematology/Oncology 07/02/20 Casandra Holley PA-C [address] [facility] [place] [address] Physician Research Editor Hematology/Oncology 07/02/20 Staff Command And Control Officer Relationship Specialty Start Date End Date Mary Alice Sánchez CNP [address] [place] [address] PCP - General Internal Medicine 06/28/22 Pola Vu [address] [place] [address] Livestock Sales Representative General Surgery 03/31/20 Pam Torres RN [address] [facility] [place] [address] Specialty Medical Appliance Maker Hematology/Oncology 07/02/20 Sarika Cook MD [address] [facility] [place] [address] Physician Hematology/Oncology 07/02/20 Casandra Holley PA-C [address] [facility] [place] [address] Physician Research Editor Hematology/Oncology 07/02/20 Staff Command And Control Officer Relationship Specialty Start Date End Date Mary Alice Sánchez CNP [address] [place] [address] PCP - General Internal Medicine 06/28/22 Pola Vu [address] [place] [address] Livestock Sales Representative General Surgery 03/31/20 Pam Torres RN [address] [facility] [place] [address] Specialty Medical Appliance Maker Hematology/Oncology 07/02/20 Sarika Cook MD [address] [place] [address] [place] [address] Physician Hematology/Oncology 07/02/20 Casandra Holley PA-C [address] [place] [address] [place] [address] Physician Research Editor Hematology/Oncology 07/02/20 Staff Command And Control Officer Relationship Specialty Start Date End Date Mary Alice Sánchez CNP [address] [place] [address] PCP - General Internal Medicine 06/28/22 Pola Vu [facility] [place] [address] Livestock Sales Representative General Surgery 03/31/20 Pam Torres RN [address] [facility] [address] [place] [address] Specialty Medical Appliance Maker Hematology/Oncology 07/02/20 Sarika Cook MD [address] [facility] [place] [address] Physician Hematology/Oncology 07/02/20 Casandra Holley PA-C [address] [place] [address] [place] [address] Physician Research Editor Hematology/Oncology 07/02/20 Staff Command And Control Officer Relationship Specialty Start Date End Date Mary Alice Sánchez CNP [address] [place] [address] PCP - General Internal Medicine 06/28/22 Pola Vu [address] [place] [address] Livestock Sales Representative General Surgery 03/31/20 Sarika Cook MD [address] [place] [address] Physician Hematology/Oncology 07/02/20 Staff Command And Control Officer Relationship Specialty Start Date End Date Mary Alice Sánchez CNP [employer] [place] [address] PCP - General Internal Medicine 06/28/22 Pola Vu [address] [place] [address] Livestock Sales Representative General Surgery 03/31/20 Sarika Cook MD [address] [place] [address] Physician Hematology/Oncology 07/02/20 Staff Command And Control Officer Relationship Specialty Start Date End Date Mary Alice Sánchez CNP [address] [place] [address] PCP - General Internal Medicine 06/28/22 Pola Vu [address] [place] [address] Livestock Sales Representative General Surgery 03/31/20 Sarika Cook MD [address] [place] [address] Physician Hematology/Oncology 07/02/20 Team Status: Inactive Member Role Status Dates Mary Alice Sánchez , TELEGRAPH LINEMAN-C Primary Care Provider Active Start: December 24, 2023 End: December 24, 2023 Leslee Webster DO Attending Provider Active S tart: December 24, 2023 End: December 24, 2023 Staff Command And Control Officer Relationship Specialty Start Date End Date Mary Alice Sánchez CNP [address] [place] [address] PCP - General Internal Medicine 06/28/22 Pola Vu [address] [place] [address] Livestock Sales Representative General Surgery 03/31/20 Pam Torres RN [address] [facility] [place] [address] Specialty Medical Appliance Maker Hematology/Oncology 07/02/20 10/17/23 Sarika Cook MD [address] [facility] [place] [address] Physician Hematology/Oncology 07/02/20 Casandra Holley PA-C [address] [place] [address] Physician Research Editor Hematology/Oncology 07/02/20 4 Staff Command And Control Officer Relationship Specialty Start Date End Date Mary Alice Sánchez CNP [address] [place] [address] PCP - General Internal Medicine 06/28/22 Pola Vu [address] [place] [address] Livestock Sales Representative General Surgery 03/31/20 Pam Torres RN [address] [facility] [place] [address] Specialty Medical Appliance Maker Hematology/Oncology 07/02/20 10/17/23 Sarika Cook MD [address] [place] [address] [place] [address] Physician Hematology/Oncology 07/02/20 Casandra Holley PAAjithC [address] [place] [address] [place] [address] Physician Research Editor Hematology/Oncology 07/02/20 4 Team Status: Active Member Role Status Dates Mary Alice Sánchez , TELEGRAPH LINEMAN-C Primary Care Provider Active Start: April 07, 2024 Pola Quintanilla MD Emergency Provider Active St art: April 07, 2024 Lizzie Sinclair DO Admit Provider, Atte nding Provider Active Start: April 07, 2024 Kellie Grider MD Other Provider Active Start: Gissell martinez 2023 Staff Command And Control Officer Relationship Specialty Start Date End Date Mary Alice Sánchez CNP [address] [place] [id number] PCP - General Internal Medicine 06/28/22 Pola Vu [address] [place] [address] Livestock Sales Representative General Surgery 03/31/20 Sarika Cook MD [address] [place] [address] [place] [address] Physician Hematology/Oncology 07/02/20 Staff Command And Control Officer Relationship Specialty Start Date End Date Mary Alice Sánchez CNP [address] [place] [address] PCP - General Internal Medicine 06/28/22 Pola Vu [address] [place] [address] Livestock Sales Representative General Surgery 03/31/20 Sarika Cook MD [address] [facility] [place] [address] Physician Hematology/Oncology 07/02/20 Staff Command And Control Officer Relationship Specialty Start Date End Date Mary Alice Sánchez, PRESCRIPTION EYEGLASS MAKER [address] [place] [address] PCP - General Internal Medicine 06/28/22 Pola Vu [address] [place] [address] Livestock Sales Representative General Surgery 03/31/20 Sarika Cook MD [address] [place] [address] Physician Hematology/Oncology 07/02/20 Staff Command And Control Officer Relationship Specialty Start Date End Date Mary Alice Sánchez, PRESCRIPTION EYEGLASS MAKER [address] [place] [address] PCP - General Internal Medicine 06/28/22 Pola Vu [address] [facility] [place] [address] Livestock Sales Representative General Surgery 03/31/20 Pam Torres RN [address] [facility] [place] [address] Specialty Medical Appliance Maker Hematology/Oncology 07/02/20 10/17/23 Sarika Cook MD [address] [facility] [place] [address] Physician Hematology/Oncology 07/02/20 Casandra Holley PA-C [address] [facility] [place] [place] [address] Physician Research Editor Hematology/Oncology 07/02/20 4 Staff Command And Control Officer Relationship Specialty Start Date End Date Mary Alice Sánchez CNP [address] [place] [address] PCP - General Internal Medicine 06/28/22 Pola Vu [address] [place] [address] Livestock Sales Representative General Surgery 03/31/20 Pam Torres RN [address] [facility] [place] [place] [address] Specialty Medical Appliance Maker Hematology/Oncology 07/02/20 10/17/23 Sarika Cook MD [address] [facility] [place] [address] Physician Hematology/Oncology 07/02/20 Casandra Holley PA-C [address] [facility] [place] [place] [address] Physician Research Editor Hematology/Oncology 07/02/20 4 Goals (unrecognized section and content) Goals may be documented in a n alternate sectionGoals may be documented in an alternate sectionGoals may be documented in an alternate section FOR RECORDS PERTAINING TO PATIENTS WHO ARE OR HAVE BEEN ENROLLED IN A CHEMICAL DEPENDENCY/SUBSTANCEABUSE PROGRAM, SOME INFORMATION MAY BE OMITTED. This clinical summary was aggregated from multiple sources. Caution should be exercised in using it in the provision of clinical care. This summary normalizes information from multiple sources, and as a consequence, information in this document may materially change the coding, format and clinical context of patient data. In addition, data may be omitted in some cases. CLINICAL DECISIONS SHOULD BE BASED ON THE PRIMARY CLINICAL RECORDS. [email or web address] [facility]. provides no warranty or guarantee of the accuracy or completeness of information in this document.
[2024-08-11 21:16] LABS: Glucometer 314 mg/dL (74-106)
[2024-08-11] MEDS: INSULIN ASPART 300 UNIT/3 ML PEN SUBQ (21:58)
[2024-08-11] MEDS: 0.9 % SODIUM CHLORIDE 1,000 ML 125 ML IV (22:00)
[2024-08-11] MEDS: PANTOPRAZOLE SODIUM 40 MG VIAL IV (22:06)
[2024-08-11] MEDS: LIOTHYRONINE SODIUM 5 MCG TABLET 10 MCG PO (22:10)
[2024-08-11] MEDS: BENZONATATE 100 MG CAPSULE 200 MG PO (22:10)
[2024-08-11] MEDS: PIPERACILLIN SODIUM/TAZOBACTAM 3.375 GM in 0.9 % SODIUM CHLORIDE 50 ML IV (22:15)
[2024-08-11 22:45] LABS: Troponin I High Sensitivity 241.4 pg/mL (4.0-76.1)
[2024-08-11] MEDS: IPRATROPIUM/ALBUTEROL SULFATE 3 ML AMPUL.NEB IH (22:49)
[2024-08-11] MEDS: BUDESONIDE 0.5 MG/2 ML AMPULE NEB IH (22:49)
[2024-08-12] VITALS (86 sets, daily range): BP systolic 118–158; BP diastolic 39–74; PULSE 71–89; TEMP 36.8–37.6; O2SAT 83–98; BMI 39.6
[2024-08-12 03:12] LABS: Bilirubin Urine NEGATIVE (NEGATIVE); Blood Urine TRACE-I (NEGATIVE); Clarity Urine CLEAR (CLEAR); Color Urine LT. YELLOW (YELLOW); Glucose Urine UA 100 mg/dL (NEGATIVE); Ketones Urine NEGATIVE (NEGATIVE); Leukocyte Esterase Urine LARGE (NEGATIVE); Nitrite Urine NEGATIVE (NEGATIVE); Protein Urine >=300 mg/dL (NEG/TRACE); Urobilinogen Urine 0.2 EU/dL (0.2-1.0); pH Urine 5.5 (5.0-9.0)
[2024-08-12 03:22] LABS: Bacteria Urine LARGE #/HPF (NONE SEEN); Cast Seen? NONE SEEN #/LPF (NONE SEEN); Crystals Seen? None Seen #/HPF (None Seen); Mucus Urine SMALL (NONE SEEN); RBC Urine 0-2 #/HPF (0-2); Squamous Epithelial Cell Urine FEW #/LPF (NONE/RARE); WBC Urine 20-50 #/HPF (NONE SEEN)
[2024-08-12 03:23] LABS: Urine Culture Indicated YES
[2024-08-12] MEDS: IPRATROPIUM/ALBUTEROL SULFATE 3 ML AMPUL.NEB IH ×6 (04:00→23:18)
[2024-08-12] MEDS: 0.9 % SODIUM CHLORIDE 1,000 ML 125 ML IV ×3 (05:53→21:31)
[2024-08-12] MEDS: PANTOPRAZOLE SODIUM 40 MG VIAL IV (05:54)
[2024-08-12 05:55] LABS: PCO2 VBG 38.9 mmHg (40.0-52.0); pH VBG 7.385 (7.330-7.430)
[2024-08-12] MEDS: BENZONATATE 100 MG CAPSULE 200 MG PO ×3 (05:57→21:31)
[2024-08-12 05:58] LABS: Basophils Percent Auto 0.4 % (0.2-2.0); Eosinophils Percent Auto 0.1 % (0.9-7.0); Hematocrit 25.8 % (42.0-54.0); Hemoglobin 8.9 g/dL (14.0-18.0); Immature Granulocytes Abs Auto 0.06 10^3/uL (0.00-0.03); Immature Granulocytes Pct Auto 0.6 % (0.0-0.5); Lymphocytes Absolute Auto 1.9 10^3/uL (1.2-3.8); Lymphocytes Percent Auto 17.9 % (20.5-60.0); Mean Corpuscular HGB Conc 34.5 g/dL (29.9-35.2); Mean Corpuscular Hemoglobin 31.2 pg (25.9-34.0); Mean Corpuscular Volume 90.5 fL (80.0-94.0); Mean Platelet Volume 10.8 fL (9.5-13.5); Monocytes Absolute Auto 1.2 10^3/uL (0.3-0.8); Monocytes Percent Auto 11.6 % (1.7-12.0); Neutrophils Absolute Auto 7.3 10^3/uL (1.4-6.5); Neutrophils Percent Auto 69.4 % (43.0-75.0); Platelet Count 349 10^3/uL (150-450); Red Blood Count 2.85 10^6/uL (4.70-6.10); Red Cell Distribution Width 13.7 % (11.0-15.0); White Blood Count 10.5 10^3/uL (4.0-11.0)
[2024-08-12] MEDS: PIPERACILLIN SODIUM/TAZOBACTAM 3.375 GM in 0.9 % SODIUM CHLORIDE 50 ML IV ×2 (05:59→17:32)
[2024-08-12 06:21] LABS: Alanine Aminotransferase 97 U/L (16-63); Albumin Globulin Ratio 0.4; Albumin Level 2.2 g/dL (3.4-5.0); Alkaline Phosphatase 45 U/L (46-116); Anion Gap 15.2; Aspartate Amino Transferase 128 U/L (15-37); BUN Creatinine Ratio 11.1; Bilirubin Total 0.4 mg/dL (0.2-1.0); Calcium 8.2 mg/dL (8.5-10.1); Carbon Dioxide 24.4 mmol/L (21.0-32.0); Chloride 93 mmol/L (98-107); Estimated GFR (African America 16 (>=60 mL/min/1.73m^2); Estimated GFR (Non-African Ame 13 (>=60 mL/min/1.73m^2); Globulin 4.9 g/dL; Glucose 184 mg/dL (74-106); Magnesium 1.8 mg/dL (1.8-2.4); Potassium 3.6 mmol/L (3.5-5.1); Sodium 129 mmol/L (136-145); Total Protein 7.1 g/dL (6.4-8.2)
[2024-08-12 06:29] LABS: Troponin I High Sensitivity 259.2 pg/mL (4.0-76.1)
--- NOTE | 2024-08-12 06:49 | US_ITS ---
[address] [address] Patient Name: VINITA MOREL MRN: [id number] date: 1945 Sex: M Assigned Patient Location: ICU Current Patient Location: ICU Accession/Order Number: [id number] Exam Date: 08/12/2024 07:12 Report Date: 08/12/2024 08:03 At the request of: FELICITY FRANKS Procedure: US renal bladder EXAMINATION: US renal bladder HISTORY: ARF COMPARISON: No relevant comparison available. TECHNIQUE: Ultrasound examination was performed of the bladder. FINDINGS: Right Kidney: Normal in size, contour and echotexture. The cortex measures 1.1 cm. Mild pelviectasis. No solid cortical mass. Height: 7.99 cm Length: 13.34 cm Width: 5.70 cm Left Kidney: Normal in size, contour and echotexture. The cortex measures 1.7 cm. Mild pelviectasis. No solid cortical mass Height: 6.47 cm Length: 12.17 cm Width: 5.51 cm Urinary bladder: Normal wall thickness of 2.1 mm. Prevoid volume 598 mL. Post void volume 305 mL. Layering material likely debris US/US renal bladder IMPRESSION: Post void urinary bladder residual 305 mL Debris in the urinary bladder Electronically authenticated by: KARLA APPIAH Date: 08/12/2024 08:03
--- NOTE | 2024-08-12 06:55 | CA_ITS ---
Patient Name: VINITA MOREL MR#: [id number] : 1945 Exam Date: 08/12/2024 Ordering Doctor: DR FELICITY FRANKS . ECHOCARDIOGRAM REPORT PROCEDURE: CA ECHO DOPPLER COMPLETE INDICATIONS: elevated HST, Shortness of breath COMPARISON: None. DESCRIPTION: COMPLETE ECHOCARDIOGRAM Real-time transthoracic echocardiography with 2D, M-mode, spectral and color flow Doppler performed. QUALITY: Technical quality was good. LEFT VENTRICLE: Normal chamber size. Thickened septal wall. Moderate concentric left ventricular hypertrophy. Global left ventricular systolic function is normal. Estimated left ventricular ejection fraction is 60%. LV EF: DIASTOLIC: Diastolic function is indeterminate. ATRIAL SEPTUM: LEFT ATRIUM: Moderate dilatation. RIGHT ATRIUM: Moderate dilatation. RIGHT VENTRICLE: Normal chamber size. Normal right ventricular systolic function. TRICUSPID VALVE: Normal mobility and thickness. No stenosis with trivial regurgitation. Moderate pulmonary hypertension. RVSP 47 mmHg. MITRAL VALVE: Normal mobility and thickness. No evidence of mitral valve stenosis. There is no mitral annular calcification. No mitral regurgitation. AORTIC VALVE: Normal trileaflet appearance. No visible sclerosis. Normal leaflet mobility. No evidence of aortic valve stenosis. No aortic regurgitation. AORTIC ROOT: Normal diameter and appearance. PULMONIC VALVE: Normal thickness and mobility. No stenosis. Trivial regurgitation. PERICARDIUM: No evidence of pericardial effusion. IVC: Collapses with inspirations. Mild dilatation measuring 2.2 cm. PLEURA: CONCLUSION: 1. Moderate concentric left ventricular hypertrophy with normal systolic function. Estimated LVEF is 60%. 2. Normal ventricular size and systolic function. 3. No significant valvular dysfunction. 4. Moderate biatrial dilatation. 5. Moderately elevated right-sided pressures. RVSP is 47 mmHg. Adult Echocardiography Procedure Report Left Ventricle LVEDD (3.7 - 5.6 cm): 5.17 cm LVESD (2.2 - 4.0 cm): 3.51 cm LVIVS thickness (0.6 - 1.2 cm): 1.56 cm LVPW thickness (0.5 - 1.0 cm): 1.21 cm e': 0.14 m/s E - e': 8.04 LVOT Max Gradient: 8.79 mm[Hg] LVOT Area (cm2): 1.48 m/s Peak Velocity (LVOT): 1.48 m/s Mean Velocity (LVOT): 1.03 m/s LVOT Diameter 2.25 cm Left Ventricular Ejection Fraction: 60 % Left Atrium LA Volume Index (2D A2C): 39.88 ml/m2 Left Atrium Systolic Dimension: 4.47 cm Mitral Valve MV E to A Ratio: 1.16 Mitral Valve A-Wave Peak Velocity: 0.95 m/s Mitral Valve E-Wave Peak Velocity: 1.09 m/s Right Ventricle RV Internal Diastolic Dimension: 4.68 cm Aorta AO Root Diam: 3.33 cm Ascending Ao Diam: 2.80 cm Aortic Valve AoV Area (Peak Issac): 3.26 cm2, 3.26 cm2 AoV Area (VTI): 3.17 cm2, 3.17 cm2 Peak Velocity(Antegrade Flow): 1.80 m/s Peak Gradient(Antegrade Flow): 12.98 mm[Hg] Mean Velocity(Antegrade Flow): 1.31 m/s Mean Gradient(Antegrade Flow): 7.54 mm[Hg] Velocity Time Integral: 41.04 cm Tricuspid Valve Peak Velocity (Regurgitant Flow): 2.29 m/s, 2.56 m/s, 3.12 m/s Pulmonic Valve Peak Velocity: 1.32 m/s Peak Gradient: 6.82 mm[Hg], 7.07 mm[Hg] Right Atrium Right Atrium Systolic Pressure: 81.50 ml, 81.50 ml Dictated by: Juan José Camp M.D. on 08/12/2024 at 20:48 Approved by: Juan José Camp M.D. on 08/12/2024 at 20:52
--- NOTE | 2024-08-12 08:00 | ECG_ITS ---
[facility] Test Date: 2024-08-12 Pat Name: VINITA MOREL Department: Room: [facility] Gender: Male Workers Compensation Claims Adjuster: : 1945 Requested By: FELICITY FRANKS Order Number: [id number] Reading MD: FELICITY FRANKS Measurements Intervals [place] Rate: 72 P: 49 WA: 188 QRS: -73 QRSD: 172 T: 55 QT: 428 QTc: 451 Interpretive Statements 1100 Sinus rhythm 2450 Right bundle branch block 2630 Left anterior fascicular block 3132 Anterior myocardial infarction, probably recent 9150 abnormal ECG Compared to ECG 08/11/2024 16:27:43 Myocardial infarct finding now present Sinus arrhythmia no longer present Electronically Signed On 08-13-2024 6:37:51 EST by FELICITY FRANKS
--- NOTE | 2024-08-12 08:01 | XR_ITS ---
The [address] [address] Patient Name: VINITA MOREL MRN: [id number] date: 1945 Sex: M Assigned Patient Location: ICU Current Patient Location: LAB Accession/Order Number: [id number] Exam Date: 08/12/2024 09:00 Report Date: 08/12/2024 10:02 At the request of: FELICITY FRANKS Procedure: XR chest 2V EXAMINATION: XR chest 2V HISTORY: pneumonia follow up COMPARISON: 08/11/2024 TECHNIQUE: PA and lateral FINDINGS: LUNGS: Low lung volumes. Moderate right lung infiltrates increased from the prior exam partially obscuring the hemidiaphragm. Mild left basilar infiltrate VASCULATURE: No increased pulmonary vasculature. PLEURA: No pneumothorax, effusion, or pleural thickening. CARDIAC: No cardiomegaly or cardiac silhouette abnormality. MEDIASTINUM: No visible mass or adenopathy. BONES: No fracture or visible bone lesion. OTHER: Negative. XR/XR chest 2V IMPRESSION: Slight progression of right-sided pneumonia Electronically authenticated by: KARLA APPIAH Date: 08/12/2024 10:02
--- NOTE | 2024-08-12 08:03 | P.PN_ITS ---
Progress Note: Subjective Subjective Interval history: Patient overall feels better today. He states his breathing feels better. He did have some hypoxia overnight time. In the low 90s on Vapotherm. 50% at 30 L. Exam Constitutional Vital Signs, click to edit/add: Last Vital Signs Temp 98.4 F 08/12/24 04:00 Pulse 74 08/12/24 06:48 Resp 18 08/12/24 06:01 BP 145/71 H 08/12/24 06:01 Pulse Ox 92 L 08/12/24 06:48 O2 Del Method Vapotherm 08/12/24 06:48 O2 Flow Rate 30 08/12/24 06:48 FiO2 50 08/12/24 06:48 Documenting provider has reviewed patient's vital signs: yes Common normals: no apparent distress (Coughing less this morning.) Respiratory Common normals: normal respiratory effort and no retractions Auscultation: rhonchi (Improved air exchange) and egophony Extremity Common normals: normal to inspection (No edema) Progress Note: Objective Labs Labs: Short CBC 08/12/24 Range/Units 05:09 WBC 10.5 (4.0-11.0) 10^3/uL Hgb 8.9 L (14.0-18.0) g/dL Hct 25.8 L (42.0-54.0) % Plt Count 349 (150-450) 10^3/uL BMP 08/12/24 05:09 Sodium 129 L Potassium 3.6 Chloride 93 L Carbon Dioxide 24.4 BUN 49.0 H Creatinine 4.43 H Glucose 184 H Calcium 8.2 L Liver Function 08/12/24 Range/Units 05:09 Total Bilirubin 0.4 (0.2-1.0) mg/dL AST 128 H (15-37) U/L ALT 97 H (16-63) U/L Alkaline Phosphatase 45 L (46-116) U/L Albumin 2.2 L (3.4-5.0) g/dL Urine 08/12/24 Range/Units 02:25 Urine Color Lt. yellow (YELLOW) Urine Clarity Clear (CLEAR) Urine pH 5.5 (5.0-9.0) Ur Specific [place] 1.020 (1.005-1.025) Urine Protein >=300 A (NEG/TRACE) mg/dL Urine Glucose (UA) 100 A (NEGATIVE) mg/dL Progress Note: A&P Assessment and Plan (1) Acute kidney injury: (2) Acute UTI: (3) Hypoxia: (4) Multifocal pneumonia: (5) Hypothyroid: (6) Acute renal failure: (7) Elevated liver function tests: (8) Anemia: (9) Hyponatremia: (10) Elevated troponin I level: (11) Elevated brain natriuretic peptide (BNP) level: (12) Right upper lobe pneumonia: Plan Admission finding: acute hypoxia with respiratory failure requiring HIgh Flow Supplemental Oxygen, respiratory distress, Uncontrolled hypertension, Leukocytosis due to acute RUL pneumonia leading to sepsis (acute hypoxia, leukocytosis, source of infection) and multisystem organ dysfunction (Elevated troponin, hypoxia and acute renal failure) Sepsis due to pneumonia with acute hypoxic respiratory failure -continue with current antibiotics, white blood cell count is returned to normal, still try to obtain sputum culture. Repeat chest x-ray GOOD on top of CKD-3 -kidney function worse today. Ultrasound shows preliminarily shows bilateral hydronephrosis with bladder outlet obstruction, will place Modi catheter. Elevated troponin - and BNP = check echo -consultation to cardiology, repeat EKG Hypothyroid - Supplement with cytomel Anemia - Follow daily, worse today, check occult blood Uncontrolled hypertension - adjust meds Hyponatremia - due to GOOD - slow hydration-improved today NIDDM - ISS elevated LFT likely due to passive congestion due to the pneumonia and GOOD Admission status: With acute hypoxia requiring High Flow Supplemental oxygen, GOOD with elevated HST and BNP, this will require more than 2 midnights of medically necessary treatment, Inpatient status ?
[2024-08-12] MEDS: HYDRALAZINE HCL 50 MG TABLET 100 MG PO ×3 (08:29→17:32)
[2024-08-12] MEDS: TAMSULOSIN HCL 0.4 MG CAPSULE PO (08:30)
[2024-08-12] MEDS: LIOTHYRONINE SODIUM 5 MCG TABLET 10 MCG PO (08:30)
[2024-08-12] MEDS: ASPIRIN 81 MG TABLET.DR PO (08:30)
[2024-08-12] MEDS: NIFEdipine 30 MG TAB.ER.24 60 MG PO (08:30)
[2024-08-12] MEDS: INSULIN ASPART 300 UNIT/3 ML PEN SUBQ ×3 (08:30→21:32)
[2024-08-12] MEDS: FENOFIBRATE 54 MG TABLET 108 MG PO (08:30)
[2024-08-12] MEDS: OXYBUTYNIN CHLORIDE 5 MG TAB XL PO (08:30)
[2024-08-12] MEDS: ENSURE HP 237 ML LIQUID PO ×2 (08:31→21:32)
[2024-08-12] MEDS: BUDESONIDE 0.5 MG/2 ML AMPULE NEB IH ×2 (12:04→23:18)
[2024-08-12 12:08] LABS: Glucometer 280 mg/dL (74-106)
[2024-08-12] MEDS: SODIUM CHLORIDE 3% INHALATION 15 ML NEB IH (12:10)
--- NOTE | 2024-08-12 14:11 | CM.NOTE ---
Important Message From Medicare discussed with pt, pt verbalizes understanding and signs paper. Original given to pt and copy placed in pt's chart.
[2024-08-12] MEDS: SODIUM CHLORIDE 0.9% INHALATION 3 ML NEB 6 ML IH ×3 (15:47→23:18)
[2024-08-12 16:29] LABS: Glucometer 110 mg/dL (74-106)
--- NOTE | 2024-08-12 17:29 | PM.CACN ---
History of Present Illness History of Present Illness Chief complaint: SHORTNESS OF BREATH Pneumonia karla hypoxia Narrative: 78 yo male with a past medical history including DM who was sent to the hospital with complaints of dyspnea and was admitted to the hospital for management of pneumonia and UTI. Cardiology was consutled for elevated troponins. Patient denies any chest pain. Prior to this episode, he reports being able to work in the yard without any chest pain or shortness of breath. he denies any cardiac history. No history of CAD, [place], PCI, CHF, or PVD. High sensitivity troponin is relatively flat in the 240s. BNP elevated. Echo pending. Review of Systems ROS Status of ROS 10 or more systems reviewed and unremarkable except as noted in history and below [facility] Medical History (Updated 08/11/24 @ 20:59 by Huong Walker RN) Diabetes ?E11.9 - Type 2 diabetes mellitus without complications (ICD-10) Hypertension ?I10 - Essential (primary) hypertension (ICD-10) Colon cancer ?C18.9 - Malignant neoplasm of colon, unspecified (ICD-10) Social History Little interest or pleasure in doing things: not at all Feeling down, depressed, or hopeless: not at all Meds Home Medications and Allergies Home Medications ?Medication ?Instructions ?Recorded ?Confirmed ?Type albuterol sulfate 90 mcg/actuation 2 inh inhalation Q4H PRN shortness 08/11/24 08/11/24 History breath activated powder inhaler of breath aspirin 81 mg tablet,delayed 81 mg PO DAILY 08/11/24 08/11/24 History release (Adult Aspirin Regimen) atorvastatin 40 mg tablet 60 mg PO .qhs 08/11/24 08/11/24 History fenofibrate nanocrystallized 48 mg 96 mg PO QDAY 08/11/24 08/11/24 History tablet ferrous gluconate 324 mg (38 mg 324 mg PO QPM 08/11/24 08/11/24 History iron) tablet insulin human U-100 NPH-regulr 18 unit subcut BID 08/11/24 08/11/24 History 70-30 mix 100 unit/mL subcutaneous susp (Novolin 70/30 U-100 Insulin) losartan 100 mg tablet 100 mg PO QDAY 08/11/24 08/11/24 History nifedipine 60 mg tablet,extended 60 mg PO QDAY 08/11/24 08/11/24 History release oxybutynin chloride 5 mg 5 mg PO QDAY 08/11/24 08/11/24 History tablet,extended release 24 hr semaglutide 0.25 mg or 0.5 mg (2 0.5 mg subcut .weekly 08/11/24 08/11/24 History mg/3 mL) subcutaneous pen injector (Ozempic) spironolactone 25 mg tablet 25 mg PO QAM 08/11/24 08/11/24 History tamsulosin 0.4 mg capsule 0.4 mg PO Q24H 08/11/24 08/11/24 History furosemide 40 mg tablet 40 mg PO BID 08/12/24 08/12/24 History hydralazine 50 mg tablet 100 mg PO TIDWMEAL 08/12/24 08/12/24 History trazodone 50 mg tablet 50 mg PO .QHS PRN sleep 08/12/24 08/12/24 History Allergies Allergy/AdvReac Type Severity Reaction Status Date / Time cephalexin (From Keflex) Allergy Unknown Unknown Verified 08/11/24 17:25 ciprofloxacin (From Cipro) Allergy Unknown Unknown Verified 08/11/24 17:25 fluconazole Allergy Unknown Unknown Verified 08/11/24 17:25 lisinopril Allergy Unknown Unknown Verified 08/11/24 17:25 metronidazole (From Flagyl) Allergy Unknown Unknown Verified 08/11/24 17:25 Exam Constitutional Vital Signs, click to edit/add: Last Vital Signs Temp 98.2 F 08/12/24 13:10 Pulse 76 08/12/24 15:54 Resp 24 H 08/12/24 15:54 BP 134/52 08/12/24 13:41 Pulse Ox 88 L 08/12/24 15:54 O2 Del Method Nasal Cannula 08/12/24 15:47 O2 Flow Rate 3 08/12/24 15:47 FiO2 50 08/12/24 12:00 Common normals: no apparent distress Orientation/consciousness: Yes awake, Yes oriented to person, Yes oriented to place and Yes oriented to time HENMT Common normals: normocephalic Respiratory Common normals: normal respiratory effort, no retractions and no use of accessory muscles Effort & inspection: able to speak in complete sentences Cardio Common normals: regular rate, regular rhythm, S1 normal heart sound, S2 normal heart sound, no gallops, no clicks and no murmurs GI Common normals: Normal to inspection, nondistended, normoactive bowel sounds present Extremity Common normals: normal to inspection and no clubbing, cyanosis or edema Results Labs and Meds Lab results: Cardiac Enzymes 08/12/24 Range/Units 05:09 AST 128 H (15-37) U/L CBC 08/12/24 Range/Units 05:09 WBC 10.5 (4.0-11.0) 10^3/uL RBC 2.85 L (4.70-6.10) 10^6/uL Hgb 8.9 L (14.0-18.0) g/dL Hct 25.8 L (42.0-54.0) % Plt Count 349 (150-450) 10^3/uL Neut # (Auto) 7.3 H (1.4-6.5) 10^3/uL Lymph # (Auto) 1.9 (1.2-3.8) 10^3/uL [place] # (Auto) 1.2 H (0.3-0.8) 10^3/uL Eos # (Auto) 0.0 (0.0-0.7) 10^3/uL Baso # (Auto) 0.0 (0.0-0.1) 10^3/uL Comprehensive Metabolic Panel 08/12/24 Range/Units 05:09 Sodium 129 L (136-145) mmol/L Potassium 3.6 (3.5-5.1) mmol/L Chloride 93 L (98-107) mmol/L Carbon Dioxide 24.4 (21.0-32.0) mmol/L BUN 49.0 H (7.0-18.0) mg/dL Creatinine 4.43 H (0.70-1.30) mg/dL Glucose 184 H (74-106) mg/dL Calcium 8.2 L (8.5-10.1) mg/dL AST 128 H (15-37) U/L ALT 97 H (16-63) U/L Alkaline Phosphatase 45 L (46-116) U/L Total Protein 7.1 (6.4-8.2) g/dL Albumin 2.2 L (3.4-5.0) g/dL Intake and Output 08/12/24 08/12/24 08/12/24 07:59 15:59 23:59 Intake Total 1035.417 / 2135.417 1027.083 / 1027.083 Output Total 400 / 550 Balance 635.417 / 5794.711 0002.083 / 1027.083 Intake: IV 1035.417 / 2135.417 1027.083 / 1027.083 0.9 % Sodium Chloride 1,000 ml 985.417 / 985.417 977.083 / 977.083 @ 125 mls/hr IV .Q8H [facility] Rx#: [id number] Piperacillin Sodium/Tazobactam 50 / 50 50 / 50 3.375 gm In 0.9 % Sodium Chloride 50 ml @ 12.5 mls/hr IV Q8H [facility] Rx#:[id number] Output: Urine 400 / 550 Other: Weight 139.9 kg Patient Weight 08/13/24 07:59 Weight 139.9 kg Assessment and Plan Assessment and Plan (1) Acute kidney injury: (2) Acute UTI: (3) Hypoxia: (4) Multifocal pneumonia: (5) Hypothyroid: (6) Acute renal failure: (7) Elevated liver function tests: (8) Anemia: (9) Hyponatremia: (10) Elevated troponin I level: (11) Elevated brain natriuretic peptide (BNP) level: (12) Right upper lobe pneumonia: Plan 78 yo male with pnuemonia, UTI, sepsis. Troponin leak is likely type II in setting of underlying infection, sepsis Recommend trending troponin until they are downtrending Recommend aspirin 81 mg daily and Atorvastatin 80 mg daily for presumed CAD Follow up with Echo to rule out LV dysfunction, wall motion abnormality, or valvular dysfunction Would recommend ischemic evaluation once acute illness stabilizes. Pending trajectory of enzymes, could consider stress vs cath Low threshold for transfer if hemodynamic instability, upward enzymes, or ongoing chest pain Please do not hesitate to contact [place] cardiology with questions/concerns. Genny Rosenberg MD
[2024-08-12 19:02] LABS: A. calcoaceticus-baumannii Cpx NOT DETECTED (NOT DETECTE); Bacteroides fragilis NOT DETECTED (NOT DETECTE); Candida albicans NOT DETECTED (NOT DETECTE); Candida auris NOT DETECTED (NOT DETECTE); Candida glabrata NOT DETECTED (NOT DETECTE); Candida krusei NOT DETECTED (NOT DETECTE); Candida parapsilosis NOT DETECTED (NOT DETECTE); Candida tropicalis NOT DETECTED (NOT DETECTE); Cryptococcus neoformans/gattii NOT DETECTED (NOT DETECTE); Enterobacter cloacae complex NOT DETECTED (NOT DETECTE); Enterobacterales NOT DETECTED (NOT DETECTE); Enterococcus faecalis NOT DETECTED (NOT DETECTE); Enterococcus faecium NOT DETECTED (NOT DETECTE); Haemophilus influenzae NOT DETECTED (NOT DETECTE); Klebsiella aerogenes NOT DETECTED (NOT DETECTE); Klebsiella pneumoniae group NOT DETECTED (NOT DETECTE); Listeria monocytogenes NOT DETECTED (NOT DETECTE); Neisseria meningitidis NOT DETECTED (NOT DETECTE); Proteus spp. NOT DETECTED (NOT DETECTE); Pseudomonas aeruginosa NOT DETECTED (NOT DETECTE); Salmonella spp. NOT DETECTED (NOT DETECTE); Serratia marcescens NOT DETECTED (NOT DETECTE); Staphylococcus epidermidis NOT DETECTED (NOT DETECTE); Staphylococcus lugdunensis NOT DETECTED (NOT DETECTE); Stenotrophomonas maltophilia NOT DETECTED (NOT DETECTE); Streptococcus agalactiae NOT DETECTED (NOT DETECTE); Streptococcus pneumoniae NOT DETECTED (NOT DETECTE); Streptococcus pyogenes NOT DETECTED (NOT DETECTE); Streptococcus spp. NOT DETECTED (NOT DETECTE)
[2024-08-12 20:24] LABS: Source BLOOD; Staphylococcus spp. DETECTED (NOT DETECTE)
[2024-08-12 20:31] LABS: Glucometer 177 mg/dL (74-106)
[2024-08-12] MEDS: FERROUS SULFATE 325 MG TABLET PO (21:31)
[2024-08-12] MEDS: ATORVASTATIN CALCIUM 40 MG TABLET 60 MG PO (21:31)
[2024-08-13] VITALS (48 sets, daily range): BP systolic 151–167; BP diastolic 60–85; PULSE 74–105; TEMP 36.3–37.3; O2SAT 88–97
[2024-08-13 05:28] LABS: Internal Control Within Normal Limits; Occult Blood Positive
[2024-08-13] MEDS: 0.9 % SODIUM CHLORIDE 1,000 ML 125 ML IV (05:41)
[2024-08-13] MEDS: PANTOPRAZOLE SODIUM 40 MG VIAL IV (05:41)
[2024-08-13] MEDS: PIPERACILLIN SODIUM/TAZOBACTAM 3.375 GM in 0.9 % SODIUM CHLORIDE 50 ML IV ×2 (05:41→17:19)
[2024-08-13] MEDS: BENZONATATE 100 MG CAPSULE 200 MG PO ×3 (05:41→20:42)
[2024-08-13 06:26] LABS: Alanine Aminotransferase 142 U/L (16-63); Albumin Globulin Ratio 0.4; Alkaline Phosphatase 56 U/L (46-116); Anion Gap 14.7; Aspartate Amino Transferase 170 U/L (15-37); BUN Creatinine Ratio 11.8; Bilirubin Total 0.4 mg/dL (0.2-1.0); Calcium 8.2 mg/dL (8.5-10.1); Chloride 96 mmol/L (98-107); Estimated GFR (African America 17 (>=60 mL/min/1.73m^2); Estimated GFR (Non-African Ame 14 (>=60 mL/min/1.73m^2); Globulin 4.8 g/dL; Glucose 257 mg/dL (74-106); Potassium 3.7 mmol/L (3.5-5.1); Sodium 130 mmol/L (136-145); Total Protein 6.8 g/dL (6.4-8.2)
[2024-08-13 06:37] LABS: Troponin I High Sensitivity 212.7 pg/mL (4.0-76.1)
[2024-08-13] MEDS: IPRATROPIUM/ALBUTEROL SULFATE 3 ML AMPUL.NEB IH ×5 (07:16→23:13)
[2024-08-13] MEDS: SODIUM CHLORIDE 0.9% INHALATION 3 ML NEB 6 ML IH ×2 (07:17→19:53)
[2024-08-13 07:30] LABS: Basophils Percent Auto 0.3 % (0.2-2.0); Eosinophils Absolute Auto 0.1 10^3/uL (0.0-0.7); Eosinophils Percent Auto 1.1 % (0.9-7.0); Hematocrit 26.1 % (42.0-54.0); Hemoglobin 9.2 g/dL (14.0-18.0); Immature Granulocytes Abs Auto 0.05 10^3/uL (0.00-0.03); Immature Granulocytes Pct Auto 0.6 % (0.0-0.5); Lymphocytes Absolute Auto 1.2 10^3/uL (1.2-3.8); Lymphocytes Percent Auto 13.1 % (20.5-60.0); Mean Corpuscular HGB Conc 35.2 g/dL (29.9-35.2); Mean Corpuscular Hemoglobin 31.6 pg (25.9-34.0); Mean Corpuscular Volume 89.7 fL (80.0-94.0); Mean Platelet Volume 10.2 fL (9.5-13.5); Monocytes Percent Auto 11.1 % (1.7-12.0); Neutrophils Absolute Auto 6.5 10^3/uL (1.4-6.5); Neutrophils Percent Auto 73.8 % (43.0-75.0); Platelet Count 367 10^3/uL (150-450); Red Blood Count 2.91 10^6/uL (4.70-6.10); Red Cell Distribution Width 13.9 % (11.0-15.0); White Blood Count 8.8 10^3/uL (4.0-11.0)
--- NOTE | 2024-08-13 07:34 | P.PN_ITS ---
Progress Note: Subjective Subjective Interval history: Patient states he does feel better. Had a difficult night trying to keep his O2 saturations up with his home BiPAP on, unable to effectively bleed in supplemental oxygen, did better with the BiPAP on with nasal cannula O2 at 6 L. Despite that sats are still around 90. No other specific complaints this morning. Denies abdominal pain or leg pain or chest pain Exam Constitutional Vital Signs, click to edit/add: Last Vital Signs Temp 99.2 F 08/13/24 03:56 Pulse 79 08/13/24 06:46 Resp 18 08/13/24 03:56 BP 157/60 H 08/13/24 03:56 Pulse Ox 90 L 08/13/24 06:46 O2 Del Method Nasal Cannula, Home BIPAP / CPAP 08/13/24 03:00 O2 Flow Rate 6 08/13/24 03:56 FiO2 50 08/12/24 19:51 Documenting provider has reviewed patient's vital signs: yes Common normals: no apparent distress (Minimal cough this morning) Chest Common normals: inspection of chest normal Respiratory Common normals: normal respiratory effort and no retractions Auscultation: rhonchi (Improved air exchange) and egophony Extremity Common normals: normal to inspection (No edema) Progress Note: Objective Labs Labs: BMP 08/13/24 04:45 Sodium 130 L Potassium 3.7 Chloride 96 L Carbon Dioxide 23.0 BUN 50.0 H Creatinine 4.24 H Glucose 257 H Calcium 8.2 L Liver Function 08/13/24 Range/Units 04:45 Total Bilirubin 0.4 (0.2-1.0) mg/dL AST 170 H (15-37) U/L ALT 142 H (16-63) U/L Alkaline Phosphatase 56 (46-116) U/L Albumin 2.0 L (3.4-5.0) g/dL Progress Note: A&P Assessment and Plan (1) Acute kidney injury: (2) Acute UTI: (3) Hypoxia: (4) Multifocal pneumonia: (5) Hypothyroid: (6) Acute renal failure: (7) Elevated liver function tests: (8) Anemia: (9) Hyponatremia: (10) Elevated troponin I level: (11) Elevated brain natriuretic peptide (BNP) level: (12) Right upper lobe pneumonia: Plan Admission finding: acute hypoxia with respiratory failure requiring HIgh Flow Supplemental Oxygen, respiratory distress, Uncontrolled hypertension, Leukocytosis due to acute RUL pneumonia leading to sepsis (acute hypoxia, leukocytosis, source of infection) and multisystem organ dysfunction (Elevated troponin, hypoxia and acute renal failure) Sepsis due to pneumonia with acute hypoxic respiratory failure -positive for staph so add better MRSA coverage with linezolid, pneumonia patient feels overall somewhat improved but still has significant supplemental oxygen requirem ents. Progression of pneumonia on x-ray yesterday. Consult to pulmonology today. Continue with aerosols and IPV treatments. Check CT scan. Added 1 dose of Decadron GOOD on top of CKD-3 -slightly better today after Modi was placed. Plan is to leave Modi catheter in place. Will slow down IV hydration as he started to get some peripheral edema Peripheral edema-continue with compression. Slow IV rate. Hold off on diuretics. Elevated troponin - and BNP due to NSTEMI type II = BNP and troponin improved today. Agree with plan from cardiology, if troponin increases or patient becomes unstable will transfer Hypothyroid - Supplement with cytomel Anemia -due to acute blood loss secondary to acute upper gastrointestinal bleeding from acute gastritis likely stress ulcer, continue with IV Protonix, lab results pending for today Uncontrolled hypertension -blood pressure better today. Hyponatremia -continues to slowly improve NIDDM - ISS - adjust today L elevated LFT likely due to passive congestion due to the pneumonia and GOOD- slightly more elevated today. No abdominal pain. Continue to monitor Generalized weakness secondary to above-with lack of improvement, will worsen and weakness. Eval for rehabilitation Admission status: With acute hypoxia requiring High Flow Supplemental oxygen, GOOD with elevated HST and BNP, this will require more than 2 midnights of medically necessary treatment, Inpatient status ? Urinary Catheter Management Urinary Catheter Management Urethral: Cath placed during this visit: yes Urethral indwelling: Yes Reason for continuing: acute urinary retention Insertion date: 08/12/24 Insertion time: 13:01
--- NOTE | 2024-08-13 07:34 | CT_ITS ---
[address] [address] Patient Name: VINITA MOREL MRN: [id number] date: 1945 Sex: M Assigned Patient Location: ICU Current Patient Location: ICU Accession/Order Number: [id number] Exam Date: 08/13/2024 09:25 Report Date: 08/13/2024 11:23 At the request of: FELICITY FRANKS Procedure: CT chest wo con EXAM: CT chest wo con HISTORY: pneumonia COMPARISON: None. TECHNIQUE: Axial CT imaging was performed through the chest without intravenous contrast. Multiplanar reformats were performed. Dose reduction techniques were achieved by using automated exposure control and/or adjustment of mA and/or kV according to patient size and/or use of iterative reconstruction technique. FINDINGS: Lungs: No pneumothorax or effusion. There are patchy consolidations involving right lung and left lung base, representing multifocal pneumonia. Airways: Normal. Mediastinum: No adenopathy. Aorta: No aneurysm. Cardiac: Normal size. No pericardial effusion. Coronary Arteries: Coronary calcifications are moderate. Pulmonary vasculature: Normal morphology. Bones: No acute bony abnormality. Axilla: No adenopathy. Thyroid gland: No abnormality demonstrated on provided imaging. Soft tissues: Unremarkable. Upper abdomen: Unremarkable. Other findings: None. CT/CT chest wo con IMPRESSION: Multifocal pneumonia as described above. Electronically authenticated by: YARITZA LECHUGA Date: 08/13/2024 11:23
[2024-08-13] MEDS: DEXAMETHASONE SOD PHOS 10 MG/ML VIAL IV (07:44)
[2024-08-13 07:49] LABS: Glucometer 255 mg/dL (74-106)
[2024-08-13] MEDS: HYDRALAZINE HCL 50 MG TABLET 100 MG PO ×3 (08:02→17:18)
[2024-08-13] MEDS: ASPIRIN 81 MG TABLET.DR PO (08:02)
[2024-08-13] MEDS: NIFEdipine 30 MG TAB.ER.24 60 MG PO (08:02)
[2024-08-13] MEDS: OXYBUTYNIN CHLORIDE 5 MG TAB XL PO (08:02)
[2024-08-13] MEDS: ENSURE HP 237 ML LIQUID PO ×2 (08:02→20:42)
[2024-08-13] MEDS: FENOFIBRATE 54 MG TABLET 108 MG PO (08:02)
[2024-08-13] MEDS: TAMSULOSIN HCL 0.4 MG CAPSULE PO (08:02)
[2024-08-13] MEDS: LINEZOLID IN DEXTROSE 5% 600 MG/300 ML PIGGYBACK 300 MG IV ×2 (08:03→21:53)
[2024-08-13] MEDS: LIOTHYRONINE SODIUM 5 MCG TABLET 10 MCG PO (08:03)
[2024-08-13] MEDS: INSULIN ASPART 300 UNIT/3 ML PEN SUBQ ×4 (08:04→20:44)
[2024-08-13] MEDS: BUDESONIDE 0.5 MG/2 ML AMPULE NEB IH ×2 (11:09→23:13)
--- NOTE | 2024-08-13 11:48 | PM.PLCN ---
History of Present Illness History of Present Illness Consult date: 08/13/24 Requesting physician: Arsenio Javier Reason for consult: hypoxemia and pneumonia Chief complaint: SHORTNESS OF BREATH Pneumonia karla hypoxia Narrative: 78yo male presents with worsening dyspnea. I follow him outpatient for KIMMY, asthma, and a paralyzed right hemidiaphragm, with last visit 01/01/2024. He states he was in good health up until Thanksgiving (08/07/2024) when he abruptly developed worsening SOB and cough. He did not improve. Outpatient CXR showed developing infiltrates. He eventually came to [facility] for further evaluation. He was hypoxic and eventually required Vapotherm in order to maintain adequate saturations (he is not on home O2). Creatinine was also elevated to ~4; baseline is ~2.4 it appears. Current antibiotics are Zosyn + Zyvox. He states he continues to have difficulty expectorating. He is getting IPV with his DuoNeb treatments. He has a PEP in his lap, but has not been using it as much. Chest CT today shows extensive infiltrates in the RLL and RML, with less in the LLL. Review of Systems ROS Status of ROS 10 or more systems reviewed and unremarkable except as noted in history and below [facility] Medical History (Updated 08/13/24 @ 12:04 by Michael Teran DO) Diabetes ?E11.9 - Type 2 diabetes mellitus without complications (ICD-10) Hypertension ?I10 - Essential (primary) hypertension (ICD-10) Colon cancer ?C18.9 - Malignant neoplasm of colon, unspecified (ICD-10) Social History Little interest or pleasure in doing things: not at all Feeling down, depressed, or hopeless: not at all Meds Home Medications and Allergies Home Medications ?Medication ?Instructions ?Recorded ?Confirmed ?Type albuterol sulfate 90 mcg/actuation 2 inh inhalation Q4H PRN shortness 08/11/24 08/11/24 History breath activated powder inhaler of breath aspirin 81 mg tablet,delayed 81 mg PO DAILY 08/11/24 08/11/24 History release (Adult Aspirin Regimen) atorvastatin 40 mg tablet 60 mg PO .qhs 08/11/24 08/11/24 History fenofibrate nanocrystallized 48 mg 96 mg PO QDAY 08/11/24 08/11/24 History tablet ferrous gluconate 324 mg (38 mg 324 mg PO QPM 08/11/24 08/11/24 History iron) tablet insulin human U-100 NPH-regulr 18 unit subcut BID 08/11/24 08/11/24 History 70-30 mix 100 unit/mL subcutaneous susp (Novolin 70/30 U-100 Insulin) losartan 100 mg tablet 100 mg PO QDAY 08/11/24 08/11/24 History nifedipine 60 mg tablet,extended 60 mg PO QDAY 08/11/24 08/11/24 History release oxybutynin chloride 5 mg 5 mg PO QDAY 08/11/24 08/11/24 History tablet,extended release 24 hr semaglutide 0.25 mg or 0.5 mg (2 0.5 mg subcut .weekly 08/11/24 08/11/24 History mg/3 mL) subcutaneous pen injector (Ozempic) tamsulosin 0.4 mg capsule 0.4 mg PO Q24H 08/11/24 08/11/24 History furosemide 40 mg tablet 40 mg PO BID 08/12/24 08/12/24 History hydralazine 50 mg tablet 100 mg PO TIDWMEAL 08/12/24 08/12/24 History trazodone 50 mg tablet 50 mg PO .QHS PRN sleep 08/12/24 08/12/24 History allopurinol 300 mg tablet 300 mg PO DAILY 08/13/24 08/13/24 History Allergies Allergy/AdvReac Type Severity Reaction Status Date / Time cephalexin (From Keflex) Allergy Unknown Unknown Verified 08/11/24 17:25 ciprofloxacin (From Cipro) Allergy Unknown Unknown Verified 08/11/24 17:25 fluconazole Allergy Unknown Unknown Verified 08/11/24 17:25 lisinopril Allergy Unknown Unknown Verified 08/11/24 17:25 metronidazole (From Flagyl) Allergy Unknown Unknown Verified 08/11/24 17:25 Exam Constitutional Vital Signs, click to edit/add: Last Vital Signs Temp 98.2 F 08/13/24 08:00 Pulse 81 08/13/24 10:40 Resp 22 H 08/13/24 10:40 BP 151/79 H 08/13/24 10:11 Pulse Ox 93 L 08/13/24 11:22 O2 Del Method Nasal Cannula 08/13/24 11:22 O2 Flow Rate 6 08/13/24 11:22 FiO2 50 08/13/24 10:40 Documenting provider has reviewed patient's vital signs: yes Common normals: no apparent distress HENMT Other: Wearing nasal cannula Chest Common normals: inspection of chest normal Respiratory Other: Breathing does not appear labored. Diminished/absent breath sounds in right lower lung field. No wheezes. Faint crackles left base. Cardio Rate: regular rate Rhythm: regular rhythm GI Inspection: central obesity Percussion: tympanic to percussion Bladder/kidney exam: catheter in place Catheter type (Male): urethral Extremity Common normals: normal to inspection Neuro Sensorium/orientation: awake and alert Psych Attitude: calm Results Laboratory Findings ABG, PT/INR, D-dimer: PT/INR, D-dimer PT 11.9 sec (9.0-11.6) H 08/11/24 16:31 INR 1.14 08/11/24 16:31 Abnormal lab findings: Abnormal Labs 08/11/24 08/11/24 08/11/24 16:31 16:37 19:20 RBC Hgb Hct Lymph % (Auto) Eos % (Auto) Neut # (Auto) [facility] # (Auto) Abs Immat Gran (auto) Imm/Tot Granulo (auto) PT 11.9 H VBG pH 7.496 H VBG pCO2 30.7 L Sodium Chloride BUN Creatinine Est GFR ( Amer) Est GFR (Non-Af Amer) Glucose Calcium AST ALT Alkaline Phosphatase Troponin I High Sens 241.1 H* 227.0 H* NT-Pro-B Natriuret Pep 2591.0 H* Albumin Urine Protein Urine Glucose (UA) Ur Leukocyte Esterase Urine WBC Ur Squamous Epith Cells Urine Bacteria Urine Mucus Urine Yeast Stool Occult Blood Staphylococcus sp PCR Detected A* POC Glucose 08/11/24 08/11/24 08/12/24 21:15 22:09 02:25 RBC Hgb Hct Lymph % (Auto) Eos % (Auto) Neut # (Auto) [facility] # (Auto) Abs Immat Gran (auto) Imm/Tot Granulo (auto) PT VBG pH VBG pCO2 Sodium Chloride BUN Creatinine Est GFR ( Amer) Est GFR (Non-Af Amer) Glucose Calcium AST ALT Alkaline Phosphatase Troponin I High Sens 241.4 H* NT-Pro-B Natriuret Pep Albumin Urine Protein >=300 A Urine Glucose (UA) 100 A Ur Leukocyte Esterase Large A Urine WBC 20-50 A Ur Squamous Epith Cells Few A Urine Bacteria Large A Urine Mucus Small A Urine Yeast Seen A Stool Occult Blood Staphylococcus sp PCR POC Glucose 314 H 08/12/24 08/12/24 08/12/24 05:09 11:57 16:28 RBC 2.85 L Hgb 8.9 L Hct 25.8 L Lymph % (Auto) 17.9 L Eos % (Auto) 0.1 L Neut # (Auto) 7.[address] [facility] # (Auto) 1.2 H Abs Immat Gran (auto) 0.06 H Imm/Tot Granulo (auto) 0.6 H PT VBG pH VBG pCO2 38.9 L Sodium 129 L Chloride 93 L BUN 49.0 H Creatinine 4.43 H Est GFR ( Amer) 16 L Est GFR (Non-Af Amer) 13 L Glucose 184 H Calcium 8.2 L AST 128 H ALT 97 H Alkaline Phosphatase 45 L Troponin I High Sens 259.2 H* NT-Pro-B Natriuret Pep 4121.0 H* Albumin 2.2 L Urine Protein Urine Glucose (UA) Ur Leukocyte Esterase Urine WBC Ur Squamous Epith Cells Urine Bacteria Urine Mucus Urine Yeast Stool Occult Blood Staphylococcus sp PCR POC Glucose 280 H 110 H 08/12/24 08/13/24 08/13/24 20:30 04:00 04:45 RBC Hgb Hct Lymph % (Auto) Eos % (Auto) Neut # (Auto) [facility] # (Auto) Abs Immat Gran (auto) Imm/Tot Granulo (auto) PT VBG pH VBG pCO2 Sodium 130 L Chloride 96 L BUN 50.0 H Creatinine 4.24 H Est GFR ( Amer) 17 L Est GFR (Non-Af Amer) 14 L Glucose 257 H Calcium 8.2 L AST 170 H ALT 142 H Alkaline Phosphatase Troponin I High Sens 212.7 H* NT-Pro-B Natriuret Pep 4038.0 H* Albumin 2.0 L Urine Protein Urine Glucose (UA) Ur Leukocyte Esterase Urine WBC Ur Squamous Epith Cells Urine Bacteria Urine Mucus Urine Yeast Stool Occult Blood Positive A Staphylococcus sp PCR POC Glucose 177 H 08/13/24 08/13/24 07:17 07:48 RBC 2.91 L Hgb 9.2 L Hct 26.1 L Lymph % (Auto) 13.1 L Eos % (Auto) Neut # (Auto) [facility] # (Auto) 1.0 H Abs Immat Gran (auto) 0.05 H Imm/Tot Granulo (auto) 0.6 H PT VBG pH VBG pCO2 Sodium Chloride BUN Creatinine Est GFR ( Amer) Est GFR (Non-Af Amer) Glucose Calcium AST ALT Alkaline Phosphatase Troponin I High Sens NT-Pro-B Natriuret Pep Albumin Urine Protein Urine Glucose (UA) Ur Leukocyte Esterase Urine WBC Ur Squamous Epith Cells Urine Bacteria Urine Mucus Urine Yeast Stool Occult Blood Staphylococcus sp PCR POC Glucose 255 H Diagnostic Findings Chest x-ray: report reviewed and image reviewed CT scan - chest: report reviewed and image reviewed Assessment and Plan Assessment and Plan (1) Multifocal pneumonia: Assessment and Plan: Extensive right middle and lower, and less left lower, infiltrates with air bronchograms on chest CT today. Infiltrates are worse on the right as he has right hemidiaphragm paralysis therefore leading to decreased clearance of secretions. Explained the best treatment at this time is to promote a good pulmonary toilet. He is already receiving IPV with neb treatments. He has a PEP and he was encouraged to use it as much as possible. Will add Mucomyst on top of nebs to help break down secretions further, and patient was instructed to attempt to lay on his left side for postural drainage. I do not feel a bronchoscopy is warranted at this time as I do not see any central or large airway mucus plugs - the risks > benefits currently. (2) Mild intermittent asthma with acute exacerbation: Assessment and Plan: Mild asthma, only ever uses albuterol PRN at home. He previously refused a maintenance inhaler stating he did not need one. Currently on DuoNeb and Pulmicort. Will need to wait and see if he recovers and if so how much. 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 Goal currently is to promote a good pulmonary toilet. (4) Acute hypoxemic respiratory failure: Assessment and Plan: Patient is not on home O2. He required supplemental O2 up to a Vapotherm this stay. Currently, attempting to wean him back down to a traditional nasal cannula. (5) KIMMY (obstructive sleep apnea): Assessment and Plan: Previously had superb compliance with BiPAP 26/07. He has his own unit, but it was not providing enough benefit to improve oxygenation, so patient has been wearing a nasal cannula overlayed by the mask. Appears there is a degree of aerophagia noted on chest CT. If able, recommend BiPAP use @ HS & naps. (6) Acute renal failure superimposed on stage 3 chronic kidney disease: Assessment and Plan: Monitor renal function. Qualifiers: Acute renal failure type: unspecified Chronic kidney disease stage 3 subtype: unspecified whether 3a or 3b Qualified Code(s): N17.9 - Acute kidney failure, unspecified; N18.30 - Chronic kidney disease, stage 3 unspecified (7) Morbid obesity: Assessment and Plan: Patient is morbidly obese with BMI 40.5, causing a restrictive pulmonary physiology. Weight loss recommended.
[2024-08-13 12:24] LABS: Glucometer 266 mg/dL (74-106)
--- NOTE | 2024-08-13 13:29 | SWNOTE1 ---
SW met with pt to discuss rehab. SW had consult that pt will need placement. SW reviewed therapy notes and pt was independent with therapy yesterday. While in room talking with pt, nurse was in room as well. Nurse did stated last evening he did almost have a fall, but today he did well getting to the chair. Pt stated at home he does not use any DME and he still drives. Pt voiced he was just out last week using a saw, mowing the yard, etc. SW mentioned rehab, but pt voiced his was going to be here around 1:00. SW to stop back in this afternoon. Unsure if pt will qualify at this time.
--- NOTE | 2024-08-13 14:55 | SWNOTE1 ---
SW spoke to pt and in room. SW brought up the possibility of pt needing rehab for a short time. Pt's did voice that she was surprised at this and was concerned he was getting worse. Respiratory therapy in room as well and she stated that it was just brought up to start the processs in case he needs it. SW did advise pt and that pt does have Medicare and with some other insurances we would have to wait for insurance to approve to go. We do not have to with medicare so if he needs SNF it will not be a tough process. They voiced understanding. At this time pt was independent with therapy as of yesterday. SW to re-eval the situation after pt has therapy today. If pt is independent he will not qualify for SNF.
--- NOTE | 2024-08-13 16:14 | SWNOTE1 ---
SW will re-assess pt tomorrow for rehab, PT will likely need re-ordered as no PT needs were identified.
[2024-08-13 16:47] LABS: Glucometer 311 mg/dL (74-106)
[2024-08-13] MEDS: INSULIN NPH 70-30 100UNIT/ML VIAL (10ML) 18 UNIT SUBQ (17:13)
[2024-08-13 20:33] LABS: Glucometer 403 mg/dL (74-106)
[2024-08-13] MEDS: 0.9 % SODIUM CHLORIDE 1,000 ML 60 ML IV (20:41)
[2024-08-13] MEDS: ATORVASTATIN CALCIUM 40 MG TABLET 60 MG PO (20:42)
[2024-08-13] MEDS: FERROUS SULFATE 325 MG TABLET PO (20:43)
[2024-08-13] MEDS: ACETYLCYSTEINE 400 MG/4 ML VIAL 200 MG IH (23:13)
--- NOTE | 2024-08-13 23:13 | RESP.RT ---
After IPV breathing tx, placed pt on home bipap/cpap unit with 5L 02.
[2024-08-14] VITALS (24 sets, daily range): BP systolic 149–167; BP diastolic 48–98; PULSE 56–88; TEMP 36.4–36.8; O2SAT 91–97
[2024-08-14 03:19] LABS: Glucometer 298 mg/dL (74-106)
--- NOTE | 2024-08-14 04:03 | RESP.RT ---
titrated down to 3L
[2024-08-14 05:39] LABS: Hematocrit 28.1 % (42.0-54.0); Hemoglobin 9.9 g/dL (14.0-18.0); Mean Corpuscular HGB Conc 35.2 g/dL (29.9-35.2); Mean Corpuscular Hemoglobin 30.8 pg (25.9-34.0); Mean Corpuscular Volume 87.5 fL (80.0-94.0); Mean Platelet Volume 10.3 fL (9.5-13.5); Platelet Count 414 10^3/uL (150-450); Red Blood Count 3.21 10^6/uL (4.70-6.10); Red Cell Distribution Width 13.6 % (11.0-15.0); White Blood Count 5.4 10^3/uL (4.0-11.0)
[2024-08-14] MEDS: BENZONATATE 100 MG CAPSULE 200 MG PO ×3 (05:57→22:04)
[2024-08-14] MEDS: PIPERACILLIN SODIUM/TAZOBACTAM 3.375 GM in 0.9 % SODIUM CHLORIDE 50 ML IV ×2 (05:57→17:49)
[2024-08-14] MEDS: PANTOPRAZOLE SODIUM 40 MG VIAL IV (05:57)
[2024-08-14 05:59] LABS: Segmented Neut Absolute Manual 4.53 10^3/uL (1.4-6.5)
[2024-08-14 06:00] LABS: Hypochromasia 2+; Lymphocytes Absolute Manual 0.43 10^3/uL (1.20-3.80); Monocytes Absolute Manual 0.43 10^3/uL (0.30-0.80); Ovalocytes 3+; Target Cells 2+
[2024-08-14 06:14] LABS: Alanine Aminotransferase 119 U/L (16-63); Albumin Globulin Ratio 0.4; Alkaline Phosphatase 58 U/L (46-116); Anion Gap 14.7; Aspartate Amino Transferase 84 U/L (15-37); BUN Creatinine Ratio 13.5; Bilirubin Total 0.3 mg/dL (0.2-1.0); Calcium 8.8 mg/dL (8.5-10.1); Carbon Dioxide 22.3 mmol/L (21.0-32.0); Chloride 96 mmol/L (98-107); Estimated GFR (African America 17 (>=60 mL/min/1.73m^2); Estimated GFR (Non-African Ame 14 (>=60 mL/min/1.73m^2); Globulin 5.2 g/dL; Glucose 290 mg/dL (74-106); Magnesium 2.1 mg/dL (1.8-2.4); Sodium 129 mmol/L (136-145); Total Protein 7.2 g/dL (6.4-8.2)
[2024-08-14 06:17] LABS: Troponin I High Sensitivity 193.3 pg/mL (4.0-76.1)
--- NOTE | 2024-08-14 06:56 | P.PN_ITS ---
Progress Note: Subjective Subjective Interval history: Little better with his breathing overnight, still needing to wear nasal cannula in addition to his CPAP. Bleeding and supplemental oxygen was not effective. Patient still with cough, but still not significant sputum production. Exam Constitutional Vital Signs, click to edit/add: Last Vital Signs Temp 97.5 F L 08/14/24 04:03 Pulse 56 L 08/14/24 06:01 Resp 18 08/14/24 04:03 BP 158/48 H 08/14/24 04:03 Pulse Ox 97 08/14/24 04:03 O2 Del Method Home BIPAP / CPAP 08/14/24 04:03 O2 Flow Rate 4 08/14/24 03:58 FiO2 50 08/13/24 10:40 Documenting provider has reviewed patient's vital signs: yes Common normals: no apparent distress (Minimal cough this morning) Chest Common normals: inspection of chest normal Respiratory Common normals: normal respiratory effort and no retractions Auscultation: rhonchi (Improved air exchange) and egophony right upper and right lower Cardio Common normals: regular rate, regular rhythm and no murmurs GI Common normals: Normal to inspection, nondistended, normoactive bowel sounds present and soft to palpation Extremity Common normals: normal to inspection (Maybe trace edema today) Progress Note: Objective Labs Labs: Short CBC 08/13/24 08/14/24 Range/Units 07:17 04:45 WBC 8.8 5.4 (4.0-11.0) 10^3/uL Hgb 9.2 L 9.9 L (14.0-18.0) g/dL Hct 26.1 L 28.1 L (42.0-54.0) % Plt Count 367 414 (150-450) 10^3/uL BMP 08/14/24 04:45 Sodium 129 L Potassium 4.0 Chloride 96 L Carbon Dioxide 22.3 BUN 56.0 H Creatinine 4.14 H Glucose 290 H Calcium 8.8 Liver Function 08/14/24 Range/Units 04:45 Total Bilirubin 0.3 (0.2-1.0) mg/dL AST 84 H (15-37) U/L ALT 119 H (16-63) U/L Alkaline Phosphatase 58 (46-116) U/L Albumin 2.0 L (3.4-5.0) g/dL Progress Note: A&P Assessment and Plan (1) Multifocal pneumonia: (2) Mild intermittent asthma with acute exacerbation: (3) Paralyzed hemidiaphragm: (4) Acute hypoxemic respiratory failure: (5) KIMMY (obstructive sleep apnea): (6) Acute renal failure superimposed on stage 3 chronic kidney disease: Qualifiers: Acute renal failure type: unspecified Chronic kidney disease stage 3 subtype: unspecified whether 3a or 3b Qualified Code(s): N17.9 - Acute kidney failure, unspecified; N18.30 - Chronic kidney disease, stage 3 unspecified (7) Morbid obesity: (8) Acute kidney injury: (9) Acute UTI: (10) Hypoxia: (11) Hypothyroid: (12) Acute renal failure: (13) Elevated liver function tests: (14) Anemia: (15) Hyponatremia: (16) Elevated troponin I level: (17) Elevated brain natriuretic peptide (BNP) level: (18) Right upper lobe pneumonia: Plan Admission finding: acute hypoxia with respiratory failure requiring HIgh Flow Supplemental Oxygen, respiratory distress, Uncontrolled hypertension, Leukocytos is due to acute RUL pneumonia leading to sepsis (acute hypoxia, leukocytosis, source of infection) and multisystem organ dysfunction (Elevated troponin, hypoxia and acute renal failure) Sepsis due to pneumonia with acute hypoxic respiratory failure -positive for staph so add better MRSA coverage with linezolid, CT scan from yesterday showed extensive infiltrates. Continue with current antibiotic therapy, sputum culture and blood cultures are still pending. GOOD on top of CKD-3 -continues with slow improvement. Peripheral edema-continue with compression. Slow IV rate. Hold off on diuretics. Elevated troponin - and BNP due to NSTEMI type II = BNP and troponin improved again today. Agree with plan from cardiology, if troponin increases or patient becomes unstable will transfer Hypothyroid - Supplement with cytomel Anemia -due to acute blood loss secondary to acute upper gastrointestinal bleeding from acute gastritis likely stress ulcer, continue with IV Protonix, lab results pending for today-stable Uncontrolled hypertension -still elevated at times, add Imdur Hyponatremia -stable NIDDM -added back his home insulin, plus insulin sliding scale elevated LFT likely due to passive congestion due to the pneumonia and GOOD- slightly more elevated today. No abdominal pain. Continue to monitor Generalized weakness secondary to above-with lack of improvement, will worsen and weakness. Repeat evaluation for rehab today. Patient not out of bed yesterday secondary to weakness Admission status: With acute hypoxia requiring High Flow Supplemental oxygen, GOOD with elevated HST and BNP, this will require more than 2 midnights of medically necessary treatment, Inpatient status ? Urinary Catheter Management Urinary Catheter Management Urethral: Cath placed during this visit: yes Urethral indwelling: Yes Reason for continuing: acute urinary retention Insertion date: 08/12/24 Insertion time: 13:01
--- NOTE | 2024-08-14 08:04 | PM.PLPN ---
Progress Note: A&P Assessment and Plan (1) Multifocal pneumonia: Assessment and Plan: Clinically appears to be improving. Not expectorating despite aggressive pulmonary toilet. Bronchoscopy unlikely to provide any profound benefit at this time. Continue pulmonary toilet, current therapy. (2) Mild intermittent asthma with acute exacerbation: Assessment and Plan: Monitor. Likely would benefit from prednisone taper @ discharge. (3) Paralyzed hemidiaphragm: Assessment and Plan: Pulmonary toilet. (4) Acute hypoxemic respiratory failure: Assessment and Plan: Continue to attempt to wean down O2. May require O2 @ discharge (at least short term). (5) KIMMY (obstructive sleep apnea): Assessment and Plan: Continue BiPAP @ HS/naps. (6) Acute renal failure superimposed on stage 3 chronic kidney disease: Qualifiers: Acute renal failure type: unspecified Chronic kidney disease stage 3 subtype: unspecified whether 3a or 3b Qualified Code(s): N17.9 - Acute kidney failure, unspecified; N18.30 - Chronic kidney disease, stage 3 unspecified (7) Morbid obesity: Assessment and Plan: Wt loss. Subjective Subjective Interval history: Patient states he is feeling a little better today. Started Mucomyst yesterday; he is currently laying left lateral recumbent. He is not having a very productive cough despite aggressive pulmonary toilet. O2 demands have decreased though - he is on nasal cannula during the day. Currently on his home BiPAP. Exam Constitutional Vital Signs, click to edit/add: Last Vital Signs Temp 97.5 F L 08/14/24 04:03 Pulse 56 L 08/14/24 06:01 Resp 18 08/14/24 04:03 BP 158/48 H 08/14/24 04:03 Pulse Ox 97 08/14/24 04:03 O2 Del Method Home BIPAP / CPAP 08/14/24 04:03 O2 Flow Rate 4 08/14/24 03:58 FiO2 50 08/13/24 10:40 Documenting provider has reviewed patient's vital signs: yes HENMT Other: Wearing BiPAP mask Chest Common normals: inspection of chest normal Respiratory Other: Continues to have diminished breath sounds in right base. Remainder of lung sounds essentially clear. Cardio Other: Bradycardic with regular rhythm Extremity General: no edema Psych Appearance: grossly normal Attitude: calm
[2024-08-14] MEDS: FENOFIBRATE 54 MG TABLET 108 MG PO (09:09)
[2024-08-14] MEDS: LIOTHYRONINE SODIUM 5 MCG TABLET 10 MCG PO (09:09)
[2024-08-14] MEDS: NIFEdipine 30 MG TAB.ER.24 60 MG PO (09:09)
[2024-08-14] MEDS: ALLOPURINOL 300 MG TABLET PO (09:09)
[2024-08-14] MEDS: ENSURE HP 237 ML LIQUID PO ×2 (09:09→20:06)
[2024-08-14] MEDS: ISOSORBIDE MONONITRATE 30 MG TAB.ER.24H PO (09:09)
[2024-08-14] MEDS: ASPIRIN 81 MG TABLET.DR PO (09:10)
[2024-08-14] MEDS: TAMSULOSIN HCL 0.4 MG CAPSULE PO (09:10)
[2024-08-14] MEDS: OXYBUTYNIN CHLORIDE 5 MG TAB XL PO (09:10)
[2024-08-14] MEDS: PROSTAT 15 GM PROTEIN/100 CAL 30 ML LIQUID PACKET PO ×2 (09:10→20:06)
[2024-08-14] MEDS: HYDRALAZINE HCL 50 MG TABLET 100 MG PO ×3 (09:10→17:49)
[2024-08-14] MEDS: INSULIN ASPART 300 UNIT/3 ML PEN SUBQ ×4 (09:13→22:01)
[2024-08-14] MEDS: LINEZOLID IN DEXTROSE 5% 600 MG/300 ML PIGGYBACK 300 MG IV ×2 (09:16→20:07)
[2024-08-14] MEDS: INSULIN NPH 70-30 100UNIT/ML VIAL (10ML) 24 UNIT SUBQ ×2 (09:20→16:43)
[2024-08-14] MEDS: BUDESONIDE 0.5 MG/2 ML AMPULE NEB IH ×2 (11:33→23:11)
[2024-08-14] MEDS: IPRATROPIUM/ALBUTEROL SULFATE 3 ML AMPUL.NEB IH ×4 (11:34→23:11)
[2024-08-14] MEDS: ACETYLCYSTEINE 400 MG/4 ML VIAL 200 MG IH ×2 (11:38→23:11)
--- NOTE | 2024-08-14 11:43 | DIETREC ---
DC Ensure bid po Start nutritional supplement formulated for diabetics Recommend: Boost glucose control 1 carton bid po or glucerna shake 1 carton bid PO ( R/T high blood sugars ) use sugar free prostat @ 30 ml bid po ( R/T high blood sugars)
[2024-08-14 11:54] LABS: Glucometer 293 mg/dL (74-106)
--- NOTE | 2024-08-14 13:56 | SWNOTE1 ---
SW met with pt and again. SW reviewed therapy notes from today and pt did 4 laps today with therapy, recommendation was home health. SW let pt and know this. Pt and are agreeable to have home health come in. SW did mention having a plan B of going to nursing facility for rehab. At this time pt and do not feel this is necessary, he voiced he is feeling even better than yesterday. Pt voiced he really does not think he will need rehab. in agreement, stated only if he has a decline. SW did mention to patient that he may need home oxygen. SW provided patient and with a list from medicare.gov star rating for home health companies. They would like [facility]. [facility] to send referral. IF he were to need rehab at SNF they would want to stay in [place]. Pt is NOT a precert if he does need SNF, but at this time pt does not have a skilled need to go to a nursing facility. SW to re-evaluate tomorrow. Pt voiced he is going to get up and walk with nurse later. Referral sent to [facility]. Referral included face sheet, ED note, H&P, provider notes, case management report, and PT/OT notes.
[2024-08-14 17:00] LABS: Glucometer 235 mg/dL (74-106)
[2024-08-14] MEDS: 0.9 % SODIUM CHLORIDE 1,000 ML 60 ML IV (17:49)
[2024-08-14] MEDS: FERROUS SULFATE 325 MG TABLET PO (20:03)
[2024-08-14 22:05] LABS: Glucometer 206 mg/dL (74-106)
[2024-08-14] MEDS: ATORVASTATIN CALCIUM 40 MG TABLET 60 MG PO (22:05)
[2024-08-15] VITALS (11 sets, daily range): BP systolic 145; BP diastolic 64; PULSE 56–81; O2SAT 91–98
--- NOTE | 2024-08-15 00:04 | PC.NURSE ---
Patient home CPAP applied with home settings in use, on Room Air. Patient slightly anxious about his oxygen levels, reassurance given. Doing well at this time.
[2024-08-15] MEDS: BENZONATATE 100 MG CAPSULE 200 MG PO (05:14)
[2024-08-15] MEDS: PIPERACILLIN SODIUM/TAZOBACTAM 3.375 GM in 0.9 % SODIUM CHLORIDE 50 ML IV (05:14)
[2024-08-15 05:24] LABS: Basophils Percent Auto 0.2 % (0.2-2.0); Eosinophils Absolute Auto 0.1 10^3/uL (0.0-0.7); Eosinophils Percent Auto 1.3 % (0.9-7.0); Immature Granulocytes Abs Auto 0.18 10^3/uL (0.00-0.03); Immature Granulocytes Pct Auto 1.7 % (0.0-0.5); Lymphocytes Absolute Auto 1.5 10^3/uL (1.2-3.8); Lymphocytes Percent Auto 13.7 % (20.5-60.0); Mean Corpuscular HGB Conc 34.5 g/dL (29.9-35.2); Mean Corpuscular Hemoglobin 30.5 pg (25.9-34.0); Mean Corpuscular Volume 88.4 fL (80.0-94.0); Mean Platelet Volume 10.4 fL (9.5-13.5); Monocytes Absolute Auto 0.8 10^3/uL (0.3-0.8); Monocytes Percent Auto 7.6 % (1.7-12.0); Neutrophils Absolute Auto 8.1 10^3/uL (1.4-6.5); Neutrophils Percent Auto 75.5 % (43.0-75.0); Platelet Count 517 10^3/uL (150-450); Red Blood Count 3.28 10^6/uL (4.70-6.10); Red Cell Distribution Width 13.8 % (11.0-15.0); White Blood Count 10.7 10^3/uL (4.0-11.0)
[2024-08-15] MEDS: PANTOPRAZOLE SODIUM 40 MG VIAL IV (05:30)
[2024-08-15 05:55] LABS: Alanine Aminotransferase 90 U/L (16-63); Albumin Globulin Ratio 0.4; Alkaline Phosphatase 48 U/L (46-116); Anion Gap 12.1; Aspartate Amino Transferase 53 U/L (15-37); BUN Creatinine Ratio 16.8; Bilirubin Total 0.3 mg/dL (0.2-1.0); Calcium 9.1 mg/dL (8.5-10.1); Carbon Dioxide 23.5 mmol/L (21.0-32.0); Chloride 101 mmol/L (98-107); Estimated GFR (African America 20 (>=60 mL/min/1.73m^2); Estimated GFR (Non-African Ame 16 (>=60 mL/min/1.73m^2); Glucose 82 mg/dL (74-106); Magnesium 2.1 mg/dL (1.8-2.4); Potassium 3.6 mmol/L (3.5-5.1); Sodium 133 mmol/L (136-145)
--- NOTE | 2024-08-15 07:38 | P.DS_ITS ---
DS: Providers Provider Date of admission: 08/11/24 20:35 Primary care physician: NANCY SÁNCHEZ Consults: 08/11/24 18:43 Consult to Pharmacy Routine Consulting Provider: Reason for consultation: Please Beccaria me when Med Rec is Updated Has provider been notified: No Occupational Therapy Eval and Treat Routine Reason for consultation: Only if needed for Rehab Has provider been notified: No Physical Therapy Eval and Treat Routine Reason for consultation: Eval and Treat Has provider been notified: No 08/12/24 06:46 Consult to Cardiology Routine Reason for consultation: elevated trop Has provider been notified: No 08/12/24 07:59 Consult to Urology Routine Consulting Provider: Jer Richey Reason for consultation: hydronephrosis Has provider been notified: Yes 08/13/24 07:29 Consult to Pulmonology Routine Consulting Provider: Michael Teran Reason for consultation: Pneumonia Consult to Repair Clerk Routine Reason for consult:: Alf Other reason:: Placement for maybe sunday08/14/24 07:34 Occupational Therapy Eval and Treat Routine Reason for consultation: re-eval for rehab Has provider been notified: No Physical Therapy Eval and Treat Routine Reason for consultation: re-eval for rehab Has provider been notified: No DS: Diagnosis Discharge Diagnosis (1) Multifocal pneumonia: (2) Mild intermittent asthma with acute exacerbation: (3) Paralyzed hemidiaphragm: (4) Acute hypoxemic respiratory failure: (5) KIMMY (obstructive sleep apnea): (6) Acute renal failure superimposed on stage 3 chronic kidney disease: Qualifiers: Acute renal failure type: unspecified Chronic kidney disease stage 3 subtype: unspecified whether 3a or 3b Qualified Code(s): N17.9 - Acute kidney failure, unspecified; N18.30 - Chronic kidney disease, stage 3 unspecified (7) Morbid obesity: Plan Admission finding: acute hypoxia with respiratory failure requiring HIgh Flow Supplemental Oxygen, respiratory distress, Uncontrolled hypertension, Leukocytosis due to acute RUL pneumonia leading to sepsis (acute hypoxia, leukocytosis, source of infection) and multisystem organ dysfunction (Elevated troponin, hypoxia and acute renal failure) Sepsis due to pneumonia with acute hypoxic respiratory failure -positive for staph so add better MRSA coverage with linezolid, CT scan from yesterday showed extensive infiltrates. Continue with current antibiotic therapy, sputum culture and blood cultures are still pending. GOOD on top of CKD-3 -continues with slow improvement. Peripheral edema-continue with compression. Slow IV rate. Hold off on diuretics. Elevated troponin - and BNP due to NSTEMI type II = imporoved Hypothyroid - Supplement with cytomel Anemia -due to acute blood loss secondary to acute upper gastrointestinal bleeding from acute gastritis likely stress ulcer, continue with IV Protonix, lab results pending for today-stable Uncontrolled hypertension -still elevated at times, add Imdur Hyponatremia -stable NIDDM -added back his home insulin, plus insulin sliding scale elevated LFT likely due to passive congestion due to the pneumonia and GOOD- Improved Generalized weakness secondary to above-with lack of improvement, will worsen and weakness. Repeat evaluation for rehab today. Patient not out of bed yesterday secondary to weakness Admission status: With acute hypoxia requiring High Flow Supplemental oxygen, GOOD with elevated HST and BNP, this will require more than 2 midnights of medically necessary treatment, Inpatient status ? DS: Summary Hospital Course Hospital Course: Patient presented to the emergency room with increasing shortness of breath after being found to have pneumonia and significant hyponatremia as an outpatient. Patient with significant hypoxia to the point of requiring Vapotherm. Patient was placed on the supplemental oxygen, IV antibiotics and fluids, transferred up to the intensive care unit. In the being placed on BiPAP for period of time as well. Patient tolerated the BiPAP better than the Vapotherm but alternate between the 2. Acute kidney injury, ultrasound showed hydronephrosis, Modi catheter was placed and kidney function is improved since that time also on admission patient elevated high-sensitivity troponin and BNP. Consultation with cardiology felt acute NSTEMI type II secondary to the pneumonia as outlined above. Those numbers are trending down further. Echocardiogram showed a decent ejection fraction. Consultation with pulmonology because patient was not improving on day 2. Mucomyst was added. Since that time patient has had significant improvement. Has been able to wean off of his supplemental oxygen over the last 24 hours no supplemental oxygen required last night when wearing his BiPAP. Previous 2 evenings he required 2 L of supplemental oxygen by nasal cannula. Patient ambulated well yesterday off of supplemental oxygen. Without hypoxia. At this point patient is significant improved, faster than anticipated the previous day. Will be discharged to home in improving condition. Medications see list. Follow-up with PCP in 3 days. Time Spent with Patient Time attestation: Total time spent providing and/or coordinating discharge services: Exam Constitutional Vital Signs, click to edit/add: Last Vital Signs Temp 98.2 F 08/14/24 23:29 Pulse 57 L 08/15/24 06:00 Resp 29 H 08/15/24 05:00 BP 145/64 H 08/15/24 04:42 Pulse Ox 96 08/15/24 05:00 O2 Del Method Home BIPAP / CPAP 08/15/24 03:05 O2 Flow Rate 0 08/15/24 01:00 FiO2 50 08/13/24 10:40 Documenting provider has reviewed patient's vital signs: yes Common normals: no apparent distress (Minimal cough this morning) Chest Common normals: inspection of chest normal Respiratory Common normals: normal respiratory effort and no retractions Auscultation: rhonchi (Improved air exchange); no egophony (Resolved) Cardio Common normals: regular rate, regular rhythm and no murmurs GI Common normals: Normal to inspection, nondistended, normoactive bowel sounds present and soft to palpation Extremity Common normals: normal to inspection (Maybe trace edema today) DS: Data Data Completed and Pending Labs on day of discharge: Labs from last 24 hours 08/15/24 08/14/24 08/14/24 04:21 22:01 16:39 WBC 10.7 RBC 3.28 L Hgb 10.0 L Hct 29.0 L MCV 88.4 MCH 30.5 MCHC 34.5 RDW 13.8 Plt Count 517 H MPV 10.4 Neut % (Auto) 75.5 H Lymph % (Auto) 13.7 L [place] % (Auto) 7.6 Eos % (Auto) 1.3 Baso % (Auto) 0.2 Neut # (Auto) 8.1 H Lymph # (Auto) 1.5 [place] # (Auto) 0.8 Eos # (Auto) 0.1 Baso # (Auto) 0.0 Abs Immat Gran (auto) 0.18 H Imm/Tot Granulo (auto) 1.7 H Sodium 133 L Potassium 3.6 Chloride 101 Carbon Dioxide 23.5 Anion Gap 12.1 BUN 61.0 H Creatinine 3.63 H Est GFR ( Amer) 20 L Est GFR (Non-Af Amer) 16 L BUN/Creatinine Ratio 16.8 Glucose 82 Calcium 9.1 Magnesium 2.1 Total Bilirubin 0.3 AST 53 H ALT 90 H Alkaline Phosphatase 48 Troponin I High Sens 191.0 H* NT-Pro-B Natriuret Pep 3876.0 H* Total Protein 7.0 Albumin 2.0 L Globulin 5.0 Albumin/Globulin Ratio 0.4 POC Glucose 206 H 235 H 08/14/24 08/13/24 11:47 07:17 WBC 8.8 RBC 2.91 L Hgb 9.2 L Hct 26.1 L MCV 89.7 MCH 31.6 MCHC 35.2 RDW 13.9 Plt Count 367 MPV 10.2 Neut % (Auto) 73.8 Lymph % (Auto) 13.1 L [place] % (Auto) 11.1 Eos % (Auto) 1.1 Baso % (Auto) 0.3 Neut # (Auto) 6.5 Lymph # (Auto) 1.2 [place] # (Auto) 1.0 H Eos # (Auto) 0.1 Baso # (Auto) 0.0 Abs Immat Gran (auto) 0.05 H Imm/Tot Granulo (auto) 0.6 H Sodium Potassium Chloride Carbon Dioxide Anion Gap BUN Creatinine Est GFR ( Amer) Est GFR (Non-Af Amer) BUN/Creatinine Ratio Glucose Calcium Magnesium Total Bilirubin AST ALT Alkaline Phosphatase Troponin I High Sens NT-Pro-B Natriuret Pep Total Protein Albumin Globulin Albumin/Globulin Ratio POC Glucose 293 H Preliminary micro results at discharge 08/11/24 16:37 Bacterial ID and Susceptibility - Preliminary Blood - Right Antecubital 08/11/24 20:25 Lower Respiratory Culture - Preliminary Sputum - Expectorated Sputum 08/11/24 16:37 Blood Culture Result 2 - Preliminary Blood 08/11/24 16:31 Blood Culture Result 1 - Preliminary Blood NO GROWTH AT 36-48 HOURS. FINAL TO FOLLOW. Discharge Plan Discharge Disposition: Home, Self-Care Condition: Fair Discharge Medications: New isosorbide mononitrate 30 mg Tablet Extended Release 24 Hr 30 mg PO QD Qty: 30 11RF liothyronine 5 mcg Tablet 10 mcg PO QD Qty: 60 11RF benzonatate 100 mg Capsule 200 mg PO TID Qty: 20 0RF ferrous sulfate 325 mg (65 mg iron) Tablet 325 mg PO QPM Qty: 30 11RF terbinafine HCl 250 mg tablet 250 mg PO DAILY Qty: 10 0RF amoxicillin-pot clavulanate 875-125 mg tablet 1 tab PO BID Qty: 20 0RF loperamide [Imodium A-D] 2 mg capsule 2 mg PO Q6H PRN (Reason: loose stool) Qty: 20 0RF pantoprazole [Protonix] 40 mg tablet,delayed release (DR/EC) 40 mg PO DAILY Qty: 30 11RF Continued aspirin [Adult Aspirin Regimen] 81 mg tablet,delayed release (DR/EC) 81 mg PO DAILY atorvastatin 40 mg tablet 60 mg PO .qhs fenofibrate nanocrystallized 48 mg tablet 96 mg PO QDAY ferrous gluconate 324 mg (38 mg iron) tablet 324 mg PO QPM Novolin 70/30 U-100 Insulin 100 unit/mL (70-30) suspension 18 unit SUBCUT BID losartan 100 mg tablet 100 mg PO QDAY nifedipine 60 mg tablet extended release 60 mg PO QDAY oxybutynin chloride 5 mg tablet extended release 24hr 5 mg PO QDAY Ozempic 0.25 mg or 0.5 mg (2 mg/3 mL) pen injector 0.5 mg SUBCUT .weekly tamsulosin 0.4 mg capsule 0.4 mg PO Q24H albuterol sulfate 90 mcg/actuation aerosol powdr breath activated 2 inh inhalation Q4H PRN (Reason: shortness of breath) furosemide 40 mg tablet 40 mg PO BID hydralazine 50 mg tablet 100 mg PO TIDWMEAL trazodone 50 mg tablet 50 mg PO .QHS PRN (Reason: sleep) allopurinol 300 mg tablet 300 mg PO DAILY insulin aspart U-100 [Novolog U-100 Insulin aspart] 100 unit/mL solution 1 sliding scale dose subcut USEASDIRECTD Print Language: Persian Forms: Portal Instructions
--- NOTE | 2024-08-15 08:18 | SWNOTE1 ---
[facility] called [facility] and they are able to accept. [facility] sent CRF, dc med rec, and dc summary to [facility].
[2024-08-15] MEDS: ENSURE HP 237 ML LIQUID PO (09:21)
[2024-08-15] MEDS: LINEZOLID IN DEXTROSE 5% 600 MG/300 ML PIGGYBACK 300 MG IV (09:21)
[2024-08-15] MEDS: FENOFIBRATE 54 MG TABLET 108 MG PO (09:22)
[2024-08-15] MEDS: OXYBUTYNIN CHLORIDE 5 MG TAB XL PO (09:22)
[2024-08-15] MEDS: NIFEdipine 30 MG TAB.ER.24 60 MG PO (09:22)
[2024-08-15] MEDS: LIOTHYRONINE SODIUM 5 MCG TABLET 10 MCG PO (09:22)
[2024-08-15] MEDS: ALLOPURINOL 300 MG TABLET PO (09:22)
[2024-08-15] MEDS: ASPIRIN 81 MG TABLET.DR PO (09:22)
[2024-08-15] MEDS: HYDRALAZINE HCL 50 MG TABLET 100 MG PO (09:22)
[2024-08-15] MEDS: TAMSULOSIN HCL 0.4 MG CAPSULE PO (09:22)
[2024-08-15] MEDS: ISOSORBIDE MONONITRATE 30 MG TAB.ER.24H PO (09:22)
[2024-08-15] MEDS: PROSTAT 15 GM PROTEIN/100 CAL 30 ML LIQUID PACKET PO (09:23)
--- NOTE | 2024-08-15 10:06 | CM.NOTE ---
2nd Important Message From Medicare discussed, pt denies any questions or concerns.
[2024-08-15] MEDS: ACETYLCYSTEINE 400 MG/4 ML VIAL 200 MG IH (10:24)
[2024-08-15] MEDS: IPRATROPIUM/ALBUTEROL SULFATE 3 ML AMPUL.NEB IH (10:25)
[2024-08-15] MEDS: BUDESONIDE 0.5 MG/2 ML AMPULE NEB IH (10:25)
--- NOTE | 2024-08-19 14:29 | CM.DCFOLLOWU ---
1st attempt 08/19/24, no answer
--- NOTE | 2024-08-20 13:44 | CM.DCFOLLOWU ---
Person spoke with:patient How are you feeling?well How is your pain?none Did you understand your discharge instructions?yes Do you have any questions about your discharge instructions?no Were you given any prescriptions at discharge?yes Were you able to get your prescriptions filled?yes Do you understand how to take your medications as ordered?yes Do you have any questions about your follow up appointment and do you plan to keep your follow up appointment? no questions, follow up 08/22/24, Is there anything else that you would like to discuss?no Questions/Comments/Concerns/Other:none
== END 2024-08-15 11:13 | disposition home health service (06) | DRG 871 ==
LOC: ER 19:51 → ICU 20:39
PROVIDERS: Physician Assistant; Admitting Provider Family Medicine; Emergency Provider Emergency Medicine; PCP Nurse Practitioner Family; Visit Provider Family Medicine
DX: A41.1 Sepsis due to other specified staphylococcus (principal); I21.A1 Myocardial infarction type 2; J18.9 Pneumonia, unspecified organism; J96.01 Acute respiratory failure with hypoxia; K29.71 Gastritis, unspecified, with bleeding; K29.01 Acute gastritis with bleeding; N17.9 Acute kidney failure, unspecified; N39.0 Urinary tract infection, site not specified; E87.1 Hypo-osmolality and hyponatremia; D62 Acute posthemorrhagic anemia; J45.21 Mild intermittent asthma with (acute) exacerbation; Z68.41 Body mass index [BMI] 40.0-44.9, adult; R65.20 Severe sepsis without septic shock; E11.22 Type 2 diabetes mellitus with diabetic chronic kidney disease; E66.01 Morbid (severe) obesity due to excess calories; G47.33 Obstructive sleep apnea (adult) (pediatric); I12.9 Hypertensive chronic kidney disease with stage 1 through stage 4 chronic kidney disease, or unspecified chronic kidney disease; J98.6 Disorders of diaphragm; N18.30 Chronic kidney disease, stage 3 unspecified; R53.1 Weakness; R60.0 Localized edema; Z79.82 Long term (current) use of aspirin; Z79.4 Long term (current) use of insulin; Z79.85 Long-term (current) use of injectable non-insulin antidiabetic drugs; Z79.899 Other long term (current) drug therapy
CPT/HCPCS: 36415; 71046; 71250; 76770; 80053; 81001; 82800; 82948; 83605; 83735; 83880; 84436; 84443; 84481; 84484; 85007; 85025; 85027; 85610; 87040; 87070; 87086; 87106; 87150; 87186; 87205; 87420; 87804; 87811; 93005; 93306; 94640; 94667; 94668; 94761; 94799; 96365; 97161; 97162; 97165; 99285; G0328; J1100; J2020; J2543